=== PATIENT | female | born 1955 | race Caucasian/White ===

== ENCOUNTER 2016-08-04 14:57 | Emergency (ER) | payer MEDICARE, OTHER ==
[2016-08-04] MEDS ORDERED: diphenhydrAMINE INJ 50 MG/ML VIAL IVP STA (16:10)
[2016-08-04] MEDS ORDERED: PANTOPRAZOLE 40 MG VIAL IVP STA (16:10)
[2016-08-04] MEDS ORDERED: HALOPERIDOL 5 MG/ML VIAL IVP ONE (16:10)
[2016-08-04] MEDS ORDERED: SODIUM CHLORIDE 0.9% 1,000 ML IV ONE (16:10)
[2016-08-04] MEDS ORDERED: PANTOPRAZOLE 40 MG VIAL ONE (16:32)
[2016-08-04] MEDS ORDERED: diphenhydrAMINE INJ 50 MG/ML VIAL ONE (16:32)
[2016-08-04] MEDS ORDERED: HALOPERIDOL 5 MG/ML VIAL ONE (16:32)
== END 2016-08-04 17:20 | disposition home or self-care (01) ==
DX: R10.13 Epigastric pain (principal); D72.829 Elevated white blood cell count, unspecified; R11.0 Nausea; R07.9 Chest pain, unspecified; R51 Headache; K21.9 Gastro-esophageal reflux disease without esophagitis; E03.9 Hypothyroidism, unspecified; E78.00 Pure hypercholesterolemia, unspecified; G95.0 Syringomyelia and syringobulbia; M35.00 Sjogren syndrome, unspecified

== ENCOUNTER 2017-10-22 07:01 | Emergency (ER) | payer MEDICARE, OTHER ==
[2017-10-22 07:09] VITALS: BP 120/77
--- NOTE | 2017-10-22 07:36 | ED Physician Documentation ---
PD HPI LOWER EXT INJURY - Stated complaint Stated Complaint: R FOOT INJ - Chief complaint Chief Complaint: Ext Problem - History obtained from History obtained from: Patient - History of Present Illness PD HPI LOW EXT INJURY LOCATION: Right, Foot Type of injury: Twist Where injury occurred: Home Timing - onset: Last night Timing - duration: Hours Timing - details: Abrupt onset, Still present Improved by: Rest, Immobilization Worsened by: Moving Associated symptoms: Swelling. No: Weakness, Numbness Contributing factors: No: Anticoagulated Similar symptoms before: Diagnosis (foot fracture) Recently seen: Not recently seen - Additional information Additional information: 62-year-old female who has had a prior foot fracture was walking her heels yesterday when she took her heels off and walked on her bare feet she twisted her foot and has pain over the dorsum of the foot. She twisted the foot and an eversion injury and the pain she has is over the medial dorsal surface. She has had prior extensive surgery to the foot including removal of the prior hardware. Review of Systems Constitutional: denies: Fever Eyes: denies: Decreased vision Ears: denies: Ear pain Nose: denies: Congestion Respiratory: denies: Cough GI: denies: Vomiting PD PAST MEDICAL HISTORY - Past Medical History Cardiovascular: High cholesterol Respiratory: None Endocrine/Autoimmune: HyPOthyroidism GI: GERD - Past Surgical History General: Cholecystectomy, Appendectomy /[employer]: section - Present Medications Home Medications: Ambulatory Orders Medication Instructions Recorded Confirmed Hyoscyamine Sulfate [Levsin-Sl] 0.125 mg SL TID #14 tab.subl 08/04/16 06/21/17 raNITIdine [Zantac] 150 mg PO DAILY #30 tablet 08/04/16 06/21/17 Aripiprazole [Abilify] DAILY 06/21/17 Atorvastatin [Lipitor] DAILY 06/21/17 Benzonatate [Tessalon Perle] 100 mg PO BID PRN #14 capsule 06/21/17 Duloxetine HCl [Cymbalta] DAILY 06/21/17 Erythromycin [George-Tab] 500 mg DAILY 06/21/17 06/21/17 Hydrocodone/Acetaminophen QID PRN 06/21/17 [Hydrocodone-Acetamin 10-325 mg] Levothyroxine [Synthroid] DAILY 06/21/17 Oxycodone HCl [Oxycontin] 20 mg PO BID PRN 06/21/17 06/21/17 Topiramate [Topamax] 30 mg DAILY 06/21/17 06/21/17 - Allergies Allergies/Adverse Reactions: Allergies Allergy/AdvReac Type Severity Reaction Status Date / Time avocado Allergy Anaphylaxis Verified 10/22/17 07:07 mannitol [From Reclast] Allergy Emesis Verified 10/22/17 07:07 Penicillins Allergy Anaphylaxis Verified 10/22/17 07:07 phenytoin sodium * Allergy Anaphylaxis Verified 10/22/17 07:07 [From Dilantin] phenytoin sodium extended * Allergy Anaphylaxis Verified 10/22/17 07:07 [From Dilantin] Tetracyclines Allergy Unknown Verified 10/22/17 07:08 water for injection,sterile * Allergy Emesis Verified 10/22/17 07:07 [From Reclast] zoledronic acid Allergy Emesis Verified 10/22/17 07:07 [From Reclast] cephalexin monohydrate * AdvReac Rash Verified 10/22/17 07:07 [From Keflex] pentazocine lactate * AdvReac Edema Verified 10/22/17 07:07 [From Talwin] Sulfa (Sulfonamide AdvReac Rash Verified 10/22/17 07:07 Antibiotics) casting material Allergy Unknown Uncoded 10/22/17 07:07 - Social History Does the pt smoke?: No Smoking Status: Never smoker Does the pt drink ETOH?: No Does the pt have substance abuse?: No - Immunizations Immunizations are current?: Yes PD ED PE NORMAL - Vitals Vital signs reviewed: Yes (normal ) - General General: Alert and oriented X 3, No acute distress, Well developed/nourished - HEENT HEENT: Atraumatic, PERRL, EOMI - Neck Neck: Supple, no meningeal sign - Respiratory Respiratory: No respiratory distress - Derm Derm: Normal color, Warm and dry, No rash - Extremities Extremities: No deformity, No edema, Other (There is tenderness over the medial dorsal right foot at the junction to the ankle. The distal n/v is intact and the patient can bear weight on the outside of the foot. ) - Neuro Neuro: No motor deficit, No sensory deficit Eye Opening: Spontaneous Motor: Obeys Commands Verbal: Oriented GCS Score: 15 - Psych Psych: Normal mood, Normal affect Results - Vitals Vitals: Vital Signs - 24 hr 10/22/17 07:03 Temperature 36.4 C L Heart Rate 88 Respiratory 18 Rate Blood Pressure 120/77 O2 Saturation 97 Oxygen O2 Source Room air - Rads (name of study) right foot Radiology: Prelim report reviewed (Impression: 1. No fracture or acute osseous abnormality identified. 2. 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 3. Bones are diffusely demineralized.), EMP read indepedently, See rad report Departure - Departure Disposition: 01 Home, Self Care Clinical Impression: Right foot sprain Qualifiers: Encounter type: initial encounter Qualified Code(s): S93.601A - Unspecified sprain of right foot, initial encounter Condition: Stable Instructions: ED Sprain Foot Follow-Up: Ciaran Samaniego MD [Primary Care Provider] -
--- NOTE | 2017-10-22 08:13 | XRAY Report ---
EXAM: RIGHT FOOT RADIOGRAPHY EXAM DATE: 10/22/2017 08:00 AM. CLINICAL HISTORY: Twist of foot. Dorsomedial pain. COMPARISON: None. TECHNIQUE: 3 nonweightbearing views. FINDINGS: Bones: Diffusely demineralized. No fractures or bone lesions. A moderate calcaneal plantar spur is pr esent. Joints: No subluxation. There is mild degenerative osteoarthritis at the first metatarsophalangeal ilda int. Soft Tissues: No focal soft tissue swelling. IMPRESSION: 1. No fracture or acute osseous abnormality identified. 2. Mild degenerative osteoarthritis at the first metatarsophalangeal joint. 3. Bones are diffusely demineralized. [facility] Referring Provider Line: [phone] SITE ID: [id number]
--- NOTE | 2017-10-22 08:13 | XRAY Preliminary Report ---
Exam: XR FOOT 3 VIEW RT IMPRESSION: 1. No fracture or acute osseous abnormality identified. 2. Mild degenerative osteoarthritis at the first metatarsophalangeal joint. 3. Bones are diffusely demineralized. [facility] SITE ID: [id number]
[2017-10-22] MEDS ORDERED: oxyCOD/ACETAMIN 5 MG/325 MG TABLET PO STA (08:56)
== END 2017-10-22 09:13 | disposition home or self-care (01) ==
LOC: ED 07:01
DX: S93.601A Unspecified sprain of right foot, initial encounter (principal); X50.1XXA Overexertion from prolonged static or awkward postures, initial encounter; Y92.009 Unspecified place in unspecified non-institutional (private) residence as the place of occurrence of the external cause; E78.00 Pure hypercholesterolemia, unspecified; E03.9 Hypothyroidism, unspecified; K21.9 Gastro-esophageal reflux disease without esophagitis
CPT/HCPCS: 73630; 99283; A9270

== ENCOUNTER 2017-11-09 15:35 | Outpatient (CLI) | payer MEDICARE, OTHER ==
--- NOTE | 2017-11-10 14:35 | XRAY Report ---
EXAM: RIGHT FOOT RADIOGRAPHY EXAM DATE: 11/09/2017 04:01 PM. CLINICAL HISTORY: Severe pain post twisting injury of right foot. COMPARISON: None. TECHNIQUE: 3 views. FINDINGS: Bones: Calcaneal enthesopathy. No fractures or bone lesions. Joints: Normal. No subluxations. Soft Tissues: Normal. No soft tissue swelling. IMPRESSION: 1. No fracture. No dislocation. 2. Calcaneal enthesopathy. [facility] Referring Provider Line: [phone] SITE ID: [id number]
== END 2017-11-09 15:36 | disposition home or self-care (01) ==
LOC: DI 15:35
PROVIDERS: ATTEND Internal Medicine
DX: M79.671 Pain in right foot (principal); M77.31 Calcaneal spur, right foot; S99.921A Unspecified injury of right foot, initial encounter

== ENCOUNTER 2018-06-05 10:40 | Outpatient (CLI) | payer MEDICARE, OTHER ==
--- NOTE | 2018-06-05 11:52 | XRAY Report ---
Reason: PAIN AT BASE OF THUMBS Procedure Date: 06/05/2018 Accession Number: [id number] / [id number] Procedure: XR - Hand 3 View BILAT CPT Code: FULL RESULT: EXAMS: 1. Right Hand Radiography 2. Left Hand Radiography EXAM DATE: 06/05/2018 11:04 AM. CLINICAL HISTORY: Pain at base of thumbs. COMPARISON: None. TECHNIQUE: 3 views each hand. FINDINGS: Right: Bones: Normal. No fractures or bone lesions. Joints: Mild to moderate degenerative changes at the carpometacarpal base of the first ray. No subluxations. Soft Tissues: Normal. No soft tissue swelling. Left: Bones: Normal. No fractures or bone lesions. Joints: Degenerative changes at the first carpometacarpal joint, mild to moderate. No subluxations. Soft Tissues: Normal. No soft tissue swelling. IMPRESSION: Degenerative changes at the base of the thumb bilaterally. [facility]
== END 2018-06-05 10:41 | disposition home or self-care (01) ==
LOC: DI 10:40
PROVIDERS: ATTEND Internal Medicine
DX: M19.042 Primary osteoarthritis, left hand (principal); M19.041 Primary osteoarthritis, right hand

== ENCOUNTER 2018-12-05 06:59 | Outpatient (CLI) | payer MEDICARE, OTHER ==
[2018-12-05] MEDS ORDERED: GADOBUTROL 10 MMOL/10 ML VIAL ONE (09:00)
[2018-12-05] MEDS ORDERED: GADOBUTROL 10 MMOL/10 ML VIAL IV ONE ×2 (10:31)
--- NOTE | 2018-12-05 11:10 | MRI Report ---
Reason: SYRINGOMYELIA AND SYRINGOBULBIA Procedure Date: 12/05/2018 Accession Number: [id number] / [id number] Procedure: MRI - Cervical Spine W/WO CPT Code: FULL RESULT: EXAM: MRI CERVICAL SPINE WITHOUT AND WITH CONTRAST EXAM DATE: 12/05/2018 07:38 AM. CLINICAL HISTORY: The reason for the examination given on the requisition is "syringomyelia and syringobulbia." Symptoms also reported a worsening mid back pain and bilateral leg pain. COMPARISON: None. TECHNIQUE: Multiplanar, multisequence T1-weighted and fluid-sensitive sequences of the cervical spine before and after administration of intravenous contrast. Other: None. IV contrast: Without and with 9 mL Gadavist. FINDINGS: Neurologic Structures: The visualized posterior fossa structures are unremarkable. No signal abnormality in the visualized spinal cord. Alignment: No scoliosis or spondylolisthesis. Bone Marrow: No gross fractures or bone lesions. Vertebral body heights are maintained. No marrow edema. Interspace Levels/Facets: C1-C2: Unremarkable. C2-C3: Mild foraminal stenosis on the left from uncinate process spurring and mild facet hypertrophy. C3-C4: Minimal disk bulge. No significant stenosis. C4-C5: Mild disk degeneration. Mild to moderate central stenosis from a broad-based posterior disk protrusion with osteophyte that may be eccentric to the left of midline. Ventral thecal sac effacement. Minimal ventral cord contouring to the left of midline may be present. Patent right foramen. Mild to moderate left foraminal stenosis. Asymmetric left intraforaminal disk protrusion with osteophyte is present. C5-C6: Moderate disk degeneration. Mild to moderate central stenosis. Ventral thecal sac effacement from a broad-based posterior disk protrusion with osteophyte that is eccentric to the right of midline and also associated with mild to moderate right lateral recess stenosis. Bilateral foraminal stenosis from uncinate process spurring and mild facet arthropathy, stenosis of the foramina appears mild to moderate. C6-C7: Solid bony intervertebral disk space fusion. No stenosis. C7-T1: Minimal degenerative changes. No disk extrusion or stenosis. Spinal Canal: No enhancing lesions within the spinal canal. No epidural abscess. Musculature: Mild to moderate diffuse fatty atrophy. Other: No focal prevertebral edema. IMPRESSION: 1. Unremarkable appearance of the cervical spinal cord pre- and postcontrast. 2. Solidly fused intervertebral disk space at C6-C7. 3. Degenerative cervical spinal spondylosis with stenosis, as described above, most prominent at C4-C5 and C5-C6 levels. [facility]
--- NOTE | 2018-12-05 11:42 | MRI Report ---
Reason: SYRINGOMYELIA AND SYRINGOBULBIA Procedure Date: 12/05/2018 Accession Number: [id number] / [id number] Procedure: MRI - Thoracic Spine W/WO CPT Code: FULL RESULT: EXAM: MRI THORACIC SPINE WITHOUT AND WITH CONTRAST EXAM DATE: 12/05/2018 08:06 AM. CLINICAL HISTORY: Syringomyelia and syringobulbia. Worsening mid back pain and bilateral leg pain. COMPARISONS: None. TECHNIQUE: Multiplanar, multisequence T1-weighted and fluid-sensitive sequences of the thoracic spine from C7 to L1 before and after administration of intravenous contrast. Other: None. IV contrast: 9 mL Gadavist. FINDINGS: Spinal Cord: Abnormal central cord fluid signal is present consistent with syrinx in the mid to lower thoracic spine. This is seen to extend from the top of T6 to the bottom of T9 with largest diameter at the T7-T8 level of 2 mm. No accompanying abnormal mass or enhancement. No other focal signal or morphologic abnormality of the thoracic cord which terminates without conus impingement at L1. Alignment: No focal subluxation. Minimal S-shaped scoliosis that is levoconvex superiorly and dextroconvex inferiorly. Bone Marrow: Thoracic vertebral body heights are maintained. No acute marrow edema. Mild chronic type II degenerative endplate signal changes at multiple levels anteriorly, most evident at T6 through T10 along with minimal anterior multilevel marginal spurring. No bone marrow edema or abnormal enhancement. Disk Levels/Facets: No thoracic central canal stenosis, cord compression or focal disk herniation. Chronic multilevel hypertrophic degenerative facet arthropathy. This is notable on the right at T3-T4 and T4-T5 and bilaterally at T5-T6 through T10-T11. Posterior element hypertrophic degenerative changes are associated with mild to moderate chronic appearing degenerative foraminal stenosis. This is most notable at T5-T6 through T8-T9. Spinal Canal: No enhancing masses within the spinal canal. No epidural abscess. Musculature: Moderate diffuse fatty atrophy. Other: There is a broad region of dorsal subcutaneous enhancement and T2 hyperintensity/edema. This extends inferiorly from the T10 level into the upper lumbar region. No loculated fluid collection or abscess. IMPRESSION: 1. Small thoracic cord syrinx without evidence for cord abnormal enhancement, mass or edema. This extends from T6 through T9. 2. No central stenosis. 3. Multilevel chronic appearing degenerative foraminal stenosis from multilevel hypertrophic degenerative facet arthropathy. 4. Nonspecific superficial soft tissue edema posteriorly extending inferiorly from about the T10 level. Soft tissue infection cannot be ruled out, clinical correlation is suggested. There is no evidence for abscess. [facility]
--- NOTE | 2018-12-05 12:07 | MRI Report ---
Reason: SYRINGOMYELIA AND SYRINGOBULBIA Procedure Date: 12/05/2018 Accession Number: [id number] / [id number] Procedure: MRI - Lumbar Spine W/WO CPT Code: FULL RESULT: EXAM: MRI LUMBAR SPINE WITHOUT AND WITH CONTRAST EXAM DATE: 12/05/2018 08:40 AM. CLINICAL HISTORY: Syringomyelia and syringobulbia. Report also of worsening mid back pain and bilateral leg pain. COMPARISONS: None. TECHNIQUE: Multiplanar, multisequence T1-weighted and fluid-sensitive sequences of the lumbar spine from T12 to S1 before and after administration of intravenous contrast. Other: None. IV contrast: 9 mL Gadavist. FINDINGS: Neurologic Structures: The conus terminates at L1. The conus medullaris and cauda equina are unremarkable. Alignment: No scoliosis or spondylolisthesis. Bone Marrow: Five [id number] lumbar vertebral bodies are assumed. No gross fractures or bone lesions. No bone marrow replacement or abnormal enhancement. Disk Levels/Facets: T12-L1: Minimal posterior disk bulge. Slight anterior marginal spurring. Mild facet arthropathy. No stenosis. L1-L2: Intact disk space. No disk herniation or stenosis. Mild facet arthropathy. L2-L3: Slight anterior marginal spurring. Otherwise intact disk space. No disk herniation or stenosis. Mild facet arthropathy. L3-L4: Minimal to mild disk degeneration. Mild facet arthropathy. Shallow circumferential bulge. Minimal anterior marginal spurring. No focal disk extrusion or significant stenosis. L4-L5: Minimal disk degeneration. No focal extrusion. Minimal asymmetric left intraforaminal bulge. No significant stenosis. Negligible anterior marginal spurring. Mild to moderate facet arthropathy. L5-S1: Normal-appearing disk space. No disk herniation or stenosis. Mild facet arthropathy. Spinal Canal: No enhancing masses within the spinal canal. No epidural abscess. Musculature: Mild to moderate diffuse fatty atrophy. Other: Amorphous dorsal subcutaneous T2 hyperintensity with mild enhancement, especially superiorly. These are nonspecific changes. T2 hyperintensity near the midline in the dorsal subcutaneous fat is a common finding that is often incidental. Infection is less likely. No loculated fluid collection or abscess. IMPRESSION: 1. Mild multilevel lumbar degenerative changes are present, but there is no evidence for significant stenosis or nerve root impingement. 2. Nonspecific dorsal subcutaneous lumbar and lower thoracic region edema with mild enhancement. Comment: The following findings are so common in adults without low back pain that while we report their presence, they must be interpreted with caution and in the context of the clinical situation. (Reference Brynnk et al, Spine 2001) Prevalence of findings in patients without low back pain: Disk degeneration (any evidence): 92% Disk desiccation/T2 signal loss: 83% Disk height loss: 56% Disk bulge: 64% Disk protrusion: 32% Annular tear/high intensity zone: 38% [facility]
--- NOTE | 2018-12-05 14:00 | DEXA Report ---
Reason: AGE-RELATED OSTEOPOROSIS Procedure Date: 12/05/2018 Accession Number: [id number] / [id number] Procedure: DEX - Dexa Spine and/or Hip CPT Code: FULL RESULT: EXAM: Dexa Spine and/or Hip DATE: 12/05/2018 9:55 AM CLINICAL HISTORY: AGE-RELATED OSTEOPOROSIS TECHNIQUE: Dual energy x-ray absorptiometry (DXA) was performed on a [employer] System. Regions measured are the AP Spine, femoral neck, and if needed forearm. COMPARISON: None. In accordance with the International Society for Clinical Densitometry (ISCD) guidelines, data from previous exams may be reanalyzed using current recommendations and techniques. This is done to allow a more accurate basis for comparison with the current study. FINDINGS: The data for the lumbar spine is as follows: BMD (g/cm/cm) T-SCORE Z-SCORE REGION L1 1.006 -1.0 -0.9 L2 1.111 -0.7 -0.6 L3 1.068 -1.1 -0.9 L4 1.065 -1.1 -1.0 TOTAL 1.063 -1.0 -0.8 NOTE: All evaluable vertebrae are used for classification The data for the hip is as follows: BMD (g/cm/cm) T-SCORE Z-SCORE REGION Neck 0.730 -2.2 -1.7 TOTAL 0.824 -1.5 -1.3 NOTE: The femoral neck or total proximal femur, whichever is lowest, is used for classification. IMPRESSION: THE WHO CLASSIFICATION BASED ON THE INTERNATIONAL REFERENCE STANDARD IS OSTEOPENIA. THE FRACTURE RISK IS INCREASED. RECOMMENDATION: Patients with diagnosis of osteoporosis or osteopenia should have regular bone mineral density assessment. For those eligible for Medicare, routine testing is allowed once every 2 years. Testing frequency can be increased for patients who have rapidly progressing disease or for those who are receiving medical therapy to restore bone mass. COMMENT: World Health Organization (WHO) definitions for osteoporosis and osteopenia: NORMAL BMD: T-score at -1.0 or higher, fracture risk is low OSTEOPENIA BMD: T-score between -1.0 and -2.5, fracture risk is increased. OSTEOPOROSIS BMD: T-score at -2.5 or lower, fracture risk is high. National Osteoporosis Foundation recommends: 1. Obtain adequate dietary calcium (at least 1200 mg per day) and vitamin D (400-800 international units per day). 2. Participate, as appropriate, in regular weightbearing and muscle-strengthening exercise. 3. Avoid tobacco use and reduce alcohol and caffeine intake. 4. For more detailed information see the website at www.NOF.org.
== END 2018-12-05 07:00 | disposition home or self-care (01) ==
LOC: DI 06:59
PROVIDERS: ATTEND Internal Medicine
DX: M85.89 Other specified disorders of bone density and structure, multiple sites (principal); G95.0 Syringomyelia and syringobulbia; M47.812 Spondylosis without myelopathy or radiculopathy, cervical region; M48.02 Spinal stenosis, cervical region; M51.36 Other intervertebral disc degeneration, lumbar region
CPT/HCPCS: 72156; 72157; 72158; 77080; A9585

== ENCOUNTER 2019-11-16 22:13 | Emergency (ER) | payer MEDICARE, OTHER ==
--- NOTE | 2019-11-16 22:31 | ED Physician Documentation ---
History of Present Illness - Stated complaint Stated Complaint: L LEG PX - Chief complaint Chief Complaint: Ext Problem - History obtained from History obtained from: Patient (Patient is a 64-year-old female presents with a chief complaint of left knee pain. She denies any trauma or recent falls or any history of DVT or PE she reports she is able to ambulate she denies any lower extremity swelling denies any fevers. Denies any back pain.) Review of Systems Constitutional: reports: Reviewed and negative Eyes: reports: Reviewed and negative Ears: reports: Reviewed and negative Nose: reports: Reviewed and negative Throat: reports: Reviewed and negative Cardiac: reports: Reviewed and negative Respiratory: reports: Reviewed and negative GI: reports: Reviewed and negative : reports: Reviewed and negative Skin: reports: Reviewed and negative Musculoskeletal: reports: Joint pain Neurologic: reports: Reviewed and negative Psychiatric: reports: Reviewed and negative Endocrine: reports: Reviewed and negative Immunocompromised: reports: Reviewed and negative PD PAST MEDICAL HISTORY - Past Medical History Cardiovascular: High cholesterol Respiratory: None Endocrine/Autoimmune: HyPOthyroidism GI: GERD - Past Surgical History General: Cholecystectomy, Appendectomy /[employer]: section - Present Medications Home Medications: Ambulatory Orders Medication Instructions Recorded Confirmed Hyoscyamine Sulfate [Levsin-Sl] 0.125 mg SL TID #14 tab.subl 08/04/16 06/21/17 raNITIdine [Zantac] 150 mg PO DAILY #30 tablet 08/04/16 06/21/17 Aripiprazole [Abilify] DAILY 06/21/17 Atorvastatin [Lipitor] DAILY 06/21/17 Benzonatate [Tessalon Perle] 100 mg PO BID PRN #14 capsule 06/21/17 Duloxetine HCl [Cymbalta] DAILY 06/21/17 Erythromycin [George-Tab] 500 mg DAILY 06/21/17 06/21/17 Hydrocodone/Acetaminophen QID PRN 06/21/17 [Hydrocodone-Acetamin 10-325 mg] Levothyroxine [Synthroid] DAILY 06/21/17 Oxycodone HCl [Oxycontin] 20 mg PO BID PRN 06/21/17 06/21/17 Topiramate [Topamax] 30 mg DAILY 06/21/17 06/21/17 - Allergies Allergies/Adverse Reactions: Allergies Allergy/AdvReac Type Severity Reaction Status Date / Time avocado Allergy Anaphylaxis Verified 11/16/19 22:23 mannitol [From Reclast] Allergy Emesis Verified 11/16/19 22:23 Penicillins Allergy Anaphylaxis Verified 11/16/19 22:23 phenytoin sodium * Allergy Anaphylaxis Verified 11/16/19 22:23 [From Dilantin] phenytoin sodium extended * Allergy Anaphylaxis Verified 11/16/19 22:23 [From Dilantin] Tetracyclines Allergy Unknown Verified 11/16/19 22:23 water for injection,sterile * Allergy Emesis Verified 11/16/19 22:23 [From Reclast] zoledronic acid Allergy Emesis Verified 11/16/19 22:23 [From Reclast] cephalexin monohydrate * AdvReac Rash Verified 11/16/19 22:23 [From Keflex] pentazocine lactate * AdvReac Edema Verified 11/16/19 22:23 [From Talwin] Sulfa (Sulfonamide AdvReac Rash Verified 11/16/19 22:23 Antibiotics) casting material Allergy Unknown Uncoded 11/16/19 22:23 - Social History Does the pt smoke?: No Smoking Status: Never smoker Does the pt drink ETOH?: No Does the pt have substance abuse?: No - Immunizations Immunizations are current?: Yes - POLST Patient has POLST: No PD ED PE NORMAL - Vitals Vital signs reviewed: Yes - General General: Alert and oriented X 3, No acute distress - HEENT HEENT: PERRL - Neck Neck: Supple, no meningeal sign - Cardiac Cardiac: RRR, No murmur - Respiratory Respiratory: Clear bilaterally - Abdomen Abdomen: Normal bowel sounds, Soft, Non tender, Non distended - Derm Derm: Warm and dry - Extremities Extremities: No deformity, Normal ROM s pain, No edema, No calf tenderness / cord, Other (The left knee is without gross deformity there is no gross ins tability on anterior posterior draw there is no ballottement or obvious effusions there is no erythema or warmth no crepitus patient is able to bear weight on passive range of motion there is full range of motion on flexion extension of the left knee joint there is negative Cr's negative Olga's.Compartments are soft, neurovascular intact palpable DP and PT pulses.) - Neuro Neuro: Alert and oriented X 3 - Psych Psych: Normal mood, Normal affect Results - Vitals Vitals: Vital Signs - 24 hr 11/16/19 11/17/19 22:18 00:52 Temperature 36.0 C L Heart Rate 90 76 Respiratory 18 18 Rate Blood Pressure 122/81 H 120/65 O2 Saturation 97 98 Oxygen O2 Source Room air PD MEDICAL DECISION MAKING - ED course Complexity details: considered differential (Unsure of the etiology of her knee pain we did get plain radiographs as well as a Doppler extremity ultrasound which was negative for deep vein thrombosis and images are negative for fracture dislocation she is able to ambulate she has good follow-up with her primary care provider tomorrow and she has pain medication at home.) Departure - Departure Disposition: Home, Self Care Clinical Impression: Left knee pain Qualifiers: Chronicity: acute Qualified Code(s): M25.562 - Pain in left knee Condition: Stable Instructions: ED Muscle Pain Leg Cramps Follow-Up: Ciaran Samaniego MD [Primary Care Provider] - 11/17/19 Comments: Follow-up with your primary care provider today. Discharge Date/Time: 11/17/19 00:52
[2019-11-17 00:52] VITALS: BP 120/65
--- NOTE | 2019-11-17 08:08 | XRAY Report ---
Reason: left knee pain Procedure Date: 11/16/2019 Accession Number: [id number] / [id number] Procedure: XR - Knee 3 View LT CPT Code: Final Report FULL RESULT: PROCEDURE: Knee 3 View LT INDICATIONS: left knee pain TECHNIQUE: 3 views of the left knee(s) were acquired. COMPARISON: None. FINDINGS: Bones: No fractures or dislocations. Proximal fibular deformity suggestive of old fracture. No suspicious bony lesions. Mild medial compartment degenerative narrowing. Soft tissues: No joint effusion. No suspicious soft tissue calcifications. IMPRESSION: No visualized acute fracture or dislocation. However, occult injury cannot be excluded. Recommend short interval imaging follow-up in 7-10 days as clinically indicated for additional evaluation. The above findings are concordant with preliminary report. Reviewed by: Rosa Colorado MD on 11/17/2019 8:06 AM PDT Approved by: Rosa Colorado MD on 11/17/2019 8:06 AM PDT Station ID: [id number]
--- NOTE | 2019-11-17 08:09 | Ultrasound Report ---
Reason: left calf pain and swelling Procedure Date: 11/17/2019 Accession Number: [id number] / [id number] Procedure: US - Duplex Ext Veins Left CPT Code: Final Report FULL RESULT: PROCEDURE: Duplex Ext Veins Left INDICATIONS: left calf pain and swelling TECHNIQUE: Real-time imaging, as well as color and pulse Doppler interrogation, were performed of the lower extremity deep veins from the inguinal ligament to the popliteal fossa. COMPARISON: None. FINDINGS: The deep veins are normally compressible, and free of intraluminal thrombus. Color and pulse Doppler demonstrate normal phasic intraluminal flow. There is normal augmentation response to distal compression maneuver. IMPRESSION: No deep venous thrombosis. The above findings are concordant with preliminary report. Reviewed by: Rosa Colorado MD on 11/17/2019 8:07 AM PDT Approved by: Rosa Colorado MD on 11/17/2019 8:07 AM PDT Station ID: [id number]
== END 2019-11-17 00:52 | disposition home or self-care (01) ==
LOC: ED 22:13
DX: M25.562 Pain in left knee (principal)
CPT/HCPCS: 99282; 99284

== ENCOUNTER 2020-02-26 19:46 | Outpatient (CLI) | payer MEDICARE, OTHER | END 2020-02-26 19:47 | disposition home or self-care (01) | LOC: SC 19:46 | PROVIDERS: ATTEND Internal Medicine Pulmonary Disease | DX: G47.33 Obstructive sleep apnea (adult) (pediatric) (principal); E66.9 Obesity, unspecified; Z68.41 Body mass index [BMI] 40.0-44.9, adult | CPT/HCPCS: 95810 ==

== ENCOUNTER 2020-03-02 09:51 | Outpatient (CLI) | payer MEDICARE, OTHER ==
--- NOTE | 2020-03-02 10:52 | SLEEP CARE CONSULTATION ---
Information from patient questionnaire entered by Natalia Payan. I have reviewed and concur with the information entered by Natalia Payan. This document represents the service I personally performed and the decisions made by me, Sunshine Sam MD, [facility]. History of Present Illness Service Date and Time: 03/02/2020 0951 Initial [place] Sleepiness Scale score: 18 (in 2019) Current [place] Sleepiness Scale score: 19 Additional HPI information: HPI: Ms. Kessler was returns for follow up of the sleep study she had on 02/26/2020. The polysomnography showed that the patient had normal sleep efficiency. Despite moderate sleep fragmentation, the sleep architecture was normal as well. Respiratory monitoring showed moderate obstructive sleep apnea-hypopnea (AHI = 26.7) associated with frequent arousals, oxyhemoglobin desaturation and moderate hypoxia (cielo oxygen saturation of 72%). Baseline oxygen saturation was normal. The respiratory events occurred mainly during supine sleep (supine AHI = 35.3; non-supine = 14.09). Snore was light in intensity. There was no significant periodic leg movement of sleep. Cardiac rhythm was normal sinus rhythm without significant arrhythmia. No abnormal behavior (parasomnia) observed during the night. The patient was informed of these findings. I explained to her the pathophysiology behind obstructive sleep apnea. We then spent quite a bit of time discussing different treatment options. For mild obstructive sleep apnea, surgery and oral appliance are alternatives to nasal CPAP therapy but in moderate or severe cases, nasal CPAP is the most effective and reliable treatment. After some discussion, she opted to go with the nasal CPAP therapy. I explained to her how CPAP machine works and what to expect when using the machine. Sleep Study - Results Type of Sleep Study: Polysomnography Prior sleep studies: Yes Year and Where: 1998 - [facility] in [place], [place] Allergies and Home Medications Drug allergies reviewed: Yes Home medication list reviewed: Yes Review of Systems Review of systems same as previous: Yes Physical Exam Vital signs obtained and entered by: To minimize the risk of COVID-19 exposure, detailed exam was not performed. Height: 5 ft Weight: 220 lb Body Mass Index: 43.0 BMI Classification: Morbidly Obese Impression and Plan IMPRESSION: 1. Obstructive Sleep Apnea-Hypopnea Syndrome, moderate, associated with moderate hypoxemia and sleep fragmentation. Most likely, this is the cause of the patients symptoms of unrefreshed sleep, and excessive daytime sleepiness. As mentioned above, the patient will be return for a manual CPAP/BiPAP titration study. PLAN: 1. Schedule a manual CPAP/BiPAP titration study. 2. Attempt to lose weight. 3. Return for a follow up after the next sleep study. I will prescribe her a CPAP at that time. Visit Type: In Office Time Spent with Patient (minutes): 15 Provider Statement: I spent 100% of the Face to Face Visit with the patient with greater than 50% spent counseling the patient and coordination of care.
== END 2020-03-02 09:52 | disposition home or self-care (01) ==
LOC: SC 09:51
PROVIDERS: ATTEND Internal Medicine Pulmonary Disease
DX: G47.33 Obstructive sleep apnea (adult) (pediatric) (principal); E66.01 Morbid (severe) obesity due to excess calories; Z68.41 Body mass index [BMI] 40.0-44.9, adult
CPT/HCPCS: 99213; G0463; 99212

== ENCOUNTER 2020-04-02 21:26 | Outpatient (CLI) | payer MEDICARE, OTHER | END 2020-04-02 21:27 | disposition home or self-care (01) | LOC: SC 21:26 | PROVIDERS: ATTEND Internal Medicine Pulmonary Disease | DX: G47.33 Obstructive sleep apnea (adult) (pediatric) (principal); G47.61 Periodic limb movement disorder; Z68.41 Body mass index [BMI] 40.0-44.9, adult | CPT/HCPCS: 95811 ==

== ENCOUNTER 2020-04-08 17:17 | Outpatient (CLI) | payer MEDICARE, OTHER ==
--- NOTE | 2020-04-08 16:57 | SLEEP CARE CONSULTATION ---
Information from patient questionnaire entered by Marci Chapa. I have reviewed and concur with the information entered by Marci Chapa. This document represents the service I personally performed and the decisions made by , Maye Rey ARNP. History of Present Illness Service Date and Time: 04/08/2020 1640 Initial [place] Sleepiness Scale score: 18 (in 2020) Current [place] Sleepiness Scale score: 16 Additional HPI information: GURDEEP CAZARES returns for a Telehealth visit for follow up of the sleep study with a manual CPAP titration study performed on 04-02-20. The patient was informed of the following polysomnography findings: Moderate obstructive sleep apnea with an average AHI 26.7. During the study they found that the optimal CPAP pressure is 12 cm H2O. Sleep Study - Results Type of Sleep Study: Polysomnography Prior sleep studies: Yes Year and Where: 1998 - [facility] in [place], [place] Polysomnography/Home Sleep Study results: IMPRESSION: The quality of the study is good. CPAP was initiated at 4 cmH2O and titrated up to CPAP at 13 cmH2O. CPAP at 12 cmH2O appeared to be almost adequate (AHI of 5.4 per hour on the pressure). There was supine REM sleep on the pressure. Oxygen saturation was minimally low. Lower CPAP settings allowed frequent residual respiratory events. The patient appeared to have tolerated positive airway pressure therapy very well. The patients sleep efficiency was normal. The sleep architecture was abnormal for sleep fragmentation and reduced amount of time spent in slow wave sleep (N3). There was mild periodic leg movement of sleep contributing to the sleep fragmentation. Cardiac rhythm was normal sinus rhythm without significant arrhythmia. No abnormal behavior (parasomnia) observed during the night. Allergies and Home Medications Drug allergies reviewed: Yes (see list) Physical Exam Vital signs obtained and entered by: Telehealth visit, no vitals obtained Height: 5 ft Impression and Plan 1. Obstructive Sleep Apnea-Hypopnea Syndrome, moderate. Obviously this is the cause of the patients symptoms of unrefreshed sleep, and excessive daytime sleepiness. His titration study showed that 12 cm H2O or range of 10-15 cm H2O would be adequate for apnea control. Positive pressure therapy could benefit her asthma, anxiety and depression issues. The patient will be started on nasal autoCPAP therapy with pressure set at 10-15 cmH2O. Compliance guidelines also reviewed. A copy of compliance guidelines will be given for reference at check out. Because the apnea is more severe supine, I instructed to avoid sleeping supine using pillow positioning until able to start CPAP use. * Nasal auto CPAP therapy, pressure at 10-15 cm H2O. * Attempt to lose weight. * Avoid alcohol consumption near bedtime. * Avoid supine sleep until using CPAP. * The patient is again cautioned about driving until sleepiness completely resolves. * Return one month after CPAP obtained. I will assess response to therapy and compliance at that time. Counseling Topics: Weight loss health impact Visit Type: Telehealth Video Video Type: Harriet Patient Location: Home Location of Provider: Home Patient agrees and consents to this telehealth visit type: Yes Patient agrees to have their insurance billed: Yes Time Spent with Patient (minutes): 15 Provider Statement: I spent 100% of the Telehealth Video Call with the patient with greater than 50% spent counseling the patient and coordination of care.
== END 2020-04-08 17:18 | disposition home or self-care (01) ==
LOC: SC 17:17
PROVIDERS: ATTEND Nurse Practitioner Family
DX: G47.33 Obstructive sleep apnea (adult) (pediatric) (principal)

== ENCOUNTER 2020-07-12 07:00 | Outpatient (CLI) | payer MEDICARE, OTHER | END 2020-07-12 23:59 | disposition home or self-care (01) | LOC: COV 07:00 | PROVIDERS: ATTEND Family Medicine | DX: R50.9 Fever, unspecified (principal); R05 Cough; R06.02 Shortness of breath; M79.10 Myalgia, unspecified site; R53.83 Other fatigue; R07.0 Pain in throat; R43.9 Unspecified disturbances of smell and taste; R09.81 Nasal congestion; J34.89 Other specified disorders of nose and nasal sinuses; Z20.822 Contact with and (suspected) exposure to COVID-19 ==

== ENCOUNTER 2020-07-19 11:10 | Outpatient (CLI) | payer MEDICARE, OTHER ==
--- NOTE | 2020-07-19 12:09 | SLEEP CARE CONSULTATION ---
Information from patient questionnaire entered by Natalia Payan. I have reviewed and concur with the information entered by Natalia Payan. This document represents the service I personally performed and the decisions made by me, Sunshine Sam MD, [facility]. History of Present Illness Service Date and Time: 07/19/2020 1110 Previous diagnosis: Moderate, Obstructive Sleep Apnea-Hypopnea Syndrome AHI: 26.7 (in 2019) Reason for follow up: first compliance Equipment type: CPAP Equipment obtained from: Other ([facility]) Prior sleep studies: Yes Year and Where: 2019 - [facility]; 1998 - [facility] in [place], [place] Type of Sleep Study: Polysomnography HPI additional information: HPI: Ms. Kessler returned today for follow up of nasal CPAP therapy. She was diagnosed to have moderate obstructive sleep apnea-hypopnea syndrome. The patient went to [facility] for the equipment and was fitted with a Respironics DreamWear full face mask. She reports using the device almost nightly but all through the night. The compliance report shows usage in 40 nights out of the past 60 nights, averaging 3.4 hours a night. She complained of nose burning. She thinks that the pressure of 10 - 15 cmH2O is comfortable. On the CPAP therapy she has not noticed improvement. The [place] Sleepiness Scale score 10. The average residual AHI is 10.1 (mostly unspecified apnea type): and air leak, 56.9 L/min. The 90th percentile pressure is 10.8 cmH2O. CPAP Compliance Data - Data Reviewed with Patient Average duration of nightly device use: 3 hr 15 min Compliance rate %: 30 Current pressure setting (cmH2O): 10-15 Humidity settin Average residual AHI: 11.0 Subjective Missed days of use due to: reports: illness Patient concerns: reports: mask discomfort, nasal congestion, dry mouth, nose, throat Initial [place] Sleepiness Scale score: 18 (in 2019) Current [place] Sleepiness Scale score: 10 Allergies and Home Medications Drug allergies reviewed: Yes Home medication list reviewed: Yes Review of Systems Review of systems same as previous: Yes Physical Exam Vital signs obtained and entered by: To minimize the risk of COVID-19 exposure, detailed exam was not performed; Height: 5 ft Weight: 220 lb Body Mass Index: 43.0 BMI Classification: Morbidly Obese Impression and Plan IMPRESSION: 1. Obstructive Sleep Apnea-Hypopnea Syndrome, moderate, with the patient continuing to have [id number] compliance due to mask not fitting well and nose dryness. She does not know that she can adjust the heated humidifier setting. She said the [employer] supplier told her to not touch anything. The current pressure appears effective and comfortable. The patient will try to use her CPAP more often. We reviewed the Medicare compliance guidelines again. PLAN: 1. Continue with autoCPAP set at 10 - 15 cmH2O. 2. Try to lose weight 3. Try ResMed AirTouch F-20 full face mask. Prescription made. 4. Return in one month to recheck compliance (has until August 15 before having to return the CPAP). Visit Type: In Office Time Spent with Patient (minutes): 15 Provider Statement: I spent 100% of the Face to Face Visit with the patient with greater than 50% spent counseling the patient and coordination of care.
== END 2020-07-19 11:11 | disposition home or self-care (01) ==
LOC: SC 11:10
PROVIDERS: ATTEND Internal Medicine Pulmonary Disease
DX: G47.33 Obstructive sleep apnea (adult) (pediatric) (principal); E66.01 Morbid (severe) obesity due to excess calories; Z68.41 Body mass index [BMI] 40.0-44.9, adult
CPT/HCPCS: 99212; G0463

== ENCOUNTER 2020-08-09 10:29 | Outpatient (CLI) | payer MEDICARE, OTHER ==
--- NOTE | 2020-08-09 12:34 | SLEEP CARE CONSULTATION ---
Information from patient questionnaire entered by Loli Nichole. I have reviewed and concur with the information entered by Loli Nichole. This document represents the service I personally performed and the decisions made by me, Sunshine aSm MD, [facility]. History of Present Illness Service Date and Time: 08/09/2020 1029 Previous diagnosis: Moderate, Obstructive Sleep Apnea-Hypopnea Syndrome AHI: 26.7 Reason for follow up: one month (1-month followup - last chance at compliance) Equipment type: CPAP Equipment obtained from: Other ([facility]) Prior sleep studies: Yes Year and Where: 2019 - [facility]; 1998 - [facility] in [place], [place] Type of Sleep Study: Polysomnography HPI additional information: HPI: Ms. Kessler was diagnosed to have moderate obstructive sleep apnea-hypopnea syndrome and prescribed with a CPAP device. She returned today for follow up of CPAP therapy. The patient purchased the device from [employer] and was fitted with a Respironics DreamWear full face mask. She uses the device almost nightly but not all the night. The compliance data show usage in 28 out of the past 30 nights, averaging 4.3 hours a night. The residual The > 4 hour compliance rate for the past 30 days is 57%. She complains of no particular problem such as dry throat, facial soreness, aerophagia, sinus pain, or nasal congestion. She thinks that the current pressure of 10 - 15 cmH2O seems alright. The residual AHI is 10.2. Average air leak is 81.9. CPAP Compliance Data - Data Reviewed with Patient Average duration of nightly device use: 4 h 26 min Compliance rate %: 60 Current pressure setting (cmH2O): 10-15 Average residual AHI: 10.0 Subjective Missed days of use due to: reports: illness Initial [place] Sleepiness Scale score: 18 (in 2019) Current [place] Sleepiness Scale score: 18 Allergies and Home Medications Drug allergies reviewed: Yes Home medication list reviewed: Yes Review of Systems Review of systems same as previous: Yes Physical Exam Height: 5 ft Weight: 220 lb Body Mass Index: 43.0 BMI Classification: Morbidly Obese Impression and Plan IMPRESSION: 1. Obstructive Sleep Apnea-Hypopnea Syndrome, moderate (AHI was 26.7), with the patient did not make the compliance requirement. However, she still has 6 more days left and if she can use the device longer than 4 hours on those days, then she could become compliant. The large air leak is puzzling. She reports no leak around the mask. I asked her to bring in her equipment on her next visit to see if there is a leak somewhere in the system. PLAN: 1. Use CPAP at least 4 hours a night the next 6 days. 2. Return for a follow up next week with her machine, hose, and mask Visit Type: In Office Time Spent with Patient (minutes): 15 Provider Statement: I spent 100% of the Face to Face Visit with the patient with greater than 50% spent counseling the patient and coordination of care.
== END 2020-08-09 10:30 | disposition home or self-care (01) ==
LOC: SC 10:29
PROVIDERS: ATTEND Internal Medicine Pulmonary Disease
DX: G47.33 Obstructive sleep apnea (adult) (pediatric) (principal); E66.01 Morbid (severe) obesity due to excess calories; Z68.41 Body mass index [BMI] 40.0-44.9, adult
CPT/HCPCS: 99212; G0463

== ENCOUNTER 2020-08-10 10:29 | Outpatient (CLI) | payer MEDICARE, OTHER ==
--- NOTE | 2020-08-10 15:30 | XRAY Report ---
PROCEDURE: Shoulder 3 View RT INDICATIONS: foosh, pain in posterior shoulder TECHNIQUE: 3 views of the shoulder were acquired. COMPARISON: None. FINDINGS: Bones: No acute or subacute fractures or dislocations. Degenerative changes of the right acromioclav icular joint. No suspicious bony lesions. Visualized ribs appear intact. Soft tissues: No suspicious soft tissue calcifications. IMPRESSION: Degenerative changes of the right acromioclavicular joint. Otherwise, no acute/subacute fractures or dislocations visualized in the right shoulder. Reviewed by: Juno Rose MD on 08/10/2020 3:29 PM PST Approved by: Juno Rose MD on 08/10/2020 3:29 PM PST Station ID: [id number]
== END 2020-08-10 10:30 | disposition home or self-care (01) ==
LOC: DI 10:29
PROVIDERS: ATTEND Internal Medicine
DX: M19.011 Primary osteoarthritis, right shoulder (principal)

== ENCOUNTER 2020-08-16 08:53 | Outpatient (CLI) | payer MEDICARE, OTHER ==
--- NOTE | 2020-08-16 09:40 | SLEEP CARE CONSULTATION ---
Information from patient questionnaire entered by Natalia Payan. I have reviewed and concur with the information entered by Natalia Payan. This document represents the service I personally performed and the decisions made by me, Sunshine Sam MD, [facility]. History of Present Illness Service Date and Time: 08/16/2020 0853 Previous diagnosis: Moderate, Obstructive Sleep Apnea-Hypopnea Syndrome AHI: 26.7 Reason for follow up: other (3 week, last chance for compliance) Equipment type: CPAP Equipment obtained from: Other ([facility]) Mask style: Full face Mask brand: Respironics (Dreamwear) Prior sleep studies: Yes Year and Where: 2019 - [facility]; 1998 - [facility] in [place], [place] Type of Sleep Study: Polysomnography HPI additional information: HPI: Ms. Kessler was diagnosed to have moderate obstructive sleep apnea-hypopnea syndrome and prescribed with a CPAP device. She returned today for follow up of CPAP therapy for the final compliance check. The patient purchased the device from [employer] and was fitted with a Respironics DreamWear full face mask. She uses the device almost nightly but not all the night. The compliance data show usage in 30 out of the past 30 nights, averaging 4.6 hours a night. The residual The > 4 hour compliance rate for the past 30 days is 67%. She complains of no particular problem such as dry throat, facial soreness, aerophagia, sinus pain, or nasal congestion. She thinks that the current pressure of 10 - 15 cmH2 O seems alright. The residual AHI is 8.5. Average air leak is 86 L/minute. She would like to stay on the treatment because she feels better on it.. CPAP Compliance Data - Data Reviewed with Patient Average duration of nightly device use: 4 hr 33 min Compliance rate %: 67 Current pressure setting (cmH2O): 10-15 Humidity settin Average residual AHI: 8.5 Subjective Missed days of use due to: reports: family emergency, mask issues Patient concerns: reports: dry mouth, nose, throat, other (nose discomfort) Initial [place] Sleepiness Scale score: 18 (in 2019) Current [place] Sleepiness Scale score: 18 Allergies and Home Medications Drug allergies reviewed: Yes Home medication list reviewed: Yes Review of Systems Review of systems same as previous: Yes Physical Exam Height: 5 ft Weight: 220 lb Body Mass Index: 43.0 BMI Classification: Morbidly Obese Impression and Plan IMPRESSION: 1. Obstructive Sleep Apnea-Hypopnea Syndrome, moderate (AHI was 26.7), with the patient still could not make the compliance requirement. Apparently, the durable medical supplier made her confused by telling her that she had 8 hours left to use to meet compliance, and the patient thought the she can get that over the last 3 days. I explained to her again that it has to be at least 4 hours a day. PLAN: 1. Requalify the patient for the treatment with a home sleep apnea test (HSAT). 2. Return for a follow up after the test and I will reorder her a machine. Visit Type: In Office Time Spent with Patient (minutes): 15 Provider Statement: I spent 100% of the Face to Face Visit with the patient with greater than 50% spent counseling the patient and coordination of care.
== END 2020-08-16 08:54 | disposition home or self-care (01) ==
LOC: SC 08:53
PROVIDERS: ATTEND Internal Medicine Pulmonary Disease
DX: G47.33 Obstructive sleep apnea (adult) (pediatric) (principal); E66.01 Morbid (severe) obesity due to excess calories; Z68.41 Body mass index [BMI] 40.0-44.9, adult
CPT/HCPCS: 99212; G0463

== ENCOUNTER 2020-08-30 15:39 | Outpatient (CLI) | payer MEDICARE, OTHER ==
--- NOTE | 2020-08-30 15:57 | XRAY Report ---
PROCEDURE: Lumbar Spine 2 View INDICATIONS: SCIATICA TECHNIQUE: 3 views of the lumbar spine were acquired. COMPARISON: None. FINDINGS: Bones: 5 [id number]-[id number] vertebrae are present. There is mild diffuse leftward curvature of the mid /lower lumbar spine and otherwise normal alignment. Multilevel disc space narrowing and endplate oste ophyte formation. Facet hypertrophy throughout the mid and lower lumbar spine. No vertebral body comp ression fractures. No suspicious bony lesions. Soft tissues: Overlying bowel gas pattern is normal. No suspicious soft tissue calcifications. IMPRESSION: Multilevel degenerative disc and facet disease. No acute fracture. No osseous lesion. If symptoms and/or clinical suspicion for pathology continue, further assessment with repeat plain film s, or advanced imaging (e.g., CT, MRI, or bone scan) is recommended for further assessment. Reviewed by: Anya Little MD on 08/30/2020 3:56 PM PDT Approved by: Anya Little MD on 08/30/2020 3:56 PM PDT Station ID: [id number]
== END 2020-08-30 15:40 | disposition home or self-care (01) ==
LOC: DI 15:39
PROVIDERS: ATTEND Internal Medicine
DX: M51.16 Intervertebral disc disorders with radiculopathy, lumbar region (principal)

== ENCOUNTER 2020-09-06 08:33 | Outpatient (CLI) | payer MEDICARE, OTHER | END 2020-09-06 08:34 | disposition home or self-care (01) | LOC: SC 08:33 | PROVIDERS: ATTEND Internal Medicine Pulmonary Disease | DX: G47.33 Obstructive sleep apnea (adult) (pediatric) (principal); R09.02 Hypoxemia; E66.9 Obesity, unspecified; Z68.41 Body mass index [BMI] 40.0-44.9, adult | CPT/HCPCS: G0399 ×2; 95806 ==

== ENCOUNTER 2020-10-05 10:12 | Outpatient (CLI) | payer MEDICARE, OTHER ==
--- NOTE | 2020-10-05 10:58 | SLEEP CARE CONSULTATION ---
Information from patient questionnaire entered by Natalia Payan. I have reviewed and concur with the information entered by Natalia Payan. This document represents the service I personally performed and the decisions made by , Maye Rey ARNP. History of Present Illness Service Date and Time: 10/05/2020 1012 Initial [place] Sleepiness Scale score: 18 (in 2019) Current [place] Sleepiness Scale score: 17 Additional HPI information: BRISEIDA CAZARES returns for follow up and results of the recently performed home sleep study. Briseida showed to have mild obstructive sleep apnea with HST. She may continue with the CPAP therapy and just needs to get her compliance up. She has continued to use the CPAP machine and her compliance is at 53% with an average nightly use of 4 hours 33 minutes. Her machine pressure is set at 10-15 cmH2O and her average residual AHI is at 7.9. She has large leaks with average of 116.2 L/min. Patient states she is putting the mask on every night and will watch some television at the beginning of the night. She wakes up frequently due to some sciatic pain. She states she is trying to keep mask on for required 4 hours and is not sure why it is not reflecting her as compliant. She has had 16/30 days compliant with 11 days with less than 4 hours of sleep recorded. Sleep Study - Results Type of Sleep Study: Home sleep study Prior sleep studies: Yes Year and Where: 2019 - [facility]; 1998 - [facility] in [place], [place] Polysomnography/Home Sleep Study results: Physician Impression: The quality of the study is good. The length of the study is adequate (> 240 minutes). Please also see the tabulated and graphic data. 1. Obstructive Sleep Apnea-Hypopnea (ICD-10 G47.33), mild, with an AHI of 5.1/hr and cielo SaO2 of 87%. During the study, the patient had 3 apneas (3 obstructive, 0 central, 0 mixed) and 49 hypopneas. The longest episode lasted 33.0 seconds. The respiratory events occurred independently of body position sleep (supine AHI was 5.1 and non-supine, 7.89). 2. Hypoxemia (ICD-10 R09.02), mild, with the lowest oxygen saturation of 87 % an d 12.2 minutes with SaO2 under 90%. Baseline oxygen saturation was normal (Average oxygen saturation was 95%). Allergies and Home Medications Home medication list reviewed: Yes (Robaxin, Triazidene) Review of Systems Review of systems same as previous: Yes (sciatica pain) Physical Exam Heart Rate: 85 O2 Saturation: 96 Height: 5 ft Weight: 213 lb Body Mass Index: 41.5 BMI Classification: Morbidly Obese Impression and Plan 1. Obstructive Sleep Apnea-Hypopnea Syndrome, moderate AHI 26.7, 2019 and mild AHI 5.1 2020 HST, with lowest oxygen saturation of 87%. Patient was 53% compliant with last 30 days. Compliance guidelines also reviewed. I encouraged her to continue to use nightly and make sure to keep on at least 4 hours. Patient was counseled on the difference between meeting compliance and optimal use of CPAP. Optimal use of CPAP is use of CPAP with all sleep to obtain maximum benefit of treatment. Patient is encouraged to use CPAP with all sleep. We will continue pressure setting at 10-15 cmH2O and have her follow up for compliance recheck in 1 month. * Nasal auto CPAP therapy, pressure at 10-15 cm H2O. * Attempt to lose weight. * Avoid alcohol consumption near bedtime. * The patient is again cautioned about driving until sleepiness completely resolves. * Return in one month and I will assess response to therapy and compliance at that time. Counseling Topics: Weight loss health impact Visit Type: In Office Time Spent with Patient (minutes): 24 Provider Statement: I spent 100% of the Face to Face Visit with the patient with greater than 50% spent counseling the patient and coordination of care.
== END 2020-10-05 10:13 | disposition home or self-care (01) ==
LOC: SC 10:12
PROVIDERS: ATTEND Nurse Practitioner Family
DX: G47.33 Obstructive sleep apnea (adult) (pediatric) (principal); E66.01 Morbid (severe) obesity due to excess calories; Z68.41 Body mass index [BMI] 40.0-44.9, adult
CPT/HCPCS: 99213; G0463; 99212

== ENCOUNTER 2020-11-04 08:32 | Outpatient (CLI) | payer MEDICARE, OTHER ==
--- NOTE | 2020-11-04 09:05 | SLEEP CARE CONSULTATION ---
Information from patient questionnaire entered by Natalia Payan. I have reviewed and concur with the information entered by Natalia Payan. This document represents the service I personally performed and the decisions made by , Maye Rey ARNP. History of Present Illness Service Date and Time: 11/04/2020 0832 Previous diagnosis: Mild, Obstructive Sleep Apnea-Hypopnea Syndrome AHI: 5.1 (in 2020)(26.7 in 2019) Reason for follow up: one month (for compliance) Equipment type: CPAP Equipment obtained from: Other ([facility]) Mask style: Full face Backup mask available: Yes (old mask) Prior sleep studies: Yes Year and Where: 2020 and 2019 - [facility]; 1998 - [facility] in [place], [place] Type of Sleep Study: Home sleep study HPI additional information: GURDEEP CAZARES was diagnosed to have mild, AHI 5.1, obstructive sleep apnea- hypopnea syndrome and returned today with spouse for CPAP therapy one month follow-up. CPAP Compliance Data - Data Reviewed with Patient Average duration of nightly device use: 5 hr 23 min Compliance rate %: 73 Current pressure setting (cmH2O): 10-15 (median 10.3, avg 12.9) Humidity settin Average residual AHI: 10.2 Subjective Missed days of use due to: reports: travel Patient concerns: reports: air blowing in eyes, other (snore while using device). denies: aerophagia, mask discomfort, mask leak noise, condensation in mask/hose, nasal congestion, dry mouth, nose, throat, epistaxis Observed to snore while using device: Yes Current pressure setting perceived as: comfortable On therapy, patient: reports: sleeping better, awakening more refreshed, being more awake and alert during the day, more rested overall. denies: drowsiness while driving Initial Ten Sleep Sleepiness Scale score: 18 (in 2020) Current Ten Sleep Sleepiness Scale score: 18 Allergies and Home Medications Home medication list reviewed: Yes (no changes) Review of Systems Review of systems same as previous: Yes (sciatica) Physical Exam Heart Rate: 83 O2 Saturation: 96 Height: 5 ft Weight: 213 lb Body Mass Index: 41.5 BMI Classification: Morbidly Obese Impression and Plan 1. Obstructive Sleep Apnea-Hypopnea Syndrome, mild 2020 (moderate 2019), with good treatment compliance and fair apnea control with elevated residual AHI. On CPAP therapy, the patient has better sleep quality and is more rested overall. She has reached compliance. She is snoring some through the mask. I discussed with patient that an increase in pressure can reduce her residual AHI. The patient feels the pressure is high enough and asks not to have it increased despite elevated AHI. Patient advised to contact me if pressure change is uncomfortable so that it can be adjusted. Goals for apnea control discussed. She has air leaking in her eyes with current full face mask and would like to try a different mask that would fit better for her. I will order a mask refitting and update her supplies since she is not compliant. Patient's apnea severity and rationale for treatment to reduce apnea, improve sleep quality and reduce cardiovascular and cerebrovascular events was reviewed. I also reviewed the benefit of consistent device use of CPAP for depression/anxiety. * Continue auto CPAP pressure at 10-15 cmH2O * Mask refitting * Update supplies * Notify me if snoring with mask or feeling that the pressure is too much or too little * Attempt to lose weight * Call this office if any problems using CPAP * Return for follow up in 1 year, or sooner if concerns arise Counseling Topics: Spare mask, Weight loss health impact Visit Type: In Office Time Spent with Patient (minutes): 21 Provider Statement: I spent 100% of the Face to Face Visit with the patient with greater than 50% spent counseling the patient and coordination of care.
== END 2020-11-04 08:33 | disposition home or self-care (01) ==
LOC: SC 08:32
PROVIDERS: ATTEND Nurse Practitioner Family
DX: G47.33 Obstructive sleep apnea (adult) (pediatric) (principal); E66.01 Morbid (severe) obesity due to excess calories; Z68.41 Body mass index [BMI] 40.0-44.9, adult
CPT/HCPCS: 99213; G0463; 99212

== ENCOUNTER 2021-05-01 13:49 | Emergency (ER) | payer MEDICARE, OTHER ==
[2021-05-01 13:58] VITALS: BP 147/80
--- NOTE | 2021-05-01 14:43 | XRAY Report ---
PROCEDURE: Chest 2 View X-Ray INDICATIONS: cough TECHNIQUE: 2 view(s) of the chest. COMPARISON: None. FINDINGS: Surgical changes and devices: Cholecystectomy clips.. Lungs and pleura: No pleural effusions or pneumothorax. Mild diffuse interstitial prominence. No foc al consolidations. Mediastinum: Mediastinal contours are normal. Heart size is normal. Bones and chest wall: No suspicious bony abnormalities. Soft tissues appear unremarkable. IMPRESSION: 1. Mild diffuse interstitial prominence without focal consolidations. This may indicate viral or atyp ical pneumonia. Reviewed by: Katie Henson MD on 05/01/2021 2:42 PM PST Approved by: Katie Henson MD on 05/01/2021 2:42 PM PST Station ID: [id number]
--- NOTE | 2021-05-01 14:49 | ED Physician Documentation ---
PD SILVERIO HEENT - Stated complaint Stated Complaint: COUGH - Chief complaint Chief Complaint: Resp - History obtained from History obtained from: Patient - Additional information Additional information: 2 and half weeks of productive cough, initially green with shortness of breath. The sputum lightened up a bit after taking a Z-To she got from [place] but got darker again. No fevers. No sick contacts. She was immunized against Covid with Pfizer vaccine, second vaccination in the early summer. 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 - Present Medications Home Medications: Ambulatory Orders Medication Instructions Recorded Confirmed Hyoscyamine Sulfate [Levsin-Sl] 0.125 mg SL TID #14 tab.subl 08/04/16 06/21/17 raNITIdine [Zantac] 150 mg PO DAILY #30 tablet 08/04/16 06/21/17 Aripiprazole [Abilify] DAILY 06/21/17 Atorvastatin [Lipitor] DAILY 06/21/17 Benzonatate [Tessalon Perle] 100 mg PO BID PRN #14 capsule 06/21/17 Duloxetine HCl [Cymbalta] DAILY 06/21/17 Erythromycin [George-Tab] 500 mg DAILY 06/21/17 06/21/17 Hydrocodone/Acetaminophen QID PRN 06/21/17 [Hydrocodone-Acetamin 10-325 mg] Levothyroxine [Synthroid] DAILY 06/21/17 Oxycodone HCl [Oxycontin] 20 mg PO BID PRN 06/21/17 06/21/17 Topiramate [Topamax] 30 mg DAILY 06/21/17 06/21/17 Benzonatate [Tessalon] 200 mg PO QID PRN #20 cap 05/01/21 guaiFENesin/CODEINE [Robitussin AC] 5 - 10 ml PO Q6H PRN #120 ml 05/01/21 - Allergies Allergies/Adverse Reactions: Allergies Allergy/AdvReac Type Severity Reaction Status Date / Time avocado Allergy Anaphylaxis Verified 05/01/21 13:58 mannitol [From Reclast] Allergy Emesis Verified 05/01/21 13:58 Penicillins Allergy Anaphylaxis Verified 05/01/21 13:58 phenytoin sodium * Allergy Anaphylaxis Verified 05/01/21 13:58 [From Dilantin] phenytoin sodium extended * Allergy Anaphylaxis Verified 05/01/21 13:58 [From Dilantin] Tetracyclines Allergy Unknown Verified 05/01/21 13:58 water for injection,sterile * Allergy Emesis Verified 05/01/21 13:58 [From Reclast] zoledronic acid Allergy Emesis Verified 05/01/21 13:58 [From Reclast] cephalexin monohydrate * AdvReac Rash Verified 05/01/21 13:58 [From Keflex] pentazocine lactate * AdvReac Edema Verified 05/01/21 13:58 [From Talwin] Sulfa (Sulfonamide AdvReac Rash Verified 05/01/21 13:58 Antibiotics) casting material Allergy Unknown Uncoded 05/01/21 13:58 - Social History Does the pt smoke?: No Smoking Status: Never smoker Does the pt drink ETOH?: No Does the pt have substance abuse?: No - Immunizations Immunizations are current?: Yes - POLST Patient has POLST: No PD ED PE NORMAL - Vitals Vital signs reviewed: Yes - General General: Alert and oriented X 3, No acute distress - HEENT HEENT: PERRL, EOMI - Neck Neck: Supple, no meningeal sign, No bony TTP - Cardiac Cardiac: RRR, No murmur - Respiratory Respiratory: No respiratory distress, Clear bilaterally - Abdomen Abdomen: Non tender - Extremities Extremities: No edema, No calf tenderness / cord - Psych Psych: Normal mood, Normal affect Results - Vitals Vitals: Vital Signs - 24 hr 05/01/21 13:55 Temperature 36.4 C L Heart Rate 93 Respiratory 16 Rate Blood Pressure 147/80 H O2 Saturation 97 Oxygen O2 Source Room air - Rads (name of study) 2 view chest x-ray demonstrates no pneumonia. There is some interstitial prominence likely from viral syndrome. Radiology: EMP read contemporaneously Departure - Departure Disposition: 01 Home, Self Care Clinical Impression: Viral bronchitis Condition: Good Record reviewed to determine appropriate education?: Yes Instructions: ED Viral Syndrome Prescriptions: guaiFENesin/CODEINE [Robitussin AC] 5 - 10 ml PO Q6H PRN #120 ml PRN Reason: Cough Benzonatate [Tessalon] 200 mg PO QID PRN #20 cap PRN Reason: Cough Comments: Prescription sent electronically to [facility] in [place]. As discussed your chest x-ray does not show any sign of pneumonia, take the medications as needed for the cough. Return if worsening or if you develop fever. You have a Covid test pending. You need to self quarantine until the result is done and negative. Do not leave your house. Do not get near anybody. The results should be done in 48 to 72 hours. We will call with a positive result, the fastest way to get a negative result for confirmation though is to go to the hospital website at [email or web address], click on the my [employer] tab and sign up for the patient portal. If any friends or family get sick and would like to have a Covid test done, but do not have signs or symptoms that would necessitate being hospitalized, there are multiple local options for Covid testing. [facility] keeps an updated list of testing and vaccination options at: [email or web address].
== END 2021-05-01 15:23 | disposition home or self-care (01) ==
LOC: ED 13:49
DX: J20.8 Acute bronchitis due to other specified organisms (principal); Z20.822 Contact with and (suspected) exposure to COVID-19
CPT/HCPCS: 71046; 99284; U0004

== ENCOUNTER 2021-06-20 16:00 | Outpatient (CLI) | payer MEDICARE, OTHER ==
--- NOTE | 2021-06-20 16:51 | XRAY Report ---
PROCEDURE: Chest 2 View X-Ray INDICATIONS: COUGH TECHNIQUE: 2 view(s) of the chest. COMPARISON: None. FINDINGS: Surgical changes and devices: None. Lungs and pleura: No pleural effusions or pneumothorax. Lungs are clear. Mediastinum: Mediastinal contours are normal. Heart size is normal. Bones and chest wall: No suspicious bony abnormalities. Soft tissues appear unremarkable. IMPRESSION: No acute cardiopulmonary pathology. Reviewed by: Gage Shelley MD on 06/20/2021 4:50 PM PST Approved by: Gage Shelley MD on 06/20/2021 4:50 PM PST Station ID: [id number]
== END 2021-06-20 16:01 | disposition home or self-care (01) ==
LOC: DI.N 16:00
PROVIDERS: ATTEND Physician Assistant
DX: R05.9 Cough, unspecified (principal)

== ENCOUNTER 2021-08-10 08:34 | Outpatient (CLI) | payer MEDICARE, OTHER ==
[2021-08-10] MEDS ORDERED: REGADENOSON 0.4 MG/5 ML SYRINGE IVP ONE ×2 (11:11→14:42)
--- NOTE | 2021-08-10 12:09 | CARDIAC PROCEDURE NOTE ---
Stress Test Report Service Date: 08/10/21 Service Time: 10:30 Ordering Provider: Ciaran Samaniego Indication for Test: Assess chest discomfort. 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 She has a significant family history of coronary heart disease in her brother, sister and mother. She reports that over the past 6 to 8 weeks she has had intermittent elevations of blood pressure associated with chest discomfort, that appears to be primarily random and nonexertional. Sometimes it is asso ciated with radiation to the left arm and/or diaphoresis. Typically she waits 20-30 minutes and takes an OxyContin with gradual reduction in discomfort. She is limited in ambulation, using a combination of assistive devices including a walker at home, so her activity level has been chronically limited. She notes that with addition of losartan to her medication regimen her blood pressure has been better controlled in the very recent past. Cardiac Risk Factors: Positive for markedly positive family history of CAD, longstanding hyperlipidemia and more recent onset of diabetes and hypertension. She smoked cigarettes for a few years, but quit over 30 yrs ago. Type of Stress Test: Pharmacologic Stress Test with MPI Pharmacologic Agent: Lexiscan Procedure: -Pharmacologic Stress Test- After signing informed consent, the patient underwent rest SPECT imaging and then underwent a pharmacologic stress test using Lexiscan. The test was terminated due to completing the protocol. Resting heart rate: 86 Peak heart rate: 98 Normal HR response. Resting BP: 141/75 Peak BP: 132/69 Normal BP response. Rhythm during testing: Sinus rhythm throughout. Symptoms: She experienced moderately increased work of breathing and mild lightheadedness acutely, with dissipation over 4-6 minutes. She did not report any chest discomfort. EKG at rest showed normal sinus rhythm with nonspecific anterolateral T wave flattening. EKG at peak stress showed no ischemia by EKG criteria. In Recovery heart rate returned to near baseline level. Nuclear imaging was performed at rest and with stress. The image interpretation will be reported separately. John Merida MD, was present throughout this Lexiscan pharmacologic stress test and supervised it in its entirety. Summary: 1) Abnormal resting EKG. 2) Adequate stress was likely achieved. 3) Normal BP response to pharmacologic agent. 4) No ischemic changes by EKG criteria were seen at peak stress. 5) Analysis of gated nuclear images reveals normal left ventricular size and hyperdynamic LV systolic function; analysis of supine SPECT images reveals normal resting perfusion throughout the left ventricle, with concern for stress- associated anteroseptal defect. However prone stress-associated SPECT images show normal perfusion throughout the left ventricle, suggesting that apparent supine abnormality was due to soft-tissue artifact. See separate report for more detail. CONCLUSIONS: 1) Low risk Lexiscan stress myocardial perfusion imaging study.
--- NOTE | 2021-08-10 15:04 | Nuclear Medicine Report ---
PROCEDURE: Rest and exercise myocardial perfusion SPECT with gated imaging and ejection fraction INDICATIONS: CHEST PAIN/ LEXISCAN RADIOPHARMACEUTICAL: 13.6 mCi Tc-99m Myoview IV at rest and 46.0 mCi Tc-99m Myoview IV at peak exerc ise. Zoq-cec-yxhbojal was performed. TECHNIQUE: Radiopharmaceutical was injected at peak stress test, and also at rest. SPECT images wer e obtained. SPECT myocardial perfusion images were displayed in short axis, horizontal long axis, an d vertical long axis views. Gated images were reviewed using Auto[employer] software. COMPARISON: None available. FINDINGS: Raw data: There is good myocardial labeling by radiotracer. No significant motion artifacts. Lung- to-heart ratio is 0.33 (normal is less than 0.46 for tetrafosmin tracer). Left ventricle function: Gated images demonstrate normal left ventricle wall thickening. No segment al wall motion abnormality. No transient ischemic dilation; TID is 1.14 (normal less than 1.30). Th e left ventricle resting end-diastolic volume is 38 mL. Left ventricle stress ejection fraction is 9 2%; normal values are above 45%. Myocardial perfusion: There is an apparent stress phase perfusion defect in the anteroseptal wall wh ich demonstrates complete normalization in the prone position and likely represents soft tissue atten uation artifact. No fixed perfusion defects identified. IMPRESSION: 1. Normal myocardial perfusion study with no fixed or reversible perfusion defects. 2. Normal left ventricular function with no segmental wall motion abnormalities normal stress LVEF of 92%. PQRS ATTESTATIONS: Measure 322 - Is this imaging test primarily performed on a low-risk surgery patient for preoperative evaluation within 30 days preceding their low-risk non-cardiac surgery? Low-risk surgery is defined as cardiac or myocardial infarction less than 1%, including (but not limited to) endoscopic pr ocedures, superficial procedures, cataract surgery, and excisional breast surgery: Answer: No Measure 323 - Is this imaging test performed primarily for the monitoring of an asymptomatic patient who had percutaneous coronary intervention on the visit date or within 2 years of the visit date? An swer: No Measure 324 - Is this imaging test performed primarily for the initial detection and risk assessment on an asymptomatic, low coronary heart disease patient? Low CHD risk definition = clinicians should consider the maximum number of available patient factors used to estimate risk based on Willis (A TP III criteria), typically age, gender, diabetes, smoking status, and use of blood pressure medicati on, and integrate age appropriate estimates for missing elements, such as LDL or standard blood press ure. Answer: No Reviewed by: Gretel Venegas MD, PhD on 08/10/2021 3:02 PM PST Approved by: Gretel Venegas MD, PhD on 08/10/2021 3:02 PM PST Station ID: [id number]
--- NOTE | 2021-08-10 15:47 | XRAY Report ---
PROCEDURE: Chest 2 View X-Ray INDICATIONS: CHEST PAIN TECHNIQUE: 2 views of the chest. COMPARISON: 06/20/2021. FINDINGS: Surgical changes and devices: None. Lungs and pleura: No pleural effusions or pneumothorax. Lungs are clear. Mediastinum: Mediastinal contours are normal. Heart size is normal. Bones and chest wall: No suspicious bony abnormalities. Soft tissues appear unremarkable. IMPRESSION: 1. No acute cardiopulmonary disease. Reviewed by: Rod Mohr MD on 08/10/2021 3:46 PM [facility] Approved by: Rod Mohr MD on 08/10/2021 3:46 PM [facility] Station ID: [id number]
== END 2021-08-10 08:35 | disposition home or self-care (01) ==
LOC: DI 08:34
PROVIDERS: ATTEND Internal Medicine
DX: R07.9 Chest pain, unspecified (principal); R94.31 Abnormal electrocardiogram [ECG] [EKG]; G95.0 Syringomyelia and syringobulbia; E11.9 Type 2 diabetes mellitus without complications; Z82.49 Family history of ischemic heart disease and other diseases of the circulatory system; E78.5 Hyperlipidemia, unspecified; I10 Essential (primary) hypertension; Z87.891 Personal history of nicotine dependence
CPT/HCPCS: 71046; 78452; 93017; A9500; J2785; 93016; 93018

== ENCOUNTER 2021-10-18 08:11 | Outpatient (CLI) | payer MEDICARE, OTHER ==
--- NOTE | 2021-10-18 08:43 | CT Report ---
PROCEDURE: HEAD WO INDICATIONS: WORSENING HEADACHE, VISUAL DISTURBANCE TECHNIQUE: Noncontrast 4.5 mm thick angled axial sections acquired from the foramen magnum to the vertex. For r adiation dose reduction, the following was used: automated exposure control, adjustment of mA and/or kV according to patient size. COMPARISON: Reference is made to the MRI brain dated April 16, 2017. FINDINGS: BRAIN PARENCHYMA: No substantial evidence of microvascular ischemia. No acute cortical based (large t erritory) infarction, intracranial hemorrhage, mass or mass effect, or abnormal fluid collection. The density in the larger dural venous sinuses is grossly normal. VENTRICLES: Normal in size, shape, and position. BONES/SINUSES: The skull base and calvarium demonstrate no acute abnormality. Hyperostosis frontalis. The paranasal sinuses and mastoid air cells are well aerated. IMPRESSION: 1.No acute intracranial abnormality. If the patient's symptoms persist, consider repeat MR imaging with contrast. Reviewed by: Julio C Sharma MD on 10/18/2021 8:41 AM PDT Approved by: Julio C Sharma MD on 10/18/2021 8:41 AM PDT Station ID: [id number]
== END 2021-10-18 08:12 | disposition home or self-care (01) ==
LOC: DI 08:11
PROVIDERS: ATTEND Physician Assistant
DX: R51.9 Headache, unspecified (principal); H53.8 Other visual disturbances

== ENCOUNTER 2021-10-28 09:08 | Outpatient (CLI) | payer MEDICARE, OTHER ==
--- NOTE | 2021-10-28 13:41 | XRAY Report ---
PROCEDURE: Foot 3 View RT INDICATIONS: PAIN AT MT HEADS, 1-3RD DIGITS TECHNIQUE: 3 views of the foot were acquired. COMPARISON: Reviews of the right foot dated 11/09/2017 FINDINGS: Bones: No fractures or dislocations. No suspicious bony lesions. Soft tissues: No tibiotalar joint effusion. Achilles tendon appears normal. IMPRESSION: No acute radiographic findings. If pain persists, consider repeat imaging in 5-7 days to evaluate for occult fracture. Reviewed by: Caron Huizar MD on 10/28/2021 1:39 PM PDT Approved by: Caron Huizar MD on 10/28/2021 1:39 PM PDT Station ID: [id number]
== END 2021-10-28 09:09 | disposition home or self-care (01) ==
LOC: DI.N 09:08
PROVIDERS: ATTEND Physician Assistant
DX: M79.671 Pain in right foot (principal)

== ENCOUNTER 2021-12-29 11:51 | Outpatient (CLI) | payer MEDICARE, OTHER ==
--- NOTE | 2021-12-29 13:44 | XRAY Report ---
PROCEDURE: Foot 3 View RT INDICATIONS: RIGHT FOOT PAIN TECHNIQUE: 3 views of the foot were acquired. COMPARISON: 10/28/2021 FINDINGS: Bones: No acute fracture or dislocation. Mild to moderate scattered osteoarthritic changes. Tibiotalar osteophytes, and calcaneal enthesophyte s. Partially seen distal fibular deformity. Soft tissues: No tibiotalar joint effusion. Achilles tendon appears normal. IMPRESSION: No acute radiographic abnormality. Degenerative changes as above. Reviewed by: Davie Morgan MD on 12/29/2021 1:43 PM PDT Approved by: Davie Morgan MD on 12/29/2021 1:43 PM PDT Station ID: [id number]
== END 2021-12-29 11:52 | disposition home or self-care (01) ==
LOC: DI 11:51
PROVIDERS: ATTEND Student in an Organized Health Care Education/Training Program
DX: M19.071 Primary osteoarthritis, right ankle and foot (principal); M77.31 Calcaneal spur, right foot

== ENCOUNTER 2022-05-12 11:31 | Outpatient (CLI) | payer MEDICARE, OTHER ==
--- NOTE | 2022-05-12 13:34 | XRAY Report ---
PROCEDURE: Tib/Fib RT INDICATIONS: R MEDIAL PROX FIBULAR PAIN TECHNIQUE: 2 views of the tibia and fibula were acquired. COMPARISON: Right foot radiographs 12/29/2021 FINDINGS: Bones: No acute fractures or dislocations. No suspicious bony lesions. Mild chronic irregularity o f the medial malleolus is likely sequela of a remote prior injury. A small ununited ossification is s een anteromedial to the distal tibia. A plantar calcaneal enthesophyte is present. Soft tissues: No suspicious soft tissue calcifications or masses. Mild focal subcutaneous edema is seen at the proximal anterior aspect of the lower leg. IMPRESSION: No acute osseous abnormality. If there is clinical concern or persistent symptoms, additional imaging such as repeat radiographs or advanced imaging (e.g. CT, MRI) may be helpful for further evaluation. Reviewed by: Gordon Darnell MD on 05/12/2022 1:33 PM PST Approved by: Gordon Darnell MD on 05/12/2022 1:33 PM [facility] Station ID: [id number]
== END 2022-05-12 11:32 | disposition home or self-care (01) ==
LOC: DI 11:31
PROVIDERS: ATTEND Internal Medicine
DX: M79.604 Pain in right leg (principal)

== ENCOUNTER 2022-06-23 12:30 | Emergency (ER) | payer MEDICARE, OTHER ==
--- NOTE | 2022-06-23 12:55 | ED Physician Documentation ---
History of Present Illness - Stated complaint Stated Complaint: SWOLLEN GLANDS, HIGH BP, L ARM PX - Chief complaint Chief Complaint: Neuro - Additonal information Additional information: Patient 67-year-old female presenting to the emergency department with strokelike symptoms. She reports has been feeling unwell for generally 1 month however at approximately noon today began to develop tingling and weakness in her left upper extremity. Also reports that she was having garbled confused speech, making up words that were not real. Her who is present at bedside was not present at that time and cannot offer an independent history. She is uncertain whether or not she had any facial droop but denies any blurred or double vision or difficulties with ambulation. He denies similar episodes in the past. Reports a medical history significant for Syringomyelia as well as prediabetes. No independent historians, no limitations to history. PD PAST MEDICAL HISTORY - Past Medical History Cardiovascular: High cholesterol Respiratory: None Endocrine/Autoimmune: HyPOthyroidism GI: GERD - Past Surgical History General: Cholecystectomy, Appendectomy /[employer]: section - Present Medications Home Medications: Ambulatory Orders Medication Instructions Recorded Confirmed Hyoscyamine Sulfate [Levsin-Sl] 0.125 mg SL TID #14 tab.subl 08/04/16 06/21/17 raNITIdine [Zantac] 150 mg PO DAILY #30 tablet 08/04/16 06/21/17 Aripiprazole [Abilify] DAILY 06/21/17 Atorvastatin [Lipitor] DAILY 06/21/17 Benzonatate [Tessalon Perle] 100 mg PO BID PRN #14 capsule 06/21/17 Duloxetine HCl [Cymbalta] DAILY 06/21/17 Erythromycin [George-Tab] 500 mg DAILY 06/21/17 06/21/17 Hydrocodone/Acetaminophen QID PRN 06/21/17 [Hydrocodone-Acetamin 10-325 mg] Levothyroxine [Synthroid] DAILY 06/21/17 Oxycodone HCl [Oxycontin] 20 mg PO BID PRN 06/21/17 06/21/17 Topiramate [Topamax] 30 mg DAILY 06/21/17 06/21/17 Benzonatate [Tessalon] 200 mg PO QID PRN #20 cap 05/01/21 guaiFENesin/CODEINE [Robitussin AC] 5 - 10 ml PO Q6H PRN #120 ml 05/01/21 Aspirin EC [Ecotrin] 325 mg PO DAILY #30 tablet 06/23/22 Atorvastatin Calcium [Lipitor] 80 mg PO DAILY #30 tablet 06/23/22 oxyCODONE [Roxicodone] 5 mg PO ONCE #10 tablet 06/23/22 - Allergies Allergies/Adverse Reactions: Allergies Allergy/AdvReac Type Severity Reaction Status Date / Time avocado Allergy Anaphylaxis Verified 05/01/21 13:58 mannitol [From Reclast] Allergy Emesis Verified 06/23/22 12:44 Penicillins Allergy Anaphylaxis Verified 06/23/22 12:44 phenytoin sodium * Allergy Anaphylaxis Verified 06/23/22 12:44 [From Dilantin] phenytoin sodium extended * Allergy Anaphylaxis Verified 06/23/22 12:44 [From Dilantin] Tetracyclines Allergy Unknown Verified 05/01/21 13:58 water for injection,sterile * Allergy Emesis Verified 06/23/22 12:44 [From Reclast] zoledronic acid Allergy Emesis Verified 06/23/22 12:44 [From Reclast] cephalexin monohydrate * AdvReac Rash Verified 06/23/22 12:44 [From Keflex] pentazocine lactate * AdvReac Edema Verified 06/23/22 12:44 [From Talwin] Sulfa (Sulfonamide AdvReac Rash Verified 05/01/21 13:58 Antibiotics) casting material Allergy Unknown Uncoded 06/23/22 12:44 Cillins Allergy Unknown Uncoded 06/23/22 12:44 - Social History Does the pt smoke?: No Smoking Status: Never smoker Does the pt drink ETOH?: No Does the pt have substance abuse?: No - Immunizations Immunizations are current?: Yes - POLST Patient has POLST: No Results - Vitals Vitals: Oxygen O2 Source Room air - EKG (time done) 1323 Rate: Rate (enter#) (73) Rhythm: NSR Lawrence: Normal Intervals: Normal ND QRS: Normal Ischemia: Normal ST segments, Non specific changes Computer interpretation: Agree with computer - Labs Labs: Laboratory Tests 06/23/22 06/23/22 06/23/22 12:50 13:08 13:08 WBC 11.0 H RBC 4.63 Hgb 13.2 Hct 40.5 MCV 87.5 MCH 28.5 MCHC 32.6 RDW 13.2 Plt Count 316 MPV 9.0 Neut # (Auto) 7.5 H Lymph # (Auto) 2.5 [place] # (Auto) 0.5 Eos # (Auto) 0.4 Baso # (Auto) 0.1 Absolute Nucleated RBC 0.00 Nucleated RBC % 0.0 PT 10.0 INR 0.9 Sodium Potassium Chloride Carbon Dioxide Anion Gap BUN Creatinine Estimated GFR (MDRD) Glucose POC Whole Bld Glucose 184 H Calcium Total Bilirubin AST ALT Alkaline Phosphatase Total Protein Albumin Globulin Albumin/Globulin Ratio Lipase 06/23/22 13:08 WBC RBC Hgb Hct MCV MCH MCHC RDW Plt Count MPV Neut # (Auto) Lymph # (Auto) [place] # (Auto) Eos # (Auto) Baso # (Auto) Absolute Nucleated RBC Nucleated RBC % PT INR Sodium 136 Potassium 4.3 Chloride 99 L Carbon Dioxide 26 Anion Gap 11.0 BUN 21 H Creatinine 0.7 Estimated GFR (MDRD) 84 L Glucose 220 H POC Whole Bld Glucose Calcium 9.9 Total Bilirubin 0.5 AST 20 ALT 28 Alkaline Phosphatase 88 Total Protein 8.0 Albumin 4.2 Globulin 3.8 Albumin/Globulin Ratio 1.1 Lipase 25 PD Medical Decision Making - ED course Complexity details: reviewed old records, reviewed results, re-evaluated patient, d/w patient Reviewed Lab Results: Patient has mild leukocytosis with bandemia. Normal renal function. Social Determinants of Health: None Drug Therapy Requiring Monitoring for Toxicity: Given IV Dilaudid Procedural Risk Factors Specific to Patient: None ED course: Patient is a 67-year-old female presenting to the emergency department after an acute episode of left arm weakness/numbness and speech difficulties. Symptoms resolving at time of arrival. Initial neurologic exam demonstrated a very minimal left upper extremity pronator drift but no other focal or lateralizing neurologic deficits. Given her rapidly improving symptomsShe is not a tPA candidate. All of her symptoms did resolve while she was in the emergency department. I did obtain labs which demonstrated a minimal leukocytosis with bandemia. She was mildly hyperglycemic but had normal renal function without indications of hepatic dysfunction. INR was within a normal limit. CT of the head both independently interpreted and interpreted by radiology was negative for high-grade vessel stenosis, bleed or mass. Patient's presentation is consistent with transient ischemic attack and she does have an elevated ABCD 2 score. She was offered hospitalization however she declined this intervention stating that she felt better and wished to go home. We had a long and detailed discussion about the potential consequence of this decision including recurrent symptoms, loss of opportunity to intervene or treat in a timely fashion and the potential for resulting disability or . She verbalized understanding of this. I will initiate daily aspirin as well as a high-dose statin. She was encouraged to follow-up with her primary care doctor soon as possible concerning her ED visit. She was also given explicit instructions to return immediately for any recurrent symptoms. Final clinical impression: Transient ischemic attack. Departure - Departure Disposition: , Self Care Clinical Impression: TIA (transient ischemic attack) Instructions: ED Transient Ischemic Attack Prescriptions: Aspirin EC [Ecotrin] 325 mg PO DAILY #30 tablet Atorvastatin Calcium [Lipitor] 80 mg PO DAILY #30 tablet oxyCODONE [Roxicodone] 5 mg PO ONCE #10 tablet Comments: Thank you for allowing us to care for you today at [facility]. Today in the emergency department you are diagnosed with what is known is a transient ischemic attack, also known as a "mini stroke". It is very reassuring that your symptoms have improved while you have been here in the emergency department. The testing performed here in the emergency department including all of your blood work, your EKG and the CT scan of your head and the blood vessels of your neck and the base of your brain did not show any significant abnormality. I know we discussed hospitalization and at this time he would like to go home and follow-up with your primary care doctor. I do understand this decision however I would like you to know that if you have recurrent symptoms it is extremely important that you return to the emergency department As soon as possible. In the meantime I would like you to begin taking a high dose of Lipitor, 80 mg daily. I also like you to initiate a daily full-strength aspirin. Please do follow-up with your primary care doctor soon as possible to discuss your ED visit. Again if it anytime you develop any new or worsening symptoms please not hesitate to return. Discharge Date/Time: 06/23/22 19:39
--- OUTSIDE RECORDS SUMMARY | 2022-06-23 13:08 | EXTERNAL MEDICAL SUMMARY RPT | Continuity of Care Document ---
:1955 Author Organization [facility] Address [address] [place] [address] Phone Care Team Providers Name Role Phone Ciaran Samaniego Unavailable Unavailable Allergies and Intolerances date description facility type (no date) Penicillins [facility] (unknown) (no date) erythromycin base [facility] (unknown) (no date) salicylic acid [facility] (unknown) (no date) tetracycline [facility] (unknown) (no date) zoledronic acid [facility] (unknown) Encounters No information. Functional Status No information. Immunizations No information. Medications date description facility 2022-03-28 00:[address] [facility] 2022-03-28 00:[address] [facility] 2022-03-28 00:[address] [facility] 2022-03-28 00:[address] [facility] Problems date description facility 2022-03-[address] 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 2022-05-05 00:00 Sprain of right ankle [facility] 2022-05-05 00:00 Sprain of left ankle [facility] Procedures date description facility 2022-05-05 00:00 X-ray of left ankle, three or more view [facility] 2022-05-05 00:00 X-ray of right ankle, three or more vie [facility] Results/Labs test date author facility value unit interpret ation Result panel 1 (unknown) (no (unknown) (unknown) (no value) (units (unk nown) date) unknown) (unknown) (no (unknown) (unknown) 03/29/22 [History (units (unknown) date) Confirmed 03/29/22] unknown) (unknown) (no (unknown) (unknown) 03/29/22 (units (unkno wn) date) unknown) (unknown) (no (unknown) (unknown) 03/29/22] (units (unkn own) date) unknown) (unknown) (no (unknown) (unknown) [id number] (units (unkno wn) date) unknown) (unknown) (no (unknown) (unknown) Accompanied by: Self (uni ts (unknown) date) / Same As Patient unknown) (unknown) (no (unknown) (unknown) Age/Sex: 67 / F Date (uni ts (unknown) date) of Service: unknown) (unknown) (no (unknown) (unknown) Allergies (units (unkn own) date) unknown) (unknown) (no (unknown) (unknown) [place] [address] (unit s (unknown) date) unknown) (unknown) (no (unknown) (unknown) Anaphylaxis (units (un known) date) unknown) (unknown) (no (unknown) (unknown) Attending Dr: Timothy (uni ts (unknown) date) Antonia Burrows unknown) (unknown) (no (unknown) (unknown) Confirmed 03/29/22] (unit s (unknown) date) unknown) (unknown) (no (unknown) (unknown) : 1955 (units (unknown) date) Acct:[id number] unknown) (unknown) (no (unknown) (unknown) Depression (units (unk nown) date) unknown) (unknown) (no (unknown) (unknown) Dept at (units (unkno wn) date) . unknown) (unknown) (no (unknown) (unknown) Diabetes (units (unkno wn) date) unknown) (unknown) (no (unknown) (unknown) Documented By: (units (unknown) date) Timothy Knight D.O. unknown) 03/29/22 0955 (unknown) (no (unknown) (unknown) Draft (units (unkno wn) date) unknown) (unknown) (no (unknown) (unknown) Family History (units (unknown) date) (Reviewed 11/23/21 @ unknown) 08:56 by Timothy Knight DO) (unknown) (no (unknown) (unknown) Father Cancer (units ( unknown) date) unknown) (unknown) (no (unknown) (unknown) H/O neck surgery (units (unknown) date) unknown) (unknown) (no (unknown) (unknown) History of (units (unk nown) date) cholecystectomy unknown) (unknown) (no (unknown) (unknown) History of fusion of (uni ts (unknown) date) cervical spine unknown) (unknown) (no (unknown) (unknown) Hypothyroidism (units (unknown) date) unknown) (unknown) (no (unknown) (unknown) Intake Clinical (units (unknown) date) Staff unknown) (unknown) (no (unknown) (unknown) Intake performed by: (uni ts (unknown) date) Ailin Gutierrez unknown) (unknown) (no (unknown) (unknown) Intake (units (unkno wn) date) unknown) (unknown) (no (unknown) (unknown) Loc: PAIN (units (unkn own) date) unknown) (unknown) (no (unknown) (unknown) Lumbosacral (units (un known) date) radiculopathy at L4 unknown) (unknown) (no (unknown) (unknown) Medical History (units (unknown) date) (Updated 11/23/21 @ unknown) 08:58 by Timothy Knight DO) (unknown) (no (unknown) (unknown) Medications (units (un known) date) unknown) (unknown) (no (unknown) (unknown) Mother Heart disease (uni ts (unknown) date) unknown) (unknown) (no (unknown) (unknown) PFSH (units (unkno wn) date) unknown) (unknown) (no (unknown) (unknown) Pain Visit (units (unk nown) date) unknown) (unknown) (no (unknown) (unknown) Patient: (units (unkno wn) date) Yumiko Cazareskenzie Sage MR#: unknown) M000 (unknown) (no (unknown) (unknown) Penicillins Allergy (unit s (unknown) date) (Severe, Verified unknown) 03/29/22 09:56) (unknown) (no (unknown) (unknown) Post-traumatic (units (unknown) date) syrinx unknown) (unknown) (no (unknown) (unknown) Rash (units (unkno wn) date) unknown) (unknown) (no (unknown) (unknown) Reason For Visit (units (unknown) date) unknown) (unknown) (no (unknown) (unknown) Signed By: (units (unk nown) date) unknown) (unknown) (no (unknown) (unknown) Sister Heart disease (uni ts (unknown) date) unknown) (unknown) (no (unknown) (unknown) Smoking Status: (units (unknown) date) Former smoker unknown) (unknown) (no (unknown) (unknown) Surgical History (units (unknown) date) (Reviewed 11/23/21 @ unknown) 08:56 by Timotyh Knight DO) (unknown) (no (unknown) (unknown) Swelling of (units (un known) date) Lip/Tongue/Throat unknown) (unknown) (no (unknown) (unknown) [facility] (unit s (unknown) date) Management unknown) (unknown) (no (unknown) (unknown) This note may have (units (unknown) date) been all or partially unknown) generated using voice recognition (unknown) (no (unknown) (unknown) Tobacco + Substance (unit s (unknown) date) Use unknown) (unknown) (no (unknown) (unknown) Tobacco Status (units (unknown) date) unknown) (unknown) (no (unknown) (unknown) Visit Reasons: FU (units (unknown) date) SANDY, POST LUMBAR unknown) INJECTION (unknown) (no (unknown) (unknown) [History Confirmed (units (unknown) date) 03/29/22] unknown) (unknown) (no (unknown) (unknown) aripiprazole 10 mg (units (unknown) date) tablet 30 mg PO DAILY unknown) 11/23/21 [History Confirmed 03/29/22] (unknown) (no (unknown) (unknown) duloxetine 60 mg (units (unknown) date) capsule,delayed unknown) release (Cymbalta) 60 mg PO BID 09/05/21 (unknown) (no (unknown) (unknown) erythromycin base (units (unknown) date) Allergy (Severe, unknown) Verified 03/29/22 09:56) (unknown) (no (unknown) (unknown) gabapentin 300 mg (units (unknown) date) capsule 300 mg PO TID unknown) #90 caps 09/05/21 [Rx Confirmed (unknown) (no (unknown) (unknown) have occurred. If (units (unknown) date) there are any unknown) questions, please contact the Medical Records (unknown) (no (unknown) (unknown) hydrochlorothiazide (unit s (unknown) date) 25 mg tablet 25 mg PO unknown) DAILY 03/29/22 [History Confirmed (unknown) (no (unknown) (unknown) hydrocodone 10 (units (unknown) date) mg-acetaminophen 325 unknown) mg tablet 1 tab PO DAILY 11/23/21 [History (unknown) (no (unknown) (unknown) levothyroxine 125 (units (unknown) date) mcg tablet unknown) (Synthroid) 125 mcg PO DAILY 09/05/21 [History (unknown) (no (unknown) (unknown) levothyroxine 125 (units (unknown) date) mcg tablet unknown) (Synthroid) 125 mcg PO DAILY 11/23/21 [History (unknown) (no (unknown) (unknown) losartan 50 mg (units (unknown) date) tablet 50 mg PO DAILY unknown) 11/23/21 [History Confirmed 03/29/22] (unknown) (no (unknown) (unknown) may occur. (units (unk nown) date) Occasional wrong-word unknown) or 'sound-alike' substitutions may have (unknown) (no (unknown) (unknown) metformin 500 mg (units (unknown) date) tablet,extended unknown) release 24 hr 500 mg PO DAILY 03/29/22 [History (unknown) (no (unknown) (unknown) methocarbamol 750 mg (unit s (unknown) date) tablet 750 mg PO .PRN unknown) 11/23/21 [History Confirmed 03/29/22] (unknown) (no (unknown) (unknown) metoprolol succinate (uni ts (unknown) date) 50 mg tablet,extended unknown) release 24 hr tab PO 11/23/21 (unknown) (no (unknown) (unknown) multivitamin (Daily (unit s (unknown) date) Multi-Vitamin tablet) unknown) 1 tab PO DAILY 09/05/21 [History (unknown) (no (unknown) (unknown) occurred due to the (unit s (unknown) date) inherent limitations unknown) of voice recognition software. Please (unknown) (no (unknown) (unknown) oxycodone 10 mg (units (unknown) date) tablet,crush unknown) resistant,extended release 12 hr 10 mg PO Q12H (unknown) (no (unknown) (unknown) oxycodone 10 mg (units (unknown) date) tablet,extended unknown) release,12 hr mg PO 09/05/21 [History Confirmed (unknown) (no (unknown) (unknown) read the note (units ( unknown) date) carefully and unknown) recognize, using context, where these substitutions (unknown) (no (unknown) (unknown) salicylic acid (units (unknown) date) Allergy unknown) (Intermediate, Verified 03/29/22 09:56) (unknown) (no (unknown) (unknown) sitagliptin 50 mg (units (unknown) date) tablet (Januvia) 50 unknown) mg PO DAILY 03/29/22 [History Confirmed (unknown) (no (unknown) (unknown) software. Although (units (unknown) date) every effort is made unknown) to edit content, chief analytics officer errors (unknown) (no (unknown) (unknown) sumatriptan (units (un known) date) succinate 50 mg unknown) tablet ea PO 11/23/21 [History Confirmed 03/29/22] (unknown) (no (unknown) (unknown) tetracycline Allergy (uni ts (unknown) date) (Severe, Verified unknown) 03/29/22 09:56) (unknown) (no (unknown) (unknown) tizanidine 2 mg (units (unknown) date) tablet 2 mg PO BID unknown) PRN muscle spasticity 09/05/21 [History (unknown) (no (unknown) (unknown) zoledronic acid (units (unknown) date) Allergy (Severe, unknown) Verified 03/29/22 09:56) Result panel 2 (unknown) (no (unknown) (unknown) (no value) (units (unk nown) date) unknown) (unknown) (no (unknown) (unknown) 03/29/22 [History (units (unknown) date) Confirmed 03/29/22] unknown) (unknown) (no (unknown) (unknown) 03/29/22 (units (unkno wn) date) unknown) (unknown) (no (unknown) (unknown) 03/29/22] (units (unkn own) date) unknown) (unknown) (no (unknown) (unknown) 10:41 (units (unkno wn) date) unknown) (unknown) (no (unknown) (unknown) [id number] (units (unkno wn) date) unknown) (unknown) (no (unknown) (unknown) Accompanied by: Self (uni ts (unknown) date) / Same As Patient unknown) (unknown) (no (unknown) (unknown) Age/Sex: 67 / F Date (uni ts (unknown) date) of Service: unknown) (unknown) (no (unknown) (unknown) Allergies (units (unkn own) date) unknown) (unknown) (no (unknown) (unknown) [place] [address] (unit s (unknown) date) unknown) (unknown) (no (unknown) (unknown) Anaphylaxis (units (un known) date) unknown) (unknown) (no (unknown) (unknown) Attending Dr: Timothy (uni ts (unknown) date) Antonia Burrows unknown) (unknown) (no (unknown) (unknown) BMI 41.6 (units (unkno wn) date) unknown) (unknown) (no (unknown) (unknown) BP 132/78 (units (unkn own) date) unknown) (unknown) (no (unknown) (unknown) Blood Pressure (units (unknown) date) Location Lt brachial unknown) (unknown) (no (unknown) (unknown) Confirmed 03/29/22] (unit s (unknown) date) unknown) (unknown) (no (unknown) (unknown) : 1955 (units (unknown) date) Acct:[id number] unknown) (unknown) (no (unknown) (unknown) Depression (units (unk nown) date) unknown) (unknown) (no (unknown) (unknown) Dept at (units (unkno wn) date) . unknown) (unknown) (no (unknown) (unknown) Diabetes (units (unkno wn) date) unknown) (unknown) (no (unknown) (unknown) Documented By: (units (unknown) date) Timothy Knight D.O. unknown) 03/29/22 0955 (unknown) (no (unknown) (unknown) Draft (units (unkno wn) date) unknown) (unknown) (no (unknown) (unknown) Family History (units (unknown) date) (Reviewed 11/23/21 @ unknown) 08:56 by Timothy Knight DO) (unknown) (no (unknown) (unknown) Father Cancer (units ( unknown) date) unknown) (unknown) (no (unknown) (unknown) H/O neck surgery (units (unknown) date) unknown) (unknown) (no (unknown) (unknown) Height 5 ft (units (un known) date) unknown) (unknown) (no (unknown) (unknown) History of (units (unk nown) date) cholecystectomy unknown) (unknown) (no (unknown) (unknown) History of fusion of (uni ts (unknown) date) cervical spine unknown) (unknown) (no (unknown) (unknown) Hypothyroidism (units (unknown) date) unknown) (unknown) (no (unknown) (unknown) Intake Clinical (units (unknown) date) Staff unknown) (unknown) (no (unknown) (unknown) Intake Note: (units (u nknown) date) unknown) (unknown) (no (unknown) (unknown) Intake performed by: (uni ts (unknown) date) Ailin Gutierrez unknown) (unknown) (no (unknown) (unknown) Intake (units (unkno wn) date) unknown) (unknown) (no (unknown) (unknown) Is patient in pain?: (uni ts (unknown) date) Yes (here for lumbar unknown) spine) Pain scale (1-10): 7 (unknown) (no (unknown) (unknown) Loc: PAIN (units (unkn own) date) unknown) (unknown) (no (unknown) (unknown) Lumbosacral (units (un known) date) radiculopathy at L4 unknown) (unknown) (no (unknown) (unknown) Medical History (units (unknown) date) (Updated 11/23/21 @ unknown) 08:58 by Timothy Knight DO) (unknown) (no (unknown) (unknown) Medications (units (un known) date) unknown) (unknown) (no (unknown) (unknown) Mother Heart disease (uni ts (unknown) date) unknown) (unknown) (no (unknown) (unknown) Oxygen Delivery (units (unknown) date) Method room air unknown) (unknown) (no (unknown) (unknown) PFSH (units (unkno wn) date) unknown) (unknown) (no (unknown) (unknown) Pain Scale (units (unk nown) date) unknown) (unknown) (no (unknown) (unknown) Pain Visit (units (unk nown) date) unknown) (unknown) (no (unknown) (unknown) Patient: (units (unkno wn) date) Briseida Cazares MR#: unknown) M000 (unknown) (no (unknown) (unknown) Penicillins Allergy (unit s (unknown) date) (Severe, Verified unknown) 03/29/22 09:56) (unknown) (no (unknown) (unknown) Position Sitting (units (unknown) date) unknown) (unknown) (no (unknown) (unknown) Post-traumatic (units (unknown) date) syrinx unknown) (unknown) (no (unknown) (unknown) Pulse 74 (units (unkno wn) date) unknown) (unknown) (no (unknown) (unknown) Pulse Oximetry (%) (units (unknown) date) 99 unknown) (unknown) (no (unknown) (unknown) Pulse Source Monitor (uni ts (unknown) date) unknown) (unknown) (no (unknown) (unknown) Rash (units (unkno wn) date) unknown) (unknown) (no (unknown) (unknown) Reason For Visit (units (unknown) date) unknown) (unknown) (no (unknown) (unknown) Signed By: (units (unk nown) date) unknown) (unknown) (no (unknown) (unknown) Sister Heart disease (uni ts (unknown) date) unknown) (unknown) (no (unknown) (unknown) Smoking Status: (units (unknown) date) Former smoker unknown) (unknown) (no (unknown) (unknown) Surgical History (units (unknown) date) (Reviewed 11/23/21 @ unknown) 08:56 by Timothy Knight DO) (unknown) (no (unknown) (unknown) Swelling of (units (un known) date) Lip/Tongue/Throat unknown) (unknown) (no (unknown) (unknown) Temp 98.9 F (units (un known) date) unknown) (unknown) (no (unknown) (unknown) Temp Source Temporal (uni ts (unknown) date) Artery Scan unknown) (unknown) (no (unknown) (unknown) [facility] (unit s (unknown) date) Management unknown) (unknown) (no (unknown) (unknown) This note may have (units (unknown) date) been all or partially unknown) generated using voice recognition (unknown) (no (unknown) (unknown) Tobacco + Substance (unit s (unknown) date) Use unknown) (unknown) (no (unknown) (unknown) Tobacco Status (units (unknown) date) unknown) (unknown) (no (unknown) (unknown) Visit Reasons: FU (units (unknown) date) SANDY, POST LUMBAR unknown) INJECTION (unknown) (no (unknown) (unknown) Vitals (units (unkno wn) date) unknown) (unknown) (no (unknown) (unknown) Weight 213 lb 4 oz (units (unknown) date) unknown) (unknown) (no (unknown) (unknown) [History Confirmed (units (unknown) date) 03/29/22] unknown) (unknown) (no (unknown) (unknown) aripiprazole 10 mg (units (unknown) date) tablet 30 mg PO DAILY unknown) 11/23/21 [History Confirmed 03/29/22] (unknown) (no (unknown) (unknown) duloxetine 60 mg (units (unknown) date) capsule,delayed unknown) release (Cymbalta) 60 mg PO BID 09/05/21 (unknown) (no (unknown) (unknown) erythromycin base (units (unknown) date) Allergy (Severe, unknown) Verified 03/29/22 09:56) (unknown) (no (unknown) (unknown) gabapentin 300 mg (units (unknown) date) capsule 300 mg PO TID unknown) #90 caps 09/05/21 [Rx Confirmed (unknown) (no (unknown) (unknown) have occurred. If (units (unknown) date) there are any unknown) questions, please contact the Medical Records (unknown) (no (unknown) (unknown) here for lumbar (units (unknown) date) spine unknown) (unknown) (no (unknown) (unknown) hydrochlorothiazide (unit s (unknown) date) 25 mg tablet 25 mg PO unknown) DAILY 03/29/22 [History Confirmed (unknown) (no (unknown) (unknown) hydrocodone 10 (units (unknown) date) mg-acetaminophen 325 unknown) mg tablet 1 tab PO DAILY 11/23/21 [History (unknown) (no (unknown) (unknown) levothyroxine 125 (units (unknown) date) mcg tablet unknown) (Synthroid) 125 mcg PO DAILY 09/05/21 [History (unknown) (no (unknown) (unknown) levothyroxine 125 (units (unknown) date) mcg tablet unknown) (Synthroid) 125 mcg PO DAILY 11/23/21 [History (unknown) (no (unknown) (unknown) losartan 50 mg (units (unknown) date) tablet 50 mg PO DAILY unknown) 11/23/21 [History Confirmed 03/29/22] (unknown) (no (unknown) (unknown) may occur. (units (unk nown) date) Occasional wrong-word unknown) or 'sound-alike' substitutions may have (unknown) (no (unknown) (unknown) metformin 500 mg (units (unknown) date) tablet,extended unknown) release 24 hr 500 mg PO DAILY 03/29/22 [History (unknown) (no (unknown) (unknown) methocarbamol 750 mg (unit s (unknown) date) tablet 750 mg PO .PRN unknown) 11/23/21 [History Confirmed 03/29/22] (unknown) (no (unknown) (unknown) metoprolol succinate (uni ts (unknown) date) 50 mg tablet,extended unknown) release 24 hr tab PO 11/23/21 (unknown) (no (unknown) (unknown) multivitamin (Daily (unit s (unknown) date) Multi-Vitamin tablet) unknown) 1 tab PO DAILY 09/05/21 [History (unknown) (no (unknown) (unknown) occurred due to the (unit s (unknown) date) inherent limitations unknown) of voice recognition software. Please (unknown) (no (unknown) (unknown) oxycodone 10 mg (units (unknown) date) tablet,crush unknown) resistant,extended release 12 hr 10 mg PO Q12H (unknown) (no (unknown) (unknown) oxycodone 10 mg (units (unknown) date) tablet,extended unknown) release,12 hr mg PO 09/05/21 [History Confirmed (unknown) (no (unknown) (unknown) read the note (units ( unknown) date) carefully and unknown) recognize, using context, where these substitutions (unknown) (no (unknown) (unknown) salicylic acid (units (unknown) date) Allergy unknown) (Intermediate, Verified 03/29/22 09:56) (unknown) (no (unknown) (unknown) sitagliptin 50 mg (units (unknown) date) tablet (Januvia) 50 unknown) mg PO DAILY 03/29/22 [History Confirmed (unknown) (no (unknown) (unknown) software. Although (units (unknown) date) every effort is made unknown) to edit content, chief analytics officer errors (unknown) (no (unknown) (unknown) sumatriptan (units (un known) date) succinate 50 mg unknown) tablet ea PO 11/23/21 [History Confirmed 03/29/22] (unknown) (no (unknown) (unknown) tetracycline Allergy (uni ts (unknown) date) (Severe, Verified unknown) 03/29/22 09:56) (unknown) (no (unknown) (unknown) tizanidine 2 mg (units (unknown) date) tablet 2 mg PO BID unknown) PRN muscle spasticity 09/05/21 [History (unknown) (no (unknown) (unknown) zoledronic acid (units (unknown) date) Allergy (Severe, unknown) Verified 03/29/22 09:56) Result panel 3 (unknown) (no (unknown) (unknown) (no value) (units (unk nown) date) unknown) (unknown) (no (unknown) (unknown) (1) Scoliosis: (units (unknown) date) unknown) (unknown) (no (unknown) (unknown) (2) Facet (units (unkn own) date) arthropathy, lumbar: unknown) (unknown) (no (unknown) (unknown) (3) Diabetes: (units ( unknown) date) unknown) (unknown) (no (unknown) (unknown) (4) History of (units (unknown) date) fusion of cervical unknown) spine: (unknown) (no (unknown) (unknown) (5) Post-traumatic (units (unknown) date) syrinx: unknown) (unknown) (no (unknown) (unknown) (6) Lumbosacral (units (unknown) date) radiculopathy at L4: unknown) (unknown) (no (unknown) (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 Mild disc bulge (units (unknown) date) at T12-L1 with no unknown) significant foraminal or central canal (unknown) (no (unknown) (unknown) 03/29/22 [History (units (unknown) date) Confirmed 03/29/22] unknown) (unknown) (no (unknown) (unknown) 03/29/22 (units (unkno wn) date) unknown) (unknown) (no (unknown) (unknown) 03/29/22] (units (unkn own) date) unknown) (unknown) (no (unknown) (unknown) 10:41 (units (unkno wn) date) unknown) (unknown) (no (unknown) (unknown) 2. Facet arthrosis (units (unknown) date) and ligamentum flavum unknown) hypertrophy at L4-5 and L5-S1. (unknown) (no (unknown) (unknown) 3. 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 (unknown) (no (unknown) (unknown) [id number] (units (unkno wn) date) unknown) (unknown) (no (unknown) (unknown) ? (units (unkno wn) date) unknown) (unknown) (no (unknown) (unknown) Accompanied by: Self (uni ts (unknown) date) / Same As Patient unknown) (unknown) (no (unknown) (unknown) Age/Sex: 67 / F Date (uni ts (unknown) date) of Service: unknown) (unknown) (no (unknown) (unknown) All other systems (units (unknown) date) reviewed and are unknown) negative except as noted in HPI. (unknown) (no (unknown) (unknown) Allergies (units (unkn own) date) unknown) (unknown) (no (unknown) (unknown) [facility] [id number] (unit s (unknown) date) unknown) (unknown) (no (unknown) (unknown) Anaphylaxis (units (un known) date) unknown) (unknown) (no (unknown) (unknown) Approved by: Chriss Forteunit s (unknown) dateRonald Segovia M.D. on unknown) 10/11/2020 at 8:56 (unknown) (no (unknown) (unknown) Assessment + Plan (units (unknown) date) unknown) (unknown) (no (unknown) (unknown) Attending Dr: Timothy (uni ts (unknown) date) Antonia Burrows unknown) (unknown) (no (unknown) (unknown) BMI 41.6 (units (unkno wn) date) unknown) (unknown) (no (unknown) (unknown) BP 132/78 (units (unkn own) date) unknown) (unknown) (no (unknown) (unknown) Blood Pressure (units (unknown) date) Location Lt brachial unknown) (unknown) (no (unknown) (unknown) Chief Complaint (units (unknown) date) unknown) (unknown) (no (unknown) (unknown) Chief Complaint: (units (unknown) date) Follow-up bilateral unknown) L4-5 transforaminal SANDY 11/29/2021 (unknown) (no (unknown) (unknown) Confirmed 03/29/22] (unit s (unknown) date) unknown) (unknown) (no (unknown) (unknown) : 1955 (units (unknown) date) Acct:[id number] unknown) (unknown) (no (unknown) (unknown) DTR's symmetric. (units (unknown) date) unknown) (unknown) (no (unknown) (unknown) Maria G returns to (units (unknown) date) clinic today status unknown) post bilateral L4-5 transforaminal SANDY (unknown) (no (unknown) (unknown) Denies recent (units ( unknown) date) trauma, fever or unknown) weight loss of unknown origin, immunocompromise (unknown) (no (unknown) (unknown) Depression (units (unk nown) date) unknown) (unknown) (no (unknown) (unknown) Dept at (units (unkno wn) date) . 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 ? (unknown) (no (unknown) (unknown) Discontinued Reason: (uni ts (unknown) date) Dose Change 300 mg PO unknown) TID 90 caps 1RF (unknown) (no (unknown) (unknown) Discontinued (units (u nknown) date) unknown) (unknown) (no (unknown) (unknown) Documented By: (units (unknown) date) Timothy Knight D.O. unknown) 03/29/22 0955 (unknown) (no (unknown) (unknown) Draft (units (unkno wn) date) unknown) (unknown) (no (unknown) (unknown) Endorses cervical (units (unknown) date) ACDF, thoracic syrinx unknown) T6 through T9, diabetes, hypothyroidism (unknown) (no (unknown) (unknown) Exam Narrative (units (unknown) date) unknown) (unknown) (no (unknown) (unknown) Exam Narrative: (units (unknown) date) unknown) (unknown) (no (unknown) (unknown) Exam (units (unkno wn) date) unknown) (unknown) (no (unknown) (unknown) Facet arthropathy, (units (unknown) date) lumbar unknown) (unknown) (no (unknown) (unknown) Family History (units (unknown) date) (Reviewed 03/29/22 @ unknown) 10:57 by Timothy Knight DO) (unknown) (no (unknown) (unknown) Father Cancer (units ( unknown) date) unknown) (unknown) (no (unknown) (unknown) Gait: Full (units (unk nown) date) weightbearing. No unknown) assistive device. Stooped Gait Posture due to (unknown) (no (unknown) (unknown) General: The patient (uni ts (unknown) date) is in no obvious unknown) distress. Normal affect. Fully (unknown) (no (unknown) (unknown) H/O neck surgery (units (unknown) date) unknown) (unknown) (no (unknown) (unknown) HPI (units (unkno wn) date) unknown) (unknown) (no (unknown) (unknown) Height 5 ft (units (un known) date) unknown) (unknown) (no (unknown) (unknown) History of (units (unk nown) date) cholecystectomy unknown) (unknown) (no (unknown) (unknown) History of fusion of (uni ts (unknown) date) cervical spine unknown) (unknown) (no (unknown) (unknown) Hypothyroidism (units (unknown) date) unknown) (unknown) (no (unknown) (unknown) IMPRESSION:? (units (u nknown) date) unknown) (unknown) (no (unknown) (unknown) Intake Clinical (units (unknown) date) Staff unknown) (unknown) (no (unknown) (unknown) Intake Note: (units (u nknown) date) unknown) (unknown) (no (unknown) (unknown) Intake performed by: (uni ts (unknown) date) Ailin Gutierrez unknown) (unknown) (no (unknown) (unknown) Intake (units (unkno wn) date) unknown) (unknown) (no (unknown) (unknown) Is patient in pain?: (uni ts (unknown) date) Yes (here for lumbar unknown) spine) Pain scale (1-10): 7 (unknown) (no (unknown) (unknown) L1-L2:? No (units (unk nown) date) significant disc unknown) bulge. The foramina and central canal are patent. (unknown) (no (unknown) (unknown) L2-L3:? No (units (unk nown) date) significant disc unknown) bulge. The foramina and central canal are patent. (unknown) (no (unknown) (unknown) L3-L4:? No (units (unk nown) date) significant disc unknown) bulge. The foramina and central canal are patent. (unknown) (no (unknown) (unknown) L4-L5:? There is (units (unknown) date) facet arthrosis and unknown) ligamentum flavum hypertrophy.? No (unknown) (no (unknown) (unknown) L5-S1:? There is (units (unknown) date) facet arthrosis and unknown) ligamentum flavum hypertrophy.? No (unknown) (no (unknown) (unknown) Left Lower (units (unk nown) date) Extremity: No edema, unknown) joint effusion or atrophy. tenderness over the (unknown) (no (unknown) (unknown) Left Upper (units (unk nown) date) Extremity: Left upper unknown) extremity exam shows grossly normal alignment, (unknown) (no (unknown) (unknown) Loc: [facility] (units (unkn own) date) unknown) (unknown) (no (unknown) (unknown) Lumbosacral (units (un known) date) radiculopathy at L4 unknown) (unknown) (no (unknown) (unknown) MRI of 2019.? Her (units (unknown) date) lumbar features are unknown) the most predominant for her.? She has (unknown) (no (unknown) (unknown) MSK: System reviewed (uni ts (unknown) date) and no additional unknown) complaints, except as documented. (unknown) (no (unknown) (unknown) Medical History (units (unknown) date) (Reviewed 03/29/22 @ unknown) 10:57 by Timothy Knight DO) (unknown) (no (unknown) (unknown) Medications (units (un known) date) unknown) (unknown) (no (unknown) (unknown) Medications: (units (u nknown) date) unknown) (unknown) (no (unknown) (unknown) Mother Heart disease (uni ts (unknown) date) unknown) (unknown) (no (unknown) (unknown) Neuro: System (units ( unknown) date) reviewed and no unknown) additional complaints, except as documented. (unknown) (no (unknown) (unknown) Neurologic: (units (un known) date) Sensation is grossly unknown) intact to light touch throughout the upper and (unknown) (no (unknown) (unknown) New (units (unkno wn) date) unknown) (unknown) (no (unknown) (unknown) Objective Data (units (unknown) date) unknown) (unknown) (no (unknown) (unknown) Objective Data: (units (unknown) date) unknown) (unknown) (no (unknown) (unknown) Oxygen Delivery (units (unknown) date) Method room air unknown) (unknown) (no (unknown) (unknown) PFSH (units (unkno wn) date) unknown) (unknown) (no (unknown) (unknown) Pain Scale (units (unk nown) date) unknown) (unknown) (no (unknown) (unknown) Pain Visit (units (unk nown) date) unknown) (unknown) (no (unknown) (unknown) Patient: (units (unkno wn) date) Briseida Cazares MR#: unknown) M000 (unknown) (no (unknown) (unknown) Penicillins Allergy (unit s (unknown) date) (Severe, Verified unknown) 03/29/22 09:56) (unknown) (no (unknown) (unknown) Position Sitting (units (unknown) date) unknown) (unknown) (no (unknown) (unknown) Post-traumatic (units (unknown) date) syrinx unknown) (unknown) (no (unknown) (unknown) Pulse 74 (units (unkno wn) date) unknown) (unknown) (no (unknown) (unknown) Pulse Oximetry (%) (units (unknown) date) 99 unknown) (unknown) (no (unknown) (unknown) Pulse Source Monitor (uni ts (unknown) date) unknown) (unknown) (no (unknown) (unknown) Qualified Code(s): (units (unknown) date) E11.9 - 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 tenderness over the (unknown) (no (unknown) (unknown) Right Upper (units (un known) date) Extremity: Right unknown) upper extremity exam shows grossly normal (unknown) (no (unknown) (unknown) Scoliosis type: (units (unknown) date) idiopathic Idiopathic unknown) scoliosis type: other Spinal (unknown) (no (unknown) (unknown) Scoliosis (units (unkn own) date) unknown) (unknown) (no (unknown) (unknown) She also reports she (uni ts (unknown) date) takes extreme hot and unknown) cold showers attempting to find some (unknown) (no (unknown) (unknown) She reports (units (un known) date) otherwise feeling unknown) well maintain the Covid19 social restrictions (unknown) (no (unknown) (unknown) Signed By: (units (unk nown) date) unknown) (unknown) (no (unknown) (unknown) Sister Heart disease (uni ts (unknown) date) unknown) (unknown) (no (unknown) (unknown) Skin: No significant (uni ts (unknown) date) skin lesions are unknown) noted. (unknown) (no (unknown) (unknown) Smoking Status: (units (unknown) date) Former smoker unknown) (unknown) (no (unknown) (unknown) Spine: Cervical (units (unknown) date) spine ROM functional. unknown) Lumbar spine ROM was reduced in all (unknown) (no (unknown) (unknown) Status: Acute (units ( unknown) date) unknown) (unknown) (no (unknown) (unknown) Surgical History (units (unknown) date) (Reviewed 03/29/22 @ unknown) 10:57 by Timothy Knight DO) (unknown) (no (unknown) (unknown) Swelling of (units (un known) date) Lip/Tongue/Throat unknown) (unknown) (no (unknown) (unknown) T12-L1:? Diffuse (units (unknown) date) disc bulge with no unknown) significant foraminal or central canal (unknown) (no (unknown) (unknown) Temp 98.9 F (units (un known) date) unknown) (unknown) (no (unknown) (unknown) Temp Source Temporal (uni ts (unknown) date) Artery Scan unknown) (unknown) (no (unknown) (unknown) [facility] (unit s (unknown) date) Management unknown) (unknown) (no (unknown) (unknown) This note may have (units (unknown) date) been all or partially unknown) generated using voice recognition (unknown) (no (unknown) (unknown) Tobacco + Substance (unit s (unknown) date) Use unknown) (unknown) (no (unknown) (unknown) Tobacco Status (units (unknown) date) unknown) (unknown) (no (unknown) (unknown) Visit Reasons: FU (units (unknown) date) SANDY, POST LUMBAR unknown) INJECTION (unknown) (no (unknown) (unknown) Vitals (units (unkno wn) date) unknown) (unknown) (no (unknown) (unknown) Weight 213 lb 4 oz (units (unknown) date) unknown) (unknown) (no (unknown) (unknown) [History Confirmed (units (unknown) date) 03/29/22] unknown) (unknown) (no (unknown) (unknown) alignment, range of (unit s (unknown) date) motion, strength and unknown) stability with no swelling, atrophy or (unknown) (no (unknown) (unknown) approximately 2-3 (units (unknown) date) weeks with return of unknown) symptoms as of late. She reports (unknown) (no (unknown) (unknown) aripiprazole 10 mg (units (unknown) date) tablet 30 mg PO DAILY unknown) 11/23/21 [History Confirmed 03/29/22] (unknown) (no (unknown) (unknown) axial LBP (units (unkn own) date) unknown) (unknown) (no (unknown) (unknown) bulge. The foramina (unit s (unknown) date) and central canal are unknown) patent. (unknown) (no (unknown) (unknown) does report (units (un known) date) prominent relief from unknown) her bilateral low back pain as well as lower (unknown) (no (unknown) (unknown) duloxetine 60 mg (units (unknown) date) capsule,delayed unknown) release (Cymbalta) 60 mg PO BID 09/05/21 (unknown) (no (unknown) (unknown) effusion. (units (unkn own) date) unknown) (unknown) (no (unknown) (unknown) erythromycin base (units (unknown) date) Allergy (Severe, unknown) Verified 03/29/22 09:56) (unknown) (no (unknown) (unknown) extremities. She (units (unknown) date) does report she is unknown) using her tizanidine 2 mg at night as (unknown) (no (unknown) (unknown) extremity symptoms. (unit s (unknown) date) She does report the unknown) symptoms were ameliorated for (unknown) (no (unknown) (unknown) further treatment (units (unknown) date) and nonsurgical unknown) fashion if at all possible.? (unknown) (no (unknown) (unknown) gabapentin 600 mg PO (uni ts (unknown) date) 1-2 PO Tid to begin unknown) at HS and titrate to nerve pain (unknown) (no (unknown) (unknown) gabapentin 600 mg (units (unknown) date) tablet 600 mg PO unknown) .COMPLEX #90 tabs 03/29/22 [Rx Confirmed (unknown) (no (unknown) (unknown) gabapentin (units (unk nown) date) unknown) (unknown) (no (unknown) (unknown) greater trochanteric (uni ts (unknown) date) region unknown) (unknown) (no (unknown) (unknown) greater trochanteric (uni ts (unknown) date) region. unknown) (unknown) (no (unknown) (unknown) have occurred. If (units (unknown) date) there are any unknown) questions, please contact the Medical Records (unknown) (no (unknown) (unknown) here for lumbar (units (unknown) date) spine unknown) (unknown) (no (unknown) (unknown) hydrochlorothiazide (unit s (unknown) date) 25 mg tablet 25 mg PO unknown) DAILY 03/29/22 [History Confirmed (unknown) (no (unknown) (unknown) hydrocodone 10 (units (unknown) date) mg-acetaminophen 325 unknown) mg tablet 1 tab PO DAILY 11/23/21 [History (unknown) (no (unknown) (unknown) increased tenderness (unit s (unknown) date) with axial loading unknown) and extension based maneuvers tenderness (unknown) (no (unknown) (unknown) intravenous drug (units (unknown) date) use, sustained unknown) glucocorticoid use, osteoporosis, or a focal (unknown) (no (unknown) (unknown) levothyroxine 125 (units (unknown) date) mcg tablet unknown) (Synthroid) 125 mcg PO DAILY 09/05/21 [History (unknown) (no (unknown) (unknown) levothyroxine 125 (units (unknown) date) mcg tablet unknown) (Synthroid) 125 mcg PO DAILY 11/23/21 [History (unknown) (no (unknown) (unknown) losartan 50 mg (units (unknown) date) tablet 50 mg PO DAILY unknown) 11/23/21 [History Confirmed 03/29/22] (unknown) (no (unknown) (unknown) lower extremities. (units (unknown) date) motor 5/5 all LE unknown) muscle groups. Coordination appears normal. (unknown) (no (unknown) (unknown) may occur. (units (unk nown) date) Occasional wrong-word unknown) or 'sound-alike' substitutions may have (unknown) (no (unknown) (unknown) metformin 500 mg (units (unknown) date) tablet,extended unknown) release 24 hr 500 mg PO DAILY 03/29/22 [History (unknown) (no (unknown) (unknown) methocarbamol 750 mg (unit s (unknown) date) tablet 750 mg PO .PRN unknown) 11/23/21 [History Confirmed 03/29/22] (unknown) (no (unknown) (unknown) metoprolol succinate (uni ts (unknown) date) 50 mg tablet,extended unknown) release 24 hr tab PO 11/23/21 (unknown) (no (unknown) (unknown) multivitamin (Daily (unit s (unknown) date) Multi-Vitamin tablet) unknown) 1 tab PO DAILY 09/05/21 [History (unknown) (no (unknown) (unknown) needed as well as (units (unknown) date) gabapentin currently unknown) With ongoing symptoms of both low back (unknown) (no (unknown) (unknown) neurological deficit (uni ts (unknown) date) with progressive or unknown) disabling symptoms. (unknown) (no (unknown) (unknown) occurred due to the (unit s (unknown) date) inherent limitations unknown) of voice recognition software. Please (unknown) (no (unknown) (unknown) or immunosuppressive (uni ts (unknown) date) therapy, previous or unknown) current cancer diagnosis, history of (unknown) (no (unknown) (unknown) oriented. (units (unkn own) date) unknown) (unknown) (no (unknown) (unknown) oxycodone 10 mg (units (unknown) date) tablet,crush unknown) resistant,extended release 12 hr 10 mg PO Q12H (unknown) (no (unknown) (unknown) oxycodone 10 mg (units (unknown) date) tablet,extended unknown) release,12 hr mg PO 09/05/21 [History Confirmed (unknown) (no (unknown) (unknown) pain as well as (units (unknown) date) bilateral lower unknown) extremity symptoms.? As outlined prior she had a (unknown) (no (unknown) (unknown) pain.? She does (units (unknown) date) report she uses the unknown) tizanidine and gabapentin at night from time (unknown) (no (unknown) (unknown) performed on (units (u nknown) date) 11/29/2021. Dad unknown) reports no difficulty with the procedure itself (unknown) (no (unknown) (unknown) planes. On (units (unk nown) date) palpation, there is unknown) tenderness over the spinous processes. With (unknown) (no (unknown) (unknown) predominantly axial (unit s (unknown) date) low back pain with an unknown) radiation to the bilateral lower (unknown) (no (unknown) (unknown) previous cervical (units (unknown) date) ACDF and has a known unknown) thoracic syrinx of T6 through T9 on her (unknown) (no (unknown) (unknown) provocative maneuvers (uni ts (unknown) date) including sacra shear unknown) test as well as pelvic obliquity are (unknown) (no (unknown) (unknown) radicular features (units (unknown) date) involving the unknown) bilateral lower extremities 60% on left 40% on (unknown) (no (unknown) (unknown) range of motion, (units (unknown) date) strength and unknown) stability with no swelling, atrophy or effusion. (unknown) (no (unknown) (unknown) read the note (units ( unknown) date) carefully and unknown) recognize, using context, where these substitutions (unknown) (no (unknown) (unknown) region (units (unkno wn) date) unknown) (unknown) (no (unknown) (unknown) region: lumbar (units (unknown) date) Qualified Code(s): unknown) M41.26 - Other idiopathic scoliosis, lumbar (unknown) (no (unknown) (unknown) relief.? She reports (unit s (unknown) date) having difficulty unknown) sleeping secondary to the severity of the (unknown) (no (unknown) (unknown) relief; 90 tabs 2RF (unit s (unknown) date) unknown) (unknown) (no (unknown) (unknown) salicylic acid (units (unknown) date) Allergy unknown) (Intermediate, Verified 03/29/22 09:56) (unknown) (no (unknown) (unknown) significant disc (units (unknown) date) unknown) (unknown) (no (unknown) (unknown) sitagliptin 50 mg (units (unknown) date) tablet (Januvia) 50 unknown) mg PO DAILY 03/29/22 [History Confirmed (unknown) (no (unknown) (unknown) software. Although (units (unknown) date) every effort is made unknown) to edit content, chief analytics officer errors (unknown) (no (unknown) (unknown) stenosis. (units (unkn own) date) unknown) (unknown) (no (unknown) (unknown) sumatriptan (units (un known) date) succinate 50 mg unknown) tablet ea PO 11/23/21 [History Confirmed 03/29/22] (unknown) (no (unknown) (unknown) tetracycline Allergy (uni ts (unknown) date) (Severe, Verified unknown) 03/29/22 09:56) (unknown) (no (unknown) (unknown) the morning.? She (units (unknown) date) reports no new unknown) traumas or illnesses and would like to pursue (unknown) (no (unknown) (unknown) the right and L4-5 (units (unknown) date) distribution.? She unknown) reports that these continue to be worse (unknown) (no (unknown) (unknown) tizanidine 2 mg (units (unknown) date) tablet 2 mg PO BID unknown) PRN muscle spasticity 09/05/21 [History (unknown) (no (unknown) (unknown) to palpation on (units (unknown) date) paraspinals.straight unknown) leg raising negative bilaterally. Sacral (unknown) (no (unknown) (unknown) to time but not on a (uni ts (unknown) date) regular basis as she unknown) finds cognitive blunting with that in (unknown) (no (unknown) (unknown) with detention use (units (unknown) date) Diabetes mellitus unknown) complication status: without complication (unknown) (no (unknown) (unknown) with sitting than (units (unknown) date) standing.? She unknown) reports she tries to find relief with walking.? (unknown) (no (unknown) (unknown) within normal (units ( unknown) date) limits. unknown) (unknown) (no (unknown) (unknown) without cough fever (unit s (unknown) date) fatigue at this unknown) time.? She has been fully vaccinated. (unknown) (no (unknown) (unknown) zoledronic acid (units (unknown) date) Allergy (Severe, unknown) Verified 03/29/22 09:56) Result panel 4 (unknown) (no (unknown) (unknown) (no value) (units (unk nown) date) unknown) (unknown) (no (unknown) (unknown) (1) Scoliosis: (units (unknown) date) unknown) (unknown) (no (unknown) (unknown) (2) Facet (units (unkn own) date) arthropathy, lumbar: unknown) (unknown) (no (unknown) (unknown) (3) Diabetes: (units ( unknown) date) unknown) (unknown) (no (unknown) (unknown) (4) History of (units (unknown) date) fusion of cervical unknown) spine: (unknown) (no (unknown) (unknown) (5) Post-traumatic (units (unknown) date) syrinx: unknown) (unknown) (no (unknown) (unknown) (6) Lumbosacral (units (unknown) date) radiculopathy at L4: unknown) (unknown) (no (unknown) (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 Mild disc bulge (units (unknown) date) at T12-L1 with no unknown) significant foraminal or central canal (unknown) (no (unknown) (unknown) 03/29/22 1102 (units ( unknown) date) unknown) (unknown) (no (unknown) (unknown) 03/29/22 [History (units (unknown) date) Confirmed 03/29/22] unknown) (unknown) (no (unknown) (unknown) 03/29/22 (units (unkno wn) date) unknown) (unknown) (no (unknown) (unknown) 03/29/22] (units (unkn own) date) unknown) (unknown) (no (unknown) (unknown) 10:41 (units (unkno wn) date) unknown) (unknown) (no (unknown) (unknown) 2. Facet arthrosis (units (unknown) date) and ligamentum flavum unknown) hypertrophy at L4-5 and L5-S1. (unknown) (no (unknown) (unknown) 3. 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 (unknown) (no (unknown) (unknown) [id number] (units (unkno wn) date) unknown) (unknown) (no (unknown) (unknown) ? (units (unkno wn) date) unknown) (unknown) (no (unknown) (unknown) Accompanied by: Self (uni ts (unknown) date) / Same As Patient unknown) (unknown) (no (unknown) (unknown) Age/Sex: 67 / F Date (uni ts (unknown) date) of Service: unknown) (unknown) (no (unknown) (unknown) All other systems (units (unknown) date) reviewed and are unknown) negative except as noted in HPI. (unknown) (no (unknown) (unknown) All the questions (units (unknown) date) were answered to the unknown) best my ability they are in agreement (unknown) (no (unknown) (unknown) Allergies (units (unkn own) date) unknown) (unknown) (no (unknown) (unknown) [place] [address] (unit s (unknown) date) unknown) (unknown) (no (unknown) (unknown) Anaphylaxis (units (un known) date) unknown) (unknown) (no (unknown) (unknown) Approved by: Chriss (unit s (unknown) date) Bony Segovia on unknown) 10/11/2020 at 8:56 (unknown) (no (unknown) (unknown) Assessment + Plan (units (unknown) date) unknown) (unknown) (no (unknown) (unknown) Attending Dr: Timothy (uni ts (unknown) date) Antonia Burrows unknown) (unknown) (no (unknown) (unknown) BMI 41.6 (units (unkno wn) date) unknown) (unknown) (no (unknown) (unknown) BP 132/78 (units (unkn own) date) unknown) (unknown) (no (unknown) (unknown) Blood Pressure (units (unknown) date) Location Lt brachial unknown) (unknown) (no (unknown) (unknown) Chief Complaint (units (unknown) date) unknown) (unknown) (no (unknown) (unknown) Chief Complaint: (units (unknown) date) Follow-up bilateral unknown) L4-5 transforaminal SANDY 11/29/2021 (unknown) (no (unknown) (unknown) Confirmed 03/29/22] (unit s (unknown) date) unknown) (unknown) (no (unknown) (unknown) : 1955 (units (unknown) date) Acct:[id number] unknown) (unknown) (no (unknown) (unknown) DTR's symmetric. (units (unknown) date) unknown) (unknown) (no (unknown) (unknown) Maria G and I (units (un known) date) discussed at length unknown) her underlying pathology.? She does have a (unknown) (no (unknown) (unknown) Maria G returns to (units (unknown) date) clinic today status unknown) post bilateral L4-5 transforaminal SANDY (unknown) (no (unknown) (unknown) Denies recent (units ( unknown) date) trauma, fever or unknown) weight loss of unknown origin, immunocompromise (unknown) (no (unknown) (unknown) Depression (units (unk nown) date) unknown) (unknown) (no (unknown) (unknown) Dept at (units (unkno wn) date) . unknown) (unknown) (no (unknown) (unknown) Details: (units (unkno wn) date) unknown) (unknown) (no (unknown) (unknown) Diabetes mellitus (units (unknown) date) type: type 2 Diabetes unknown) mellitus detention insulin use: (unknown) (no (unknown) (unknown) Diabetes (units (unkno wn) date) unknown) (unknown) (no (unknown) (unknown) Dictated by: Chriss (unit s (unknown) date) Bony Segovia on unknown) 10/11/2020 at 8:36 ? ? (unknown) (no (unknown) (unknown) Discontinued Reason: (uni ts (unknown) date) Dose Change 300 mg PO unknown) TID 90 caps 1RF (unknown) (no (unknown) (unknown) Discontinued (units (u nknown) date) unknown) (unknown) (no (unknown) (unknown) Documented By: (units (unknown) date) Timothy Knight D.O. unknown) 03/29/22 0955 (unknown) (no (unknown) (unknown) Endorses cervical (units (unknown) date) ACDF, thoracic syrinx unknown) T6 through T9, diabetes, hypothyroidism (unknown) (no (unknown) (unknown) Exam Narrative (units (unknown) date) unknown) (unknown) (no (unknown) (unknown) Exam Narrative: (units (unknown) date) unknown) (unknown) (no (unknown) (unknown) Exam (units (unkno wn) date) unknown) (unknown) (no (unknown) (unknown) Facet arthropathy, (units (unknown) date) lumbar unknown) (unknown) (no (unknown) (unknown) Family History (units (unknown) date) (Reviewed 03/29/22 @ unknown) 10:57 by Timothy Knight DO) (unknown) (no (unknown) (unknown) Father Cancer (units ( unknown) date) unknown) (unknown) (no (unknown) (unknown) Following insurance (unit s (unknown) date) approval. I will unknown) perform diagnostic medial branch blocks of (unknown) (no (unknown) (unknown) Gait: Full (units (unk nown) date) weightbearing. No unknown) assistive device. Stooped Gait Posture due to (unknown) (no (unknown) (unknown) General: The patient (uni ts (unknown) date) is in no obvious unknown) distress. Normal affect. Fully (unknown) (no (unknown) (unknown) H/O neck surgery (units (unknown) date) unknown) (unknown) (no (unknown) (unknown) HPI (units (unkno wn) date) unknown) (unknown) (no (unknown) (unknown) Height 5 ft (units (un known) date) unknown) (unknown) (no (unknown) (unknown) Her recent lumbar (units (unknown) date) spine MRI does show unknown) mild changes at the L4-5 level with (unknown) (no (unknown) (unknown) History of (units (unk nown) date) cholecystectomy unknown) (unknown) (no (unknown) (unknown) History of fusion of (uni ts (unknown) date) cervical spine unknown) (unknown) (no (unknown) (unknown) Hypothyroidism (units (unknown) date) unknown) (unknown) (no (unknown) (unknown) IMPRESSION:? (units (u nknown) date) unknown) (unknown) (no (unknown) (unknown) Informed consent was (unit s (unknown) date) obtained today unknown) without guarantees or assurances of complete (unknown) (no (unknown) (unknown) Intake Clinical (units (unknown) date) Staff unknown) (unknown) (no (unknown) (unknown) Intake Note: (units (u nknown) date) unknown) (unknown) (no (unknown) (unknown) Intake performed by: (uni ts (unknown) date) Ailin Gutierrez unknown) (unknown) (no (unknown) (unknown) Intake (units (unkno wn) date) unknown) (unknown) (no (unknown) (unknown) Is patient in pain?: (uni ts (unknown) date) Yes (here for lumbar unknown) spine) Pain scale (1-10): 7 (unknown) (no (unknown) (unknown) L1-L2:? No (units (unk nown) date) significant disc unknown) bulge. The foramina and central canal are patent. (unknown) (no (unknown) (unknown) L2-L3:? No (units (unk nown) date) significant disc unknown) bulge. The foramina and central canal are patent. (unknown) (no (unknown) (unknown) L3-L4:? No (units (unk nown) date) significant disc unknown) bulge. The foramina and central canal are patent. (unknown) (no (unknown) (unknown) L4-L5:? There is (units (unknown) date) facet arthrosis and unknown) ligamentum flavum hypertrophy.? No (unknown) (no (unknown) (unknown) L5-S1:? There is (units (unknown) date) facet arthrosis and unknown) ligamentum flavum hypertrophy.? No (unknown) (no (unknown) (unknown) Left Lower (units (unk nown) date) Extremity: No edema, unknown) joint effusion or atrophy. tenderness over the (unknown) (no (unknown) (unknown) Left Upper (units (unk nown) date) Extremity: Left upper unknown) extremity exam shows grossly normal alignment, (unknown) (no (unknown) (unknown) Loc: PAIN (units (unkn own) date) unknown) (unknown) (no (unknown) (unknown) Lumbosacral (units (un known) date) radiculopathy at L4 unknown) (unknown) (no (unknown) (unknown) MRI of 2019.? Her (units (unknown) date) lumbar features are unknown) the most predominant for her.? She has (unknown) (no (unknown) (unknown) MSK: System reviewed (uni ts (unknown) date) and no additional unknown) complaints, except as documented. (unknown) (no (unknown) (unknown) Medical History (units (unknown) date) (Reviewed 03/29/22 @ unknown) 10:57 by Timothy Knight DO) (unknown) (no (unknown) (unknown) Medications (units (un known) date) unknown) (unknown) (no (unknown) (unknown) Medications: (units (u nknown) date) unknown) (unknown) (no (unknown) (unknown) Mother Heart disease (uni ts (unknown) date) unknown) (unknown) (no (unknown) (unknown) Neuro: System (units ( unknown) date) reviewed and no unknown) additional complaints, except as documented. (unknown) (no (unknown) (unknown) Neurologic: (units (un known) date) Sensation is grossly unknown) intact to light touch throughout the upper and (unknown) (no (unknown) (unknown) New (units (unkno wn) date) unknown) (unknown) (no (unknown) (unknown) Objective Data (units (unknown) date) unknown) (unknown) (no (unknown) (unknown) Objective Data: (units (unknown) date) unknown) (unknown) (no (unknown) (unknown) Oxygen Delivery (units (unknown) date) Method room air unknown) (unknown) (no (unknown) (unknown) PFSH (units (unkno wn) date) unknown) (unknown) (no (unknown) (unknown) Pain Scale (units (unk nown) date) unknown) (unknown) (no (unknown) (unknown) Pain Visit (units (unk nown) date) unknown) (unknown) (no (unknown) (unknown) Patient: (units (unkno wn) date) Briseida Cazares MR#: unknown) M000 (unknown) (no (unknown) (unknown) Penicillins Allergy (unit s (unknown) date) (Severe, Verified unknown) 03/29/22 09:56) (unknown) (no (unknown) (unknown) Plan (units (unkno wn) date) unknown) (unknown) (no (unknown) (unknown) Position Sitting (units (unknown) date) unknown) (unknown) (no (unknown) (unknown) Post-traumatic (units (unknown) date) syrinx unknown) (unknown) (no (unknown) (unknown) Pulse 74 (units (unkno wn) date) unknown) (unknown) (no (unknown) (unknown) Pulse Oximetry (%) (units (unknown) date) 99 unknown) (unknown) (no (unknown) (unknown) Pulse Source Monitor (uni ts (unknown) date) unknown) (unknown) (no (unknown) (unknown) Qualified Code(s): (units (unknown) date) E11.9 - 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 tenderness over the (unknown) (no (unknown) (unknown) Right Upper (units (un known) date) Extremity: Right unknown) upper extremity exam shows grossly normal (unknown) (no (unknown) (unknown) Scoliosis type: (units (unknown) date) idiopathic Idiopathic unknown) scoliosis type: other Spinal (unknown) (no (unknown) (unknown) Scoliosis (units (unkn own) date) unknown) (unknown) (no (unknown) (unknown) She also reports she (uni ts (unknown) date) takes extreme hot and unknown) cold showers attempting to find some (unknown) (no (unknown) (unknown) She reports (units (un known) date) otherwise feeling unknown) well maintain the Covid19 social restrictions (unknown) (no (unknown) (unknown) Signed By: (units (unk nown) date) <Electronically unknown) signed by Timothy Knight D.O.> (unknown) (no (unknown) (unknown) Signed (units (unkno wn) date) unknown) (unknown) (no (unknown) (unknown) Sister Heart disease (uni ts (unknown) date) unknown) (unknown) (no (unknown) (unknown) Skin: No significant (uni ts (unknown) date) skin lesions are unknown) noted. (unknown) (no (unknown) (unknown) Smoking Status: (units (unknown) date) Former smoker unknown) (unknown) (no (unknown) (unknown) Spine: Cervical (units (unknown) date) spine ROM functional. unknown) Lumbar spine ROM was reduced in all (unknown) (no (unknown) (unknown) Status: Acute (units ( unknown) date) unknown) (unknown) (no (unknown) (unknown) Surgical History (units (unknown) date) (Reviewed 03/29/22 @ unknown) 10:57 by Timothy Knight DO) (unknown) (no (unknown) (unknown) Swelling of (units (un known) date) Lip/Tongue/Throat unknown) (unknown) (no (unknown) (unknown) T12-L1:? Diffuse (units (unknown) date) disc bulge with no unknown) significant foraminal or central canal (unknown) (no (unknown) (unknown) Temp 98.9 F (units (un known) date) unknown) (unknown) (no (unknown) (unknown) Temp Source Temporal (uni ts (unknown) date) Artery Scan unknown) (unknown) (no (unknown) (unknown) [facility] (unit s (unknown) date) Management unknown) (unknown) (no (unknown) (unknown) This note may have (units (unknown) date) been all or partially unknown) generated using voice recognition (unknown) (no (unknown) (unknown) Tobacco + Substance (unit s (unknown) date) Use unknown) (unknown) (no (unknown) (unknown) Tobacco Status (units (unknown) date) unknown) (unknown) (no (unknown) (unknown) Visit Reasons: FU (units (unknown) date) SANDY, POST LUMBAR unknown) INJECTION (unknown) (no (unknown) (unknown) Vitals (units (unkno wn) date) unknown) (unknown) (no (unknown) (unknown) We did review the (units (unknown) date) above-stated unknown) procedure at length and verbal consent was (unknown) (no (unknown) (unknown) Weight 213 lb 4 oz (units (unknown) date) unknown) (unknown) (no (unknown) (unknown) [History Confirmed (units (unknown) date) 03/29/22] unknown) (unknown) (no (unknown) (unknown) ablation may be (units (unknown) date) indicated. If two unknown) diagnostic medial branch blocks on two (unknown) (no (unknown) (unknown) above-stated plan. (units (unknown) date) unknown) (unknown) (no (unknown) (unknown) alignment, range of (unit s (unknown) date) motion, strength and unknown) stability with no swelling, atrophy or (unknown) (no (unknown) (unknown) approximately 2-3 (units (unknown) date) weeks with return of unknown) symptoms as of late. She reports (unknown) (no (unknown) (unknown) are consistent with (unit s (unknown) date) a left L4 unknown) radiculopathy.? We did discuss she treatment (unknown) (no (unknown) (unknown) aripiprazole 10 mg (units (unknown) date) tablet 30 mg PO DAILY unknown) 11/23/21 [History Confirmed 03/29/22] (unknown) (no (unknown) (unknown) associated facet (units (unknown) date) arthropathy and unknown) associated mild stenosis.? Her current features (unknown) (no (unknown) (unknown) axial LBP (units (unkn own) date) unknown) (unknown) (no (unknown) (unknown) ay occur. Occasional (uni ts (unknown) date) wrong-word or unknown) 'sound-alike' substitutions may have (unknown) (no (unknown) (unknown) blocks is justified (unit s (unknown) date) by the following unknown) considerations. 1) the patient has had a (unknown) (no (unknown) (unknown) bulge. The foramina (unit s (unknown) date) and central canal are unknown) patent. (unknown) (no (unknown) (unknown) by improvement in ROM (uni ts (unknown) date) and function, we unknown) would conclude that the tested joints are (unknown) (no (unknown) (unknown) diagnostic medial (units (unknown) date) branch block provided unknown) substantial pain relief, radiofrequency (unknown) (no (unknown) (unknown) different occasions (units (unknown) date) lead to substantial unknown) pain relief, particularly if accompanied (unknown) (no (unknown) (unknown) does report (units (un known) date) prominent relief from unknown) her bilateral low back pain as well as lower (unknown) (no (unknown) (unknown) duloxetine 60 mg (units (unknown) date) capsule,delayed unknown) release (Cymbalta) 60 mg PO BID 09/05/21 (unknown) (no (unknown) (unknown) effusion. (units (unkn own) date) unknown) (unknown) (no (unknown) (unknown) encroachment.? Her (units (unknown) date) syrinx as well unknown) appeared to be stable.? (unknown) (no (unknown) (unknown) erythromycin base (units (unknown) date) Allergy (Severe, unknown) Verified 03/29/22 09:56) (unknown) (no (unknown) (unknown) extremities. She (units (unknown) date) does report she is unknown) using her tizanidine 2 mg at night as (unknown) (no (unknown) (unknown) extremities. (units (u nknown) date) unknown) (unknown) (no (unknown) (unknown) extremity symptoms. (unit s (unknown) date) She does report the unknown) symptoms were ameliorated for (unknown) (no (unknown) (unknown) further offset her (units (unknown) date) axial low back pain unknown) with radiation to the bilateral lower (unknown) (no (unknown) (unknown) further treatment (units (unknown) date) and nonsurgical unknown) fashion if at all possible.? (unknown) (no (unknown) (unknown) gabapentin 600 mg PO (uni ts (unknown) date) 1-2 PO Tid to begin unknown) at HS and titrate to nerve pain (unknown) (no (unknown) (unknown) gabapentin 600 mg (units (unknown) date) tablet 600 mg PO unknown) .COMPLEX #90 tabs 03/29/22 [Rx Confirmed (unknown) (no (unknown) (unknown) gabapentin (units (unk nown) date) unknown) (unknown) (no (unknown) (unknown) greater trochanteric (uni ts (unknown) date) region unknown) (unknown) (no (unknown) (unknown) greater trochanteric (uni ts (unknown) date) region. unknown) (unknown) (no (unknown) (unknown) have occurred. If (units (unknown) date) there are any unknown) questions, please contact the Medical Records (unknown) (no (unknown) (unknown) have some changes (units (unknown) date) above her previous unknown) C6-7 ACDF but no clear neural (unknown) (no (unknown) (unknown) here for lumbar (units (unknown) date) spine unknown) (unknown) (no (unknown) (unknown) history of a (units (u nknown) date) significant trauma unknown) involving her cervical spine and thoracic spine (unknown) (no (unknown) (unknown) history of at least (unit s (unknown) date) 3 months of moderate unknown) to sever pain with functional (unknown) (no (unknown) (unknown) hydrochlorothiazide (unit s (unknown) date) 25 mg tablet 25 mg PO unknown) DAILY 03/29/22 [History Confirmed (unknown) (no (unknown) (unknown) hydrocodone 10 (units (unknown) date) mg-acetaminophen 325 unknown) mg tablet 1 tab PO DAILY 11/23/21 [History (unknown) (no (unknown) (unknown) impairment; 2) they (units (unknown) date) did not respond to unknown) conservative treatment efforts for longer (unknown) (no (unknown) (unknown) increased tenderness (unit s (unknown) date) with axial loading unknown) and extension based maneuvers tenderness (unknown) (no (unknown) (unknown) injury, stroke, (units (unknown) date) paralysis and unknown) and the patient elected to proceed. (unknown) (no (unknown) (unknown) intravenous drug (units (unknown) date) use, sustained unknown) glucocorticoid use, osteoporosis, or a focal (unknown) (no (unknown) (unknown) leading to her (units (unknown) date) thoracic syrinx.? It unknown) has been since 1998 that she has been (unknown) (no (unknown) (unknown) levothyroxine 125 (units (unknown) date) mcg tablet unknown) (Synthroid) 125 mcg PO DAILY 09/05/21 [History (unknown) (no (unknown) (unknown) levothyroxine 125 (units (unknown) date) mcg tablet unknown) (Synthroid) 125 mcg PO DAILY 11/23/21 [History (unknown) (no (unknown) (unknown) likely the relevant (unit s (unknown) date) source of pain. Thus unknown) meeting the above criteria, (unknown) (no (unknown) (unknown) losartan 50 mg (units (unknown) date) tablet 50 mg PO DAILY unknown) 11/23/21 [History Confirmed 03/29/22] (unknown) (no (unknown) (unknown) lower extremities. (units (unknown) date) motor 5/5 all LE unknown) muscle groups. Coordination appears normal. (unknown) (no (unknown) (unknown) metformin 500 mg (units (unknown) date) tablet,extended unknown) release 24 hr 500 mg PO DAILY 03/29/22 [History (unknown) (no (unknown) (unknown) methocarbamol 750 mg (unit s (unknown) date) tablet 750 mg PO .PRN unknown) 11/23/21 [History Confirmed 03/29/22] (unknown) (no (unknown) (unknown) metoprolol succinate (uni ts (unknown) date) 50 mg tablet,extended unknown) release 24 hr tab PO 11/23/21 (unknown) (no (unknown) (unknown) multivitamin (Daily (unit s (unknown) date) Multi-Vitamin tablet) unknown) 1 tab PO DAILY 09/05/21 [History (unknown) (no (unknown) (unknown) needed as well as (units (unknown) date) gabapentin currently unknown) With ongoing symptoms of both low back (unknown) (no (unknown) (unknown) neurological deficit (uni ts (unknown) date) with progressive or unknown) disabling symptoms. (unknown) (no (unknown) (unknown) obtained today, As (units (unknown) date) oral consent, we did unknown) review the risks of the above stated (unknown) (no (unknown) (unknown) occurred due to the (unit s (unknown) date) inherent limitations unknown) of voice recognition software. Please (unknown) (no (unknown) (unknown) ongoing with (units (u nknown) date) associated neck pain unknown) and thoracic pain.? Her last scan of her (unknown) (no (unknown) (unknown) options available to (uni ts (unknown) date) her and elected to unknown) proceed with a course of physical (unknown) (no (unknown) (unknown) or immunosuppressive (uni ts (unknown) date) therapy, previous or unknown) current cancer diagnosis, history of (unknown) (no (unknown) (unknown) oriented. (units (unkn own) date) unknown) (unknown) (no (unknown) (unknown) oxycodone 10 mg (units (unknown) date) tablet,crush unknown) resistant,extended release 12 hr 10 mg PO Q12H (unknown) (no (unknown) (unknown) oxycodone 10 mg (units (unknown) date) tablet,extended unknown) release,12 hr mg PO 09/05/21 [History Confirmed (unknown) (no (unknown) (unknown) pain as well as (units (unknown) date) bilateral lower unknown) extremity symptoms.? As outlined prior she had a (unknown) (no (unknown) (unknown) pain.? She does (units (unknown) date) report she uses the unknown) tizanidine and gabapentin at night from time (unknown) (no (unknown) (unknown) performed on (units (u nknown) date) 11/29/2021. Dad unknown) reports no difficulty with the procedure itself (unknown) (no (unknown) (unknown) planes. On (units (unk nown) date) palpation, there is unknown) tenderness over the spinous processes. With (unknown) (no (unknown) (unknown) predominantly axial (unit s (unknown) date) low back pain with an unknown) radiation to the bilateral lower (unknown) (no (unknown) (unknown) previous cervical (units (unknown) date) ACDF and has a known unknown) thoracic syrinx of T6 through T9 on her (unknown) (no (unknown) (unknown) procedure including (units (unknown) date) not limited to unknown) bleeding, infection, allergic reaction, nerve (unknown) (no (unknown) (unknown) provocative maneuvers (uni ts (unknown) date) including sacra shear unknown) test as well as pelvic obliquity are (unknown) (no (unknown) (unknown) radicular features (units (unknown) date) involving the unknown) bilateral lower extremities 60% on left 40% on (unknown) (no (unknown) (unknown) radiofrequency (units (unknown) date) ablation may be unknown) indicated. (unknown) (no (unknown) (unknown) range of motion, (units (unknown) date) strength and unknown) stability with no swelling, atrophy or effusion. (unknown) (no (unknown) (unknown) read the note (units ( unknown) date) carefully and unknown) recognize, using context, where these substitutions (unknown) (no (unknown) (unknown) region (units (unkno wn) date) unknown) (unknown) (no (unknown) (unknown) region: lumbar (units (unknown) date) Qualified Code(s): unknown) M41.26 - Other idiopathic scoliosis, lumbar (unknown) (no (unknown) (unknown) regular basis.? (units (unknown) date) Based upon her unknown) response we will proceed with a diagnostic and (unknown) (no (unknown) (unknown) relief applied. Will (uni ts (unknown) date) complete written unknown) consent on the day of the procedure. (unknown) (no (unknown) (unknown) relief.? She reports (unit s (unknown) date) having difficulty unknown) sleeping secondary to the severity of the (unknown) (no (unknown) (unknown) relief; 90 tabs 2RF (unit s (unknown) date) unknown) (unknown) (no (unknown) (unknown) salicylic acid (units (unknown) date) Allergy unknown) (Intermediate, Verified 03/29/22 09:56) (unknown) (no (unknown) (unknown) significant disc (units (unknown) date) unknown) (unknown) (no (unknown) (unknown) sitagliptin 50 mg (units (unknown) date) tablet (Januvia) 50 unknown) mg PO DAILY 03/29/22 [History Confirmed (unknown) (no (unknown) (unknown) software. Although (units (unknown) date) every effort is made unknown) to edit content, chief analytics officer errors m (unknown) (no (unknown) (unknown) stenosis. (units (unkn own) date) unknown) (unknown) (no (unknown) (unknown) sumatriptan (units (un known) date) succinate 50 mg unknown) tablet ea PO 11/23/21 [History Confirmed 03/29/22] (unknown) (no (unknown) (unknown) tetracycline Allergy (uni ts (unknown) date) (Severe, Verified unknown) 03/29/22 09:56) (unknown) (no (unknown) (unknown) than 3 months; 3) (units (unknown) date) the clinical unknown) characteristics involves primarily axial pain in (unknown) (no (unknown) (unknown) the absence of clear (uni ts (unknown) date) radicular symptoms or unknown) other neurologic components; and 4) (unknown) (no (unknown) (unknown) the facet joints (units (unknown) date) bilateral L4-5 L5-S1. unknown) For Maria G, performing the medial branch (unknown) (no (unknown) (unknown) the imaging does not (uni ts (unknown) date) suggest another unknown) predominant source of pain. If the second (unknown) (no (unknown) (unknown) the morning.? She (units (unknown) date) reports no new unknown) traumas or illnesses and would like to pursue (unknown) (no (unknown) (unknown) the right and L4-5 (units (unknown) date) distribution.? She unknown) reports that these continue to be worse (unknown) (no (unknown) (unknown) therapeutic (units (un known) date) bilateral L4-5 and unknown) L5-S1 facet joint injections to significant (unknown) (no (unknown) (unknown) therapy as well as (units (unknown) date) increasing her unknown) gabapentin dose to 300 mg p.o. t.i.d. on a (unknown) (no (unknown) (unknown) thoracic and (units (u nknown) date) cervical spine was in unknown) 2018 without significant change.? She did (unknown) (no (unknown) (unknown) tizanidine 2 mg (units (unknown) date) tablet 2 mg PO BID unknown) PRN muscle spasticity 09/05/21 [History (unknown) (no (unknown) (unknown) to palpation on (units (unknown) date) paraspinals.straight unknown) leg raising negative bilaterally. 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 She unknown) reports she tries to find relief with walking.? (unknown) (no (unknown) (unknown) within normal (units ( unknown) date) limits. unknown) (unknown) (no (unknown) (unknown) without cough fever (unit s (unknown) date) fatigue at this unknown) time.? She has been fully vaccinated. (unknown) (no (unknown) (unknown) zoledronic acid (units (unknown) date) Allergy (Severe, unknown) Verified 03/29/22 09:56) Result panel 5 (unknown) (no (unknown) (unknown) (no value) (units (unk nown) date) unknown) (unknown) (no (unknown) (unknown) [id number] (units (unkno wn) date) unknown) (unknown) (no (unknown) (unknown) 04/11/22 (units (unkno wn) date) unknown) (unknown) (no (unknown) (unknown) 11:48. (units (unkno wn) date) unknown) (unknown) (no (unknown) (unknown) [address] [place] [address] (units (unknown) date) unknown) (unknown) (no (unknown) (unknown) Accession Number: (units (unknown) date) [id number] unknown) (unknown) (no (unknown) (unknown) Age/Sex: 67 / F (units (unknown) date) Date of Service: unknown) (unknown) (no (unknown) (unknown) [facility] (units ( unknown) date) [id number] unknown) (unknown) (no (unknown) (unknown) Appropriate (units (un known) date) unknown) (unknown) (no (unknown) (unknown) Approved by: (units (u nknown) date) Alex Argueta, unknown) Bony on 04/11/2022 at 11:12 (unknown) (no (unknown) (unknown) COMPARISON: (units (un known) date) [facility], unknown) XA, PAIN L/S TRANSFORAM INJECT JULIEN, 11/29/2021, (unknown) (no (unknown) (unknown) : 1955 (units (unknown) date) Acct:[id number] unknown) (unknown) (no (unknown) (unknown) Dictated by: (units (u nknown) date) Alex Argueta, unknown) Bony on 04/11/2022 at 11:12 (unknown) (no (unknown) (unknown) FINDINGS: (units (unkn own) date) Fluoroscopic spot unknown) filming was performed to verify placement of (unknown) (no (unknown) (unknown) IMPRESSION: (units (un known) date) Intraprocedural unknown) examination demonstrating appropriate positions of (unknown) (no (unknown) (unknown) INDICATIONS: (units (u nknown) date) SPONDYLOSIS unknown) (unknown) (no (unknown) (unknown) [facility] (units (unknown) date) unknown) (unknown) (no (unknown) (unknown) Loc: RAD (units (unkno wn) date) unknown) (unknown) (no (unknown) (unknown) Ordering (units (unkno wn) date) Provider: unknown) Timothy Knight D.O. (unknown) (no (unknown) (unknown) PROCEDURE: PAIN (units (unknown) date) L/S FACET INJ/BLK unknown) 1ST JULIEN (unknown) (no (unknown) (unknown) Patient: (units (unkno wn) date) Briseida Cazares unknown) MR#: [id number] (unknown) (no (unknown) (unknown) Procedure: PAIN (units (unknown) date) l/s facet inj/blk unknown) 1st julien (unknown) (no (unknown) (unknown) Signed (units (unkno wn) date) unknown) (unknown) (no (unknown) (unknown) XRay Report (units (un known) date) unknown) (unknown) (no (unknown) (unknown) location of the (units (unknown) date) needle tips was unknown) confirmed by injection of iodinated contrast. (unknown) (no (unknown) (unknown) needles. (units (unkno wn) date) unknown) (unknown) (no (unknown) (unknown) on both sides at (units (unknown) date) the L4-L5 and unknown) L5-S1 levels, as labeled on the films. (unknown) (no (unknown) (unknown) spinal needles (units (unknown) date) unknown) (unknown) (no (unknown) (unknown) the (units (unkno wn) date) unknown) Result panel 6 (unknown) (no (unknown) (unknown) (no value) (units (unk nown) date) unknown) (unknown) (no (unknown) (unknown) 0.25cc (units (unkno wn) date) betamethasone was unknown) injected without complication into each of the (unknown) (no (unknown) (unknown) 1% lidocaine (units (u nknown) ) solution into the unknown) corresponding facet joints. At this point, a 22 (unknown) (no (unknown) (unknown) 1. (units (unkno wn) date) FLUOROSCOPICALLY unknown) GUIDED CONTRAST CONTROLLED FACET JOINT INJECTIONS BILATERAL (unknown) (no (unknown) (unknown) 04/11/22 1122 (units ( unknown) date) unknown) (unknown) (no (unknown) (unknown) 2. AXIAL LBP (units (u nknown) date) unknown) (unknown) (no (unknown) (unknown) 3. MULTILEVEL DDD (units (unknown) date) unknown) (unknown) (no (unknown) (unknown) [id number] (units (unkno wn) date) unknown) (unknown) (no (unknown) (unknown) After review of (units (unknown) date) previous unknown) anaesthesic history and IV conscious sedation the (unknown) (no (unknown) (unknown) Age/Sex: 67 / F (units (unknown) date) unknown) (unknown) (no (unknown) (unknown) At this point, a (units (unknown) date) total of 0.5cc unknown) including a mixture of 0.25cc Marcaine and (unknown) (no (unknown) (unknown) Complications: (units (unknown) date) none unknown) (unknown) (no (unknown) (unknown) DESCRIPTION OF (units (unknown) date) PROCEDURE unknown) (unknown) (no (unknown) (unknown) : 1955 (units (unknown) date) Acct:[id number] unknown) (unknown) (no (unknown) (unknown) Date of Service: (units (unknown) date) 04/11/22 unknown) (unknown) (no (unknown) (unknown) Date of procedure: (units (unknown) date) 04/11/22 unknown) (unknown) (no (unknown) (unknown) Date/Time/Diagnose (units (unknown) date) s unknown) (unknown) (no (unknown) (unknown) Briseida is (units (unk nown) date) referred by unknown) Aden for treatment of Axial LBP (unknown) (no (unknown) (unknown) FINDINGS (units (unkno wn) date) unknown) (unknown) (no (unknown) (unknown) Fluoroscopically (units (unknown) date) guided, unknown) contrast-controlled bilateral L4/5, L5/S1 facet joint (unknown) (no (unknown) (unknown) Following review (units (unknown) date) of allergy and unknown) review of potential side effects and (unknown) (no (unknown) (unknown) In the prone (units (u nknown) date) position, following unknown) sterile prep and drape of the lumbar region, (unknown) (no (unknown) (unknown) Indications: (units (u nknown) date) unknown) (unknown) (no (unknown) (unknown) [facility] (units (unknown) date) [address] unknown) [place] [address] (unknown) (no (unknown) (unknown) L4/5, L5/S1 (units (un known) date) unknown) (unknown) (no (unknown) (unknown) Multilevel Facet (units (unknown) date) Arthropathy with unknown) Clinically significant axial LBP (unknown) (no (unknown) (unknown) POST OP (units (unkno wn) date) INSTRUCTIONS unknown) (unknown) (no (unknown) (unknown) Patient: (units (unkno wn) date) Briseida Cazares MR#: unknown) [id number] (unknown) (no (unknown) (unknown) Physician: Timothy (units (unknown) date) Antonia unknown) (unknown) (no (unknown) (unknown) Post-procedure (units (unknown) date) diagnosis: same unknown) (unknown) (no (unknown) (unknown) Pre-procedure (units ( unknown) date) diagnosis: 1. FACET unknown) ARTHROPATHY (unknown) (no (unknown) (unknown) Procedure Note (units (unknown) date) unknown) (unknown) (no (unknown) (unknown) Procedure Notes (units (unknown) date) unknown) (unknown) (no (unknown) (unknown) Procedure in (units (u nknown) date) detail + unknown) Post-procedure care: (unknown) (no (unknown) (unknown) Procedure: (units (unk nown) date) unknown) (unknown) (no (unknown) (unknown) Provider: (units (unkn own) date) Timothy Knight D.O. unknown) (unknown) (no (unknown) (unknown) Radiological data, (units (unknown) date) including multiple unknown) fluoroscopic views of the lumbosacral (unknown) (no (unknown) (unknown) Signed (units (unkno wn) date) By:<Electronically unknown) signed by Timothy Knight D.O.> (unknown) (no (unknown) (unknown) Subsequent views (units (unknown) date) show flow of unknown) contrast material both superiorly and inferiorly (unknown) (no (unknown) (unknown) The patient (units (un known) date) reported a VAS unknown) score of 7 prior to the procedure and a post (unknown) (no (unknown) (unknown) The patient (units (un known) date) tolerated the unknown) procedure well without signs or symptoms of (unknown) (no (unknown) (unknown) The patient was (units (unknown) date) provided a Pain Log unknown) to continue to record their response to the (unknown) (no (unknown) (unknown) Time of procedure: (units (unknown) date) 11:18 unknown) (unknown) (no (unknown) (unknown) Total Fluoroscopy (units (unknown) date) time (seconds): 7 unknown) (unknown) (no (unknown) (unknown) Total sedation (units (unknown) date) minutes: 9 unknown) (unknown) (no (unknown) (unknown) accomplished with (units (unknown) date) a combination of unknown) 2mg of Versed was administered by the RN (unknown) (no (unknown) (unknown) after DO order, (units (unknown) date) titrated to patient unknown) comfort during the course of the procedure (unknown) (no (unknown) (unknown) and agreed to (units ( unknown) date) proceed. An unknown) informed consent document was signed by the patient, (unknown) (no (unknown) (unknown) aspiration, (units (un known) date) injections of unknown) approximately 0.2cc of Isovue 200 confirmed (unknown) (no (unknown) (unknown) complications (units ( unknown) date) associated with the unknown) procedure are suspected. (unknown) (no (unknown) (unknown) complications (units ( unknown) date) prior to transfer unknown) to the recovery area continued monitoring (unknown) (no (unknown) (unknown) complications, (units (unknown) date) including, but not unknown) necessarily limited to, infection, allergic (unknown) (no (unknown) (unknown) corresponding (units ( unknown) date) facet joints. unknown) (unknown) (no (unknown) (unknown) fluoroscopic (units (u nknown) date) guidance into the unknown) corresponding facet joints. Following negative (unknown) (no (unknown) (unknown) fluoroscopically. (units (unknown) date) The skin was unknown) anesthetized via a 25-gauge 1.5inch needle with (unknown) (no (unknown) (unknown) gauge 5-inch (units (u nknown) date) spinal needle was unknown) atraumatically introduced and advanced under (unknown) (no (unknown) (unknown) injections. (units (un known) date) unknown) (unknown) (no (unknown) (unknown) interarticular (units (unknown) date) placement without unknown) vascular uptake. The identical procedure was (unknown) (no (unknown) (unknown) number to our (units ( unknown) date) office were unknown) provided if concerns arise regarding possible (unknown) (no (unknown) (unknown) paralysis, and (units ( unknown) date) possible , the unknown) patient indicated that the patient understood (unknown) (no (unknown) (unknown) patient ID, (units (un known) date) procedure to be unknown) performed and site of procedure. IV sedation was (unknown) (no (unknown) (unknown) patient was deemed (units (unknown) date) safe to proceed unknown) with today?s procedure with IV conscious (unknown) (no (unknown) (unknown) physician. (units (unkn own) date) Additionally, unknown) specific post-injection care instructions and a contact (unknown) (no (unknown) (unknown) procedure VAS of (units (unknown) date) 0. unknown) (unknown) (no (unknown) (unknown) reaction, local (units (unknown) date) tissue breakdown, unknown) stroke, temporary or permanent nerve injury, (unknown) (no (unknown) (unknown) reviewed with the (units (unknown) date) patient. unknown) (unknown) (no (unknown) (unknown) sedation as ASA (units (unknown) date) class II unknown) designation. Safety time-out was performed to confirm (unknown) (no (unknown) (unknown) spine, reveal a (units (unknown) date) spinal needle at unknown) the L4/5, L5/S1 facet joints bilaterally. (unknown) (no (unknown) (unknown) target-specific (units (unknown) date) procedure prior to unknown) follow-up visit with their referring (unknown) (no (unknown) (unknown) the posterior (units ( unknown) date) aspect of the L4/5, unknown) L5/S1 facet joints were identified (unknown) (no (unknown) (unknown) then performed at (units (unknown) date) the L4/5, L5/S1 unknown) facet joints on the left. (unknown) (no (unknown) (unknown) they were observed (units (unknown) date) for an appropriate unknown) period of time after the injection. (unknown) (no (unknown) (unknown) treatment options (units (unknown) date) including unknown) medications, modalities, and physical therapy were (unknown) (no (unknown) (unknown) while the patient (units (unknown) date) remained responsive unknown) to all verbal commands (unknown) (no (unknown) (unknown) within the joint (units (unknown) date) space without unknown) vascular or intrathecal uptake. (unknown) (no (unknown) (unknown) without incident. (units (unknown) date) The patient was unknown) then transferred to the recovery area where (unknown) (no (unknown) (unknown) witnessed by a (units (unknown) date) nurse, and placed unknown) in the patient's chart. Additionally, other Result panel 7 (unknown) (no (unknown) (unknown) (no value) (units (unk nown) date) unknown) (unknown) (no (unknown) (unknown) [id number] (units (unkno wn) date) unknown) (unknown) (no (unknown) (unknown) 1 OR 2 (units (unkno wn) date) unknown) (unknown) (no (unknown) (unknown) 1. Moderate (units (un known) date) medial soft unknown) tissue swelling with questionable nondisplaced avulsion (unknown) (no (unknown) (unknown) 05/05/22 (units (unkno wn) date) unknown) (unknown) (no (unknown) (unknown) [address] [place] [address] (units (unknown) date) unknown) (unknown) (no (unknown) (unknown) 2. Probable (units (un known) date) remote injury and unknown) healing deformities of the distal fibula and (unknown) (no (unknown) (unknown) Accession (units (unkn own) date) Number: unknown) [id number] (unknown) (no (unknown) (unknown) Accession (units (unkn own) date) Number: unknown) [id number] (unknown) (no (unknown) (unknown) Age/Sex: 67 / F (units (unknown) date) Date of Service: unknown) (unknown) (no (unknown) (unknown) [place], [place] (units ( unknown) date) [id number] unknown) (unknown) (no (unknown) (unknown) Approved by: (units (u nknown) date) Katie Henson unknown) Bony on 05/05/2022 at 16:02 (unknown) (no (unknown) (unknown) Approved by: (units (u nknown) date) fili Menendez) Bony on 05/05/2022 at 16:09 (unknown) (no (unknown) (unknown) Bones: Chronic (units (unknown) date) cortical unknown) irregularity of the distal tibia and fibula. Mild (unknown) (no (unknown) (unknown) Bones: No (units (unkn own) date) fractures or unknown) dislocations. Ankle mortise is normally aligned. No (unknown) (no (unknown) (unknown) COMPARISON: (units (un known) date) None. unknown) (unknown) (no (unknown) (unknown) COMPARISON: (units (un known) date) [facility] unknown) [facility], CR, XR ANKLE (unknown) (no (unknown) (unknown) : 1955 (units (unknown) date) Acct:[id number] unknown) (unknown) (no (unknown) (unknown) Dictated by: (units (u nknown) date) Katie Henson, unknown) Bony on 05/05/2022 at 16:02 (unknown) (no (unknown) (unknown) Dictated by: (units (u nknown) date) fili Menendez) Bony on 05/05/2022 at 16:03 (unknown) (no (unknown) (unknown) FINDINGS: (units (unkn own) date) unknown) (unknown) (no (unknown) (unknown) IMPRESSION: (units (un known) date) Intact left unknown) ankle. (unknown) (no (unknown) (unknown) IMPRESSION: (units (un known) date) unknown) (unknown) (no (unknown) (unknown) INDICATIONS: (units (u nknown) date) medial pain s/p unknown) fall, sprain? (unknown) (no (unknown) (unknown) [facility] (units (unknown) date) unknown) (unknown) (no (unknown) (unknown) Loc: ED (units (unkno wn) date) unknown) (unknown) (no (unknown) (unknown) Moderate (units (unkno wn) date) unknown) (unknown) (no (unknown) (unknown) Ordering (units (unkno wn) date) Provider: unknown) Jessica Camejo (unknown) (no (unknown) (unknown) PROCEDURE: XR (units ( unknown) date) ANKLE LT MIN 3V unknown) (unknown) (no (unknown) (unknown) PROCEDURE: XR (units ( unknown) date) ANKLE RT MIN 3V unknown) (unknown) (no (unknown) (unknown) Patient: (units (unkno wn) date) Briseida Cazares unknown) MR#: [id number] (unknown) (no (unknown) (unknown) Procedure: XR (units ( unknown) date) ankle LT min 3V unknown) (unknown) (no (unknown) (unknown) Procedure: XR (units ( unknown) date) ankle RT min 3V unknown) (unknown) (no (unknown) (unknown) Signed (units (unkno wn) date) unknown) (unknown) (no (unknown) (unknown) Soft tissues: No (units (unknown) date) tibiotalar joint unknown) effusion. Achilles tendon appears normal. (unknown) (no (unknown) (unknown) TECHNIQUE: Three (units (unknown) date) views of the unknown) ankle were acquired. (unknown) (no (unknown) (unknown) VIEWS WEIGHT (units (u nknown) date) BEARING RIGHT, unknown) 02/19/2018, 8:37. (unknown) (no (unknown) (unknown) XRay Report (units (un known) date) unknown) (unknown) (no (unknown) (unknown) along the medial (units (unknown) date) malleolus. The unknown) mortise with is not well assessed given (unknown) (no (unknown) (unknown) anterior (units (unkno wn) date) unknown) (unknown) (no (unknown) (unknown) at the (units (unkno wn) date) unknown) (unknown) (no (unknown) (unknown) avulsion (units (unkno wn) date) fracture unknown) (unknown) (no (unknown) (unknown) bony lesions. (units ( unknown) date) Prominent plantar unknown) calcaneal spur. (unknown) (no (unknown) (unknown) contralateral (units ( unknown) date) unknown) (unknown) (no (unknown) (unknown) current (units (unkno wn) date) unknown) (unknown) (no (unknown) (unknown) medial soft (units (un known) date) tissue swelling. unknown) (unknown) (no (unknown) (unknown) positioning. A (units (unknown) date) prominent unknown) calcaneal spur is present, symmetric with the (unknown) (no (unknown) (unknown) side. (units (unkno wn) date) unknown) (unknown) (no (unknown) (unknown) suspicious (units (unk nown) date) unknown) (unknown) (no (unknown) (unknown) tibia. (units (unkno wn) date) unknown) (unknown) (no (unknown) (unknown) tibiotalar (units (unk nown) date) spurring and unknown) spurring at both malleoli. There may be a tiny (unknown) (no (unknown) (unknown) tip of the (units (unk nown) date) medial malleolus. unknown) Result panel 8 (unknown) (no (unknown) (unknown) (no value) (units (unk nown) date) unknown) (unknown) (no (unknown) (unknown) (Synthroid) (units (un known) date) unknown) (unknown) (no (unknown) (unknown) 1 tab PO DAILY (units (unknown) date) unknown) (unknown) (no (unknown) (unknown) 10 mg PO Q12H (units ( unknown) date) unknown) (unknown) (no (unknown) (unknown) 05/05/22 14:57 (units (unknown) date) unknown) (unknown) (no (unknown) (unknown) 05/05/22 (units (unkno wn) date) unknown) (unknown) (no (unknown) (unknown) 11:45 (units (unkno wn) date) unknown) (unknown) (no (unknown) (unknown) 125 mcg PO DAILY (units (unknown) date) unknown) (unknown) (no (unknown) (unknown) 2 mg PO BID PRN (units (unknown) date) (Reason: muscle unknown) spasticity) (unknown) (no (unknown) (unknown) 25 mg PO DAILY (units (unknown) date) unknown) (unknown) (no (unknown) (unknown) 30 mg PO DAILY (units (unknown) date) unknown) (unknown) (no (unknown) (unknown) 325 mg tablet (units ( unknown) date) unknown) (unknown) (no (unknown) (unknown) [id number] (units (unkno wn) date) unknown) (unknown) (no (unknown) (unknown) 50 mg PO DAILY (units (unknown) date) unknown) (unknown) (no (unknown) (unknown) 500 mg PO DAILY (units (unknown) date) unknown) (unknown) (no (unknown) (unknown) 60 mg PO BID (units (u nknown) date) unknown) (unknown) (no (unknown) (unknown) 600 mg PO .COMPLEX (units (unknown) date) Qty: 90 2RF unknown) (unknown) (no (unknown) (unknown) 600 mg PO 1-2 PO Tid (uni ts (unknown) date) to begin at HS and unknown) titrate to nerve pain relief; (unknown) (no (unknown) (unknown) 750 mg PO .PRN (units (unknown) date) unknown) (unknown) (no (unknown) (unknown) Age/Sex: 67 / F (units (unknown) date) unknown) (unknown) (no (unknown) (unknown) Allergies (units (unkn own) date) unknown) (unknown) (no (unknown) (unknown) Allergy/AdvReac Type (uni ts (unknown) date) Severity Reaction unknown) Status Date / Time (unknown) (no (unknown) (unknown) Blood Pressure (units (unknown) date) 140/62 05/05/22 11:45 unknown) (unknown) (no (unknown) (unknown) Blood Pressure (units (unknown) date) 140/62 unknown) (unknown) (no (unknown) (unknown) Chief Complaint: (units (unknown) date) Fall unknown) (unknown) (no (unknown) (unknown) Course (units (unkno wn) date) unknown) (unknown) (no (unknown) (unknown) : 1955 (units (unknown) date) Acct:[id number] unknown) (unknown) (no (unknown) (unknown) Date of Service: (units (unknown) date) 05/05/22 unknown) (unknown) (no (unknown) (unknown) Departure (units (unkn own) date) unknown) (unknown) (no (unknown) (unknown) Depression (units (unk nown) date) unknown) (unknown) (no (unknown) (unknown) Diabetes (units (unkno wn) date) unknown) (unknown) (no (unknown) (unknown) Discharge Plan (units (unknown) date) unknown) (unknown) (no (unknown) (unknown) ED Orders (units (unkn own) date) unknown) (unknown) (no (unknown) (unknown) ER Physician: (units ( unknown) date) Jessica Camejo unknown) (unknown) (no (unknown) (unknown) Emergency Report (units (unknown) date) unknown) (unknown) (no (unknown) (unknown) Exam (units (unkno wn) date) unknown) (unknown) (no (unknown) (unknown) Facet arthropathy, (units (unknown) date) lumbar unknown) (unknown) (no (unknown) (unknown) Family History (units (unknown) date) (Reviewed 03/29/22 @ unknown) 10:57 by Timothy Knight DO) (unknown) (no (unknown) (unknown) Father Cancer (units ( unknown) date) unknown) (unknown) (no (unknown) (unknown) Ciaran Samaniego, (units (unknown) date) MD [Primary Care unknown) Provider] (unknown) (no (unknown) (unknown) General (units (unkno wn) date) unknown) (unknown) (no (unknown) (unknown) H/O neck surgery (units (unknown) date) unknown) (unknown) (no (unknown) (unknown) HPI - Fall (units (unk nown) date) unknown) (unknown) (no (unknown) (unknown) HPI Narrative: (units (unknown) date) unknown) (unknown) (no (unknown) (unknown) History of Present (units (unknown) date) Illness unknown) (unknown) (no (unknown) (unknown) History of (units (unk nown) date) cholecystectomy unknown) (unknown) (no (unknown) (unknown) 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 [address] (uni ts (unknown) date) [address] unknown) [place] [address] (unknown) (no (unknown) (unknown) Januvia 50 mg tablet (uni ts (unknown) date) unknown) (unknown) (no (unknown) (unknown) Label Comments: (units (unknown) date) unknown) (unknown) (no (unknown) (unknown) Lip/Tongue/Throat (units (unknown) date) unknown) (unknown) (no (unknown) (unknown) Lumbosacral (units (un known) date) radiculopathy at L4 unknown) (unknown) (no (unknown) (unknown) Medical History (units (unknown) date) (Reviewed 03/29/22 @ unknown) 10:57 by Timothy Knight DO) (unknown) (no (unknown) (unknown) Medication (units (unk nown) date) Instructions Recorded unknown) Confirmed (unknown) (no (unknown) (unknown) Medication (units (unk nown) date) Instructions Recorded unknown) (unknown) (no (unknown) (unknown) Mode of arrival: (units (unknown) date) Ambulatory unknown) (unknown) (no (unknown) (unknown) Mother Heart disease (uni ts (unknown) date) unknown) (unknown) (no (unknown) (unknown) No Action (units (unkn own) date) unknown) (unknown) (no (unknown) (unknown) Ordered: (units (unkno wn) date) unknown) (unknown) (no (unknown) (unknown) Orders (units (unkno wn) date) unknown) (unknown) (no (unknown) (unknown) Oxygen Delivery (units (unknown) date) Method 05/05/22 11:45 unknown) (unknown) (no (unknown) (unknown) Oxygen Delivery (units (unknown) date) Method Room Air unknown) (unknown) (no (unknown) (unknown) PO (units (unkno wn) date) unknown) (unknown) (no (unknown) (unknown) Patient History (units (unknown) date) unknown) (unknown) (no (unknown) (unknown) Patient: (units (unkno wn) date) [place] J MR#: unknown) [id number] (unknown) (no (unknown) (unknown) [place] Allergy (unit s (unknown) date) Severe Anaphylaxis unknown) Verified 03/29/22 09:56 (unknown) (no (unknown) (unknown) Post-traumatic (units (unknown) date) syrinx unknown) (unknown) (no (unknown) (unknown) Prescriptions: (units (unknown) date) unknown) (unknown) (no (unknown) (unknown) Previous Rx's (units ( unknown) date) unknown) (unknown) (no (unknown) (unknown) Pulse Oximetry 98 (units (unknown) date) 05/05/22 11:45 unknown) (unknown) (no (unknown) (unknown) Pulse Oximetry 98 (units (unknown) date) unknown) (unknown) (no (unknown) (unknown) Pulse Rate 88 (units ( unknown) date) 05/05/22 11:45 unknown) (unknown) (no (unknown) (unknown) Pulse Rate 88 (units ( unknown) date) unknown) (unknown) (no (unknown) (unknown) Referrals: (units (unk nown) date) unknown) (unknown) (no (unknown) (unknown) Related Data (units (u nknown) date) unknown) (unknown) (no (unknown) (unknown) Respiratory Rate 20 (unit s (unknown) date) 05/05/22 11:45 unknown) (unknown) (no (unknown) (unknown) Respiratory Rate 20 (unit s (unknown) date) unknown) (unknown) (no (unknown) (unknown) Rx Instructions: (units (unknown) date) unknown) (unknown) (no (unknown) (unknown) Scoliosis (units (unkn own) date) unknown) (unknown) (no (unknown) (unknown) Signed By: (units (unk nown) date) unknown) (unknown) (no (unknown) (unknown) Sister Heart disease (uni ts (unknown) date) unknown) (unknown) (no (unknown) (unknown) Smoking Status: (units (unknown) date) Former smoker unknown) (unknown) (no (unknown) (unknown) Social History (units (unknown) date) (Reviewed 09/06/21 @ unknown) 19:05 by Sagar Ravi PA-C) (unknown) (no (unknown) (unknown) Source: patient (units (unknown) date) unknown) (unknown) (no (unknown) (unknown) Stated Complaint: (units (unknown) date) fell sunday both legs unknown) + ankles are swollen (unknown) (no (unknown) (unknown) Substance Use Type: (unit s (unknown) date) does not use unknown) (unknown) (no (unknown) (unknown) Surgical History (units (unknown) date) (Reviewed 03/29/22 @ unknown) 10:57 by Timothy Knight DO) (unknown) (no (unknown) (unknown) Temperature 97.6 F (units (unknown) date) 05/05/22 11:45 unknown) (unknown) (no (unknown) (unknown) Temperature 97.6 F (units (unknown) date) unknown) (unknown) (no (unknown) (unknown) This is a (units (unkn own) date) 67-year-old female unknown) presents to the emergency department after she had (unknown) (no (unknown) (unknown) Time Seen by (units (u nknown) date) Provider: 05/05/22 unknown) 14:35 (unknown) (no (unknown) (unknown) Vital Signs - 8 hr (units (unknown) date) unknown) (unknown) (no (unknown) (unknown) Vital Signs (units (un known) date) unknown) (unknown) (no (unknown) (unknown) Vital signs: (units (u nknown) date) unknown) (unknown) (no (unknown) (unknown) XR ankle LT min 3V (units (unknown) date) Stat unknown) (unknown) (no (unknown) (unknown) XR ankle RT min 3V (units (unknown) date) Stat unknown) (unknown) (no (unknown) (unknown) a mechanical fall 5 (unit s (unknown) date) days ago when her unknown) legs when out. Patient states that she (unknown) (no (unknown) (unknown) aripiprazole 10 mg (units (unknown) date) tablet 30 mg PO DAILY unknown) 11/23/21 03/29/22 (unknown) (no (unknown) (unknown) aripiprazole 10 mg (units (unknown) date) tablet unknown) (unknown) (no (unknown) (unknown) duloxetine 60 mg (units (unknown) date) capsule,delayed 60 mg unknown) PO BID 09/05/21 03/29/22 (unknown) (no (unknown) (unknown) duloxetine (units (unk nown) date) [Cymbalta] 60 mg unknown) capsule,delayed release(DR/EC) (unknown) (no (unknown) (unknown) erythromycin base (units (unknown) date) Allergy Severe unknown) Swelling Verified 03/29/22 09:56 (unknown) (no (unknown) (unknown) gabapentin 600 mg (units (unknown) date) tablet 600 mg PO unknown) .COMPLEX #90 tabs 03/29/22 (unknown) (no (unknown) (unknown) gabapentin 600 mg (units (unknown) date) tablet unknown) (unknown) (no (unknown) (unknown) has a history of (units (unknown) date) steroid angio myelo unknown) (unknown) (no (unknown) (unknown) hydrochlorothiazide (unit s (unknown) date) 25 mg tablet 25 mg PO unknown) DAILY 03/29/22 03/29/22 (unknown) (no (unknown) (unknown) hydrochlorothiazide (unit s (unknown) date) 25 mg tablet unknown) (unknown) (no (unknown) (unknown) hydrocodone 10 (units (unknown) date) mg-acetaminophen 1 unknown) tab PO DAILY 11/23/21 03/29/22 (unknown) (no (unknown) (unknown) hydrocodone-acetamin (uni ts (unknown) date) ophen 10-325 mg unknown) tablet (unknown) (no (unknown) (unknown) levothyroxine 125 (units (unknown) date) mcg tablet 125 mcg PO unknown) DAILY 09/05/21 03/29/22 (unknown) (no (unknown) (unknown) levothyroxine 125 (units (unknown) date) mcg tablet 125 mcg PO unknown) DAILY 11/23/21 03/29/22 (unknown) (no (unknown) (unknown) levothyroxine (units ( unknown) date) [Synthroid] 125 mcg unknown) tablet (unknown) (no (unknown) (unknown) losartan 50 mg (units (unknown) date) tablet 50 mg PO DAILY unknown) 11/23/21 03/29/22 (unknown) (no (unknown) (unknown) losartan 50 mg (units (unknown) date) tablet unknown) (unknown) (no (unknown) (unknown) metformin 500 mg (units (unknown) date) tablet extended unknown) release 24 hr (unknown) (no (unknown) (unknown) metformin 500 mg (units (unknown) date) tablet,extended 500 unknown) mg PO DAILY 03/29/22 03/29/22 (unknown) (no (unknown) (unknown) methocarbamol 750 mg (uni ts (unknown) date) tablet 750 mg PO .PRN unknown) 11/23/21 03/29/22 (unknown) (no (unknown) (unknown) methocarbamol 750 mg (uni ts (unknown) date) tablet unknown) (unknown) (no (unknown) (unknown) metoprolol succinate (uni ts (unknown) date) 50 mg tab PO 11/23/21 unknown) 03/29/22 (unknown) (no (unknown) (unknown) metoprolol succinate (uni ts (unknown) date) 50 mg tablet extended unknown) release 24 hr (unknown) (no (unknown) (unknown) multivitamin (Daily (unit s (unknown) date) Multi-Vitamin 1 tab unknown) PO DAILY 09/05/21 03/29/22 (unknown) (no (unknown) (unknown) multivitamin [Daily (unit s (unknown) date) Multi-Vitamin] Tablet unknown) (unknown) (no (unknown) (unknown) of (units (unkno wn) date) unknown) (unknown) (no (unknown) (unknown) oxycodone 10 mg (units (unknown) date) tablet extended unknown) release 12 hr (unknown) (no (unknown) (unknown) oxycodone 10 mg (units (unknown) date) tablet,crush 10 mg PO unknown) Q12H 03/29/22 03/29/22 (unknown) (no (unknown) (unknown) oxycodone 10 mg (units (unknown) date) tablet,extended mg PO unknown) 09/05/21 03/29/22 (unknown) (no (unknown) (unknown) oxycodone 10 mg (units (unknown) date) tablet,oral unknown) only,ext.rel.12 hr (unknown) (no (unknown) (unknown) release (Cymbalta) (units (unknown) date) unknown) (unknown) (no (unknown) (unknown) release 24 hr (units ( unknown) date) unknown) (unknown) (no (unknown) (unknown) release,12 hr (units ( unknown) date) unknown) (unknown) (no (unknown) (unknown) resistant,extended (units (unknown) date) release 12 hr unknown) (unknown) (no (unknown) (unknown) salicylic acid (units (unknown) date) Allergy Intermediate unknown) Rash Verified 03/29/22 09:56 (unknown) (no (unknown) (unknown) sitagliptin 50 mg (units (unknown) date) tablet (Januvia) 50 unknown) mg PO DAILY 03/29/22 03/29/22 (unknown) (no (unknown) (unknown) sumatriptan (units (un known) date) succinate 50 mg unknown) tablet ea PO 11/23/21 03/29/22 (unknown) (no (unknown) (unknown) sumatriptan (units (un known) date) succinate 50 mg unknown) tablet (unknown) (no (unknown) (unknown) tablet) (units (unkno wn) date) unknown) (unknown) (no (unknown) (unknown) tablet,extended (units (unknown) date) release 24 hr unknown) (unknown) (no (unknown) (unknown) take 1 tablet by (units (unknown) date) mouth if needed AT unknown) ONSET OF HEADACHE may repeat in 2 hours (unknown) (no (unknown) (unknown) tetracycline Allergy (uni ts (unknown) date) Severe Anaphylaxis unknown) Verified 03/29/22 09:56 (unknown) (no (unknown) (unknown) tizanidine 2 mg (units (unknown) date) tablet 2 mg PO BID unknown) PRN muscle spasticity 09/05/21 03/29/22 (unknown) (no (unknown) (unknown) tizanidine 2 mg (units (unknown) date) tablet unknown) (unknown) (no (unknown) (unknown) zoledronic acid (units (unknown) date) Allergy Severe unknown) Anaphylaxis Verified 03/29/22 09:56 Result panel 9 (unknown) (no (unknown) (unknown) (no value) (units (unk nown) date) unknown) (unknown) (no (unknown) (unknown) (Synthroid) (units (un known) date) unknown) (unknown) (no (unknown) (unknown) *If you do not have (unit s (unknown) date) a primary care unknown) provider please contact [phone] to (unknown) (no (unknown) (unknown) *Please continue to (unit s (unknown) date) take your regular unknown) medications as directed. (unknown) (no (unknown) (unknown) *Please follow up (units (unknown) date) with your primary unknown) care provider in 2-3 days, call for an (unknown) (no (unknown) (unknown) *Return to Emergency (uni ts (unknown) date) Department if you unknown) should have any new, worsening, or (unknown) (no (unknown) (unknown) *What to do: (units (u nknown) date) unknown) (unknown) (no (unknown) (unknown) *You have been (units (unknown) date) diagnosed with [ ] unknown) (unknown) (no (unknown) (unknown) 1 tab PO DAILY (units (unknown) date) unknown) (unknown) (no (unknown) (unknown) 10 mg PO Q12H (units ( unknown) date) unknown) (unknown) (no (unknown) (unknown) 05/05/22 14:57 (units (unknown) date) unknown) (unknown) (no (unknown) (unknown) 05/05/22 (units (unkno wn) date) unknown) (unknown) (no (unknown) (unknown) 11:45 (units (unkno wn) date) unknown) (unknown) (no (unknown) (unknown) 125 mcg PO DAILY (units (unknown) date) unknown) (unknown) (no (unknown) (unknown) 2 mg PO BID PRN (units (unknown) date) (Reason: muscle unknown) spasticity) (unknown) (no (unknown) (unknown) 25 mg PO DAILY (units (unknown) date) unknown) (unknown) (no (unknown) (unknown) 30 mg PO DAILY (units (unknown) date) unknown) (unknown) (no (unknown) (unknown) 325 mg tablet (units ( unknown) date) unknown) (unknown) (no (unknown) (unknown) [id number] (units (unkno wn) date) unknown) (unknown) (no (unknown) (unknown) 50 mg PO DAILY (units (unknown) date) unknown) (unknown) (no (unknown) (unknown) 500 mg PO DAILY (units (unknown) date) unknown) (unknown) (no (unknown) (unknown) 60 mg PO BID (units (u nknown) date) unknown) (unknown) (no (unknown) (unknown) 600 mg PO .COMPLEX (units (unknown) date) Qty: 90 2RF unknown) (unknown) (no (unknown) (unknown) 600 mg PO 1-2 PO Tid (uni ts (unknown) date) to begin at HS and unknown) titrate to nerve pain relief; (unknown) (no (unknown) (unknown) 750 mg PO .PRN (units (unknown) date) unknown) (unknown) (no (unknown) (unknown) Activity (units (unkno wn) date) Restrictions/Addition unknown) al Instructions: (unknown) (no (unknown) (unknown) Age/Sex: 67 / F (units (unknown) date) unknown) (unknown) (no (unknown) (unknown) Allergies (units (unkn own) date) unknown) (unknown) (no (unknown) (unknown) Allergy/AdvReac Type (uni ts (unknown) date) Severity Reaction unknown) Status Date / Time (unknown) (no (unknown) (unknown) Blood Pressure (units (unknown) date) 140/62 05/05/22 11:45 unknown) (unknown) (no (unknown) (unknown) Blood Pressure (units (unknown) date) 140/62 unknown) (unknown) (no (unknown) (unknown) Chief Complaint: (units (unknown) date) Fall unknown) (unknown) (no (unknown) (unknown) Clinical Impression: (uni ts (unknown) date) unknown) (unknown) (no (unknown) (unknown) Complains of pain to (uni ts (unknown) date) the medial aspect of unknown) her bilateral ankles, some mild (unknown) (no (unknown) (unknown) Course (units (unkno wn) date) unknown) (unknown) (no (unknown) (unknown) : 1955 (units (unknown) date) Acct:[id number] unknown) (unknown) (no (unknown) (unknown) Date of Service: (units (unknown) date) 05/05/22 unknown) (unknown) (no (unknown) (unknown) Departure (units (unkn own) date) unknown) (unknown) (no (unknown) (unknown) Depression (units (unk nown) date) unknown) (unknown) (no (unknown) (unknown) Diabetes (units (unkno wn) date) unknown) (unknown) (no (unknown) (unknown) Discharge Plan (units (unknown) date) unknown) (unknown) (no (unknown) (unknown) Dorsiflexion and or (unit s (unknown) date) plantar extension unknown) intact bilaterally, PT pulses are 2+, (unknown) (no (unknown) (unknown) ED Orders (units (unkn own) date) unknown) (unknown) (no (unknown) (unknown) ER Physician: (units ( unknown) date) Jessica Camejo unknown) (unknown) (no (unknown) (unknown) Emergency Report (units (unknown) date) unknown) (unknown) (no (unknown) (unknown) Exam Narrative: (units (unknown) date) unknown) (unknown) (no (unknown) (unknown) Exam (units (unkno wn) date) unknown) (unknown) (no (unknown) (unknown) Facet arthropathy, (units (unknown) date) lumbar unknown) (unknown) (no (unknown) (unknown) Family History (units (unknown) date) (Reviewed 05/05/22 @ unknown) 15:03 by ALEN Antoine) (unknown) (no (unknown) (unknown) Father Cancer (units ( unknown) date) unknown) (unknown) (no (unknown) (unknown) Ciaran Samaniego, (units (unknown) date) MD [Primary Care unknown) Provider] (unknown) (no (unknown) (unknown) General (units (unkno wn) date) unknown) (unknown) (no (unknown) (unknown) General: (units (unkno wn) date) cooperative, unknown) comfortable, in no acute distress, well groomed (unknown) (no (unknown) (unknown) H/O neck surgery (units (unknown) date) unknown) (unknown) (no (unknown) (unknown) HEENT: symmetrical (units (unknown) date) facial expressions, unknown) moist mucous membranes, atraumatic= (unknown) (no (unknown) (unknown) HPI - Fall (units (unk nown) date) unknown) (unknown) (no (unknown) (unknown) HPI Narrative: (units (unknown) date) unknown) (unknown) (no (unknown) (unknown) HPI (units (unkno wn) date) unknown) (unknown) (no (unknown) (unknown) History of Present (units (unknown) date) Illness unknown) (unknown) (no (unknown) (unknown) History of (units (unk nown) date) cholecystectomy unknown) (unknown) (no (unknown) (unknown) 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 [address] (uni ts (unknown) date) [address] [place] [address] (unknown) (no (unknown) (unknown) Januvia 50 mg tablet (uni ts (unknown) date) unknown) (unknown) (no (unknown) (unknown) Label Comments: (units (unknown) date) unknown) (unknown) (no (unknown) (unknown) Left ankle sprain, (units (unknown) date) Right ankle sprain unknown) (unknown) (no (unknown) (unknown) Lip/Tongue/Throat (units (unknown) date) unknown) (unknown) (no (unknown) (unknown) Lumbosacral (units (un known) date) radiculopathy at L4 unknown) (unknown) (no (unknown) (unknown) MSK: moves all (units (unknown) date) extremities, unknown) neurovascularly intact, no weakness, normal tone, (unknown) (no (unknown) (unknown) Medical History (units (unknown) date) (Reviewed 05/05/22 @ unknown) 15:[address] [facility]) (unknown) (no (unknown) (unknown) Medication (units (unk nown) date) Instructions Recorded unknown) Confirmed (unknown) (no (unknown) (unknown) Medication (units (unk nown) date) Instructions Recorded unknown) (unknown) (no (unknown) (unknown) Mode of arrival: (units (unknown) date) Ambulatory unknown) (unknown) (no (unknown) (unknown) Mother Heart disease (uni ts (unknown) date) unknown) (unknown) (no (unknown) (unknown) Narrative (units (unkn own) date) unknown) (unknown) (no (unknown) (unknown) Narrative: (units (unk nown) date) unknown) (unknown) (no (unknown) (unknown) Neuro: normal speech (uni ts (unknown) date) and cognition, A+O unknown) x3, ambulatory, clear speech (unknown) (no (unknown) (unknown) No Action (units (unkn own) date) unknown) (unknown) (no (unknown) (unknown) Ordered: (units (unkno wn) date) unknown) (unknown) (no (unknown) (unknown) Orders (units (unkno wn) date) unknown) (unknown) (no (unknown) (unknown) Oxygen Delivery (units (unknown) date) Method 05/05/22 11:45 unknown) (unknown) (no (unknown) (unknown) Oxygen Delivery (units (unknown) date) Method Room Air unknown) (unknown) (no (unknown) (unknown) PO (units (unkno wn) date) unknown) (unknown) (no (unknown) (unknown) Patient Disposition: (uni ts (unknown) date) Home unknown) (unknown) (no (unknown) (unknown) Patient History (units (unknown) date) unknown) (unknown) (no (unknown) (unknown) Patient: (units (unkno wn) date) Briseida Cazares MR#: unknown) [id number] (unknown) (no (unknown) (unknown) Penicillins Allergy (unit s (unknown) date) Severe Anaphylaxis unknown) Verified 03/29/22 09:56 (unknown) (no (unknown) (unknown) Post-traumatic (units (unknown) date) syrinx unknown) (unknown) (no (unknown) (unknown) Prescriptions: (units (unknown) date) unknown) (unknown) (no (unknown) (unknown) Previous Rx's (units ( unknown) date) unknown) (unknown) (no (unknown) (unknown) Psych: mental status (uni ts (unknown) date) is grossly normal, unknown) congruent mood, normal affect, pleasant (unknown) (no (unknown) (unknown) Pulse Oximetry 98 (units (unknown) date) 05/05/22 11:45 unknown) (unknown) (no (unknown) (unknown) Pulse Oximetry 98 (units (unknown) date) unknown) (unknown) (no (unknown) (unknown) Pulse Rate 88 (units ( unknown) date) 05/05/22 11:45 unknown) (unknown) (no (unknown) (unknown) Pulse Rate 88 (units ( unknown) date) unknown) (unknown) (no (unknown) (unknown) Referrals: (units (unk nown) date) unknown) (unknown) (no (unknown) (unknown) Related Data (units (u nknown) date) unknown) (unknown) (no (unknown) (unknown) Respiratory Rate 20 (unit s (unknown) date) 05/05/22 11:45 unknown) (unknown) (no (unknown) (unknown) Respiratory Rate 20 (unit s (unknown) date) unknown) (unknown) (no (unknown) (unknown) Review of Systems (units (unknown) date) unknown) (unknown) (no (unknown) (unknown) Review of systems is (uni ts (unknown) date) negative for acute unknown) abnormalities unless otherwise noted in (unknown) (no (unknown) (unknown) Reviewed vitals (units (unknown) date) signs and nursing unknown) notes. (unknown) (no (unknown) (unknown) Rx Instructions: (units (unknown) date) unknown) (unknown) (no (unknown) (unknown) Scoliosis (units (unkn own) date) unknown) (unknown) (no (unknown) (unknown) Signed By: (units (unk nown) date) unknown) (unknown) (no (unknown) (unknown) Sister Heart disease (uni ts (unknown) date) unknown) (unknown) (no (unknown) (unknown) Skin: brisk (units (un known) date) capillary refill, unknown) without pallor or erythema (unknown) (no (unknown) (unknown) Smoking Status: (units (unknown) date) Former smoker unknown) (unknown) (no (unknown) (unknown) Social History (units (unknown) date) (Reviewed 05/05/22 @ unknown) 15:03 by ALEN Antoine) (unknown) (no (unknown) (unknown) Source: patient (units (unknown) date) unknown) (unknown) (no (unknown) (unknown) Stated Complaint: (units (unknown) date) fell sunday both legs unknown) + ankles are swollen (unknown) (no (unknown) (unknown) Substance Use Type: (unit s (unknown) date) does not use unknown) (unknown) (no (unknown) (unknown) Surgical History (units (unknown) date) (Reviewed 05/05/22 @ unknown) 15:03 by ALEN Antoine) (unknown) (no (unknown) (unknown) Temperature 97.6 F (units (unknown) date) 05/05/22 11:45 unknown) (unknown) (no (unknown) (unknown) Temperature 97.6 F (units (unknown) date) unknown) (unknown) (no (unknown) (unknown) This is a (units (unkn own) date) 67-year-old female unknown) presents to the emergency department after she had (unknown) (no (unknown) (unknown) Time Seen by (units (u nknown) date) Provider: 05/05/22 unknown) 14:35 (unknown) (no (unknown) (unknown) Vital Signs - 8 hr (units (unknown) date) unknown) (unknown) (no (unknown) (unknown) Vital Signs (units (un known) date) unknown) (unknown) (no (unknown) (unknown) Vital signs: (units (u nknown) date) unknown) (unknown) (no (unknown) (unknown) XR ankle LT min 3V (units (unknown) date) Stat unknown) (unknown) (no (unknown) (unknown) XR ankle RT min 3V (units (unknown) date) Stat unknown) (unknown) (no (unknown) (unknown) [ ] New medication (units (unknown) date) prescriptions sent to unknown) your pharmacy: [ ] (unknown) (no (unknown) (unknown) [ ] New medication (units (unknown) date) written as a paper unknown) prescription (unknown) (no (unknown) (unknown) [ ] No new (units (unk nown) date) medications given unknown) (unknown) (no (unknown) (unknown) a mechanical fall 5 (unit s (unknown) date) days ago when her unknown) legs when out. Patient states that she (unknown) (no (unknown) (unknown) and cooperative (units (unknown) date) unknown) (unknown) (no (unknown) (unknown) appointment. Let them (uni ts (unknown) date) know you were seen in unknown) the Emergency Department and that we (unknown) (no (unknown) (unknown) aripiprazole 10 mg (units (unknown) date) tablet 30 mg PO DAILY unknown) 11/23/21 03/29/22 (unknown) (no (unknown) (unknown) aripiprazole 10 mg (units (unknown) date) tablet unknown) (unknown) (no (unknown) (unknown) asked that you be (units (unknown) date) seen for follow-up. unknown) We will electronically transmit a record (unknown) (no (unknown) (unknown) bilateral CFL (units ( unknown) date) ligaments on the unknown) medial aspect, ATFL ligaments on medial aspect. (unknown) (no (unknown) (unknown) concerning symptoms, (uni ts (unknown) date) such as [fever unknown) greater than 101F, chills, worsening pain, (unknown) (no (unknown) (unknown) duloxetine 60 mg (units (unknown) date) capsule,delayed 60 mg unknown) PO BID 09/05/21 03/29/22 (unknown) (no (unknown) (unknown) duloxetine (units (unk nown) date) [Cymbalta] 60 mg unknown) capsule,delayed release(DR/EC) (unknown) (no (unknown) (unknown) erythromycin base (units (unknown) date) Allergy Severe unknown) Swelling Verified 03/29/22 09:56 (unknown) (no (unknown) (unknown) establish care with [facility]unit [facility] ([facility]) [facility]. (unknown) (no (unknown) (unknown) falls occasionally (units (unknown) date) and this is not new. unknown) She denies any recent illness. 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 and states that she has balance and (unknown) (no (unknown) (unknown) hydrochlorothiazide (unit s (unknown) date) 25 mg tablet 25 mg PO unknown) DAILY 03/29/22 03/29/22 (unknown) (no (unknown) (unknown) hydrochlorothiazide (unit s (unknown) date) 25 mg tablet unknown) (unknown) (no (unknown) (unknown) hydrocodone 10 (units (unknown) date) mg-acetaminophen 1 unknown) tab PO DAILY 11/23/21 03/29/22 (unknown) (no (unknown) (unknown) hydrocodone-acetamin (uni ts (unknown) date) ophen 10-325 mg unknown) tablet (unknown) (no (unknown) (unknown) levothyroxine 125 (units (unknown) date) mcg tablet 125 mcg PO unknown) DAILY 09/05/21 03/29/22 (unknown) (no (unknown) (unknown) levothyroxine 125 (units (unknown) date) mcg tablet 125 mcg PO unknown) DAILY 11/23/21 03/29/22 (unknown) (no (unknown) (unknown) levothyroxine (units ( unknown) date) [Synthroid] 125 mcg unknown) tablet (unknown) (no (unknown) (unknown) losartan 50 mg (units (unknown) date) tablet 50 mg PO DAILY unknown) 11/23/21 03/29/22 (unknown) (no (unknown) (unknown) losartan 50 mg (units (unknown) date) tablet unknown) (unknown) (no (unknown) (unknown) metformin 500 mg (units (unknown) date) tablet extended unknown) release 24 hr (unknown) (no (unknown) (unknown) metformin 500 mg (units (unknown) date) tablet,extended 500 unknown) mg PO DAILY 03/29/22 03/29/22 (unknown) (no (unknown) (unknown) methocarbamol 750 mg (uni ts (unknown) date) tablet 750 mg PO .PRN unknown) 11/23/21 03/29/22 (unknown) (no (unknown) (unknown) methocarbamol 750 mg (uni ts (unknown) date) tablet unknown) (unknown) (no (unknown) (unknown) metoprolol succinate (uni ts (unknown) date) 50 mg tab PO 11/23/21 unknown) 03/29/22 (unknown) (no (unknown) (unknown) metoprolol succinate (uni ts (unknown) date) 50 mg tablet extended unknown) release 24 hr (unknown) (no (unknown) (unknown) multivitamin (Daily (unit s (unknown) date) Multi-Vitamin 1 tab unknown) PO DAILY 09/05/21 03/29/22 (unknown) (no (unknown) (unknown) multivitamin [Daily (unit s (unknown) date) Multi-Vitamin] Tablet unknown) (unknown) (no (unknown) (unknown) of today's note if (units (unknown) date) your PCP is in our unknown) system (unknown) (no (unknown) (unknown) of (units (unkno wn) date) unknown) (unknown) (no (unknown) (unknown) open wound. Denies (units (unknown) date) any knee pain, denies unknown) any hip pain, states that she has some (unknown) (no (unknown) (unknown) oxycodone 10 mg (units (unknown) date) tablet extended unknown) release 12 hr (unknown) (no (unknown) (unknown) oxycodone 10 mg (units (unknown) date) tablet,crush 10 mg PO unknown) Q12H 03/29/22 03/29/22 (unknown) (no (unknown) (unknown) oxycodone 10 mg (units (unknown) date) tablet,extended mg PO unknown) 09/05/21 03/29/22 (unknown) (no (unknown) (unknown) oxycodone 10 mg (units (unknown) date) tablet,oral unknown) only,ext.rel.12 hr (unknown) (no (unknown) (unknown) palpation, right (units (unknown) date) thigh with mild unknown) tenderness over the distal quadriceps with full (unknown) (no (unknown) (unknown) patient is (units (unk nown) date) ambulatory, mild unknown) edema over bilateral medial malleoli, tenderness to (unknown) (no (unknown) (unknown) persistent vomiting (unit s (unknown) date) or other bothersome unknown) symptoms]. (unknown) (no (unknown) (unknown) release (Cymbalta) (units (unknown) date) unknown) (unknown) (no (unknown) (unknown) release 24 hr (units ( unknown) date) unknown) (unknown) (no (unknown) (unknown) release,12 hr (units ( unknown) date) unknown) (unknown) (no (unknown) (unknown) resistant,extended (units (unknown) date) release 12 hr unknown) (unknown) (no (unknown) (unknown) right knee mobility (unit s (unknown) date) including extension unknown) and flexion, no suprapatellar effusion, (unknown) (no (unknown) (unknown) salicylic acid (units (unknown) date) Allergy Intermediate unknown) Rash Verified 03/29/22 09:56 (unknown) (no (unknown) (unknown) sitagliptin 50 mg (units (unknown) date) tablet (Januvia) 50 unknown) mg PO DAILY 03/29/22 03/29/22 (unknown) (no (unknown) (unknown) soft tissue bruising (uni ts (unknown) date) to the right lateral unknown) distal thigh, denies any open wound (unknown) (no (unknown) (unknown) sumatriptan (units (un known) date) succinate 50 mg unknown) tablet ea PO 11/23/21 03/29/22 (unknown) (no (unknown) (unknown) sumatriptan (units (un known) date) succinate 50 mg unknown) tablet (unknown) (no (unknown) (unknown) swelling, states that (uni ts (unknown) date) she is able to bear unknown) weight on them bilaterally, denies any (unknown) (no (unknown) (unknown) tablet) (units (unkno wn) date) unknown) (unknown) (no (unknown) (unknown) tablet,extended (units (unknown) date) release 24 hr unknown) (unknown) (no (unknown) (unknown) take 1 tablet by (units (unknown) date) mouth if needed AT unknown) ONSET OF HEADACHE may repeat in 2 hours (unknown) (no (unknown) (unknown) tenderness to the (units (unknown) date) knee ligaments. unknown) (unknown) (no (unknown) (unknown) tetracycline Allergy (uni ts (unknown) date) Severe Anaphylaxis unknown) Verified 03/29/22 09:56 (unknown) (no (unknown) (unknown) there and has full (units (unknown) date) range of motion of unknown) her right hip. (unknown) (no (unknown) (unknown) tizanidine 2 mg (units (unknown) date) tablet 2 mg PO BID unknown) PRN muscle spasticity 09/05/21 03/29/22 (unknown) (no (unknown) (unknown) tizanidine 2 mg (units (unknown) date) tablet unknown) (unknown) (no (unknown) (unknown) without erythema, (units (unknown) date) ecchymosis, or open unknown) wound, bilateral feet are warm to (unknown) (no (unknown) (unknown) zoledronic acid (units (unknown) date) Allergy Severe unknown) Anaphylaxis Verified 03/29/22 09:56 Result panel 10 (unknown) (no (unknown) (unknown) (no value) (units (unk nown) date) unknown) (unknown) (no (unknown) (unknown) (Synthroid) (units (un known) date) unknown) (unknown) (no (unknown) (unknown) *If you do not have (unit s (unknown) date) a primary care unknown) provider please contact [phone] to (unknown) (no (unknown) (unknown) *Please continue to (unit s (unknown) date) take your regular unknown) medications as directed. (unknown) (no (unknown) (unknown) *Please follow up (units (unknown) date) with your primary unknown) care provider in 2-3 days, call for an (unknown) (no (unknown) (unknown) *Return to Emergency (uni ts (unknown) date) Department if you unknown) should have any new, worsening, or (unknown) (no (unknown) (unknown) *What to do: (units (u nknown) date) unknown) (unknown) (no (unknown) (unknown) *You have been (units (unknown) date) diagnosed with [ ] unknown) (unknown) (no (unknown) (unknown) 1 tab PO DAILY (units (unknown) date) unknown) (unknown) (no (unknown) (unknown) 10 mg PO Q12H (units ( unknown) date) unknown) (unknown) (no (unknown) (unknown) 05/05/22 14:57 (units (unknown) date) unknown) (unknown) (no (unknown) (unknown) 05/05/22 (units (unkno wn) date) unknown) (unknown) (no (unknown) (unknown) 11:45 (units (unkno wn) date) unknown) (unknown) (no (unknown) (unknown) 125 mcg PO DAILY (units (unknown) date) unknown) (unknown) (no (unknown) (unknown) 2 mg PO BID PRN (units (unknown) date) (Reason: muscle unknown) spasticity) (unknown) (no (unknown) (unknown) 25 mg PO DAILY (units (unknown) date) unknown) (unknown) (no (unknown) (unknown) 30 mg PO DAILY (units (unknown) date) unknown) (unknown) (no (unknown) (unknown) 325 mg tablet (units ( unknown) date) unknown) (unknown) (no (unknown) (unknown) [id number] (units (unkno wn) date) unknown) (unknown) (no (unknown) (unknown) 50 mg PO DAILY (units (unknown) date) unknown) (unknown) (no (unknown) (unknown) 500 mg PO DAILY (units (unknown) date) unknown) (unknown) (no (unknown) (unknown) 60 mg PO BID (units (u nknown) date) unknown) (unknown) (no (unknown) (unknown) 600 mg PO .COMPLEX (units (unknown) date) Qty: 90 2RF unknown) (unknown) (no (unknown) (unknown) 600 mg PO 1-2 PO Tid (uni ts (unknown) date) to begin at HS and unknown) titrate to nerve pain relief; (unknown) (no (unknown) (unknown) 750 mg PO .PRN (units (unknown) date) unknown) (unknown) (no (unknown) (unknown) Activity (units (unkno wn) date) Restrictions/Addition unknown) al Instructions: (unknown) (no (unknown) (unknown) Age/Sex: 67 / F (units (unknown) date) unknown) (unknown) (no (unknown) (unknown) Allergies (units (unkn own) date) unknown) (unknown) (no (unknown) (unknown) Allergy/AdvReac Type (uni ts (unknown) date) Severity Reaction unknown) Status Date / Time (unknown) (no (unknown) (unknown) Blood Pressure (units (unknown) date) 140/62 05/05/22 11:45 unknown) (unknown) (no (unknown) (unknown) Blood Pressure (units (unknown) date) 140/62 unknown) (unknown) (no (unknown) (unknown) Chief Complaint: (units (unknown) date) Fall unknown) (unknown) (no (unknown) (unknown) Clinical Impression: (uni ts (unknown) date) unknown) (unknown) (no (unknown) (unknown) Complains of pain to (uni ts (unknown) date) the medial aspect of unknown) her bilateral ankles, some mild (unknown) (no (unknown) (unknown) Course (units (unkno wn) date) unknown) (unknown) (no (unknown) (unknown) : 1955 (units (unknown) date) Acct:[id number] unknown) (unknown) (no (unknown) (unknown) Date of Service: (units (unknown) date) 05/05/22 unknown) (unknown) (no (unknown) (unknown) Departure (units (unkn own) date) unknown) (unknown) (no (unknown) (unknown) Depression (units (unk nown) date) unknown) (unknown) (no (unknown) (unknown) Diabetes (units (unkno wn) date) unknown) (unknown) (no (unknown) (unknown) Discharge Plan (units (unknown) date) unknown) (unknown) (no (unknown) (unknown) Dorsiflexion and or (unit s (unknown) date) plantar extension unknown) intact bilaterally, PT pulses are 2+, (unknown) (no (unknown) (unknown) ED Orders (units (unkn own) date) unknown) (unknown) (no (unknown) (unknown) ER Physician: (units ( unknown) date) Jessica Camejo unknown) (unknown) (no (unknown) (unknown) Emergency Report (units (unknown) date) unknown) (unknown) (no (unknown) (unknown) Encounter type: (units (unknown) date) initial encounter unknown) Involved ligament of ankle: anterior (unknown) (no (unknown) (unknown) Encounter type: (units (unknown) date) initial encounter unknown) Involved ligament of ankle: calcaneofibular (unknown) (no (unknown) (unknown) Exam Narrative: (units (unknown) date) unknown) (unknown) (no (unknown) (unknown) Exam (units (unkno wn) date) unknown) (unknown) (no (unknown) (unknown) Facet arthropathy, (units (unknown) date) lumbar unknown) (unknown) (no (unknown) (unknown) Family History (units (unknown) date) (Reviewed 05/05/22 @ unknown) 15:03 by ALEN Antoine) (unknown) (no (unknown) (unknown) Father Cancer (units ( unknown) date) unknown) (unknown) (no (unknown) (unknown) Ciaran Samaniego, (units (unknown) date) MD [Primary Care unknown) Provider] (unknown) (no (unknown) (unknown) General (units (unkno wn) date) unknown) (unknown) (no (unknown) (unknown) General: (units (unkno wn) date) cooperative, unknown) comfortable, in no acute distress, well groomed (unknown) (no (unknown) (unknown) H/O neck surgery (units (unknown) date) unknown) (unknown) (no (unknown) (unknown) HEENT: symmetrical (units (unknown) date) facial expressions, unknown) moist mucous membranes, atraumatic= (unknown) (no (unknown) (unknown) HPI - Fall (units (unk nown) date) unknown) (unknown) (no (unknown) (unknown) HPI Narrative: (units (unknown) date) unknown) (unknown) (no (unknown) (unknown) HPI (units (unkno wn) date) unknown) (unknown) (no (unknown) (unknown) History of Present (units (unknown) date) Illness unknown) (unknown) (no (unknown) (unknown) History of (units (unk nown) date) cholecystectomy unknown) (unknown) (no (unknown) (unknown) 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 [address] (uni ts (unknown) date) [address] unknown) [place] [address] (unknown) (no (unknown) (unknown) Januvia 50 mg tablet (uni ts (unknown) date) unknown) (unknown) (no (unknown) (unknown) Label Comments: (units (unknown) date) unknown) (unknown) (no (unknown) (unknown) Left ankle sprain (units (unknown) date) unknown) (unknown) (no (unknown) (unknown) Lip/Tongue/Throat (units (unknown) date) unknown) (unknown) (no (unknown) (unknown) Lumbosacral (units (un known) date) radiculopathy at L4 unknown) (unknown) (no (unknown) (unknown) MSK: moves all (units (unknown) date) extremities, unknown) neurovascularly intact, no weakness, normal tone, (unknown) (no (unknown) (unknown) Medical History (units (unknown) date) (Reviewed 05/05/22 @ unknown) 15:[address] [facility]) (unknown) (no (unknown) (unknown) Medication (units (unk nown) date) Instructions Recorded unknown) Confirmed (unknown) (no (unknown) (unknown) Medication (units (unk nown) date) Instructions Recorded unknown) (unknown) (no (unknown) (unknown) Mode of arrival: (units (unknown) date) Ambulatory unknown) (unknown) (no (unknown) (unknown) Mother Heart disease (uni ts (unknown) date) unknown) (unknown) (no (unknown) (unknown) Narrative (units (unkn own) date) unknown) (unknown) (no (unknown) (unknown) Narrative: (units (unk nown) date) unknown) (unknown) (no (unknown) (unknown) Neuro: normal speech (uni ts (unknown) date) and cognition, A+O unknown) x3, ambulatory, clear speech (unknown) (no (unknown) (unknown) No Action (units (unkn own) date) unknown) (unknown) (no (unknown) (unknown) Ordered: (units (unkno wn) date) unknown) (unknown) (no (unknown) (unknown) Orders (units (unkno wn) date) unknown) (unknown) (no (unknown) (unknown) Oxygen Delivery (units (unknown) date) Method 05/05/22 11:45 unknown) (unknown) (no (unknown) (unknown) Oxygen Delivery (units (unknown) date) Method Room Air unknown) (unknown) (no (unknown) (unknown) PO (units (unkno wn) date) unknown) (unknown) (no (unknown) (unknown) Patient Disposition: (uni ts (unknown) date) Home unknown) (unknown) (no (unknown) (unknown) Patient History (units (unknown) date) unknown) (unknown) (no (unknown) (unknown) Patient: (units (unkno wn) date) Briseida Cazares MR#: unknown) M000 (unknown) (no (unknown) (unknown) Penicillins Allergy (unit s (unknown) date) Severe Anaphylaxis unknown) Verified 03/29/22 09:56 (unknown) (no (unknown) (unknown) Post-traumatic (units (unknown) date) syrinx unknown) (unknown) (no (unknown) (unknown) Prescriptions: (units (unknown) date) unknown) (unknown) (no (unknown) (unknown) Previous Rx's (units ( unknown) date) unknown) (unknown) (no (unknown) (unknown) Psych: mental status (uni ts (unknown) date) is grossly normal, unknown) congruent mood, normal affect, pleasant (unknown) (no (unknown) (unknown) Pulse Oximetry 98 (units (unknown) date) 05/05/22 11:45 unknown) (unknown) (no (unknown) (unknown) Pulse Oximetry 98 (units (unknown) date) unknown) (unknown) (no (unknown) (unknown) Pulse Rate 88 (units ( unknown) date) 05/05/22 11:45 unknown) (unknown) (no (unknown) (unknown) Pulse Rate 88 (units ( unknown) date) unknown) (unknown) (no (unknown) (unknown) Qualifiers: (units (un known) date) unknown) (unknown) (no (unknown) (unknown) Referrals: (units (unk nown) date) unknown) (unknown) (no (unknown) (unknown) Related Data (units (u nknown) date) unknown) (unknown) (no (unknown) (unknown) Respiratory Rate 20 (unit s (unknown) date) 05/05/22 11:45 unknown) (unknown) (no (unknown) (unknown) Respiratory Rate 20 (unit s (unknown) date) unknown) (unknown) (no (unknown) (unknown) Review of Systems (units (unknown) date) unknown) (unknown) (no (unknown) (unknown) Review of systems is (uni ts (unknown) date) negative for acute unknown) abnormalities unless otherwise noted in (unknown) (no (unknown) (unknown) Reviewed vitals (units (unknown) date) signs and nursing unknown) notes. (unknown) (no (unknown) (unknown) Right ankle sprain (units (unknown) date) unknown) (unknown) (no (unknown) (unknown) Rx Instructions: (units (unknown) date) unknown) (unknown) (no (unknown) (unknown) Scoliosis (units (unkn own) date) unknown) (unknown) (no (unknown) (unknown) Signed By: (units (unk nown) date) unknown) (unknown) (no (unknown) (unknown) Sister Heart disease (uni ts (unknown) date) unknown) (unknown) (no (unknown) (unknown) Skin: brisk (units (un known) date) capillary refill, unknown) without pallor or erythema (unknown) (no (unknown) (unknown) Smoking Status: (units (unknown) date) Former smoker unknown) (unknown) (no (unknown) (unknown) Social History (units (unknown) date) (Reviewed 05/05/22 @ unknown) 15:[address] [facility]) (unknown) (no (unknown) (unknown) Source: patient (units (unknown) date) unknown) (unknown) (no (unknown) (unknown) Stated Complaint: (units (unknown) date) fell sunday both legs unknown) + ankles are swollen (unknown) (no (unknown) (unknown) Substance Use Type: (unit s (unknown) date) does not use unknown) (unknown) (no (unknown) (unknown) Surgical History (units (unknown) date) (Reviewed 05/05/22 @ unknown) 15:[address] [facility]) (unknown) (no (unknown) (unknown) Temperature 97.6 F (units (unknown) date) 05/05/22 11:45 unknown) (unknown) (no (unknown) (unknown) Temperature 97.6 F (units (unknown) date) unknown) (unknown) (no (unknown) (unknown) This is a (units (unkn own) date) 67-year-old female unknown) presents to the emergency department after she had (unknown) (no (unknown) (unknown) Time Seen by (units (u nknown) date) Provider: 05/05/22 unknown) 14:35 (unknown) (no (unknown) (unknown) Vital Signs - 8 hr (units (unknown) date) unknown) (unknown) (no (unknown) (unknown) Vital Signs (units (un known) date) unknown) (unknown) (no (unknown) (unknown) Vital signs: (units (u nknown) date) unknown) (unknown) (no (unknown) (unknown) XR ankle LT min 3V (units (unknown) date) Stat unknown) (unknown) (no (unknown) (unknown) XR ankle RT min 3V (units (unknown) date) Stat unknown) (unknown) (no (unknown) (unknown) [ ] New medication (units (unknown) date) prescriptions sent to unknown) your pharmacy: [ ] (unknown) (no (unknown) (unknown) [ ] New medication (units (unknown) date) written as a paper unknown) prescription (unknown) (no (unknown) (unknown) [ ] No new (units (unk nown) date) medications given unknown) (unknown) (no (unknown) (unknown) a mechanical fall 5 (unit s (unknown) date) days ago when her unknown) legs when out. Patient states that she (unknown) (no (unknown) (unknown) ambulate without (units (unknown) date) weakness. unknown) (unknown) (no (unknown) (unknown) and cooperative (units (unknown) date) unknown) (unknown) (no (unknown) (unknown) appointment. Let them (uni ts (unknown) date) know you were seen in unknown) the Emergency Department and that we (unknown) (no (unknown) (unknown) aripiprazole 10 mg (units (unknown) date) tablet 30 mg PO DAILY unknown) 11/23/21 03/29/22 (unknown) (no (unknown) (unknown) aripiprazole 10 mg (units (unknown) date) tablet unknown) (unknown) (no (unknown) (unknown) asked that you be (units (unknown) date) seen for follow-up. unknown) We will electronically transmit a record (unknown) (no (unknown) (unknown) bilateral CFL (units ( unknown) date) ligaments on the unknown) medial aspect, ATFL ligaments on medial aspect. (unknown) (no (unknown) (unknown) concerning symptoms, (uni ts (unknown) date) such as [fever unknown) greater than 101F, chills, worsening pain, (unknown) (no (unknown) (unknown) duloxetine 60 mg (units (unknown) date) capsule,delayed 60 mg unknown) PO BID 09/05/21 03/29/22 (unknown) (no (unknown) (unknown) duloxetine (units (unk nown) date) [Cymbalta] 60 mg unknown) capsule,delayed release(DR/EC) (unknown) (no (unknown) (unknown) erythromycin base (units (unknown) date) Allergy Severe unknown) Swelling Verified 03/29/22 09:56 (unknown) (no (unknown) (unknown) establish care with [place] ([place]) [place] [facility] primary care providers. (unknown) (no (unknown) (unknown) falls occasionally (units (unknown) date) and this is not new. unknown) She denies any recent illness. 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 and states that she has balance and (unknown) (no (unknown) (unknown) hydrochlorothiazide (unit s (unknown) date) 25 mg tablet 25 mg PO unknown) DAILY 03/29/22 03/29/22 (unknown) (no (unknown) (unknown) hydrochlorothiazide (unit s (unknown) date) 25 mg tablet unknown) (unknown) (no (unknown) (unknown) hydrocodone 10 (units (unknown) date) mg-acetaminophen 1 unknown) tab PO DAILY 11/23/21 03/29/22 (unknown) (no (unknown) (unknown) hydrocodone-acetamin (uni ts (unknown) date) ophen 10-325 mg unknown) tablet (unknown) (no (unknown) (unknown) left ankle, initial (unit s (unknown) date) encounter unknown) (unknown) (no (unknown) (unknown) levothyroxine 125 (units (unknown) date) mcg tablet 125 mcg PO unknown) DAILY 09/05/21 03/29/22 (unknown) (no (unknown) (unknown) levothyroxine 125 (units (unknown) date) mcg tablet 125 mcg PO unknown) DAILY 11/23/21 03/29/22 (unknown) (no (unknown) (unknown) levothyroxine (units ( unknown) date) [Synthroid] 125 mcg unknown) tablet (unknown) (no (unknown) (unknown) ligament Qualified (units (unknown) date) Code(s): S93.411A - unknown) Sprain of calcaneofibular ligament of (unknown) (no (unknown) (unknown) losartan 50 mg (units (unknown) date) tablet 50 mg PO DAILY unknown) 11/23/21 03/29/22 (unknown) (no (unknown) (unknown) losartan 50 mg (units (unknown) date) tablet unknown) (unknown) (no (unknown) (unknown) metformin 500 mg (units (unknown) date) tablet extended unknown) release 24 hr (unknown) (no (unknown) (unknown) metformin 500 mg (units (unknown) date) tablet,extended 500 unknown) mg PO DAILY 03/29/22 03/29/22 (unknown) (no (unknown) (unknown) methocarbamol 750 mg (uni ts (unknown) date) tablet 750 mg PO .PRN unknown) 11/23/21 03/29/22 (unknown) (no (unknown) (unknown) methocarbamol 750 mg (uni ts (unknown) date) tablet unknown) (unknown) (no (unknown) (unknown) metoprolol succinate (uni ts (unknown) date) 50 mg tab PO 11/23/21 unknown) 03/29/22 (unknown) (no (unknown) (unknown) metoprolol succinate (uni ts (unknown) date) 50 mg tablet extended unknown) release 24 hr (unknown) (no (unknown) (unknown) multivitamin (Daily (unit s (unknown) date) Multi-Vitamin 1 tab unknown) PO DAILY 09/05/21 03/29/22 (unknown) (no (unknown) (unknown) multivitamin [Daily (unit s (unknown) date) Multi-Vitamin] Tablet unknown) (unknown) (no (unknown) (unknown) of today's note if (units (unknown) date) your PCP is in our unknown) system (unknown) (no (unknown) (unknown) of (units (unkno wn) date) unknown) (unknown) (no (unknown) (unknown) open wound. Denies (units (unknown) date) any knee pain, denies unknown) any hip pain, states that she has some (unknown) (no (unknown) (unknown) oxycodone 10 mg (units (unknown) date) tablet extended unknown) release 12 hr (unknown) (no (unknown) (unknown) oxycodone 10 mg (units (unknown) date) tablet,crush 10 mg PO unknown) Q12H 03/29/22 03/29/22 (unknown) (no (unknown) (unknown) oxycodone 10 mg (units (unknown) date) tablet,extended mg PO unknown) 09/05/21 03/29/22 (unknown) (no (unknown) (unknown) oxycodone 10 mg (units (unknown) date) tablet,oral unknown) only,ext.rel.12 hr (unknown) (no (unknown) (unknown) palpation, right (units (unknown) date) thigh with mild unknown) tenderness over the distal quadriceps with full (unknown) (no (unknown) (unknown) patient is (units (unk nown) date) ambulatory, mild unknown) edema over bilateral medial malleoli, tenderness to (unknown) (no (unknown) (unknown) persistent vomiting (unit s (unknown) date) or other bothersome unknown) symptoms]. (unknown) (no (unknown) (unknown) release (Cymbalta) (units (unknown) date) unknown) (unknown) (no (unknown) (unknown) release 24 hr (units ( unknown) date) unknown) (unknown) (no (unknown) (unknown) release,12 hr (units ( unknown) date) unknown) (unknown) (no (unknown) (unknown) resistant,extended (units (unknown) date) release 12 hr unknown) (unknown) (no (unknown) (unknown) right ankle, initial (uni ts (unknown) date) encounter unknown) (unknown) (no (unknown) (unknown) right knee mobility (unit s (unknown) date) including extension unknown) and flexion, no suprapatellar effusion, (unknown) (no (unknown) (unknown) salicylic acid (units (unknown) date) Allergy Intermediate unknown) Rash Verified 03/29/22 09:56 (unknown) (no (unknown) (unknown) sitagliptin 50 mg (units (unknown) date) tablet (Januvia) 50 unknown) mg PO DAILY 03/29/22 03/29/22 (unknown) (no (unknown) (unknown) soft tissue bruising (uni ts (unknown) date) to the right lateral unknown) distal thigh, denies any open wound (unknown) (no (unknown) (unknown) sumatriptan (units (un known) date) succinate 50 mg unknown) tablet ea PO 11/23/21 03/29/22 (unknown) (no (unknown) (unknown) sumatriptan (units (un known) date) succinate 50 mg unknown) tablet (unknown) (no (unknown) (unknown) swelling, states that (uni ts (unknown) date) she is able to bear unknown) weight on them bilaterally, denies any (unknown) (no (unknown) (unknown) tablet) (units (unkno wn) date) unknown) (unknown) (no (unknown) (unknown) tablet,extended (units (unknown) date) release 24 hr unknown) (unknown) (no (unknown) (unknown) take 1 tablet by (units (unknown) date) mouth if needed AT unknown) ONSET OF HEADACHE may repeat in 2 hours (unknown) (no (unknown) (unknown) talofibular ligament (uni ts (unknown) date) Qualified Code(s): unknown) S93.492A - Sprain of other ligament of (unknown) (no (unknown) (unknown) tenderness to the (units (unknown) date) knee ligaments. unknown) (unknown) (no (unknown) (unknown) tetracycline Allergy (uni ts (unknown) date) Severe Anaphylaxis unknown) Verified 03/29/22 09:56 (unknown) (no (unknown) (unknown) there and has full (units (unknown) date) range of motion of unknown) her right hip. Patient states that she (unknown) (no (unknown) (unknown) tizanidine 2 mg (units (unknown) date) tablet 2 mg PO BID unknown) PRN muscle spasticity 09/05/21 03/29/22 (unknown) (no (unknown) (unknown) tizanidine 2 mg (units (unknown) date) tablet unknown) (unknown) (no (unknown) (unknown) took pain medication (uni ts (unknown) date) and her pain is under unknown) control right now and she is able to (unknown) (no (unknown) (unknown) without erythema, (units (unknown) date) ecchymosis, or open unknown) wound, bilateral feet are warm to (unknown) (no (unknown) (unknown) zoledronic acid (units (unknown) date) Allergy Severe unknown) Anaphylaxis Verified 03/29/22 09:56 Result panel 11 (unknown) (no (unknown) (unknown) (no value) (units (unk nown) date) unknown) (unknown) (no (unknown) (unknown) (Synthroid) (units (un known) date) unknown) (unknown) (no (unknown) (unknown) *If you do not have (unit s (unknown) date) a primary care unknown) provider please contact [phone] to (unknown) (no (unknown) (unknown) *Please continue to (unit s (unknown) date) take your regular unknown) medications as directed. (unknown) (no (unknown) (unknown) *Please follow up (units (unknown) date) with your primary unknown) care provider in 2-3 days, call for an (unknown) (no (unknown) (unknown) *Return to Emergency (uni ts (unknown) date) Department if you unknown) should have any new, worsening, or (unknown) (no (unknown) (unknown) *What to do: (units (u nknown) date) unknown) (unknown) (no (unknown) (unknown) *You have been (units (unknown) date) diagnosed with [ ] unknown) (unknown) (no (unknown) (unknown) 1 tab PO DAILY (units (unknown) date) unknown) (unknown) (no (unknown) (unknown) 10 mg PO Q12H (units ( unknown) date) unknown) (unknown) (no (unknown) (unknown) 05/05/22 14:57 (units (unknown) date) unknown) (unknown) (no (unknown) (unknown) 05/05/22 (units (unkno wn) date) unknown) (unknown) (no (unknown) (unknown) 11:45 (units (unkno wn) date) unknown) (unknown) (no (unknown) (unknown) 125 mcg PO DAILY (units (unknown) date) unknown) (unknown) (no (unknown) (unknown) 2 mg PO BID PRN (units (unknown) date) (Reason: muscle unknown) spasticity) (unknown) (no (unknown) (unknown) 25 mg PO DAILY (units (unknown) date) unknown) (unknown) (no (unknown) (unknown) 30 mg PO DAILY (units (unknown) date) unknown) (unknown) (no (unknown) (unknown) 325 mg tablet (units ( unknown) date) unknown) (unknown) (no (unknown) (unknown) [id number] (units (unkno wn) date) unknown) (unknown) (no (unknown) (unknown) 50 mg PO DAILY (units (unknown) date) unknown) (unknown) (no (unknown) (unknown) 500 mg PO DAILY (units (unknown) date) unknown) (unknown) (no (unknown) (unknown) 60 mg PO BID (units (u nknown) date) unknown) (unknown) (no (unknown) (unknown) 600 mg PO .COMPLEX (units (unknown) date) Qty: 90 2RF unknown) (unknown) (no (unknown) (unknown) 600 mg PO 1-2 PO Tid (uni ts (unknown) date) to begin at HS and unknown) titrate to nerve pain relief; (unknown) (no (unknown) (unknown) 750 mg PO .PRN (units (unknown) date) unknown) (unknown) (no (unknown) (unknown) Activity (units (unkno wn) date) Restrictions/Addition unknown) al Instructions: (unknown) (no (unknown) (unknown) Age/Sex: 67 / F (units (unknown) date) unknown) (unknown) (no (unknown) (unknown) Allergies (units (unkn own) date) unknown) (unknown) (no (unknown) (unknown) Allergy/AdvReac Type (uni ts (unknown) date) Severity Reaction unknown) Status Date / Time (unknown) (no (unknown) (unknown) Blood Pressure (units (unknown) date) 140/62 05/05/22 11:45 unknown) (unknown) (no (unknown) (unknown) Blood Pressure (units (unknown) date) 140/62 unknown) (unknown) (no (unknown) (unknown) Chief Complaint: (units (unknown) date) Fall unknown) (unknown) (no (unknown) (unknown) Clinical Impression: (uni ts (unknown) date) unknown) (unknown) (no (unknown) (unknown) Complains of pain to (uni ts (unknown) date) the medial aspect of unknown) her bilateral ankles, some mild (unknown) (no (unknown) (unknown) Course (units (unkno wn) date) unknown) (unknown) (no (unknown) (unknown) : 1955 (units (unknown) date) Acct:[id number] unknown) (unknown) (no (unknown) (unknown) Date of Service: (units (unknown) date) 05/05/22 unknown) (unknown) (no (unknown) (unknown) Departure (units (unkn own) date) unknown) (unknown) (no (unknown) (unknown) Depression (units (unk nown) date) unknown) (unknown) (no (unknown) (unknown) Diabetes (units (unkno wn) date) unknown) (unknown) (no (unknown) (unknown) Discharge Plan (units (unknown) date) unknown) (unknown) (no (unknown) (unknown) Dorsiflexion and or (unit s (unknown) date) plantar extension unknown) intact bilaterally, PT pulses are 2+, (unknown) (no (unknown) (unknown) ED Orders (units (unkn own) date) unknown) (unknown) (no (unknown) (unknown) ER Physician: (units ( unknown) date) Jessica Camejo unknown) (unknown) (no (unknown) (unknown) Emergency Report (units (unknown) date) unknown) (unknown) (no (unknown) (unknown) Encounter type: (units (unknown) date) initial encounter unknown) Involved ligament of ankle: anterior (unknown) (no (unknown) (unknown) Encounter type: (units (unknown) date) initial encounter unknown) Involved ligament of ankle: calcaneofibular (unknown) (no (unknown) (unknown) Exam Narrative: (units (unknown) date) unknown) (unknown) (no (unknown) (unknown) Exam (units (unkno wn) date) unknown) (unknown) (no (unknown) (unknown) Facet arthropathy, (units (unknown) date) lumbar unknown) (unknown) (no (unknown) (unknown) Family History (units (unknown) date) (Reviewed 05/05/22 @ unknown) 15:03 by ALEN Antoine) (unknown) (no (unknown) (unknown) Father Cancer (units ( unknown) date) unknown) (unknown) (no (unknown) (unknown) Ciaran Samaniego, (units (unknown) date) MD [Primary Care unknown) Provider] (unknown) (no (unknown) (unknown) General (units (unkno wn) date) unknown) (unknown) (no (unknown) (unknown) General: (units (unkno wn) date) cooperative, unknown) comfortable, in no acute distress, well groomed (unknown) (no (unknown) (unknown) H/O neck surgery (units (unknown) date) unknown) (unknown) (no (unknown) (unknown) HEENT: symmetrical (units (unknown) date) facial expressions, unknown) moist mucous membranes, atraumatic= (unknown) (no (unknown) (unknown) HPI - Fall (units (unk nown) date) unknown) (unknown) (no (unknown) (unknown) HPI Narrative: (units (unknown) date) unknown) (unknown) (no (unknown) (unknown) HPI (units (unkno wn) date) unknown) (unknown) (no (unknown) (unknown) History of Present (units (unknown) date) Illness unknown) (unknown) (no (unknown) (unknown) History of (units (unk nown) date) cholecystectomy unknown) (unknown) (no (unknown) (unknown) 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 [address] (uni ts (unknown) date) [facility] [address] unknown) [place] [address] (unknown) (no (unknown) (unknown) Januvia 50 mg tablet (uni ts (unknown) date) unknown) (unknown) (no (unknown) (unknown) Label Comments: (units (unknown) date) unknown) (unknown) (no (unknown) (unknown) Left ankle sprain (units (unknown) date) unknown) (unknown) (no (unknown) (unknown) Lip/Tongue/Throat (units (unknown) date) unknown) (unknown) (no (unknown) (unknown) Lumbosacral (units (un known) date) radiculopathy at L4 unknown) (unknown) (no (unknown) (unknown) MSK: moves all (units (unknown) date) extremities, unknown) neurovascularly intact, no weakness, normal tone, (unknown) (no (unknown) (unknown) Medical History (units (unknown) date) (Reviewed 05/05/22 @ unknown) 15:03 by Jessica Camejo [employer]) (unknown) (no (unknown) (unknown) Medication (units (unk nown) date) Instructions Recorded unknown) Confirmed (unknown) (no (unknown) (unknown) Medication (units (unk nown) date) Instructions Recorded unknown) (unknown) (no (unknown) (unknown) Mode of arrival: (units (unknown) date) Ambulatory unknown) (unknown) (no (unknown) (unknown) Mother Heart disease (uni ts (unknown) date) unknown) (unknown) (no (unknown) (unknown) Narrative (units (unkn own) date) unknown) (unknown) (no (unknown) (unknown) Narrative: (units (unk nown) date) unknown) (unknown) (no (unknown) (unknown) Neuro: normal speech (uni ts (unknown) date) and cognition, A+O unknown) x3, ambulatory, clear speech (unknown) (no (unknown) (unknown) No Action (units (unkn own) date) unknown) (unknown) (no (unknown) (unknown) Ordered: (units (unkno wn) date) unknown) (unknown) (no (unknown) (unknown) Orders (units (unkno wn) date) unknown) (unknown) (no (unknown) (unknown) Oxygen Delivery (units (unknown) date) Method 05/05/22 11:45 unknown) (unknown) (no (unknown) (unknown) Oxygen Delivery (units (unknown) date) Method Room Air unknown) (unknown) (no (unknown) (unknown) PO (units (unkno wn) date) unknown) (unknown) (no (unknown) (unknown) Patient Disposition: (uni ts (unknown) date) Home unknown) (unknown) (no (unknown) (unknown) Patient History (units (unknown) date) unknown) (unknown) (no (unknown) (unknown) Patient: (units (unkno wn) date) Briseida Cazares MR#: unknown) M000 (unknown) (no (unknown) (unknown) Penicillins Allergy (unit s (unknown) date) Severe Anaphylaxis unknown) Verified 03/29/22 09:56 (unknown) (no (unknown) (unknown) Post-traumatic (units (unknown) date) syrinx unknown) (unknown) (no (unknown) (unknown) Prescriptions: (units (unknown) date) unknown) (unknown) (no (unknown) (unknown) Previous Rx's (units ( unknown) date) unknown) (unknown) (no (unknown) (unknown) Psych: mental status (uni ts (unknown) date) is grossly normal, unknown) congruent mood, normal affect, pleasant (unknown) (no (unknown) (unknown) Pulse Oximetry 98 (units (unknown) date) 05/05/22 11:45 unknown) (unknown) (no (unknown) (unknown) Pulse Oximetry 98 (units (unknown) date) unknown) (unknown) (no (unknown) (unknown) Pulse Rate 88 (units ( unknown) date) 05/05/22 11:45 unknown) (unknown) (no (unknown) (unknown) Pulse Rate 88 (units ( unknown) date) unknown) (unknown) (no (unknown) (unknown) Qualifiers: (units (un known) date) unknown) (unknown) (no (unknown) (unknown) Referrals: (units (unk nown) date) unknown) (unknown) (no (unknown) (unknown) Related Data (units (u nknown) date) unknown) (unknown) (no (unknown) (unknown) Respiratory Rate 20 (unit s (unknown) date) 05/05/22 11:45 unknown) (unknown) (no (unknown) (unknown) Respiratory Rate 20 (unit s (unknown) date) unknown) (unknown) (no (unknown) (unknown) Review of Systems (units (unknown) date) unknown) (unknown) (no (unknown) (unknown) Review of systems is (uni ts (unknown) date) negative for acute unknown) abnormalities unless otherwise noted in (unknown) (no (unknown) (unknown) Reviewed vitals (units (unknown) date) signs and nursing unknown) notes. (unknown) (no (unknown) (unknown) Right ankle sprain (units (unknown) date) unknown) (unknown) (no (unknown) (unknown) Rx Instructions: (units (unknown) date) unknown) (unknown) (no (unknown) (unknown) Scoliosis (units (unkn own) date) unknown) (unknown) (no (unknown) (unknown) Signed By: (units (unk nown) date) unknown) (unknown) (no (unknown) (unknown) Sister Heart disease (uni ts (unknown) date) unknown) (unknown) (no (unknown) (unknown) Skin: brisk (units (un known) date) capillary refill, unknown) without pallor or erythema (unknown) (no (unknown) (unknown) Smoking Status: (units (unknown) date) Former smoker unknown) (unknown) (no (unknown) (unknown) Social History (units (unknown) date) (Reviewed 05/05/22 @ unknown) 15:03 by ALEN Antoine) (unknown) (no (unknown) (unknown) Source: patient (units (unknown) date) unknown) (unknown) (no (unknown) (unknown) Stated Complaint: (units (unknown) date) fell sunday both legs unknown) + ankles are swollen (unknown) (no (unknown) (unknown) Substance Use Type: (unit s (unknown) date) does not use unknown) (unknown) (no (unknown) (unknown) Surgical History (units (unknown) date) (Reviewed 05/05/22 @ unknown) 15:03 by ALEN Antoine) (unknown) (no (unknown) (unknown) Temperature 97.6 F (units (unknown) date) 05/05/22 11:45 unknown) (unknown) (no (unknown) (unknown) Temperature 97.6 F (units (unknown) date) unknown) (unknown) (no (unknown) (unknown) This is a (units (unkn own) date) 67-year-old female unknown) presents to the emergency department after she had (unknown) (no (unknown) (unknown) Time Seen by (units (u nknown) date) Provider: 05/05/22 unknown) 14:35 (unknown) (no (unknown) (unknown) Vital Signs - 8 hr (units (unknown) date) unknown) (unknown) (no (unknown) (unknown) Vital Signs (units (un known) date) unknown) (unknown) (no (unknown) (unknown) Vital signs: (units (u nknown) date) unknown) (unknown) (no (unknown) (unknown) XR ankle LT min 3V (units (unknown) date) Stat unknown) (unknown) (no (unknown) (unknown) XR ankle RT min 3V (units (unknown) date) Stat unknown) (unknown) (no (unknown) (unknown) [ ] New medication (units (unknown) date) prescriptions sent to unknown) your pharmacy: [ ] (unknown) (no (unknown) (unknown) [ ] New medication (units (unknown) date) written as a paper unknown) prescription (unknown) (no (unknown) (unknown) [ ] No new (units (unk nown) date) medications given unknown) (unknown) (no (unknown) (unknown) a mechanical fall 5 (unit s (unknown) date) days ago when her unknown) legs when out. Patient states that she (unknown) (no (unknown) (unknown) ambulate without (units (unknown) date) weakness. unknown) (unknown) (no (unknown) (unknown) and cooperative (units (unknown) date) unknown) (unknown) (no (unknown) (unknown) appointment. Let them (uni ts (unknown) date) know you were seen in unknown) the Emergency Department and that we (unknown) (no (unknown) (unknown) aripiprazole 10 mg (units (unknown) date) tablet 30 mg PO DAILY unknown) 11/23/21 03/29/22 (unknown) (no (unknown) (unknown) aripiprazole 10 mg (units (unknown) date) tablet unknown) (unknown) (no (unknown) (unknown) asked that you be (units (unknown) date) seen for follow-up. unknown) We will electronically transmit a record (unknown) (no (unknown) (unknown) bilateral CFL (units ( unknown) date) ligaments on the unknown) medial aspect, ATFL ligaments on medial aspect. (unknown) (no (unknown) (unknown) concerning symptoms, (uni ts (unknown) date) such as [fever unknown) greater than 101F, chills, worsening pain, (unknown) (no (unknown) (unknown) duloxetine 60 mg (units (unknown) date) capsule,delayed 60 mg unknown) PO BID 09/05/21 03/29/22 (unknown) (no (unknown) (unknown) duloxetine (units (unk nown) date) [Cymbalta] 60 mg unknown) capsule,delayed release(DR/EC) (unknown) (no (unknown) (unknown) erythromycin base (units (unknown) date) Allergy Severe unknown) Swelling Verified 03/29/22 09:56 (unknown) (no (unknown) (unknown) [facility] care [facility] ([facility]. (unknown) (no (unknown) (unknown) falls occasionally (units (unknown) date) and this is not new. unknown) She denies any recent illness. 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 and states that she has balance and (unknown) (no (unknown) (unknown) hydrochlorothiazide (unit s (unknown) date) 25 mg tablet 25 mg PO unknown) DAILY 03/29/22 03/29/22 (unknown) (no (unknown) (unknown) hydrochlorothiazide (unit s (unknown) date) 25 mg tablet unknown) (unknown) (no (unknown) (unknown) hydrocodone 10 (units (unknown) date) mg-acetaminophen 1 unknown) tab PO DAILY 11/23/21 03/29/22 (unknown) (no (unknown) (unknown) hydrocodone-acetamin (uni ts (unknown) date) ophen 10-325 mg unknown) tablet (unknown) (no (unknown) (unknown) left ankle, initial (unit s (unknown) date) encounter unknown) (unknown) (no (unknown) (unknown) levothyroxine 125 (units (unknown) date) mcg tablet 125 mcg PO unknown) DAILY 09/05/21 03/29/22 (unknown) (no (unknown) (unknown) levothyroxine 125 (units (unknown) date) mcg tablet 125 mcg PO unknown) DAILY 11/23/21 03/29/22 (unknown) (no (unknown) (unknown) levothyroxine (units ( unknown) date) [Synthroid] 125 mcg unknown) tablet (unknown) (no (unknown) (unknown) ligament Qualified (units (unknown) date) Code(s): S93.411A - unknown) Sprain of calcaneofibular ligament of (unknown) (no (unknown) (unknown) losartan 50 mg (units (unknown) date) tablet 50 mg PO DAILY unknown) 11/23/21 03/29/22 (unknown) (no (unknown) (unknown) losartan 50 mg (units (unknown) date) tablet unknown) (unknown) (no (unknown) (unknown) metformin 500 mg (units (unknown) date) tablet extended unknown) release 24 hr (unknown) (no (unknown) (unknown) metformin 500 mg (units (unknown) date) tablet,extended 500 unknown) mg PO DAILY 03/29/22 03/29/22 (unknown) (no (unknown) (unknown) methocarbamol 750 mg (uni ts (unknown) date) tablet 750 mg PO .PRN unknown) 11/23/21 03/29/22 (unknown) (no (unknown) (unknown) methocarbamol 750 mg (uni ts (unknown) date) tablet unknown) (unknown) (no (unknown) (unknown) metoprolol succinate (uni ts (unknown) date) 50 mg tab PO 11/23/21 unknown) 03/29/22 (unknown) (no (unknown) (unknown) metoprolol succinate (uni ts (unknown) date) 50 mg tablet extended unknown) release 24 hr (unknown) (no (unknown) (unknown) multivitamin (Daily (unit s (unknown) date) Multi-Vitamin 1 tab unknown) PO DAILY 09/05/21 03/29/22 (unknown) (no (unknown) (unknown) multivitamin [Daily (unit s (unknown) date) Multi-Vitamin] Tablet unknown) (unknown) (no (unknown) (unknown) of today's note if (units (unknown) date) your PCP is in our unknown) system (unknown) (no (unknown) (unknown) of (units (unkno wn) date) unknown) (unknown) (no (unknown) (unknown) open wound. Denies (units (unknown) date) any knee pain, denies unknown) any hip pain, states that she has some (unknown) (no (unknown) (unknown) oxycodone 10 mg (units (unknown) date) tablet extended unknown) release 12 hr (unknown) (no (unknown) (unknown) oxycodone 10 mg (units (unknown) date) tablet,crush 10 mg PO unknown) Q12H 03/29/22 03/29/22 (unknown) (no (unknown) (unknown) oxycodone 10 mg (units (unknown) date) tablet,extended mg PO unknown) 09/05/21 03/29/22 (unknown) (no (unknown) (unknown) oxycodone 10 mg (units (unknown) date) tablet,oral unknown) only,ext.rel.12 hr (unknown) (no (unknown) (unknown) palpation, right (units (unknown) date) thigh with mild unknown) tenderness over the distal quadriceps with full (unknown) (no (unknown) (unknown) patient is (units (unk nown) date) ambulatory, mild unknown) edema over bilateral medial malleoli, tenderness to (unknown) (no (unknown) (unknown) persistent vomiting (unit s (unknown) date) or other bothersome unknown) symptoms]. (unknown) (no (unknown) (unknown) release (Cymbalta) (units (unknown) date) unknown) (unknown) (no (unknown) (unknown) release 24 hr (units ( unknown) date) unknown) (unknown) (no (unknown) (unknown) release,12 hr (units ( unknown) date) unknown) (unknown) (no (unknown) (unknown) resistant,extended (units (unknown) date) release 12 hr unknown) (unknown) (no (unknown) (unknown) right ankle, initial (uni ts (unknown) date) encounter unknown) (unknown) (no (unknown) (unknown) right knee mobility (unit s (unknown) date) including extension unknown) and flexion, no suprapatellar effusion, (unknown) (no (unknown) (unknown) salicylic acid (units (unknown) date) Allergy Intermediate unknown) Rash Verified 03/29/22 09:56 (unknown) (no (unknown) (unknown) sitagliptin 50 mg (units (unknown) date) tablet (Januvia) 50 unknown) mg PO DAILY 03/29/22 03/29/22 (unknown) (no (unknown) (unknown) soft tissue bruising (uni ts (unknown) date) to the right lateral unknown) distal thigh, denies any open wound (unknown) (no (unknown) (unknown) sumatriptan (units (un known) date) succinate 50 mg unknown) tablet ea PO 11/23/21 03/29/22 (unknown) (no (unknown) (unknown) sumatriptan (units (un known) date) succinate 50 mg unknown) tablet (unknown) (no (unknown) (unknown) swelling, states that (uni ts (unknown) date) she is able to bear unknown) weight on them bilaterally, denies any (unknown) (no (unknown) (unknown) tablet) (units (unkno wn) date) unknown) (unknown) (no (unknown) (unknown) tablet,extended (units (unknown) date) release 24 hr unknown) (unknown) (no (unknown) (unknown) take 1 tablet by (units (unknown) date) mouth if needed AT unknown) ONSET OF HEADACHE may repeat in 2 hours (unknown) (no (unknown) (unknown) talofibular ligament (uni ts (unknown) date) Qualified Code(s): unknown) S93.492A - Sprain of other ligament of (unknown) (no (unknown) (unknown) tenderness to the (units (unknown) date) knee ligaments. unknown) (unknown) (no (unknown) (unknown) tetracycline Allergy (uni ts (unknown) date) Severe Anaphylaxis unknown) Verified 03/29/22 09:56 (unknown) (no (unknown) (unknown) there and has full (units (unknown) date) range of motion of unknown) her right hip. Patient states that she (unknown) (no (unknown) (unknown) tizanidine 2 mg (units (unknown) date) tablet 2 mg PO BID unknown) PRN muscle spasticity 09/05/21 03/29/22 (unknown) (no (unknown) (unknown) tizanidine 2 mg (units (unknown) date) tablet unknown) (unknown) (no (unknown) (unknown) took pain medication (uni ts (unknown) date) and her pain is under unknown) control right now and she is able to (unknown) (no (unknown) (unknown) without erythema, (units (unknown) date) ecchymosis, or open unknown) wound, bilateral feet are warm to (unknown) (no (unknown) (unknown) zoledronic acid (units (unknown) date) Allergy Severe unknown) Anaphylaxis Verified 03/29/22 09:56 Result panel 12 (unknown) (no (unknown) (unknown) (no value) (units (unk nown) date) unknown) (unknown) (no (unknown) (unknown) (Synthroid) (units (un known) date) unknown) (unknown) (no (unknown) (unknown) *If you do not have (unit s (unknown) date) a primary care unknown) provider please contact [phone] to (unknown) (no (unknown) (unknown) *Please continue to (unit s (unknown) date) take your regular unknown) medications as directed. (unknown) (no (unknown) (unknown) *Please follow up (units (unknown) date) with your primary unknown) care provider in 2-3 days, call for an (unknown) (no (unknown) (unknown) *Return to Emergency (uni ts (unknown) date) Department if you unknown) should have any new, worsening, or (unknown) (no (unknown) (unknown) *What to do: (units (u nknown) date) unknown) (unknown) (no (unknown) (unknown) *You have been (units (unknown) date) diagnosed with [ ] unknown) (unknown) (no (unknown) (unknown) 1 tab PO DAILY (units (unknown) date) unknown) (unknown) (no (unknown) (unknown) 10 mg PO Q12H (units ( unknown) date) unknown) (unknown) (no (unknown) (unknown) 05/05/22 14:57 (units (unknown) date) unknown) (unknown) (no (unknown) (unknown) 05/05/22 (units (unkno wn) date) unknown) (unknown) (no (unknown) (unknown) 11:45 (units (unkno wn) date) unknown) (unknown) (no (unknown) (unknown) 125 mcg PO DAILY (units (unknown) date) unknown) (unknown) (no (unknown) (unknown) 2 mg PO BID PRN (units (unknown) date) (Reason: muscle unknown) spasticity) (unknown) (no (unknown) (unknown) 25 mg PO DAILY (units (unknown) date) unknown) (unknown) (no (unknown) (unknown) 30 mg PO DAILY (units (unknown) date) unknown) (unknown) (no (unknown) (unknown) 325 mg tablet (units ( unknown) date) unknown) (unknown) (no (unknown) (unknown) [id number] (units (unkno wn) date) unknown) (unknown) (no (unknown) (unknown) 50 mg PO DAILY (units (unknown) date) unknown) (unknown) (no (unknown) (unknown) 500 mg PO DAILY (units (unknown) date) unknown) (unknown) (no (unknown) (unknown) 60 mg PO BID (units (u nknown) date) unknown) (unknown) (no (unknown) (unknown) 600 mg PO .COMPLEX (units (unknown) date) Qty: 90 2RF unknown) (unknown) (no (unknown) (unknown) 600 mg PO 1-2 PO Tid (uni ts (unknown) date) to begin at HS and unknown) titrate to nerve pain relief; (unknown) (no (unknown) (unknown) 750 mg PO .PRN (units (unknown) date) unknown) (unknown) (no (unknown) (unknown) ? (units (unkno wn) date) unknown) (unknown) (no (unknown) (unknown) Activity (units (unkno wn) date) Restrictions/Addition unknown) al Instructions: (unknown) (no (unknown) (unknown) Age/Sex: 67 / F (units (unknown) date) unknown) (unknown) (no (unknown) (unknown) Allergies (units (unkn own) date) unknown) (unknown) (no (unknown) (unknown) Allergy/AdvReac Type (uni ts (unknown) date) Severity Reaction unknown) Status Date / Time (unknown) (no (unknown) (unknown) Approved by: Katie Forteuni ts (unknown) dateRonald Henson M.D. on unknown) 05/05/2022 at 16:02 ? (unknown) (no (unknown) (unknown) Blood Pressure (units (unknown) date) 140/62 05/05/22 11:45 unknown) (unknown) (no (unknown) (unknown) Blood Pressure (units (unknown) date) 140/62 unknown) (unknown) (no (unknown) (unknown) Bones:? No fractures (uni ts (unknown) date) or dislocations.? unknown) Ankle mortise is normally aligned.? No (unknown) (no (unknown) (unknown) COMPARISON:? None. (units (unknown) date) unknown) (unknown) (no (unknown) (unknown) Chief Complaint: (units (unknown) date) Fall unknown) (unknown) (no (unknown) (unknown) Clinical Impression: (uni ts (unknown) date) unknown) (unknown) (no (unknown) (unknown) Complains of pain to (uni ts (unknown) date) the medial aspect of unknown) her bilateral ankles, some mild (unknown) (no (unknown) (unknown) Course (units (unkno wn) date) unknown) (unknown) (no (unknown) (unknown) : 1955 (units (unknown) date) Acct:[id number] unknown) (unknown) (no (unknown) (unknown) Date of Service: (units (unknown) date) 05/05/22 unknown) (unknown) (no (unknown) (unknown) Departure (units (unkn own) date) unknown) (unknown) (no (unknown) (unknown) Depression (units (unk nown) date) unknown) (unknown) (no (unknown) (unknown) Diabetes (units (unkno wn) date) unknown) (unknown) (no (unknown) (unknown) Dictated by: Katie (uni ts (unknown) date) Bony Henson on unknown) 05/05/2022 at 16:02 ? ? (unknown) (no (unknown) (unknown) Discharge Plan (units (unknown) date) unknown) (unknown) (no (unknown) (unknown) Dorsiflexion and or (unit s (unknown) date) plantar extension unknown) intact bilaterally, PT pulses are 2+, (unknown) (no (unknown) (unknown) ED Orders (units (unkn own) date) unknown) (unknown) (no (unknown) (unknown) ER Physician: (units ( unknown) date) Jessica Camejo unknown) (unknown) (no (unknown) (unknown) Emergency Report (units (unknown) date) unknown) (unknown) (no (unknown) (unknown) Encounter type: (units (unknown) date) initial encounter unknown) Involved ligament of ankle: anterior (unknown) (no (unknown) (unknown) Encounter type: (units (unknown) date) initial encounter unknown) Involved ligament of ankle: calcaneofibular (unknown) (no (unknown) (unknown) Exam Narrative: (units (unknown) date) unknown) (unknown) (no (unknown) (unknown) Exam (units (unkno wn) date) unknown) (unknown) (no (unknown) (unknown) Extremity x-ray #1: (unit s (unknown) date) unknown) (unknown) (no (unknown) (unknown) FINDINGS:? (units (unk nown) date) unknown) (unknown) (no (unknown) (unknown) Facet arthropathy, (units (unknown) date) lumbar unknown) (unknown) (no (unknown) (unknown) Family History (units (unknown) date) (Reviewed 05/05/22 @ unknown) 15:03 by ALEN Antoine) (unknown) (no (unknown) (unknown) Father Cancer (units ( unknown) date) unknown) (unknown) (no (unknown) (unknown) Ciaran Samaniego, (units (unknown) date) [Primary Care unknown) Provider] (unknown) (no (unknown) (unknown) General (units (unkno wn) date) unknown) (unknown) (no (unknown) (unknown) General: (units (unkno wn) date) cooperative, unknown) comfortable, in no acute distress, well groomed (unknown) (no (unknown) (unknown) H/O neck surgery (units (unknown) date) unknown) (unknown) (no (unknown) (unknown) HEENT: symmetrical (units (unknown) date) facial expressions, unknown) moist mucous membranes, atraumatic= (unknown) (no (unknown) (unknown) HPI - Fall (units (unk nown) date) unknown) (unknown) (no (unknown) (unknown) HPI Narrative: (units (unknown) date) unknown) (unknown) (no (unknown) (unknown) HPI (units (unkno wn) date) unknown) (unknown) (no (unknown) (unknown) History of Present (units (unknown) date) Illness unknown) (unknown) (no (unknown) (unknown) History of (units (unk nown) date) cholecystectomy unknown) (unknown) (no (unknown) (unknown) 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 Intact (unit s (unknown) date) left ankle. unknown) (unknown) (no (unknown) (unknown) INDICATIONS:? medial (uni ts (unknown) date) pain s/p fall, unknown) sprain? (unknown) (no (unknown) (unknown) Imaging Data (units (u nknown) date) unknown) (unknown) (no (unknown) (unknown) Initial Vital Signs (unit s (unknown) date) unknown) (unknown) (no (unknown) (unknown) Initial Vital Signs: (uni ts (unknown) date) unknown) (unknown) (no (unknown) (unknown) [facility] [address] (uni ts (unknown) date) [address] unknown) [place] [address] (unknown) (no (unknown) (unknown) Januvia 50 mg tablet (uni ts (unknown) date) unknown) (unknown) (no (unknown) (unknown) Label Comments: (units (unknown) date) unknown) (unknown) (no (unknown) (unknown) Left ankle sprain (units (unknown) date) unknown) (unknown) (no (unknown) (unknown) Lip/Tongue/Throat (units (unknown) date) unknown) (unknown) (no (unknown) (unknown) Lumbosacral (units (un known) date) radiculopathy at L4 unknown) (unknown) (no (unknown) (unknown) MDM - Fall (units (unk nown) date) unknown) (unknown) (no (unknown) (unknown) MDM Narrative (units ( unknown) date) unknown) (unknown) (no (unknown) (unknown) MSK: moves all (units (unknown) date) extremities, unknown) neurovascularly intact, no weakness, normal tone, (unknown) (no (unknown) (unknown) Medical History (units (unknown) date) (Reviewed 05/05/22 @ unknown) 15:03 by ALEN Atnoine) (unknown) (no (unknown) (unknown) Medical decision (units (unknown) date) making narrative: unknown) (unknown) (no (unknown) (unknown) Medication (units (unk nown) date) Instructions Recorded unknown) Confirmed (unknown) (no (unknown) (unknown) Medication (units (unk nown) date) Instructions Recorded unknown) (unknown) (no (unknown) (unknown) Mode of arrival: (units (unknown) date) Ambulatory unknown) (unknown) (no (unknown) (unknown) Mother Heart disease (uni ts (unknown) date) unknown) (unknown) (no (unknown) (unknown) Narrative (units (unkn own) date) unknown) (unknown) (no (unknown) (unknown) Narrative: (units (unk nown) date) unknown) (unknown) (no (unknown) (unknown) Neuro: normal speech (uni ts (unknown) date) and cognition, A+O unknown) x3, ambulatory, clear speech (unknown) (no (unknown) (unknown) No Action (units (unkn own) date) unknown) (unknown) (no (unknown) (unknown) Ordered: (units (unkno wn) date) unknown) (unknown) (no (unknown) (unknown) Orders (units (unkno wn) date) unknown) (unknown) (no (unknown) (unknown) Oxygen Delivery (units (unknown) date) Method 05/05/22 11:45 unknown) (unknown) (no (unknown) (unknown) Oxygen Delivery (units (unknown) date) Method Room Air unknown) (unknown) (no (unknown) (unknown) PO (units (unkno wn) date) unknown) (unknown) (no (unknown) (unknown) PROCEDURE:? XR ANKLE (uni ts (unknown) date) LT MIN 3V unknown) (unknown) (no (unknown) (unknown) Patient Disposition: (uni ts (unknown) date) Home unknown) (unknown) (no (unknown) (unknown) Patient History (units (unknown) date) unknown) (unknown) (no (unknown) (unknown) Patient: (units (unkno wn) date) Briseida Cazares MR#: unknown) M000 (unknown) (no (unknown) (unknown) Penicillins Allergy (unit s (unknown) date) Severe Anaphylaxis unknown) Verified 03/29/22 09:56 (unknown) (no (unknown) (unknown) Post-traumatic (units (unknown) date) syrinx unknown) (unknown) (no (unknown) (unknown) Prescriptions: (units (unknown) date) unknown) (unknown) (no (unknown) (unknown) Previous Rx's (units ( unknown) date) unknown) (unknown) (no (unknown) (unknown) Psych: mental status (uni ts (unknown) date) is grossly normal, unknown) congruent mood, normal affect, pleasant (unknown) (no (unknown) (unknown) Pulse Oximetry 98 (units (unknown) date) 05/05/22 11:45 unknown) (unknown) (no (unknown) (unknown) Pulse Oximetry 98 (units (unknown) date) unknown) (unknown) (no (unknown) (unknown) Pulse Rate 88 (units ( unknown) date) 05/05/22 11:45 unknown) (unknown) (no (unknown) (unknown) Pulse Rate 88 (units ( unknown) date) unknown) (unknown) (no (unknown) (unknown) Qualifiers: (units (un known) date) unknown) (unknown) (no (unknown) (unknown) Radiologist's (units ( unknown) date) Impression: unknown) (unknown) (no (unknown) (unknown) Referrals: (units (unk nown) date) unknown) (unknown) (no (unknown) (unknown) Related Data (units (u nknown) date) unknown) (unknown) (no (unknown) (unknown) Respiratory Rate 20 (unit s (unknown) date) 05/05/22 11:45 unknown) (unknown) (no (unknown) (unknown) Respiratory Rate 20 (unit s (unknown) date) unknown) (unknown) (no (unknown) (unknown) Review of Systems (units (unknown) date) unknown) (unknown) (no (unknown) (unknown) Review of systems is (uni ts (unknown) date) negative for acute unknown) abnormalities unless otherwise noted in (unknown) (no (unknown) (unknown) Reviewed vitals (units (unknown) date) signs and nursing unknown) notes. (unknown) (no (unknown) (unknown) Right ankle sprain (units (unknown) date) unknown) (unknown) (no (unknown) (unknown) Rx Instructions: (units (unknown) date) unknown) (unknown) (no (unknown) (unknown) Scoliosis (units (unkn own) date) unknown) (unknown) (no (unknown) (unknown) Signed By: (units (unk nown) date) unknown) (unknown) (no (unknown) (unknown) Sister Heart disease (uni ts (unknown) date) unknown) (unknown) (no (unknown) (unknown) Skin: brisk (units (un known) date) capillary refill, unknown) without pallor or erythema (unknown) (no (unknown) (unknown) Smoking Status: (units (unknown) date) Former smoker unknown) (unknown) (no (unknown) (unknown) Social History (units (unknown) date) (Reviewed 05/05/22 @ unknown) 15:03 by ALEN Antoine) (unknown) (no (unknown) (unknown) Soft tissues:? No (units (unknown) date) tibiotalar joint unknown) effusion.? Achilles tendon appears normal.? (unknown) (no (unknown) (unknown) Source: patient (units (unknown) date) unknown) (unknown) (no (unknown) (unknown) Stated Complaint: (units (unknown) date) fell sunday both legs unknown) + ankles are swollen (unknown) (no (unknown) (unknown) Substance Use Type: (unit s (unknown) date) does not use unknown) (unknown) (no (unknown) (unknown) Surgical History (units (unknown) date) (Reviewed 05/05/22 @ unknown) 15:03 by ALEN Antoine) (unknown) (no (unknown) (unknown) TECHNIQUE:? Three (units (unknown) date) views of the ankle unknown) were acquired.? (unknown) (no (unknown) (unknown) Temperature 97.6 F (units (unknown) date) 05/05/22 11:45 unknown) (unknown) (no (unknown) (unknown) Temperature 97.6 F (units (unknown) date) unknown) (unknown) (no (unknown) (unknown) This is a (units (unkn own) date) 67-year-old female unknown) presents to the emergency department after she had (unknown) (no (unknown) (unknown) This is a (units (unkn own) date) 67-year-old female unknown) who presents to the emergency department after she (unknown) (no (unknown) (unknown) Time Seen by (units (u nknown) date) Provider: 05/05/22 unknown) 14:35 (unknown) (no (unknown) (unknown) Vital Signs - 8 hr (units (unknown) date) unknown) (unknown) (no (unknown) (unknown) Vital Signs (units (un known) date) unknown) (unknown) (no (unknown) (unknown) Vital signs: (units (u nknown) date) unknown) (unknown) (no (unknown) (unknown) XR ankle LT min 3V (units (unknown) date) Stat unknown) (unknown) (no (unknown) (unknown) XR ankle RT min 3V (units (unknown) date) Stat unknown) (unknown) (no (unknown) (unknown) [ ] New medication (units (unknown) date) prescriptions sent to unknown) your pharmacy: [ ] (unknown) (no (unknown) (unknown) [ ] New medication (units (unknown) date) written as a paper unknown) prescription (unknown) (no (unknown) (unknown) [ ] No new (units (unk nown) date) medications given unknown) (unknown) (no (unknown) (unknown) a mechanical fall 5 (unit s (unknown) date) days ago when her unknown) legs when out. Patient states that she (unknown) (no (unknown) (unknown) ambulate without (units (unknown) date) weakness. unknown) (unknown) (no (unknown) (unknown) and cooperative (units (unknown) date) unknown) (unknown) (no (unknown) (unknown) ankles, no (units (unk nown) date) tenderness over unknown) bilateral malleoli on bilateral sides. Dorsiflexion (unknown) (no (unknown) (unknown) appointment. Let them (uni ts (unknown) date) know you were seen in unknown) the Emergency Department and that we (unknown) (no (unknown) (unknown) aripiprazole 10 mg (units (unknown) date) tablet 30 mg PO DAILY unknown) 11/23/21 03/29/22 (unknown) (no (unknown) (unknown) aripiprazole 10 mg (units (unknown) date) tablet unknown) (unknown) (no (unknown) (unknown) asked that you be (units (unknown) date) seen for follow-up. unknown) We will electronically transmit a record (unknown) (no (unknown) (unknown) bilateral CFL (units ( unknown) date) ligaments on the unknown) medial aspect, ATFL ligaments on medial aspect. (unknown) (no (unknown) (unknown) bony lesions.? (units (unknown) date) Prominent plantar unknown) calcaneal spur. (unknown) (no (unknown) (unknown) concerning symptoms, (uni ts (unknown) date) such as [fever unknown) greater than 101F, chills, worsening pain, (unknown) (no (unknown) (unknown) duloxetine 60 mg (units (unknown) date) capsule,delayed 60 mg unknown) PO BID 09/05/21 03/29/22 (unknown) (no (unknown) (unknown) duloxetine (units (unk nown) date) [Cymbalta] 60 mg unknown) capsule,delayed release(DR/EC) (unknown) (no (unknown) (unknown) erythromycin base (units (unknown) date) Allergy Severe unknown) Swelling Verified 03/29/22 09:56 (unknown) (no (unknown) (unknown) establish care with [place]unit [place] ([place]) [place] [facility] primary care providers. (unknown) (no (unknown) (unknown) falls occasionally (units (unknown) date) and this is not new. unknown) She denies any recent illness. (unknown) (no (unknown) (unknown) for swelling around (unit s (unknown) date) her ankles and unknown) tenderness to palpation. 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 and states that she has balance and (unknown) (no (unknown) (unknown) hydrochlorothiazide (unit s (unknown) date) 25 mg tablet 25 mg PO unknown) DAILY 03/29/22 03/29/22 (unknown) (no (unknown) (unknown) hydrochlorothiazide (unit s (unknown) date) 25 mg tablet unknown) (unknown) (no (unknown) (unknown) hydrocodone 10 (units (unknown) date) mg-acetaminophen 1 unknown) tab PO DAILY 11/23/21 03/29/22 (unknown) (no (unknown) (unknown) hydrocodone-acetamin (uni ts (unknown) date) ophen 10-325 mg unknown) tablet (unknown) (no (unknown) (unknown) left ankle, initial (unit s (unknown) date) encounter unknown) (unknown) (no (unknown) (unknown) levothyroxine 125 (units (unknown) date) mcg tablet 125 mcg PO unknown) DAILY 09/05/21 03/29/22 (unknown) (no (unknown) (unknown) levothyroxine 125 (units (unknown) date) mcg tablet 125 mcg PO unknown) DAILY 11/23/21 03/29/22 (unknown) (no (unknown) (unknown) levothyroxine (units ( unknown) date) [Synthroid] 125 mcg unknown) tablet (unknown) (no (unknown) (unknown) ligament Qualified (units (unknown) date) Code(s): S93.411A - unknown) Sprain of calcaneofibular ligament of (unknown) (no (unknown) (unknown) losartan 50 mg (units (unknown) date) tablet 50 mg PO DAILY unknown) 11/23/21 03/29/22 (unknown) (no (unknown) (unknown) losartan 50 mg (units (unknown) date) tablet unknown) (unknown) (no (unknown) (unknown) metformin 500 mg (units (unknown) date) tablet extended unknown) release 24 hr (unknown) (no (unknown) (unknown) metformin 500 mg (units (unknown) date) tablet,extended 500 unknown) mg PO DAILY 03/29/22 03/29/22 (unknown) (no (unknown) (unknown) methocarbamol 750 mg (uni ts (unknown) date) tablet 750 mg PO .PRN unknown) 11/23/21 03/29/22 (unknown) (no (unknown) (unknown) methocarbamol 750 mg (uni ts (unknown) date) tablet unknown) (unknown) (no (unknown) (unknown) metoprolol succinate (uni ts (unknown) date) 50 mg tab PO 11/23/21 unknown) 03/29/22 (unknown) (no (unknown) (unknown) metoprolol succinate (uni ts (unknown) date) 50 mg tablet extended unknown) release 24 hr (unknown) (no (unknown) (unknown) multivitamin (Daily (unit s (unknown) date) Multi-Vitamin 1 tab unknown) PO DAILY 09/05/21 03/29/22 (unknown) (no (unknown) (unknown) multivitamin [Daily (unit s (unknown) date) Multi-Vitamin] Tablet unknown) (unknown) (no (unknown) (unknown) of today's note if (units (unknown) date) your PCP is in our unknown) system (unknown) (no (unknown) (unknown) of (units (unkno wn) date) unknown) (unknown) (no (unknown) (unknown) open wound. Denies (units (unknown) date) any knee pain, denies unknown) any hip pain, states that she has some (unknown) (no (unknown) (unknown) oxycodone 10 mg (units (unknown) date) tablet extended unknown) release 12 hr (unknown) (no (unknown) (unknown) oxycodone 10 mg (units (unknown) date) tablet,crush 10 mg PO unknown) Q12H 03/29/22 03/29/22 (unknown) (no (unknown) (unknown) oxycodone 10 mg (units (unknown) date) tablet,extended mg PO unknown) 09/05/21 03/29/22 (unknown) (no (unknown) (unknown) oxycodone 10 mg (units (unknown) date) tablet,oral unknown) only,ext.rel.12 hr (unknown) (no (unknown) (unknown) palpation, right (units (unknown) date) thigh with mild unknown) tenderness over the distal quadriceps with full (unknown) (no (unknown) (unknown) patient is (units (unk nown) date) ambulatory, mild unknown) edema over bilateral medial malleoli, tenderness to (unknown) (no (unknown) (unknown) persistent vomiting (unit s (unknown) date) or other bothersome unknown) symptoms]. (unknown) (no (unknown) (unknown) plantar extension (units (unknown) date) intact bilaterally, unknown) patient is ambulatory without deficit. X (unknown) (no (unknown) (unknown) range of motion of (units (unknown) date) her above and below unknown) joints. (unknown) (no (unknown) (unknown) rays of bilateral (units (unknown) date) ankles do not show unknown) acute fracture, she has some mild soft (unknown) (no (unknown) (unknown) release (Cymbalta) (units (unknown) date) unknown) (unknown) (no (unknown) (unknown) release 24 hr (units ( unknown) date) unknown) (unknown) (no (unknown) (unknown) release,12 hr (units ( unknown) date) unknown) (unknown) (no (unknown) (unknown) resistant,extended (units (unknown) date) release 12 hr unknown) (unknown) (no (unknown) (unknown) right ankle, initial (uni ts (unknown) date) encounter unknown) (unknown) (no (unknown) (unknown) right knee mobility (unit s (unknown) date) including extension unknown) and flexion, no suprapatellar effusion, (unknown) (no (unknown) (unknown) salicylic acid (units (unknown) date) Allergy Intermediate unknown) Rash Verified 03/29/22 09:56 (unknown) (no (unknown) (unknown) sitagliptin 50 mg (units (unknown) date) tablet (Januvia) 50 unknown) mg PO DAILY 03/29/22 03/29/22 (unknown) (no (unknown) (unknown) soft tissue bruising (uni ts (unknown) date) to the right lateral unknown) distal thigh, denies any open wound (unknown) (no (unknown) (unknown) sumatriptan (units (un known) date) succinate 50 mg unknown) tablet ea PO 11/23/21 03/29/22 (unknown) (no (unknown) (unknown) sumatriptan (units (un known) date) succinate 50 mg unknown) tablet (unknown) (no (unknown) (unknown) suspicious (units (unk nown) date) unknown) (unknown) (no (unknown) (unknown) swelling, states that (uni ts (unknown) date) she is able to bear unknown) weight on them bilaterally, denies any (unknown) (no (unknown) (unknown) tablet) (units (unkno wn) date) unknown) (unknown) (no (unknown) (unknown) tablet,extended (units (unknown) date) release 24 hr unknown) (unknown) (no (unknown) (unknown) take 1 tablet by (units (unknown) date) mouth if needed AT unknown) ONSET OF HEADACHE may repeat in 2 hours (unknown) (no (unknown) (unknown) talofibular ligament (uni ts (unknown) date) Qualified Code(s): unknown) S93.492A - Sprain of other ligament of (unknown) (no (unknown) (unknown) tenderness over the (unit s (unknown) date) ATFL and CFL unknown) ligaments on the medial aspect of bilateral (unknown) (no (unknown) (unknown) tenderness to the (units (unknown) date) knee ligaments. unknown) (unknown) (no (unknown) (unknown) tetracycline Allergy (uni ts (unknown) date) Severe Anaphylaxis unknown) Verified 03/29/22 09:56 (unknown) (no (unknown) (unknown) there and has full (units (unknown) date) range of motion of unknown) her right hip. Patient states that she (unknown) (no (unknown) (unknown) tissue edema without (unit s (unknown) date) ecchymosis, wound, or unknown) erythema over these areas with normal (unknown) (no (unknown) (unknown) tizanidine 2 mg (units (unknown) date) tablet 2 mg PO BID unknown) PRN muscle spasticity 09/05/21 03/29/22 (unknown) (no (unknown) (unknown) tizanidine 2 mg (units (unknown) date) tablet unknown) (unknown) (no (unknown) (unknown) took pain medication (uni ts (unknown) date) and her pain is under unknown) control right now and she is able to (unknown) (no (unknown) (unknown) without erythema, (units (unknown) date) ecchymosis, or open unknown) wound, bilateral feet are warm to (unknown) (no (unknown) (unknown) zoledronic acid (units (unknown) date) Allergy Severe unknown) Anaphylaxis Verified 03/29/22 09:56 Result panel 13 (unknown) (no (unknown) (unknown) (no value) (units (unk nown) date) unknown) (unknown) (no (unknown) (unknown) <Electronically (units (unknown) date) signed by Jessica Sage unknown) [employer]> (unknown) (no (unknown) (unknown) (More??) (units (unkno wn) date) unknown) (unknown) (no (unknown) (unknown) (Synthroid) (units (un known) date) unknown) (unknown) (no (unknown) (unknown) *If you do not have (unit s (unknown) date) a primary care unknown) provider please contact [phone] to (unknown) (no (unknown) (unknown) *Please continue to (unit s (unknown) date) take your regular unknown) medications as directed. (unknown) (no (unknown) (unknown) *Please follow up (units (unknown) date) with your primary unknown) care provider in 2-3 days, call for an (unknown) (no (unknown) (unknown) *Return to Emergency (uni ts (unknown) date) Department if you unknown) should have any new, worsening, or (unknown) (no (unknown) (unknown) *What to do: (units (u nknown) date) unknown) (unknown) (no (unknown) (unknown) *You have been (units (unknown) date) diagnosed with likely unknown) an avulsion fracture of the tip of the (unknown) (no (unknown) (unknown) 09/05/21 (units (unkno wn) date) unknown) (unknown) (no (unknown) (unknown) 09/06/21 (units (unkno wn) date) unknown) (unknown) (no (unknown) (unknown) 10/09/20 (units (unkno wn) date) unknown) (unknown) (no (unknown) (unknown) 11/21/17 (units (unkno wn) date) unknown) (unknown) (no (unknown) (unknown) 11/23/21 (units (unkno wn) date) unknown) (unknown) (no (unknown) (unknown) 11/29/21 (units (unkno wn) date) unknown) (unknown) (no (unknown) (unknown) 12/05/18 (units (unkno wn) date) unknown) (unknown) (no (unknown) (unknown) 03/06/18 (units (unkno wn) date) unknown) (unknown) (no (unknown) (unknown) 1 OR 2 (units (unkno wn) date) unknown) (unknown) (no (unknown) (unknown) 1 tab PO DAILY (units (unknown) date) unknown) (unknown) (no (unknown) (unknown) 1. Moderate medial (units (unknown) date) soft tissue swelling unknown) with questionable nondisplaced avulsion (unknown) (no (unknown) (unknown) 10 mg PO Q12H (units ( unknown) date) unknown) (unknown) (no (unknown) (unknown) 04/11/22 (units (unkno wn) date) unknown) (unknown) (no (unknown) (unknown) 05/05/22 14:57 (units (unknown) date) unknown) (unknown) (no (unknown) (unknown) 05/05/22 1643 (units ( unknown) date) unknown) (unknown) (no (unknown) (unknown) 05/05/22 (units (unkno wn) date) unknown) (unknown) (no (unknown) (unknown) 11:45 (units (unkno wn) date) unknown) (unknown) (no (unknown) (unknown) [address] [place] [address] (units (unknown) date) unknown) (unknown) (no (unknown) (unknown) 125 mcg PO DAILY (units (unknown) date) unknown) (unknown) (no (unknown) (unknown) 2 mg PO BID PRN (units (unknown) date) (Reason: muscle unknown) spasticity) (unknown) (no (unknown) (unknown) 2. Probable remote (units (unknown) date) injury and healing unknown) deformities of the distal fibula and (unknown) (no (unknown) (unknown) 25 mg PO DAILY (units (unknown) date) unknown) (unknown) (no (unknown) (unknown) 30 mg PO DAILY (units (unknown) date) unknown) (unknown) (no (unknown) (unknown) 325 mg tablet (units ( unknown) date) unknown) (unknown) (no (unknown) (unknown) [id number] (units (unkno wn) date) unknown) (unknown) (no (unknown) (unknown) 50 mg PO DAILY (units (unknown) date) unknown) (unknown) (no (unknown) (unknown) 500 mg PO DAILY (units (unknown) date) unknown) (unknown) (no (unknown) (unknown) 60 mg PO BID (units (u nknown) date) unknown) (unknown) (no (unknown) (unknown) 600 mg PO .COMPLEX (units (unknown) date) Qty: 90 2RF unknown) (unknown) (no (unknown) (unknown) 600 mg PO 1-2 PO Tid (uni ts (unknown) date) to begin at HS and unknown) titrate to nerve pain relief; (unknown) (no (unknown) (unknown) 750 mg PO .PRN (units (unknown) date) unknown) (unknown) (no (unknown) (unknown) ? (units (unkno wn) date) unknown) (unknown) (no (unknown) (unknown) ? (units (unkno wn) date) unknown) (unknown) (no (unknown) (unknown) Accession Number: (units (unknown) date) [id number] ?? unknown) (unknown) (no (unknown) (unknown) Acct:[id number] (units (unknown) date) unknown) (unknown) (no (unknown) (unknown) Activity (units (unkno wn) date) Restrictions/Addition unknown) al Instructions: (unknown) (no (unknown) (unknown) Age/Sex: 67 / F (units (unknown) date) unknown) (unknown) (no (unknown) (unknown) All questions and (units (unknown) date) concerns answered at unknown) this time. (unknown) (no (unknown) (unknown) Allergies (units (unkn own) date) unknown) (unknown) (no (unknown) (unknown) Allergy/Adv: (units (u nknown) date) erythromycin base, unknown) Penicillins, tetracycline, zoledronic acid, (unknown) (no (unknown) (unknown) Allergy/AdvReac Type (uni ts (unknown) date) Severity Reaction unknown) Status Date / Time (unknown) (no (unknown) (unknown) [facility] [place] [id number] (unit s (unknown) date) unknown) (unknown) (no (unknown) (unknown) Ankle MRI (Signed) (units (unknown) date) unknown) (unknown) (no (unknown) (unknown) Ankle X-Ray (Signed) (uni ts (unknown) date) unknown) (unknown) (no (unknown) (unknown) Approved by: Katie (uni ts (unknown) date) Bony Henson on unknown) 05/05/2022 at 16:02 ? (unknown) (no (unknown) (unknown) Approved by: Katie (uni ts (unknown) date) Bony Henson on unknown) 05/05/2022 at 16:09 ? (unknown) (no (unknown) (unknown) Avulsion fracture of (uni ts (unknown) date) medial malleolus unknown) (unknown) (no (unknown) (unknown) Timothy Knight DO (units (unknown) date) [Physician] unknown) (unknown) (no (unknown) (unknown) Blood Pressure (units (unknown) date) 140/62 05/05/22 11:45 unknown) (unknown) (no (unknown) (unknown) Blood Pressure (units (unknown) date) 140/62 unknown) (unknown) (no (unknown) (unknown) Bones:? Chronic (units (unknown) date) cortical irregularity unknown) of the distal tibia and fibula.? Mild (unknown) (no (unknown) (unknown) Bones:? No fractures (uni ts (unknown) date) or dislocations.? unknown) Ankle mortise is normally aligned.? No (unknown) (no (unknown) (unknown) COMPARISON:? None. (units (unknown) date) unknown) (unknown) (no (unknown) (unknown) COMPARISON:? [facility] (unit s (unknown) date) [facility] unknown) [facility], CR, XR ANKLE (unknown) (no (unknown) (unknown) Gretel Venegas (units (unknown) date) unknown) (unknown) (no (unknown) (unknown) Chest X-Ray (Signed) (uni ts (unknown) date) unknown) (unknown) (no (unknown) (unknown) Chief Complaint: (units (unknown) date) Fall unknown) (unknown) (no (unknown) (unknown) Clinical Impression: (uni ts (unknown) date) unknown) (unknown) (no (unknown) (unknown) Close (units (unkno wn) date) unknown) (unknown) (no (unknown) (unknown) Complains of pain to (uni ts (unknown) date) the medial aspect of unknown) her bilateral ankles, some mild (unknown) (no (unknown) (unknown) Course (units (unkno wn) date) unknown) (unknown) (no (unknown) (unknown) : 1955 (units (unknown) date) Acct:[id number] unknown) (unknown) (no (unknown) (unknown) : 1955 (units (unknown) date) unknown) (unknown) (no (unknown) (unknown) Date of Service: (units (unknown) date) 05/05/22 unknown) (unknown) (no (unknown) (unknown) Departure (units (unkn own) date) unknown) (unknown) (no (unknown) (unknown) Depression (units (unk nown) date) unknown) (unknown) (no (unknown) (unknown) Diabetes (units (unkno wn) date) unknown) (unknown) (no (unknown) (unknown) Diagnostics Reports (unit s (unknown) date) unknown) (unknown) (no (unknown) (unknown) Dictated by: Katie (uni ts (unknown) date) Bony Henson on unknown) 05/05/2022 at 16:02 ? ? (unknown) (no (unknown) (unknown) Dictated by: Katie (uni ts (unknown) date) Bony Henson on unknown) 05/05/2022 at 16:03 ? ? (unknown) (no (unknown) (unknown) Discharge Plan (units (unknown) date) unknown) (unknown) (no (unknown) (unknown) Dorsiflexion and or (unit s (unknown) date) plantar extension unknown) intact bilaterally, PT pulses are 2+, (unknown) (no (unknown) (unknown) ED Orders (units (unkn own) date) unknown) (unknown) (no (unknown) (unknown) ER Physician: (units ( unknown) date) Jessica Camejo unknown) (unknown) (no (unknown) (unknown) Emergency Report (units (unknown) date) unknown) (unknown) (no (unknown) (unknown) Encounter type: (units (unknown) date) initial encounter unknown) Fracture type: closed Laterality: right (unknown) (no (unknown) (unknown) Encounter type: (units (unknown) date) initial encounter unknown) Involved ligament of ankle: anterior (unknown) (no (unknown) (unknown) Encounter type: (units (unknown) date) initial encounter unknown) Involved ligament of ankle: calcaneofibular (unknown) (no (unknown) (unknown) Exam Narrative: (units (unknown) date) unknown) (unknown) (no (unknown) (unknown) Exam (units (unkno wn) date) unknown) (unknown) (no (unknown) (unknown) Extremity x-ray #1: (unit s (unknown) date) unknown) (unknown) (no (unknown) (unknown) Extremity x-ray #2: (unit s (unknown) date) unknown) (unknown) (no (unknown) (unknown) FINDINGS:? (units (unk nown) date) unknown) (unknown) (no (unknown) (unknown) Facet Joint (units (un known) date) Injection X-Ray unknown) (Signed) (unknown) (no (unknown) (unknown) Facet arthropathy, (units (unknown) date) lumbar unknown) (unknown) (no (unknown) (unknown) Family History (units (unknown) date) (Reviewed 05/05/22 @ unknown) 15:03 by ALEN Antoine) (unknown) (no (unknown) (unknown) Father Cancer (units ( unknown) date) unknown) (unknown) (no (unknown) (unknown) Ciaran Samaniego, (units (unknown) date) [Primary Care unknown) Provider] (unknown) (no (unknown) (unknown) Foot X-Ray (Signed) (unit s (unknown) date) unknown) (unknown) (no (unknown) (unknown) Briseida Cazares (units (u nknown) date) [id number] unknown) (unknown) (no (unknown) (unknown) General (units (unkno wn) date) unknown) (unknown) (no (unknown) (unknown) General: (units (unkno wn) date) cooperative, unknown) comfortable, in no acute distress, well groomed (unknown) (no (unknown) (unknown) Katie Henson (units ( unknown) date) unknown) (unknown) (no (unknown) (unknown) H/O neck surgery (units (unknown) date) unknown) (unknown) (no (unknown) (unknown) HEENT: symmetrical (units (unknown) date) facial expressions, unknown) moist mucous membranes, atraumatic= (unknown) (no (unknown) (unknown) HPI - Fall (units (unk nown) date) unknown) (unknown) (no (unknown) (unknown) HPI Narrative: (units (unknown) date) unknown) (unknown) (no (unknown) (unknown) HPI (units (unkno wn) date) unknown) (unknown) (no (unknown) (unknown) Head CT (Signed) (units (unknown) date) unknown) (unknown) (no (unknown) (unknown) History of Present (units (unknown) date) Illness unknown) (unknown) (no (unknown) (unknown) History of (units (unk nown) date) cholecystectomy unknown) (unknown) (no (unknown) (unknown) 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 Intact (unit s (unknown) date) left ankle. unknown) (unknown) (no (unknown) (unknown) IMPRESSION:? (units (u nknown) date) unknown) (unknown) (no (unknown) (unknown) INDICATIONS:? medial (uni ts (unknown) date) pain s/p fall, unknown) sprain? (unknown) (no (unknown) (unknown) Imaging Data (units (u nknown) date) unknown) (unknown) (no (unknown) (unknown) Initial Vital Signs (unit s (unknown) date) unknown) (unknown) (no (unknown) (unknown) Initial Vital Signs: (uni ts (unknown) date) unknown) (unknown) (no (unknown) (unknown) Instructions: Ankle (unit s (unknown) date) Fracture, DI for unknown) Avulsion Fracture, How to Apply an Elastic (unknown) (no (unknown) (unknown) [facility] [address] (uni ts (unknown) date) [address] unknown) [place] [address] (unknown) (no (unknown) (unknown) [facility] (units (unknown) date) unknown) (unknown) (no (unknown) (unknown) Januvia 50 mg tablet (uni ts (unknown) date) unknown) (unknown) (no (unknown) (unknown) Magnet,Alex (units ( unknown) date) unknown) (unknown) (no (unknown) (unknown) LS Transforaminal (units (unknown) date) Injection (Signed) unknown) (unknown) (no (unknown) (unknown) Label Comments: (units (unknown) date) unknown) (unknown) (no (unknown) (unknown) Launch?Image (units (u nknown) date) unknown) (unknown) (no (unknown) (unknown) Left ankle sprain (units (unknown) date) unknown) (unknown) (no (unknown) (unknown) Lip/Tongue/Throat (units (unknown) date) unknown) (unknown) (no (unknown) (unknown) Loc: ED (units (unkno wn) date) unknown) (unknown) (no (unknown) (unknown) Lumbar Spine MRI (units (unknown) date) (Signed) unknown) (unknown) (no (unknown) (unknown) Lumbar Spine X-Ray (units (unknown) date) (Signed) unknown) (unknown) (no (unknown) (unknown) Lumbosacral (units (un known) date) radiculopathy at L4 unknown) (unknown) (no (unknown) (unknown) MDM - Fall (units (unk nown) date) unknown) (unknown) (no (unknown) (unknown) MDM Narrative (units ( unknown) date) unknown) (unknown) (no (unknown) (unknown) MR#: [id number] (units (unknown) date) unknown) (unknown) (no (unknown) (unknown) MSK: moves all (units (unknown) date) extremities, unknown) neurovascularly intact, no weakness, normal tone, (unknown) (no (unknown) (unknown) Medical History (units (unknown) date) (Reviewed 05/05/22 @ unknown) 15:03 by ALEN Antoine) (unknown) (no (unknown) (unknown) Medical decision (units (unknown) date) making narrative: unknown) (unknown) (no (unknown) (unknown) Medication (units (unk nown) date) Instructions Recorded unknown) Confirmed (unknown) (no (unknown) (unknown) Medication (units (unk nown) date) Instructions Recorded unknown) (unknown) (no (unknown) (unknown) Mode of arrival: (units (unknown) date) Ambulatory unknown) (unknown) (no (unknown) (unknown) Moderate medial soft (uni ts (unknown) date) tissue swelling with unknown) a probable remote injury and healing (unknown) (no (unknown) (unknown) Moderate (units (unkno wn) date) unknown) (unknown) (no (unknown) (unknown) Mother Heart disease (uni ts (unknown) date) unknown) (unknown) (no (unknown) (unknown) Narrative (units (unkn own) date) unknown) (unknown) (no (unknown) (unknown) Narrative: (units (unk nown) date) unknown) (unknown) (no (unknown) (unknown) Neuro: normal speech (uni ts (unknown) date) and cognition, A+O unknown) x3, ambulatory, clear speech (unknown) (no (unknown) (unknown) No Action (units (unkn own) date) unknown) (unknown) (no (unknown) (unknown) Ordered: (units (unkno wn) date) unknown) (unknown) (no (unknown) (unknown) Ordering Provider: (units (unknown) date) Jessica Camejo unknown) (unknown) (no (unknown) (unknown) Orders (units (unkno wn) date) unknown) (unknown) (no (unknown) (unknown) Outside DI (units (unk nown) date) unknown) (unknown) (no (unknown) (unknown) Oxygen Delivery (units (unknown) date) Method 05/05/22 11:45 unknown) (unknown) (no (unknown) (unknown) Oxygen Delivery (units (unknown) date) Method Room Air unknown) (unknown) (no (unknown) (unknown) PO (units (unkno wn) date) unknown) (unknown) (no (unknown) (unknown) PROCEDURE:? XR ANKLE (uni ts (unknown) date) LT MIN 3V unknown) (unknown) (no (unknown) (unknown) PROCEDURE:? XR ANKLE (uni ts (unknown) date) RT MIN 3V unknown) (unknown) (no (unknown) (unknown) Patient Disposition: (uni ts (unknown) date) Home unknown) (unknown) (no (unknown) (unknown) Patient History (units (unknown) date) unknown) (unknown) (no (unknown) (unknown) Patient: (units (unkno wn) date) Briseida Cazares MR#: unknown) [id number] (unknown) (no (unknown) (unknown) Patient: (units (unkno wn) date) Briseida Cazares unknown) (unknown) (no (unknown) (unknown) Penicillins Allergy (unit s (unknown) date) Severe Anaphylaxis unknown) Verified 03/29/22 09:56 (unknown) (no (unknown) (unknown) Post-traumatic (units (unknown) date) syrinx unknown) (unknown) (no (unknown) (unknown) Prescriptions: (units (unknown) date) unknown) (unknown) (no (unknown) (unknown) Previous Rx's (units ( unknown) date) unknown) (unknown) (no (unknown) (unknown) Procedure: XR ankle (unit s (unknown) date) RT min 3V unknown) (unknown) (no (unknown) (unknown) Psych: mental status (uni ts (unknown) date) is grossly normal, unknown) congruent mood, normal affect, pleasant (unknown) (no (unknown) (unknown) Pulse Oximetry 98 (units (unknown) date) 05/05/22 11:45 unknown) (unknown) (no (unknown) (unknown) Pulse Oximetry 98 (units (unknown) date) unknown) (unknown) (no (unknown) (unknown) Pulse Rate 88 (units ( unknown) date) 05/05/22 11:45 unknown) (unknown) (no (unknown) (unknown) Pulse Rate 88 (units ( unknown) date) unknown) (unknown) (no (unknown) (unknown) Qualified Code(s): (units (unknown) date) S82.51XA - Displaced unknown) fracture of medial malleolus of right (unknown) (no (unknown) (unknown) Qualifiers: (units (un known) date) unknown) (unknown) (no (unknown) (unknown) Radiologist's (units ( unknown) date) Impression: unknown) (unknown) (no (unknown) (unknown) Referrals: (units (unk nown) date) unknown) (unknown) (no (unknown) (unknown) Related Data (units (u nknown) date) unknown) (unknown) (no (unknown) (unknown) Respiratory Rate 20 (unit s (unknown) date) 05/05/22 11:45 unknown) (unknown) (no (unknown) (unknown) Respiratory Rate 20 (unit s (unknown) date) unknown) (unknown) (no (unknown) (unknown) Review of Systems (units (unknown) date) unknown) (unknown) (no (unknown) (unknown) Review of systems is (uni ts (unknown) date) negative for acute unknown) abnormalities unless otherwise noted in (unknown) (no (unknown) (unknown) Reviewed vitals (units (unknown) date) signs and nursing unknown) notes. (unknown) (no (unknown) (unknown) Right ankle sprain (units (unknown) date) unknown) (unknown) (no (unknown) (unknown) Chriss Segovia (units (unknown) date) unknown) (unknown) (no (unknown) (unknown) Rx Instructions: (units (unknown) date) unknown) (unknown) (no (unknown) (unknown) Scoliosis (units (unkn own) date) unknown) (unknown) (no (unknown) (unknown) Signed By: (units (unk nown) date) unknown) (unknown) (no (unknown) (unknown) Signed (units (unkno wn) date) unknown) (unknown) (no (unknown) (unknown) Sister Heart disease (uni ts (unknown) date) unknown) (unknown) (no (unknown) (unknown) [facility] (units (unkn own) date) Orthopedics [Provider unknown) Group] - 5-7 days (unknown) (no (unknown) (unknown) [facility] (units (unknown) date) in 1 week or less. unknown) Patient has a walker which she will use (unknown) (no (unknown) (unknown) Skin: brisk (units (un known) date) capillary refill, unknown) without pallor or erythema (unknown) (no (unknown) (unknown) Smoking Status: (units (unknown) date) Former smoker unknown) (unknown) (no (unknown) (unknown) Social History (units (unknown) date) (Reviewed 05/05/22 @ unknown) 15:03 by ALEN Antoine) (unknown) (no (unknown) (unknown) Soft tissues:? No (units (unknown) date) tibiotalar joint unknown) effusion.? Achilles tendon appears normal.? (unknown) (no (unknown) (unknown) Source: patient (units (unknown) date) unknown) (unknown) (no (unknown) (unknown) Stated Complaint: (units (unknown) date) fell sunday both legs unknown) + ankles are swollen (unknown) (no (unknown) (unknown) Substance Use Type: (unit s (unknown) date) does not use unknown) (unknown) (no (unknown) (unknown) Surgical History (units (unknown) date) (Reviewed 05/05/22 @ unknown) 15:03 by ALEN Antoine) (unknown) (no (unknown) (unknown) TECHNIQUE:? Three (units (unknown) date) views of the ankle unknown) were acquired.? (unknown) (no (unknown) (unknown) Temperature 97.6 F (units (unknown) date) 05/05/22 11:45 unknown) (unknown) (no (unknown) (unknown) Temperature 97.6 F (units (unknown) date) unknown) (unknown) (no (unknown) (unknown) This is a (units (unkn own) date) 67-year-old female unknown) presents to the emergency department after she had (unknown) (no (unknown) (unknown) This is a (units (unkn own) date) 67-year-old female unknown) who presents to the emergency department after she (unknown) (no (unknown) (unknown) Thoracic Spine X-Ray (uni ts (unknown) date) (Signed) unknown) (unknown) (no (unknown) (unknown) Time Seen by (units (u nknown) date) Provider: 05/05/22 unknown) 14:35 (unknown) (no (unknown) (unknown) VIEWS WEIGHT BEARING (uni ts (unknown) date) RIGHT, 02/19/2018, unknown) 8:37. (unknown) (no (unknown) (unknown) Vital Signs - 8 hr (units (unknown) date) unknown) (unknown) (no (unknown) (unknown) Vital Signs (units (un known) date) unknown) (unknown) (no (unknown) (unknown) Vital signs: (units (u nknown) date) unknown) (unknown) (no (unknown) (unknown) LewRl martínez (units (u nknown) date) unknown) (unknown) (no (unknown) (unknown) Kike Muñoz (units (unk nown) date) unknown) (unknown) (no (unknown) (unknown) Wrap on Ankle (units ( unknown) date) unknown) (unknown) (no (unknown) (unknown) [employer] (units (unkn own) date) unknown) (unknown) (no (unknown) (unknown) XR ankle LT min 3V (units (unknown) date) Stat unknown) (unknown) (no (unknown) (unknown) XR ankle RT min 3V (units (unknown) date) Stat unknown) (unknown) (no (unknown) (unknown) XRay Report (units (un known) date) unknown) (unknown) (no (unknown) (unknown) [ ] New medication (units (unknown) date) prescriptions sent to unknown) your pharmacy: [ ] (unknown) (no (unknown) (unknown) [ ] New medication (units (unknown) date) written as a paper unknown) prescription (unknown) (no (unknown) (unknown) [x ] No new (units (un known) date) medications given unknown) (unknown) (no (unknown) (unknown) a mechanical fall 5 (unit s (unknown) date) days ago when her unknown) legs when out. Patient states that she (unknown) (no (unknown) (unknown) along the medial (units (unknown) date) malleolus.? The unknown) mortise with is not well assessed given current (unknown) (no (unknown) (unknown) ambulate without (units (unknown) date) weakness. unknown) (unknown) (no (unknown) (unknown) and cooperative (units (unknown) date) unknown) (unknown) (no (unknown) (unknown) ankles, no (units (unk nown) date) tenderness over unknown) bilateral malleoli on bilateral sides. Dorsiflexion (unknown) (no (unknown) (unknown) anterior (units (unkno wn) date) unknown) (unknown) (no (unknown) (unknown) appointment. Let them (uni ts (unknown) date) know you were seen in unknown) the Emergency Department and that we (unknown) (no (unknown) (unknown) are stable on repeat (uni ts (unknown) date) examination is unknown) unremarkable. Patient has been informed of (unknown) (no (unknown) (unknown) aripiprazole 10 mg (units (unknown) date) tablet 30 mg PO DAILY unknown) 11/23/21 03/29/22 (unknown) (no (unknown) (unknown) aripiprazole 10 mg (units (unknown) date) tablet unknown) (unknown) (no (unknown) (unknown) asked that you be (units (unknown) date) seen for follow-up. unknown) We will electronically transmit a record (unknown) (no (unknown) (unknown) at the (units (unkno wn) date) unknown) (unknown) (no (unknown) (unknown) avulsion fracture (units (unknown) date) off the tip of the unknown) medial malleolus without displacement. (unknown) (no (unknown) (unknown) bilateral CFL (units ( unknown) date) ligaments on the unknown) medial aspect, ATFL ligaments on medial aspect. (unknown) (no (unknown) (unknown) bony lesions.? (units (unknown) date) Prominent plantar unknown) calcaneal spur. (unknown) (no (unknown) (unknown) concerning symptoms, (uni ts (unknown) date) such as [fever unknown) greater than 101F, chills, worsening pain, (unknown) (no (unknown) (unknown) contralateral (units ( unknown) date) unknown) (unknown) (no (unknown) (unknown) currently. She has (units (unknown) date) more pain on the unknown) right ankle especially when bearing weight, (unknown) (no (unknown) (unknown) deformities of the (units (unknown) date) distal fibula and unknown) tibia. Patient does have history of ankle (unknown) (no (unknown) (unknown) duloxetine 60 mg (units (unknown) date) capsule,delayed 60 mg unknown) PO BID 09/05/21 03/29/22 (unknown) (no (unknown) (unknown) duloxetine (units (unk nown) date) [Cymbalta] 60 mg unknown) capsule,delayed release(DR/EC) (unknown) (no (unknown) (unknown) edema without (units ( unknown) date) ecchymosis, wound, or unknown) erythema over these areas with normal range (unknown) (no (unknown) (unknown) erythromycin base (units (unknown) date) Allergy Severe unknown) Swelling Verified 03/29/22 09:56 (unknown) (no (unknown) (unknown) establish care with [place] ([place] [facility] primary care providers. (unknown) (no (unknown) (unknown) falls occasionally (units (unknown) date) and this is not new. unknown) She denies any recent illness. (unknown) (no (unknown) (unknown) for swelling around (unit s (unknown) date) her ankles and unknown) tenderness to palpation. Patient had mild (unknown) (no (unknown) (unknown) fracture on the (units (unknown) date) lateral aspect and unknown) does not have any pain over on the side (unknown) (no (unknown) (unknown) fracture (units (unkno wn) date) unknown) (unknown) (no (unknown) (unknown) gabapentin 600 mg (units (unknown) date) tablet 600 mg PO unknown) .COMPLEX #90 tabs 03/29/22 (unknown) (no (unknown) (unknown) gabapentin 600 mg (units (unknown) date) tablet unknown) (unknown) (no (unknown) (unknown) had a fall 5 days (units (unknown) date) ago and complains of unknown) bilateral medial ankle pain with concern (unknown) (no (unknown) (unknown) 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 and states that she has balance and (unknown) (no (unknown) (unknown) hydrochlorothiazide (unit s (unknown) date) 25 mg tablet 25 mg PO unknown) DAILY 03/29/22 03/29/22 (unknown) (no (unknown) (unknown) hydrochlorothiazide (unit s (unknown) date) 25 mg tablet unknown) (unknown) (no (unknown) (unknown) hydrocodone 10 (units (unknown) date) mg-acetaminophen 1 unknown) tab PO DAILY 11/23/21 03/29/22 (unknown) (no (unknown) (unknown) hydrocodone-acetamin (uni ts (unknown) date) ophen 10-325 mg unknown) tablet (unknown) (no (unknown) (unknown) intact, and her pain (uni ts (unknown) date) was well controlled. unknown) I encouraged her to follow-up at (unknown) (no (unknown) (unknown) left ankle, initial (unit s (unknown) date) encounter unknown) (unknown) (no (unknown) (unknown) levothyroxine 125 (units (unknown) date) mcg tablet 125 mcg PO unknown) DAILY 09/05/21 03/29/22 (unknown) (no (unknown) (unknown) levothyroxine 125 (units (unknown) date) mcg tablet 125 mcg PO unknown) DAILY 11/23/21 03/29/22 (unknown) (no (unknown) (unknown) levothyroxine (units ( unknown) date) [Synthroid] 125 mcg unknown) tablet (unknown) (no (unknown) (unknown) ligament Qualified (units (unknown) date) Code(s): S93.411A - unknown) Sprain of calcaneofibular ligament of (unknown) (no (unknown) (unknown) losartan 50 mg (units (unknown) date) tablet 50 mg PO DAILY unknown) 11/23/21 03/29/22 (unknown) (no (unknown) (unknown) losartan 50 mg (units (unknown) date) tablet unknown) (unknown) (no (unknown) (unknown) medial (units (unkno wn) date) malleolus/ankle bone. unknown) There is a very small fracture going through the (unknown) (no (unknown) (unknown) medial soft tissue (units (unknown) date) swelling. unknown) (unknown) (no (unknown) (unknown) medications as (units (unknown) date) needed and ice may be unknown) helpful as well. It was a pleasure to meet (unknown) (no (unknown) (unknown) metformin 500 mg (units (unknown) date) tablet extended unknown) release 24 hr (unknown) (no (unknown) (unknown) metformin 500 mg (units (unknown) date) tablet,extended 500 unknown) mg PO DAILY 03/29/22 03/29/22 (unknown) (no (unknown) (unknown) methocarbamol 750 mg (uni ts (unknown) date) tablet 750 mg PO .PRN unknown) 11/23/21 03/29/22 (unknown) (no (unknown) (unknown) methocarbamol 750 mg (uni ts (unknown) date) tablet unknown) (unknown) (no (unknown) (unknown) metoprolol succinate (uni ts (unknown) date) 50 mg tab PO 11/23/21 unknown) 03/29/22 (unknown) (no (unknown) (unknown) metoprolol succinate (uni ts (unknown) date) 50 mg tablet extended unknown) release 24 hr (unknown) (no (unknown) (unknown) multivitamin (Daily (unit s (unknown) date) Multi-Vitamin 1 tab unknown) PO DAILY 09/05/21 03/29/22 (unknown) (no (unknown) (unknown) multivitamin [Daily (unit s (unknown) date) Multi-Vitamin] Tablet unknown) (unknown) (no (unknown) (unknown) of motion of her (units (unknown) date) above and below unknown) joints. Right ankle x-ray shows likely an (unknown) (no (unknown) (unknown) of today's note if (units (unknown) date) your PCP is in our unknown) system (unknown) (no (unknown) (unknown) of (units (unkno wn) date) unknown) (unknown) (no (unknown) (unknown) open wound. Denies (units (unknown) date) any knee pain, denies unknown) any hip pain, states that she has some (unknown) (no (unknown) (unknown) or so. Please (units ( unknown) date) follow-up with Dr. esequiel Knight as needed, please return for worsening (unknown) (no (unknown) (unknown) oxycodone 10 mg (units (unknown) date) tablet extended unknown) release 12 hr (unknown) (no (unknown) (unknown) oxycodone 10 mg (units (unknown) date) tablet,crush 10 mg PO unknown) Q12H 03/29/22 03/29/22 (unknown) (no (unknown) (unknown) oxycodone 10 mg (units (unknown) date) tablet,extended mg PO unknown) 09/05/21 03/29/22 (unknown) (no (unknown) (unknown) oxycodone 10 mg (units (unknown) date) tablet,oral unknown) only,ext.rel.12 hr (unknown) (no (unknown) (unknown) pain, try to elevate (uni ts (unknown) date) this frequently, take unknown) ibuprofen and your other pain (unknown) (no (unknown) (unknown) palpation, right (units (unknown) date) thigh with mild unknown) tenderness over the distal quadriceps with full (unknown) (no (unknown) (unknown) patient is (units (unk nown) date) ambulatory, mild unknown) edema over bilateral medial malleoli, tenderness to (unknown) (no (unknown) (unknown) persistent vomiting (unit s (unknown) date) or other bothersome unknown) symptoms]. (unknown) (no (unknown) (unknown) plantar extension (units (unknown) date) intact bilaterally, unknown) patient is ambulatory without deficit. X (unknown) (no (unknown) (unknown) positioning.? A (units (unknown) date) prominent calcaneal unknown) spur is present, symmetric with the (unknown) (no (unknown) (unknown) providers as (units (u nknown) date) instructed. Patient unknown) understands plan and agrees to discharge home. (unknown) (no (unknown) (unknown) ray her left ankle (units (unknown) date) do not show acute unknown) fracture, she has some mild soft tissue (unknown) (no (unknown) (unknown) release (Cymbalta) (units (unknown) date) unknown) (unknown) (no (unknown) (unknown) release 24 hr (units ( unknown) date) unknown) (unknown) (no (unknown) (unknown) release,12 hr (units ( unknown) date) unknown) (unknown) (no (unknown) (unknown) resistant,extended (units (unknown) date) release 12 hr unknown) (unknown) (no (unknown) (unknown) results. Patient has (uni ts (unknown) date) been given strict unknown) return to ER precautions for any new or (unknown) (no (unknown) (unknown) right ankle, initial (uni ts (unknown) date) encounter unknown) (unknown) (no (unknown) (unknown) right knee mobility (unit s (unknown) date) including extension unknown) and flexion, no suprapatellar effusion, (unknown) (no (unknown) (unknown) salicylic acid (units (unknown) date) Allergy Intermediate unknown) Rash Verified 03/29/22 09:56 (unknown) (no (unknown) (unknown) salicylic acid (units (unknown) date) unknown) (unknown) (no (unknown) (unknown) side. (units (unkno wn) date) unknown) (unknown) (no (unknown) (unknown) sitagliptin 50 mg (units (unknown) date) tablet (Januvia) 50 unknown) mg PO DAILY 03/29/22 03/29/22 (unknown) (no (unknown) (unknown) soft tissue bruising (uni ts (unknown) date) to the right lateral unknown) distal thigh, denies any open wound (unknown) (no (unknown) (unknown) stay balanced. (units (unknown) date) Please follow-up at unknown) [facility] for follow-up in 1 week (unknown) (no (unknown) (unknown) sumatriptan (units (un known) date) succinate 50 mg unknown) tablet ea PO 11/23/21 03/29/22 (unknown) (no (unknown) (unknown) sumatriptan (units (un known) date) succinate 50 mg unknown) tablet (unknown) (no (unknown) (unknown) suspicious (units (unk nown) date) unknown) (unknown) (no (unknown) (unknown) swelling, states that (uni ts (unknown) date) she is able to bear unknown) weight on them bilaterally, denies any (unknown) (no (unknown) (unknown) tablet) (units (unkno wn) date) unknown) (unknown) (no (unknown) (unknown) tablet,extended (units (unknown) date) release 24 hr unknown) (unknown) (no (unknown) (unknown) take 1 tablet by (units (unknown) date) mouth if needed AT unknown) ONSET OF HEADACHE may repeat in 2 hours (unknown) (no (unknown) (unknown) talofibular ligament (uni ts (unknown) date) Qualified Code(s): unknown) S93.492A - Sprain of other ligament of (unknown) (no (unknown) (unknown) tenderness over the (unit s (unknown) date) ATFL and CFL unknown) ligaments on the medial aspect of bilateral (unknown) (no (unknown) (unknown) tenderness to the (units (unknown) date) knee ligaments. unknown) (unknown) (no (unknown) (unknown) tetracycline Allergy (uni ts (unknown) date) Severe Anaphylaxis unknown) Verified 03/29/22 09:56 (unknown) (no (unknown) (unknown) there and has full (units (unknown) date) range of motion of unknown) her right hip. Patient states that she (unknown) (no (unknown) (unknown) this is most likely (unit s (unknown) date) fractured as she has unknown) tenderness right at this point. She (unknown) (no (unknown) (unknown) tibia, initial (units (unknown) date) encounter for closed unknown) fracture (unknown) (no (unknown) (unknown) tibia.? (units (unkno wn) date) unknown) (unknown) (no (unknown) (unknown) tibiotalar spurring (units (unknown) date) and spurring at both unknown) malleoli.? There may be a tiny avulsion (unknown) (no (unknown) (unknown) tip of that bone (units (unknown) date) right below the ankle unknown) prominence. Please wear the boot while (unknown) (no (unknown) (unknown) tip of the medial (units (unknown) date) malleolus. unknown) (unknown) (no (unknown) (unknown) tizanidine 2 mg (units (unknown) date) tablet 2 mg PO BID unknown) PRN muscle spasticity 09/05/21 03/29/22 (unknown) (no (unknown) (unknown) tizanidine 2 mg (units (unknown) date) tablet unknown) (unknown) (no (unknown) (unknown) to ambulate Patient (unit s (unknown) date) is appropriate and unknown) amenable to discharge home. Vital signs (unknown) (no (unknown) (unknown) took pain medication (uni ts (unknown) date) and her pain is under unknown) control right now and she is able to (unknown) (no (unknown) (unknown) was fitted in a (units (unknown) date) walking boot, unknown) tolerated well, she remains neurovascularly (unknown) (no (unknown) (unknown) without erythema, (units (unknown) date) ecchymosis, or open unknown) wound, bilateral feet are warm to (unknown) (no (unknown) (unknown) worsening symptoms. (unit s (unknown) date) Patient understands unknown) to follow up closely with outpatient (unknown) (no (unknown) (unknown) you, I hope this (units (unknown) date) heals quickly and unknown) without intervention. (unknown) (no (unknown) (unknown) your upright and (units (unknown) date) ambulating to protect unknown) the joint, please use your walker to help (unknown) (no (unknown) (unknown) zoledronic acid (units (unknown) date) Allergy Severe unknown) Anaphylaxis Verified 03/29/22 09:56 Result panel 14 (unknown) (no (unknown) (unknown) (no value) (units (unk nown) date) unknown) (unknown) (no (unknown) (unknown) <Electronically (units (unknown) date) signed by Jessica Sage unknown) ALEN Creyulia> (unknown) (no (unknown) (unknown) <Electronically (units (unknown) date) signed by Kamaljit unknown) Stormy Adam> (unknown) (no (unknown) (unknown) <Jessica Camejo, (units (unknown) date) [facility] - Last Filed: unknown) 05/05/22 16:43> (unknown) (no (unknown) (unknown) <Kamaljit Adam DO (unit s (unknown) date) - Last Filed: unknown) 05/05/22 17:23> (unknown) (no (unknown) (unknown) (More??) (units (unkno wn) date) unknown) (unknown) (no (unknown) (unknown) (Synthroid) (units (un known) date) unknown) (unknown) (no (unknown) (unknown) *If you do not have (unit s (unknown) date) a primary care unknown) provider please contact [phone] to (unknown) (no (unknown) (unknown) *Please continue to (unit s (unknown) date) take your regular unknown) medications as directed. (unknown) (no (unknown) (unknown) *Please follow up (units (unknown) date) with your primary unknown) care provider in 2-3 days, call for an (unknown) (no (unknown) (unknown) *Return to Emergency (uni ts (unknown) date) Department if you unknown) should have any new, worsening, or (unknown) (no (unknown) (unknown) *What to do: (units (u nknown) date) unknown) (unknown) (no (unknown) (unknown) *You have been (units (unknown) date) diagnosed with likely unknown) an avulsion fracture of the tip of the (unknown) (no (unknown) (unknown) 09/05/21 (units (unkno wn) date) unknown) (unknown) (no (unknown) (unknown) 09/06/21 (units (unkno wn) date) unknown) (unknown) (no (unknown) (unknown) 10/09/20 (units (unkno wn) date) unknown) (unknown) (no (unknown) (unknown) 11/21/17 (units (unkno wn) date) unknown) (unknown) (no (unknown) (unknown) 11/23/21 (units (unkno wn) date) unknown) (unknown) (no (unknown) (unknown) 11/29/21 (units (unkno wn) date) unknown) (unknown) (no (unknown) (unknown) 12/05/18 (units (unkno wn) date) unknown) (unknown) (no (unknown) (unknown) 03/06/18 (units (unkno wn) date) unknown) (unknown) (no (unknown) (unknown) 1 OR 2 (units (unkno wn) date) unknown) (unknown) (no (unknown) (unknown) 1 tab PO DAILY (units (unknown) date) unknown) (unknown) (no (unknown) (unknown) 1. Moderate medial (units (unknown) date) soft tissue swelling unknown) with questionable nondisplaced avulsion (unknown) (no (unknown) (unknown) 10 mg PO Q12H (units ( unknown) date) unknown) (unknown) (no (unknown) (unknown) 04/11/22 (units (unkno wn) date) unknown) (unknown) (no (unknown) (unknown) 05/05/22 14:57 (units (unknown) date) unknown) (unknown) (no (unknown) (unknown) 05/05/22 1643 (units ( unknown) date) unknown) (unknown) (no (unknown) (unknown) 05/05/22 1723 (units ( unknown) date) unknown) (unknown) (no (unknown) (unknown) 05/05/22 (units (unkno wn) date) unknown) (unknown) (no (unknown) (unknown) 11:45 (units (unkno wn) date) unknown) (unknown) (no (unknown) (unknown) [address] [place] [address] (units (unknown) date) unknown) (unknown) (no (unknown) (unknown) 125 mcg PO DAILY (units (unknown) date) unknown) (unknown) (no (unknown) (unknown) 2 mg PO BID PRN (units (unknown) date) (Reason: muscle unknown) spasticity) (unknown) (no (unknown) (unknown) 2. Probable remote (units (unknown) date) injury and healing unknown) deformities of the distal fibula and (unknown) (no (unknown) (unknown) 25 mg PO DAILY (units (unknown) date) unknown) (unknown) (no (unknown) (unknown) 30 mg PO DAILY (units (unknown) date) unknown) (unknown) (no (unknown) (unknown) 325 mg tablet (units ( unknown) date) unknown) (unknown) (no (unknown) (unknown) [id number] (units (unkno wn) date) unknown) (unknown) (no (unknown) (unknown) 50 mg PO DAILY (units (unknown) date) unknown) (unknown) (no (unknown) (unknown) 500 mg PO DAILY (units (unknown) date) unknown) (unknown) (no (unknown) (unknown) 60 mg PO BID (units (u nknown) date) unknown) (unknown) (no (unknown) (unknown) 600 mg PO .COMPLEX (units (unknown) date) Qty: 90 2RF unknown) (unknown) (no (unknown) (unknown) 600 mg PO 1-2 PO Tid (uni ts (unknown) date) to begin at HS and unknown) titrate to nerve pain relief; (unknown) (no (unknown) (unknown) 750 mg PO .PRN (units (unknown) date) unknown) (unknown) (no (unknown) (unknown) ? (units (unkno wn) date) unknown) (unknown) (no (unknown) (unknown) ? (units (unkno wn) date) unknown) (unknown) (no (unknown) (unknown) Accession Number: (units (unknown) date) [id number] ?? unknown) (unknown) (no (unknown) (unknown) Acct:[id number] (units (unknown) date) unknown) (unknown) (no (unknown) (unknown) Activity (units (unkno wn) date) Restrictions/Addition unknown) al Instructions: (unknown) (no (unknown) (unknown) Age/Sex: 67 / F (units (unknown) date) unknown) (unknown) (no (unknown) (unknown) All questions and (units (unknown) date) concerns answered at unknown) this time. (unknown) (no (unknown) (unknown) Allergies (units (unkn own) date) unknown) (unknown) (no (unknown) (unknown) Allergy/Adv: (units (u nknown) date) erythromycin base, unknown) Penicillins, tetracycline, zoledronic acid, (unknown) (no (unknown) (unknown) Allergy/AdvReac Type (uni ts (unknown) date) Severity Reaction unknown) Status Date / Time (unknown) (no (unknown) (unknown) [place] [address] (unit s (unknown) date) unknown) (unknown) (no (unknown) (unknown) Ankle MRI (Signed) (units (unknown) date) unknown) (unknown) (no (unknown) (unknown) Ankle X-Ray (Signed) (uni ts (unknown) date) unknown) (unknown) (no (unknown) (unknown) Approved by: Katie (uni ts (unknown) date) Bony Henson on unknown) 05/05/2022 at 16:02 ? (unknown) (no (unknown) (unknown) Approved by: Katie (uni ts (unknown) date) Bony Henson on unknown) 05/05/2022 at 16:09 ? (unknown) (no (unknown) (unknown) Avulsion fracture of (uni ts (unknown) date) medial malleolus unknown) (unknown) (no (unknown) (unknown) Timothy Knight DO (units (unknown) date) [Physician] unknown) (unknown) (no (unknown) (unknown) Blood Pressure (units (unknown) date) 140/62 05/05/22 11:45 unknown) (unknown) (no (unknown) (unknown) Blood Pressure (units (unknown) date) 140/62 unknown) (unknown) (no (unknown) (unknown) Bones:? Chronic (units (unknown) date) cortical irregularity unknown) of the distal tibia and fibula.? Mild (unknown) (no (unknown) (unknown) Bones:? No fractures (uni ts (unknown) date) or dislocations.? unknown) Ankle mortise is normally aligned.? No (unknown) (no (unknown) (unknown) COMPARISON:? None. (units (unknown) date) unknown) (unknown) (no (unknown) (unknown) COMPARISON:? [facility] (unit s (unknown) date) [facility] unknown) Dundee Ross, CR, XR ANKLE (unknown) (no (unknown) (unknown) Gretel Venegas (units (unknown) date) unknown) (unknown) (no (unknown) (unknown) Chest X-Ray (Signed) (uni ts (unknown) date) unknown) (unknown) (no (unknown) (unknown) Chief Complaint: (units (unknown) date) Fall unknown) (unknown) (no (unknown) (unknown) Clinical Impression: (uni ts (unknown) date) unknown) (unknown) (no (unknown) (unknown) Close (units (unkno wn) date) unknown) (unknown) (no (unknown) (unknown) Complains of pain to (uni ts (unknown) date) the medial aspect of unknown) her bilateral ankles, some mild (unknown) (no (unknown) (unknown) Cosign (units (unkno wn) date) unknown) (unknown) (no (unknown) (unknown) Course (units (unkno wn) date) unknown) (unknown) (no (unknown) (unknown) : 1955 (units (unknown) date) Acct:[id number] unknown) (unknown) (no (unknown) (unknown) : 1955 (units (unknown) date) unknown) (unknown) (no (unknown) (unknown) Date of Service: (units (unknown) date) 05/05/22 unknown) (unknown) (no (unknown) (unknown) Departure (units (unkn own) date) unknown) (unknown) (no (unknown) (unknown) Depression (units (unk nown) date) unknown) (unknown) (no (unknown) (unknown) Diabetes (units (unkno wn) date) unknown) (unknown) (no (unknown) (unknown) Diagnostics Reports (unit s (unknown) date) unknown) (unknown) (no (unknown) (unknown) Dictated by: Katie (uni ts (unknown) date) Bony Henson on unknown) 05/05/2022 at 16:02 ? ? (unknown) (no (unknown) (unknown) Dictated by: Katie (uni ts (unknown) date) Bony Henson on unknown) 05/05/2022 at 16:03 ? ? (unknown) (no (unknown) (unknown) Discharge Plan (units (unknown) date) unknown) (unknown) (no (unknown) (unknown) Dorsiflexion and or (unit s (unknown) date) plantar extension unknown) intact bilaterally, PT pulses are 2+, (unknown) (no (unknown) (unknown) Dr Adam Co-Sign (units (unknown) date) Statement: I was unknown) available for consultation during this (unknown) (no (unknown) (unknown) ED Attending (units (u nknown) date) Cosignature unknown) Attestation: (unknown) (no (unknown) (unknown) ED Orders (units (unkn own) date) unknown) (unknown) (no (unknown) (unknown) ER Physician: (units ( unknown) date) Jessica Camejo unknown) (unknown) (no (unknown) (unknown) Emergency Report (units (unknown) date) unknown) (unknown) (no (unknown) (unknown) Encounter type: (units (unknown) date) initial encounter unknown) Fracture type: closed Laterality: right (unknown) (no (unknown) (unknown) Encounter type: (units (unknown) date) initial encounter unknown) Involved ligament of ankle: anterior (unknown) (no (unknown) (unknown) Encounter type: (units (unknown) date) initial encounter unknown) Involved ligament of ankle: calcaneofibular (unknown) (no (unknown) (unknown) Exam Narrative: (units (unknown) date) unknown) (unknown) (no (unknown) (unknown) Exam (units (unkno wn) date) unknown) (unknown) (no (unknown) (unknown) Extremity x-ray #1: (unit s (unknown) date) unknown) (unknown) (no (unknown) (unknown) Extremity x-ray #2: (unit s (unknown) date) unknown) (unknown) (no (unknown) (unknown) FINDINGS:? (units (unk nown) date) unknown) (unknown) (no (unknown) (unknown) Facet Joint (units (un known) date) Injection X-Ray unknown) (Signed) (unknown) (no (unknown) (unknown) Facet arthropathy, (units (unknown) date) lumbar unknown) (unknown) (no (unknown) (unknown) Family History (units (unknown) date) (Reviewed 05/05/22 @ unknown) 15:03 by ALEN Antoine) (unknown) (no (unknown) (unknown) Father Cancer (units ( unknown) date) unknown) (unknown) (no (unknown) (unknown) Ciaran Samaniego, (units (unknown) date) [Primary Care unknown) Provider] (unknown) (no (unknown) (unknown) Foot X-Ray (Signed) (unit s (unknown) date) unknown) (unknown) (no (unknown) (unknown) Briseida Cazares (units (u nknown) date) [id number] unknown) (unknown) (no (unknown) (unknown) General (units (unkno wn) date) unknown) (unknown) (no (unknown) (unknown) General: (units (unkno wn) date) cooperative, unknown) comfortable, in no acute distress, well groomed (unknown) (no (unknown) (unknown) Katie Henson (units ( unknown) date) unknown) (unknown) (no (unknown) (unknown) H/O neck surgery (units (unknown) date) unknown) (unknown) (no (unknown) (unknown) HEENT: symmetrical (units (unknown) date) facial expressions, unknown) moist mucous membranes, atraumatic= (unknown) (no (unknown) (unknown) HPI - Fall (units (unk nown) date) unknown) (unknown) (no (unknown) (unknown) HPI Narrative: (units (unknown) date) unknown) (unknown) (no (unknown) (unknown) HPI (units (unkno wn) date) unknown) (unknown) (no (unknown) (unknown) Head CT (Signed) (units (unknown) date) unknown) (unknown) (no (unknown) (unknown) History of Present (units (unknown) date) Illness unknown) (unknown) (no (unknown) (unknown) History of (units (unk nown) date) cholecystectomy unknown) (unknown) (no (unknown) (unknown) 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 Intact (unit s (unknown) date) left ankle. unknown) (unknown) (no (unknown) (unknown) IMPRESSION:? (units (u nknown) date) unknown) (unknown) (no (unknown) (unknown) INDICATIONS:? medial (uni ts (unknown) date) pain s/p fall, unknown) sprain? (unknown) (no (unknown) (unknown) Imaging Data (units (u nknown) date) unknown) (unknown) (no (unknown) (unknown) Initial Vital Signs (unit s (unknown) date) unknown) (unknown) (no (unknown) (unknown) Initial Vital Signs: (uni ts (unknown) date) unknown) (unknown) (no (unknown) (unknown) Instructions: Ankle (unit s (unknown) date) Fracture, DI for unknown) Avulsion Fracture, How to Apply an Elastic (unknown) (no (unknown) (unknown) [facility] [address] (uni ts (unknown) date) [address] unknown) [place] [address] (unknown) (no (unknown) (unknown) [facility] (units (unknown) date) unknown) (unknown) (no (unknown) (unknown) Januvia 50 mg tablet (uni ts (unknown) date) unknown) (unknown) (no (unknown) (unknown) Magnet,Alex (units ( unknown) date) unknown) (unknown) (no (unknown) (unknown) LS Transforaminal (units (unknown) date) Injection (Signed) unknown) (unknown) (no (unknown) (unknown) Label Comments: (units (unknown) date) unknown) (unknown) (no (unknown) (unknown) Launch?Image (units (u nknown) date) unknown) (unknown) (no (unknown) (unknown) Left ankle sprain (units (unknown) date) unknown) (unknown) (no (unknown) (unknown) Lip/Tongue/Throat (units (unknown) date) unknown) (unknown) (no (unknown) (unknown) Loc: ED (units (unkno wn) date) unknown) (unknown) (no (unknown) (unknown) Lumbar Spine MRI (units (unknown) date) (Signed) unknown) (unknown) (no (unknown) (unknown) Lumbar Spine X-Ray (units (unknown) date) (Signed) unknown) (unknown) (no (unknown) (unknown) Lumbosacral (units (un known) date) radiculopathy at L4 unknown) (unknown) (no (unknown) (unknown) MDM - Fall (units (unk nown) date) unknown) (unknown) (no (unknown) (unknown) MDM Narrative (units ( unknown) date) unknown) (unknown) (no (unknown) (unknown) MR#: [id number] (units (unknown) date) unknown) (unknown) (no (unknown) (unknown) MSK: moves all (units (unknown) date) extremities, unknown) neurovascularly intact, no weakness, normal tone, (unknown) (no (unknown) (unknown) Medical History (units (unknown) date) (Reviewed 05/05/22 @ unknown) 15:03 by Jessica Camejo [employer]ACHINE [employer]) (unknown) (no (unknown) (unknown) Medical decision (units (unknown) date) making narrative: unknown) (unknown) (no (unknown) (unknown) Medication (units (unk nown) date) Instructions Recorded unknown) Confirmed (unknown) (no (unknown) (unknown) Medication (units (unk nown) date) Instructions Recorded unknown) (unknown) (no (unknown) (unknown) Mode of arrival: (units (unknown) date) Ambulatory unknown) (unknown) (no (unknown) (unknown) Moderate medial soft (uni ts (unknown) date) tissue swelling with unknown) a probable remote injury and healing (unknown) (no (unknown) (unknown) Moderate (units (unkno wn) date) unknown) (unknown) (no (unknown) (unknown) Mother Heart disease (uni ts (unknown) date) unknown) (unknown) (no (unknown) (unknown) Narrative (units (unkn own) date) unknown) (unknown) (no (unknown) (unknown) Narrative: (units (unk nown) date) unknown) (unknown) (no (unknown) (unknown) Neuro: normal speech (uni ts (unknown) date) and cognition, A+O unknown) x3, ambulatory, clear speech (unknown) (no (unknown) (unknown) No Action (units (unkn own) date) unknown) (unknown) (no (unknown) (unknown) Ordered: (units (unkno wn) date) unknown) (unknown) (no (unknown) (unknown) Ordering Provider: (units (unknown) date) LuciuswJessica unknown) (unknown) (no (unknown) (unknown) Orders (units (unkno wn) date) unknown) (unknown) (no (unknown) (unknown) Outside DI (units (unk nown) date) unknown) (unknown) (no (unknown) (unknown) Oxygen Delivery (units (unknown) date) Method 05/05/22 11:45 unknown) (unknown) (no (unknown) (unknown) Oxygen Delivery (units (unknown) date) Method Room Air unknown) (unknown) (no (unknown) (unknown) PO (units (unkno wn) date) unknown) (unknown) (no (unknown) (unknown) PROCEDURE:? XR ANKLE (uni ts (unknown) date) LT MIN 3V unknown) (unknown) (no (unknown) (unknown) PROCEDURE:? XR ANKLE (uni ts (unknown) date) RT MIN 3V unknown) (unknown) (no (unknown) (unknown) Patient Disposition: (uni ts (unknown) date) Home unknown) (unknown) (no (unknown) (unknown) Patient History (units (unknown) date) unknown) (unknown) (no (unknown) (unknown) Patient: (units (unkno wn) date) Briseida Cazares MR#: unknown) [id number] (unknown) (no (unknown) (unknown) Patient: (units (unkno wn) date) Briseida Cazares unknown) (unknown) (no (unknown) (unknown) Penicillins Allergy (unit s (unknown) date) Severe Anaphylaxis unknown) Verified 03/29/22 09:56 (unknown) (no (unknown) (unknown) Post-traumatic (units (unknown) date) syrinx unknown) (unknown) (no (unknown) (unknown) Prescriptions: (units (unknown) date) unknown) (unknown) (no (unknown) (unknown) Previous Rx's (units ( unknown) date) unknown) (unknown) (no (unknown) (unknown) Procedure: XR ankle (unit s (unknown) date) RT min 3V unknown) (unknown) (no (unknown) (unknown) Psych: mental status (uni ts (unknown) date) is grossly normal, unknown) congruent mood, normal affect, pleasant (unknown) (no (unknown) (unknown) Pulse Oximetry 98 (units (unknown) date) 05/05/22 11:45 unknown) (unknown) (no (unknown) (unknown) Pulse Oximetry 98 (units (unknown) date) unknown) (unknown) (no (unknown) (unknown) Pulse Rate 88 (units ( unknown) date) 05/05/22 11:45 unknown) (unknown) (no (unknown) (unknown) Pulse Rate 88 (units ( unknown) date) unknown) (unknown) (no (unknown) (unknown) Qualified Code(s): (units (unknown) date) S82.51XA - Displaced unknown) fracture of medial malleolus of right (unknown) (no (unknown) (unknown) Qualifiers: (units (un known) date) unknown) (unknown) (no (unknown) (unknown) Radiologist's (units ( unknown) date) Impression: unknown) (unknown) (no (unknown) (unknown) Referrals: (units (unk nown) date) unknown) (unknown) (no (unknown) (unknown) Related Data (units (u nknown) date) unknown) (unknown) (no (unknown) (unknown) Respiratory Rate 20 (unit s (unknown) date) 05/05/22 11:45 unknown) (unknown) (no (unknown) (unknown) Respiratory Rate 20 (unit s (unknown) date) unknown) (unknown) (no (unknown) (unknown) Review of Systems (units (unknown) date) unknown) (unknown) (no (unknown) (unknown) Review of systems is (uni ts (unknown) date) negative for acute unknown) abnormalities unless otherwise noted in (unknown) (no (unknown) (unknown) Reviewed vitals (units (unknown) date) signs and nursing unknown) notes. (unknown) (no (unknown) (unknown) Right ankle sprain (units (unknown) date) unknown) (unknown) (no (unknown) (unknown) Chriss Segovia (units (unknown) date) unknown) (unknown) (no (unknown) (unknown) Rx Instructions: (units (unknown) date) unknown) (unknown) (no (unknown) (unknown) Scoliosis (units (unkn own) date) unknown) (unknown) (no (unknown) (unknown) Signed By: (units (unk nown) date) unknown) (unknown) (no (unknown) (unknown) Signed (units (unkno wn) date) unknown) (unknown) (no (unknown) (unknown) Sister Heart disease (uni ts (unknown) date) unknown) (unknown) (no (unknown) (unknown) [facility] (units (unkn own) date) Orthopedics [Provider unknown) Group] - 5-7 days (unknown) (no (unknown) (unknown) [facility] (units (unknown) date) in 1 week or less. unknown) Patient has a walker which she will use (unknown) (no (unknown) (unknown) Skin: brisk (units (un known) date) capillary refill, unknown) without pallor or erythema (unknown) (no (unknown) (unknown) Smoking Status: (units (unknown) date) Former smoker unknown) (unknown) (no (unknown) (unknown) Social History (units (unknown) date) (Reviewed 05/05/22 @ unknown) 15:[address] [facility]) (unknown) (no (unknown) (unknown) Soft tissues:? No (units (unknown) date) tibiotalar joint unknown) effusion.? Achilles tendon appears normal.? (unknown) (no (unknown) (unknown) Source: patient (units (unknown) date) unknown) (unknown) (no (unknown) (unknown) Stated Complaint: (units (unknown) date) fell sunday both legs unknown) + ankles are swollen (unknown) (no (unknown) (unknown) Substance Use Type: (unit s (unknown) date) does not use unknown) (unknown) (no (unknown) (unknown) Surgical History (units (unknown) date) (Reviewed 05/05/22 @ unknown) 15:[address] [facility]) (unknown) (no (unknown) (unknown) TECHNIQUE:? Three (units (unknown) date) views of the ankle unknown) were acquired.? (unknown) (no (unknown) (unknown) Temperature 97.6 F (units (unknown) date) 05/05/22 11:45 unknown) (unknown) (no (unknown) (unknown) Temperature 97.6 F (units (unknown) date) unknown) (unknown) (no (unknown) (unknown) This is a (units (unkn own) date) 67-year-old female unknown) presents to the emergency department after she had (unknown) (no (unknown) (unknown) This is a (units (unkn own) date) 67-year-old female unknown) who presents to the emergency department after she (unknown) (no (unknown) (unknown) Thoracic Spine X-Ray (uni ts (unknown) date) (Signed) unknown) (unknown) (no (unknown) (unknown) Time Seen by (units (u nknown) date) Provider: 05/05/22 unknown) 14:35 (unknown) (no (unknown) (unknown) VIEWS WEIGHT BEARING (uni ts (unknown) date) RIGHT, 02/19/2018, unknown) 8:37. (unknown) (no (unknown) (unknown) Visit Report Forms: (unit s (unknown) date) Patient Portal/API unknown) (unknown) (no (unknown) (unknown) Vital Signs - 8 hr (units (unknown) date) unknown) (unknown) (no (unknown) (unknown) Vital Signs (units (un known) date) unknown) (unknown) (no (unknown) (unknown) Vital signs: (units (u nknown) date) unknown) (unknown) (no (unknown) (unknown) Rl Lew (units (u nknown) date) unknown) (unknown) (no (unknown) (unknown) Kike Muñoz (units (unk nown) date) unknown) (unknown) (no (unknown) (unknown) Wrap on Ankle (units ( unknown) date) unknown) (unknown) (no (unknown) (unknown) KevinSemaj (units (unkn own) date) unknown) (unknown) (no (unknown) (unknown) XR ankle LT min 3V (units (unknown) date) Stat unknown) (unknown) (no (unknown) (unknown) XR ankle RT min 3V (units (unknown) date) Stat unknown) (unknown) (no (unknown) (unknown) XRay Report (units (un known) date) unknown) (unknown) (no (unknown) (unknown) [ ] New medication (units (unknown) date) prescriptions sent to unknown) your pharmacy: [ ] (unknown) (no (unknown) (unknown) [ ] New medication (units (unknown) date) written as a paper unknown) prescription (unknown) (no (unknown) (unknown) [x ] No new (units (un known) date) medications given unknown) (unknown) (no (unknown) (unknown) a mechanical fall 5 (unit s (unknown) date) days ago when her unknown) legs when out. Patient states that she (unknown) (no (unknown) (unknown) administrative (units (unknown) date) purposes only. I did unknown) not have direct contact with this patient (unknown) (no (unknown) (unknown) along the medial (units (unknown) date) malleolus.? The unknown) mortise with is not well assessed given current (unknown) (no (unknown) (unknown) ambulate without (units (unknown) date) weakness. unknown) (unknown) (no (unknown) (unknown) and cooperative (units (unknown) date) unknown) (unknown) (no (unknown) (unknown) ankles, no (units (unk nown) date) tenderness over unknown) bilateral malleoli on bilateral sides. Dorsiflexion (unknown) (no (unknown) (unknown) anterior (units (unkno wn) date) unknown) (unknown) (no (unknown) (unknown) appointment. Let them (uni ts (unknown) date) know you were seen in unknown) the Emergency Department and that we (unknown) (no (unknown) (unknown) are stable on repeat (uni ts (unknown) date) examination is unknown) unremarkable. Patient has been informed of (unknown) (no (unknown) (unknown) aripiprazole 10 mg (units (unknown) date) tablet 30 mg PO DAILY unknown) 11/23/21 03/29/22 (unknown) (no (unknown) (unknown) aripiprazole 10 mg (units (unknown) date) tablet unknown) (unknown) (no (unknown) (unknown) asked that you be (units (unknown) date) seen for follow-up. unknown) We will electronically transmit a record (unknown) (no (unknown) (unknown) at the (units (unkno wn) date) unknown) (unknown) (no (unknown) (unknown) avulsion fracture (units (unknown) date) off the tip of the unknown) medial malleolus without displacement. (unknown) (no (unknown) (unknown) bilateral CFL (units ( unknown) date) ligaments on the unknown) medial aspect, ATFL ligaments on medial aspect. (unknown) (no (unknown) (unknown) bony lesions.? (units (unknown) date) Prominent plantar unknown) calcaneal spur. (unknown) (no (unknown) (unknown) concerning symptoms, (uni ts (unknown) date) such as [fever unknown) greater than 101F, chills, worsening pain, (unknown) (no (unknown) (unknown) contralateral (units ( unknown) date) unknown) (unknown) (no (unknown) (unknown) currently. She has (units (unknown) date) more pain on the unknown) right ankle especially when bearing weight, (unknown) (no (unknown) (unknown) deformities of the (units (unknown) date) distal fibula and unknown) tibia. Patient does have history of ankle (unknown) (no (unknown) (unknown) duloxetine 60 mg (units (unknown) date) capsule,delayed 60 mg unknown) PO BID 09/05/21 03/29/22 (unknown) (no (unknown) (unknown) duloxetine (units (unk nown) date) [Cymbalta] 60 mg unknown) capsule,delayed release(DR/EC) (unknown) (no (unknown) (unknown) during this visit. (units (unknown) date) They were seen unknown) independently by the [facility]. (unknown) (no (unknown) (unknown) edema without (units ( unknown) date) ecchymosis, wound, or unknown) erythema over these areas with normal range (unknown) (no (unknown) (unknown) erythromycin base (units (unknown) date) Allergy Severe unknown) Swelling Verified 03/29/22 09:56 (unknown) (no (unknown) (unknown) establish care with [place]unit [place] (unknown) [place] of [place] [facility] primary care providers. (unknown) (no (unknown) (unknown) falls occasionally (units (unknown) date) and this is not new. unknown) She denies any recent illness. (unknown) (no (unknown) (unknown) for swelling around (unit s (unknown) date) her ankles and unknown) tenderness to palpation. Patient had mild (unknown) (no (unknown) (unknown) fracture on the (units (unknown) date) lateral aspect and unknown) does not have any pain over on the side (unknown) (no (unknown) (unknown) fracture (units (unkno wn) date) unknown) (unknown) (no (unknown) (unknown) gabapentin 600 mg (units (unknown) date) tablet 600 mg PO unknown) .COMPLEX #90 tabs 03/29/22 (unknown) (no (unknown) (unknown) gabapentin 600 mg (units (unknown) date) tablet unknown) (unknown) (no (unknown) (unknown) had a fall 5 days (units (unknown) date) ago and complains of unknown) bilateral medial ankle pain with concern (unknown) (no (unknown) (unknown) 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 and states that she has balance and (unknown) (no (unknown) (unknown) hydrochlorothiazide (unit s (unknown) date) 25 mg tablet 25 mg PO unknown) DAILY 03/29/22 03/29/22 (unknown) (no (unknown) (unknown) hydrochlorothiazide (unit s (unknown) date) 25 mg tablet unknown) (unknown) (no (unknown) (unknown) hydrocodone 10 (units (unknown) date) mg-acetaminophen 1 unknown) tab PO DAILY 11/23/21 03/29/22 (unknown) (no (unknown) (unknown) hydrocodone-acetamin (uni ts (unknown) date) ophen 10-325 mg unknown) tablet (unknown) (no (unknown) (unknown) intact, and her pain (uni ts (unknown) date) was well controlled. unknown) I encouraged her to follow-up at (unknown) (no (unknown) (unknown) left ankle, initial (unit s (unknown) date) encounter unknown) (unknown) (no (unknown) (unknown) levothyroxine 125 (units (unknown) date) mcg tablet 125 mcg PO unknown) DAILY 09/05/21 03/29/22 (unknown) (no (unknown) (unknown) levothyroxine 125 (units (unknown) date) mcg tablet 125 mcg PO unknown) DAILY 11/23/21 03/29/22 (unknown) (no (unknown) (unknown) levothyroxine (units ( unknown) date) [Synthroid] 125 mcg unknown) tablet (unknown) (no (unknown) (unknown) ligament Qualified (units (unknown) date) Code(s): S93.411A - unknown) Sprain of calcaneofibular ligament of (unknown) (no (unknown) (unknown) losartan 50 mg (units (unknown) date) tablet 50 mg PO DAILY unknown) 11/23/21 03/29/22 (unknown) (no (unknown) (unknown) losartan 50 mg (units (unknown) date) tablet unknown) (unknown) (no (unknown) (unknown) medial (units (unkno wn) date) malleolus/ankle bone. unknown) There is a very small fracture going through the (unknown) (no (unknown) (unknown) medial soft tissue (units (unknown) date) swelling. unknown) (unknown) (no (unknown) (unknown) medications as (units (unknown) date) needed and ice may be unknown) helpful as well. It was a pleasure to meet (unknown) (no (unknown) (unknown) metformin 500 mg (units (unknown) date) tablet extended unknown) release 24 hr (unknown) (no (unknown) (unknown) metformin 500 mg (units (unknown) date) tablet,extended 500 unknown) mg PO DAILY 03/29/22 03/29/22 (unknown) (no (unknown) (unknown) methocarbamol 750 mg (uni ts (unknown) date) tablet 750 mg PO .PRN unknown) 11/23/21 03/29/22 (unknown) (no (unknown) (unknown) methocarbamol 750 mg (uni ts (unknown) date) tablet unknown) (unknown) (no (unknown) (unknown) metoprolol succinate (uni ts (unknown) date) 50 mg tab PO 11/23/21 unknown) 03/29/22 (unknown) (no (unknown) (unknown) metoprolol succinate (uni ts (unknown) date) 50 mg tablet extended unknown) release 24 hr (unknown) (no (unknown) (unknown) multivitamin (Daily (unit s (unknown) date) Multi-Vitamin 1 tab unknown) PO DAILY 09/05/21 03/29/22 (unknown) (no (unknown) (unknown) multivitamin [Daily (unit s (unknown) date) Multi-Vitamin] Tablet unknown) (unknown) (no (unknown) (unknown) of motion of her (units (unknown) date) above and below unknown) joints. Right ankle x-ray shows likely an (unknown) (no (unknown) (unknown) of today's note if (units (unknown) date) your PCP is in our unknown) system (unknown) (no (unknown) (unknown) of (units (unkno wn) date) unknown) (unknown) (no (unknown) (unknown) open wound. Denies (units (unknown) date) any knee pain, denies unknown) any hip pain, states that she has some (unknown) (no (unknown) (unknown) or so. Please (units ( unknown) date) follow-up with Dr. esequiel Knight as needed, please return for worsening (unknown) (no (unknown) (unknown) oxycodone 10 mg (units (unknown) date) tablet extended unknown) release 12 hr (unknown) (no (unknown) (unknown) oxycodone 10 mg (units (unknown) date) tablet,crush 10 mg PO unknown) Q12H 03/29/22 03/29/22 (unknown) (no (unknown) (unknown) oxycodone 10 mg (units (unknown) date) tablet,extended mg PO unknown) 09/05/21 03/29/22 (unknown) (no (unknown) (unknown) oxycodone 10 mg (units (unknown) date) tablet,oral unknown) only,ext.rel.12 hr (unknown) (no (unknown) (unknown) pain, try to elevate (uni ts (unknown) date) this frequently, take unknown) ibuprofen and your other pain (unknown) (no (unknown) (unknown) palpation, right (units (unknown) date) thigh with mild unknown) tenderness over the distal quadriceps with full (unknown) (no (unknown) (unknown) patient is (units (unk nown) date) ambulatory, mild unknown) edema over bilateral medial malleoli, tenderness to (unknown) (no (unknown) (unknown) patient's emergency (unit s (unknown) date) department visit. unknown) This chart is signed by myself for (unknown) (no (unknown) (unknown) persistent vomiting (unit s (unknown) date) or other bothersome unknown) symptoms]. (unknown) (no (unknown) (unknown) plantar extension (units (unknown) date) intact bilaterally, unknown) patient is ambulatory without deficit. X (unknown) (no (unknown) (unknown) positioning.? A (units (unknown) date) prominent calcaneal unknown) spur is present, symmetric with the (unknown) (no (unknown) (unknown) providers as (units (u nknown) date) instructed. Patient unknown) understands plan and agrees to discharge home. (unknown) (no (unknown) (unknown) ray her left ankle (units (unknown) date) do not show acute unknown) fracture, she has some mild soft tissue (unknown) (no (unknown) (unknown) release (Cymbalta) (units (unknown) date) unknown) (unknown) (no (unknown) (unknown) release 24 hr (units ( unknown) date) unknown) (unknown) (no (unknown) (unknown) release,12 hr (units ( unknown) date) unknown) (unknown) (no (unknown) (unknown) resistant,extended (units (unknown) date) release 12 hr unknown) (unknown) (no (unknown) (unknown) results. Patient has (uni ts (unknown) date) been given strict unknown) return to ER precautions for any new or (unknown) (no (unknown) (unknown) right ankle, initial (uni ts (unknown) date) encounter unknown) (unknown) (no (unknown) (unknown) right knee mobility (unit s (unknown) date) including extension unknown) and flexion, no suprapatellar effusion, (unknown) (no (unknown) (unknown) salicylic acid (units (unknown) date) Allergy Intermediate unknown) Rash Verified 03/29/22 09:56 (unknown) (no (unknown) (unknown) salicylic acid (units (unknown) date) unknown) (unknown) (no (unknown) (unknown) side. (units (unkno wn) date) unknown) (unknown) (no (unknown) (unknown) sitagliptin 50 mg (units (unknown) date) tablet (Januvia) 50 unknown) mg PO DAILY 03/29/22 03/29/22 (unknown) (no (unknown) (unknown) soft tissue bruising (uni ts (unknown) date) to the right lateral unknown) distal thigh, denies any open wound (unknown) (no (unknown) (unknown) stay balanced. (units (unknown) date) Please follow-up at unknown) [facility] for follow-up in 1 week (unknown) (no (unknown) (unknown) sumatriptan (units (un known) date) succinate 50 mg unknown) tablet ea PO 11/23/21 03/29/22 (unknown) (no (unknown) (unknown) sumatriptan (units (un known) date) succinate 50 mg unknown) tablet (unknown) (no (unknown) (unknown) suspicious (units (unk nown) date) unknown) (unknown) (no (unknown) (unknown) swelling, states that (uni ts (unknown) date) she is able to bear unknown) weight on them bilaterally, denies any (unknown) (no (unknown) (unknown) tablet) (units (unkno wn) date) unknown) (unknown) (no (unknown) (unknown) tablet,extended (units (unknown) date) release 24 hr unknown) (unknown) (no (unknown) (unknown) take 1 tablet by (units (unknown) date) mouth if needed AT unknown) ONSET OF HEADACHE may repeat in 2 hours (unknown) (no (unknown) (unknown) talofibular ligament (uni ts (unknown) date) Qualified Code(s): unknown) S93.492A - Sprain of other ligament of (unknown) (no (unknown) (unknown) tenderness over the (unit s (unknown) date) ATFL and CFL unknown) ligaments on the medial aspect of bilateral (unknown) (no (unknown) (unknown) tenderness to the (units (unknown) date) knee ligaments. unknown) (unknown) (no (unknown) (unknown) tetracycline Allergy (uni ts (unknown) date) Severe Anaphylaxis unknown) Verified 03/29/22 09:56 (unknown) (no (unknown) (unknown) there and has full (units (unknown) date) range of motion of unknown) her right hip. Patient states that she (unknown) (no (unknown) (unknown) this is most likely (unit s (unknown) date) fractured as she has unknown) tenderness right at this point. She (unknown) (no (unknown) (unknown) tibia, initial (units (unknown) date) encounter for closed unknown) fracture (unknown) (no (unknown) (unknown) tibia.? (units (unkno wn) date) unknown) (unknown) (no (unknown) (unknown) tibiotalar spurring (units (unknown) date) and spurring at both unknown) malleoli.? There may be a tiny avulsion (unknown) (no (unknown) (unknown) tip of that bone (units (unknown) date) right below the ankle unknown) prominence. Please wear the boot while (unknown) (no (unknown) (unknown) tip of the medial (units (unknown) date) malleolus. unknown) (unknown) (no (unknown) (unknown) tizanidine 2 mg (units (unknown) date) tablet 2 mg PO BID unknown) PRN muscle spasticity 09/05/21 03/29/22 (unknown) (no (unknown) (unknown) tizanidine 2 mg (units (unknown) date) tablet unknown) (unknown) (no (unknown) (unknown) to ambulate Patient (unit s (unknown) date) is appropriate and unknown) amenable to discharge home. Vital signs (unknown) (no (unknown) (unknown) took pain medication (uni ts (unknown) date) and her pain is under unknown) control right now and she is able to (unknown) (no (unknown) (unknown) was fitted in a (units (unknown) date) walking boot, unknown) tolerated well, she remains neurovascularly (unknown) (no (unknown) (unknown) without erythema, (units (unknown) date) ecchymosis, or open unknown) wound, bilateral feet are warm to (unknown) (no (unknown) (unknown) worsening symptoms. (unit s (unknown) date) Patient understands unknown) to follow up closely with outpatient (unknown) (no (unknown) (unknown) you, I hope this (units (unknown) date) heals quickly and unknown) without intervention. (unknown) (no (unknown) (unknown) your upright and (units (unknown) date) ambulating to protect unknown) the joint, please use your walker to help (unknown) (no (unknown) (unknown) zoledronic acid (units (unknown) date) Allergy Severe unknown) Anaphylaxis Verified 03/29/22 09:56 Social History date description facility 2022-05-05 00:00 Ex-smoker (finding) [facility] Vital Signs date measurement value units 2022-03-29 00:00 BMI 41.6 kg/m2 2022-03-29 00:00 BP_diastolic 78 mmHg 2022-03-29 00:00 BP_systolic 132 mmHg 2022-03-29 00:00 heart_rate 74 /min 2022-03-29 00:00 height_metric 152.4 cm 2022-03-29 00:00 height_standard 60 in 2022-03-29 00:00 o2_saturation 99 % 2022-03-29 00:00 temperature_metric 37.17 C 2022-03-29 00:00 temperature_standard 98.9 F 2022-03-29 00:00 weight_metric 96.72 kg 2022-03-29 00:00 weight_standard 213.23 lb 2022-04-11 00:00 BP_diastolic 64 mmHg 2022-04-11 00:00 BP_systolic 141 mmHg 2022-04-11 00:00 heart_rate 67 /min 2022-04-11 00:00 o2_saturation 98 % 2022-04-11 00:00 respiration_rate 20 /min 2022-05-05 00:00 BP_diastolic 62 mmHg 2022-05-05 00:00 BP_systolic 140 mmHg 2022-05-05 00:00 heart_rate 88 /min 2022-05-05 00:00 o2_saturation 98 % 2022-05-05 00:00 respiration_rate 20 /min 2022-05-05 00:00 temperature_metric 36.44 C 2022-05-05 00:00 temperature_standard 97.6 F
[2022-06-23 13:11] LABS: BASOPHILS # (AUTO) 0.1 10^3/uL (0.0-0.1); BASOPHILS % (AUTO) 0.5 %; EOSINOPHILS # (AUTO) 0.4 10^3/uL (0.0-0.7); HCT - HEMATOCRIT 40.5 % (37.0-47.0); HGB - HEMOGLOBIN 13.2 g/dL (12.0-16.0); LYMPHOCYTES # (AUTO) 2.5 10^3/uL (1.5-3.5); LYMPHOCYTES % (AUTO) 22.6 %; MEAN CORPUSCULAR HEMOGLOBIN 28.5 pg (27.0-31.0); MEAN CORPUSCULAR HGB CONC 32.6 g/dL (32.0-36.0); MEAN CORPUSCULAR VOLUME 87.5 fL (81.0-99.0); MONOCYTES # (AUTO) 0.5 10^3/uL (0.0-1.0); MONOCYTES % (AUTO) 4.7 %; NEUTROPHILS # (AUTO) 7.5 10^3/uL (1.5-6.6); NEUTROPHILS % (AUTO) 67.7 %; PLT - PLATELET COUNT 316 10^3/uL (130-450); RED BLOOD COUNT 4.63 10^6/uL (4.20-5.40); RED CELL DISTRIBUTION WIDTH 13.2 % (12.0-15.0)
[2022-06-23 13:29] LABS: INR 0.9 (0.8-1.2)
[2022-06-23 13:40] LABS: ALBUMIN 4.2 g/dL (3.2-5.5); ALBUMIN/GLOBULIN RATIO 1.1 (1.0-2.2); BILIRUBIN,TOTAL 0.5 mg/dL (0.2-1.0); CREATININE 0.7 mg/dL (0.4-1.0)
[2022-06-23 13:41] LABS: CALCIUM 9.9 mg/dL (8.5-10.3); POTASSIUM 4.3 mmol/L (3.5-5.0)
[2022-06-23] MEDS ORDERED: iohexoL-300 100 ML VIAL ONE ×2 (13:58→18:27)
[2022-06-23] MEDS ORDERED: ONDANSETRON 4 MG/2 ML VIAL IVP STA (17:34)
[2022-06-23] MEDS ORDERED: HYDROmorphone 1 MG/ML CARPUJECT IVP STA (17:34)
[2022-06-23] MEDS ORDERED: ASPIRIN 325 MG TABLET PO STA (18:04)
[2022-06-23] MEDS ORDERED: ATORVASTATIN 40 MG TABLET PO STA (18:04)
--- NOTE | 2022-06-23 18:16 | CT Report ---
PROCEDURE: ANGIO HEAD W/WO INDICATIONS: Stroke like symptoms CONTRAST: 80mlomni 300 TECHNIQUE: Precontrast 4.5 mm thick angled axial sections acquired from the foramen magnum to the vertex. Afte r the administration of intravenous contrast, 1 mm thick sections acquired through the [place] of Will is. Postcontrast 4.5 mm thick sections then re-acquired from the foramen magnum to the vertex. 3-di mensional yvkbtmj-ecpospjnh-bgfanjfvyo (MIP) and/or volume rendering reformats were acquired of the c entral intracranial vasculature. For radiation dose reduction, the following was used: automated ex posure control, adjustment of mA and/or kV according to patient size. COMPARISON: CT head 10/18/2021 FINDINGS: Image quality: Excellent. Anterior circulation: Intracranial internal carotid arteries are normal in size and flow. The flow within the paired anterior cerebral arteries is normal and symmetric. Fenestrated appearance of the A2 segment of the right anterior cerebral artery, a normal anatomic variant. The flow within the midd le cerebral arteries is normal and symmetric. The anterior communicating artery is seen. No aneurys ms are seen. Posterior circulation: Visualized portions of the vertebral arteries demonstrate normal caliber, and join to form a normal appearing basilar artery. Flow within the posterior cerebral arteries is norm al and symmetric. No aneurysms are seen. CSF spaces: Ventricles are normal in size and shape. Basal cisterns are patent. No extra-axial flu id collections. Brain: No midline shift. Negative intracranial hemorrhage or mass effect. Cee-white matter interfa ce appears intact. Skull and face: Calvarium and facial bones appear intact, without suspicious lesions. Sinuses: Visualized sinuses and mastoids are clear. IMPRESSION: 1.No acute intracranial abnormality. 2.No large vessel occlusion or high-grade arterial stenosis identified. Reviewed by: Gordon Darnell MD on 06/23/2022 6:15 PM PST Approved by: Gordon Darnell MD on 06/23/2022 6:15 PM PST Station ID: [id number]
--- NOTE | 2022-06-23 18:20 | CT Report ---
PROCEDURE: ANGIO NECK W INDICATIONS: Stroke like symptoms CONTRAST: 80mlomni 300 TECHNIQUE: After the administration of intravenous contrast, 1.5 mm axial sections acquired from the aortic arch to the [place] of Reed. Coronal 3-D maximum intensity projection (MIP) and/or volume rendering ref ormats were then performed. For radiation dose reduction, the following was used: automated exposur e control, adjustment of mA and/or kV according to patient size. COMPARISON: None. FINDINGS: Image quality: Excellent. Carotid system: The great vessels demonstrate a conventional anatomy as they arise from the aortic a rch. The origins of the common carotid arteries appear patent. The common carotid arteries demonstr ate normal calibers and courses. The bifurcation regions appear normal bilaterally. The internal ca rotid arteries demonstrate normal caliber and course. Posterior circulation: The origins of the vertebral arteries appear patent. The more superior porti ons of the vertebral arteries demonstrate normal course and caliber. They join to form a normal appe aring basilar artery. Soft tissues: Visualized neck soft tissues demonstrate no suspicious abnormalities. The thyroid is normal in size. Bones: No suspicious bony lesions. Degenerative changes are seen in the spine. IMPRESSION: No hemodynamically significant arterial stenosis or occlusion within the head or neck. The estimate of stenosis included in the report of the imaging study was calculated using the NASCET method Reviewed by: Gordon Darnell MD on 06/23/2022 6:18 PM PST Approved by: Gordon Darnell MD on 06/23/2022 6:18 PM PST Station ID: [id number]
[2022-06-23] MEDS ORDERED: iohexoL-300 100 ML VIAL IVP ONE (18:27)
[2022-06-23 18:51] VITALS: BP 147/70
== END 2022-06-23 19:39 | disposition home or self-care (01) ==
LOC: ED 12:30
DX: G45.9 Transient cerebral ischemic attack, unspecified (principal); D72.825 Bandemia; R73.9 Hyperglycemia, unspecified
CPT/HCPCS: 36415; 70496; 70498; 80053; 83690; 85025; 85610; 93005; 96374; 99284; A9270; J1170; Q9967

== ENCOUNTER 2022-06-28 11:05 | Emergency (ER) | payer MEDICARE, OTHER ==
--- OUTSIDE RECORDS SUMMARY | 2022-06-28 11:27 | EXTERNAL MEDICAL SUMMARY RPT | Continuity of Care Document ---
:1955 Author Organization [facility] Address [address] [place] [address] Phone Care Team Providers Name Role Phone Ciaran Samaniego Unavailable Unavailable Allergies and Intolerances date description facility type (no date) Penicillins [facility] (unknown) (no date) erythromycin base [facility] (unknown) (no date) salicylic acid [facility] (unknown) (no date) tetracycline [facility] (unknown) (no date) zoledronic acid [facility] (unknown) Encounters No information. Functional Status No information. Immunizations No information. Medications No information. 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, lumbar nick 2022-05-05 00:00 Avulsion fracture of medial malleolus [facility] 2022-05-05 00:00 Sprain of right ankle [facility] 2022-05-05 00:00 Sprain of left ankle [facility] Procedures date description facility 2022-05-05 00:00 X-ray of left ankle, three or more view [facility] 2022-05-05 00:00 X-ray of right ankle, three or more vie ws [facility] Results/Labs test date author facility value unit interpret ation Result panel 1 (unknown) (no (unknown) (unknown) (no value) (units (unk nown) date) unknown) (unknown) (no (unknown) (unknown) [id number] (units (unkno wn) date) unknown) (unknown) (no (unknown) (unknown) 04/11/22 (units (unkno wn) date) unknown) (unknown) (no (unknown) (unknown) 11:48. (units (unkno wn) date) unknown) (unknown) (no (unknown) (unknown) [address] [place] [address] (units (unknown) date) unknown) (unknown) (no (unknown) (unknown) Accession Number: (units (unknown) date) [id number] unknown) (unknown) (no (unknown) (unknown) Age/Sex: 67 / F (units (unknown) date) Date of Service: unknown) (unknown) (no (unknown) (unknown) [place] (units ( unknown) date) [id number] unknown) (unknown) (no (unknown) (unknown) Appropriate (units (un known) date) unknown) (unknown) (no (unknown) (unknown) Approved by: (units (u nknown) date) Alex Argueta, unknown) Bony on 04/11/2022 at 11:12 (unknown) (no (unknown) (unknown) COMPARISON: (units (un known) date) [facility], unknown) XA, PAIN L/S TRANSFORAM INJECT JULIEN, 11/29/2021, (unknown) (no (unknown) (unknown) : 1955 (units (unknown) date) Acct:[id number] unknown) (unknown) (no (unknown) (unknown) Dictated by: [...] date) SPONDYLOSIS unknown) (unknown) (no (unknown) (unknown) [facility] (units (unknown) date) unknown) (unknown) (no (unknown) [...] (units (unkno wn) date) unknown) Result panel 2 (unknown) (no (unknown) (unknown) (no value) (units (unk nown) date) unknown) (unknown) (no (unknown) (unknown) 0.25cc (units (unkno wn) date) betamethasone was unknown) injected without complication into each of the (unknown) (no (unknown) (unknown) 1% lidocaine (units (u nknown) date) solution into the unknown) corresponding facet joints. [...] (unknown) date) unknown) (unknown) (no (unknown) (unknown) [id number] (units (unkno wn) date) unknown) (unknown) (no [...] (unknown) (unknown) : 1955 (units (unknown) date) Acct:[id number] unknown) (unknown) (no (unknown) (unknown) Date of [...] nknown) date) unknown) (unknown) (no (unknown) (unknown) [facility] (units (unknown) date) [address] unknown) [place] [address] (unknown) (no (unknown) (unknown) L4/5, L5/S1 (units [...] the patient's chart. Additionally, other Result panel 3 (unknown) (no (unknown) (unknown) (no value) (units (unk nown) date) unknown) (unknown) (no (unknown) (unknown) [id number] (units (unkno wn) date) unknown) (unknown) (no (unknown) (unknown) 1 OR 2 (units (unkno wn) date) unknown) (unknown) (no (unknown) (unknown) 1. Moderate (units (un known) date) medial soft unknown) tissue swelling with questionable nondisplaced avulsion (unknown) (no (unknown) (unknown) 05/05/22 (units (unkno wn) date) unknown) (unknown) (no (unknown) (unknown) [address] [place] [address] (units (unknown) date) unknown) (unknown) (no (unknown) (unknown) 2. Probable (units (un known) date) remote injury and unknown) healing deformities of the distal fibula and (unknown) (no (unknown) (unknown) Accession (units (unkn own) date) Number: unknown) [id number] (unknown) (no (unknown) (unknown) Accession (units (unkn own) date) Number: unknown) [id number] (unknown) (no (unknown) (unknown) Age/Sex: 67 / F (units (unknown) date) Date of Service: unknown) (unknown) (no (unknown) (unknown) [facility] [place] (units ( unknown) date) [id number] unknown) (unknown) (no (unknown) (unknown) Approved by: [...] (unknown) (unknown) COMPARISON: (units (un known) date) [facility] unknown) [facility], CR, XR ANKLE (unknown) (no (unknown) (unknown) : 1955 (units (unknown) date) Acct:[id number] unknown) (unknown) (no (unknown) (unknown) Dictated by: (units (u nknown) date) Katie Henson [...] unknown) fall, sprain? (unknown) (no (unknown) (unknown) [facility] (units (unknown) date) unknown) (unknown) (no (unknown) [...] nown) date) medial malleolus. unknown) Result panel 4 (unknown) (no (unknown) (unknown) [...] unknown) date) unknown) (unknown) (no (unknown) (unknown) [id number] (units (unkno wn) date) unknown) (unknown) (no [...] (unknown) (unknown) : 1955 (units (unknown) date) Acct:[id number] unknown) (unknown) (no (unknown) (unknown) Date of [...] (unknown) date) unknown) (unknown) (no (unknown) (unknown) [facility] [address] (uni ts (unknown) date) [address] unknown) [place] [address] (unknown) (no (unknown) (unknown) Januvia 50 mg [...] unknown) Anaphylaxis Verified 03/29/22 09:56 Result panel 5 (unknown) (no (unknown) (unknown) (no value) (units (unk nown) date) unknown) (unknown) (no (unknown) (unknown) (Synthroid) (units (un known) date) unknown) (unknown) (no (unknown) (unknown) *If you do not have (unit s (unknown) date) a primary care unknown) provider please contact [phone] to (unknown) (no (unknown) (unknown) *Please continue [...] unknown) date) unknown) (unknown) (no (unknown) (unknown) [id number] (units (unkno wn) date) unknown) (unknown) (no [...] (unknown) (unknown) : 1955 (units (unknown) date) Acct:[id number] unknown) (unknown) (no (unknown) (unknown) Date of [...] (unknown) date) unknown) (unknown) (no (unknown) (unknown) [facility] [address] (uni ts (unknown) date) [address] unknown) [place] [address] (unknown) (no (unknown) (unknown) Januvia 50 mg [...] (Reviewed 05/05/22 @ unknown) 15:03 [facility] (unknown) (no (unknown) (unknown) Medication (units (unk [...] (unknown) Patient: (units (unkno wn) date) Briseida Cazarse MR#: unknown) M000 (unknown) (no (unknown) (unknown) [...] (unknown) date) [place] [facility] primary care providers. (unknown) (no (unknown) [...] unknown) Anaphylaxis Verified 03/29/22 09:56 Result panel 6 (unknown) (no (unknown) (unknown) (no value) (units (unk nown) date) unknown) (unknown) (no (unknown) (unknown) (Synthroid) (units (un known) date) unknown) (unknown) (no (unknown) (unknown) *If you do not have (unit s (unknown) date) a primary care unknown) provider please contact [phone] to (unknown) (no (unknown) (unknown) *Please continue [...] unknown) date) unknown) (unknown) (no (unknown) (unknown) [id number] (units (unkno wn) date) unknown) (unknown) (no [...] (unknown) (unknown) : 1955 (units (unknown) date) Acct:[id number] unknown) (unknown) (no (unknown) (unknown) Date of [...] (unknown) date) unknown) (unknown) (no (unknown) (unknown) [facility] [address] (uni ts (unknown) date) [facility] [address] unknown) [place] [address] (unknown) (no (unknown) (unknown) Januvia 50 mg [...] 05/05/22 @ unknown) 15:03 by Jessica Camejo [facility]) (unknown) (no (unknown) (unknown) Medication (units (unk [...] (unknown) date) [place] [facility] primary care providers. (unknown) (no (unknown) [...] unknown) Anaphylaxis Verified 03/29/22 09:56 Result panel 7 (unknown) (no (unknown) (unknown) (no value) (units (unk nown) date) unknown) (unknown) (no (unknown) (unknown) (Synthroid) (units (un known) date) unknown) (unknown) (no (unknown) (unknown) *If you do not have (unit s (unknown) date) a primary care unknown) provider please contact [phone] to (unknown) (no (unknown) (unknown) *Please continue [...] unknown) date) unknown) (unknown) (no (unknown) (unknown) [id number] (units (unkno wn) date) unknown) (unknown) (no [...] (unknown) (unknown) : 1955 (units (unknown) date) Acct:[id number] unknown) (unknown) (no (unknown) (unknown) Date of [...] (unknown) date) unknown) (unknown) (no (unknown) (unknown) [facility] [address] (uni ts (unknown) date) [address] unknown) [place] [address] (unknown) (no (unknown) (unknown) Januvia 50 mg [...] 05/05/22 @ unknown) 15:03 by Jessica Camejo [facility]) (unknown) (no (unknown) (unknown) Medication (units (unk [...] (unknown) date) [place] [facility] primary care providers. (unknown) (no (unknown) [...] unknown) Anaphylaxis Verified 03/29/22 09:56 Result panel 8 (unknown) (no (unknown) (unknown) (no value) (units (unk nown) date) unknown) (unknown) (no (unknown) (unknown) (Synthroid) (units (un known) date) unknown) (unknown) (no (unknown) (unknown) *If you do not have (unit s (unknown) date) a primary care unknown) provider please contact [phone] to (unknown) (no (unknown) (unknown) *Please continue [...] unknown) date) unknown) (unknown) (no (unknown) (unknown) [id number] (units (unkno wn) date) unknown) (unknown) (no [...] (unknown) (unknown) : 1955 (units (unknown) date) Acct:[id number] unknown) (unknown) (no (unknown) (unknown) Date of Service: (units (unknown) date) 05/05/22 unknown) (unknown) (no (unknown) (unknown) Departure (units (unkn own) date) unknown) (unknown) (no (unknown) (unknown) Depression (units (unk nown) date) unknown) (unknown) (no (unknown) (unknown) Diabetes (units (unkno wn) date) unknown) (unknown) (no (unknown) (unknown) Dictated by: Katie Forteuni ts (unknown) date) Bony Henson on unknown) [...] (unknown) date) unknown) (unknown) (no (unknown) (unknown) [facility] [address] (uni ts (unknown) date) [address] unknown) [place] [address] (unknown) (no (unknown) (unknown) Januvia 50 mg [...] 05/05/22 @ unknown) 15:03 by Jessica Camejo [facility]) (unknown) (no (unknown) (unknown) Medical decision (units [...] (unknown) date) signed by Jessica Sage unknown) [employer]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> (unknown) (no (unknown) (unknown) (More??) (units (unkno wn) date) unknown) (unknown) (no (unknown) (unknown) (Synthroid) (units (un known) date) unknown) (unknown) (no (unknown) (unknown) *If you do not have (unit s (unknown) date) a primary care unknown) provider please contact [phone] to (unknown) (no (unknown) (unknown) *Please continue [...] date) unknown) (unknown) (no (unknown) (unknown) [address] [place] [address] (units (unknown) date) unknown) (unknown) (no (unknown) [...] unknown) date) unknown) (unknown) (no (unknown) (unknown) [id number] (units (unkno wn) date) unknown) (unknown) (no [...] (unknown) (unknown) Accession Number: (units (unknown) date) [id number] ?? unknown) (unknown) (no (unknown) (unknown) Acct:[id number] (units (unknown) date) unknown) (unknown) (no (unknown) [...] Time (unknown) (no (unknown) (unknown) [place] [address] (unit s (unknown) date) unknown) (unknown) (no [...] date) unknown) (unknown) (no (unknown) (unknown) COMPARISON:? [facility] (unit s (unknown) date) [facility]) [place], [place], XR ANKLE (unknown) (no (unknown) (unknown) [...] (unknown) (unknown) : 1955 (units (unknown) date) Acct:[id number] unknown) (unknown) (no (unknown) (unknown) : 1955 [...] (unknown) (no (unknown) (unknown) Dictated by: Katie Forteuni ts (unknown) date) Bony Henson on unknown) 05/05/2022 at 16:02 ? ? (unknown) (no (unknown) (unknown) Dictated by: Katie Forteuni ts (unknown) date) Bony Henson on unknown) [...] distress, well groomed (unknown) (no (unknown) (unknown) Sixto,Katie (units ( unknown) date) unknown) (unknown) (no [...] Apply an Elastic (unknown) (no (unknown) (unknown) [facility] [address] (uni ts (unknown) date) [address] unknown) [place] [address] (unknown) (no (unknown) (unknown) [facility] (units (unknown) date) unknown) (unknown) (no (unknown) (unknown) Januvia 50 mg tablet (uni ts (unknown) date) unknown) (unknown) (no (unknown) (unknown) [place],Alex (units ( unknown) date) unknown) (unknown) (no [...] date) unknown) (unknown) (no (unknown) (unknown) MR#: [id number] (units (unknown) date) unknown) (unknown) (no (unknown) [...] (unknown) date) unknown) (unknown) (no (unknown) (unknown) [facility] (units (unkn own) date) Orthopedics [Provider unknown) Group] - 5-7 days (unknown) (no (unknown) (unknown) [facility] (units (unknown) date) in 1 week [...] unknown) date) unknown) (unknown) (no (unknown) (unknown) Semaj Brown (units (unkn own) date) unknown) (unknown) (no [...] (unknown) date) [place] [facility] primary care providers. (unknown) (no (unknown) [...] (units ( unknown) date) follow-up with Dr. penn) Antonia as needed, please return for worsening (unknown) [...] (units (unknown) date) Please follow-up at unknown) [facility] for follow-up in 1 week (unknown) [...] date) signed by Jessica Sage unknown) ALEN Camejo> (unknown) (no (unknown) (unknown) <Electronically (units (unknown) date) signed by Kamaljit penn) Stormy Adam> (unknown) (no (unknown) (unknown) <Jessica Camejo, (units (unknown) date) ALEN - Last Filed: unknown) 05/05/22 16:43> (unknown) (no (unknown) (unknown) <Kamaljit Adam DO (unit s (unknown) date) - Last Filed: unknown) 05/05/22 17:23> (unknown) (no (unknown) (unknown) (More??) (units (unkno wn) date) unknown) (unknown) (no (unknown) (unknown) (Synthroid) (units (un known) date) unknown) (unknown) (no (unknown) (unknown) *If you do not have (unit s (unknown) date) a primary care unknown) provider please contact [phone] to (unknown) (no (unknown) (unknown) *Please continue [...] date) unknown) (unknown) (no (unknown) (unknown) [address] [place] [address] (units (unknown) date) unknown) (unknown) (no (unknown) [...] unknown) date) unknown) (unknown) (no (unknown) (unknown) [id number] (units (unkno wn) date) unknown) (unknown) (no [...] (unknown) (unknown) Accession Number: (units (unknown) date) [id number] ?? unknown) (unknown) (no (unknown) (unknown) Acct:[id number] (units (unknown) date) unknown) (unknown) (no (unknown) [...] Time (unknown) (no (unknown) (unknown) [facility] [place] [address] (unit s (unknown) date) unknown) (unknown) (no (unknown) (unknown) Ankle MRI (Signed) (units (unknown) date) unknown) (unknown) (no (unknown) (unknown) Ankle X-Ray (Signed) (uni ts (unknown) date) unknown) (unknown) (no (unknown) (unknown) Approved by: Katie Forteuni ts (unknown) date) Bony Henson on unknown) 05/05/2022 at 16:02 ? (unknown) (no (unknown) (unknown) Approved by: Katie Forteuni ts (unknown) date) Bony Henson on unknown) [...] date) unknown) (unknown) (no (unknown) (unknown) COMPARISON:? [facility] (unit s (unknown) date) [facility]) [facility], CR, XR ANKLE (unknown) (no (unknown) [...] (unknown) (unknown) : 1955 (units (unknown) date) Acct:[id number] unknown) (unknown) (no (unknown) (unknown) : 1955 [...] (unknown) (no (unknown) (unknown) Dictated by: Katie Forteuni ts (unknown) date) Bony Henson on unknown) [...] Apply an Elastic (unknown) (no (unknown) (unknown) [facility] [address] (uni ts (unknown) date) [address] unknown) [place] [address] (unknown) (no (unknown) (unknown) [facility] (units (unknown) date) unknown) (unknown) (no (unknown) (unknown) Januvia 50 mg tablet (uni ts (unknown) date) unknown) (unknown) (no (unknown) (unknown) [place],Alex (units ( unknown) date) unknown) (unknown) (no [...] date) unknown) (unknown) (no (unknown) (unknown) MR#: [id number] (units (unknown) date) unknown) (unknown) (no (unknown) [...] (unknown) date) unknown) (unknown) (no (unknown) (unknown) [facility] (units (unkn own) date) Orthopedics [Provider unknown) Group] - 5-7 days (unknown) (no (unknown) (unknown) [facility] (units (unknown) date) in 1 week [...] unknown) date) unknown) (unknown) (no (unknown) (unknown) Semaj Brown (units (unkn own) date) unknown) (unknown) (no [...] (unit s (unknown) date) one of the [place] unknown) [facility] primary care providers. (unknown) (no (unknown) [...] (units ( unknown) date) follow-up with Dr. penn) Antonia as needed, please return for worsening (unknown) [...] (units (unknown) date) Please follow-up at unknown) [facility] for follow-up in 1 week (unknown) [...] date description facility 2022-05-05 00:00 Ex-smoker (finding) [facility] Vital Signs date measurement value units 2022-04-11 00:00 BP_diastolic 64 mmHg 2022-04-11 00:00 [...]
[2022-06-28 11:35] LABS: BASOPHILS # (AUTO) 0.1 10^3/uL (0.0-0.1); BASOPHILS % (AUTO) 0.6 %; EOSINOPHILS # (AUTO) 0.5 10^3/uL (0.0-0.7); EOSINOPHILS % (AUTO) 3.3 %; HCT - HEMATOCRIT 42.4 % (37.0-47.0); HGB - HEMOGLOBIN 13.7 g/dL (12.0-16.0); LYMPHOCYTES # (AUTO) 3.4 10^3/uL (1.5-3.5); MEAN CORPUSCULAR HEMOGLOBIN 28.3 pg (27.0-31.0); MEAN CORPUSCULAR HGB CONC 32.3 g/dL (32.0-36.0); MEAN CORPUSCULAR VOLUME 87.6 fL (81.0-99.0); MEAN PLATELET VOLUME 9.1 fL (7.9-10.8); MONOCYTES # (AUTO) 0.7 10^3/uL (0.0-1.0); MONOCYTES % (AUTO) 5.2 %; NEUTROPHILS # (AUTO) 9.5 10^3/uL (1.5-6.6); NEUTROPHILS % (AUTO) 66.5 %; PLT - PLATELET COUNT 338 10^3/uL (130-450); RED BLOOD COUNT 4.84 10^6/uL (4.20-5.40); RED CELL DISTRIBUTION WIDTH 12.9 % (12.0-15.0); WHITE BLOOD COUNT 14.3 x10^3/uL (4.8-10.8)
[2022-06-28 11:53] LABS: ALBUMIN 4.2 g/dL (3.2-5.5); ALBUMIN/GLOBULIN RATIO 1.1 (1.0-2.2); BILIRUBIN,TOTAL 0.6 mg/dL (0.2-1.0); CALCIUM 9.7 mg/dL (8.5-10.3); CREATININE 1.1 mg/dL (0.4-1.0); POTASSIUM 4.7 mmol/L (3.5-5.0); TOTAL PROTEIN 7.9 g/dL (6.7-8.2)
--- NOTE | 2022-06-28 12:14 | ED Physician Documentation ---
PD HPI FOCAL NEURO - Stated complaint Stated Complaint: DROOPING LT SIDE - Chief complaint Chief Complaint: Neuro - History obtained from History obtained from: Patient - Additional information Additional information: Patient is a 67-year-old who was recently seen for a TIA presenting for evaluation of left-sided weakness, feeling off balance, abnormal vision. She reports waking up with her symptoms at 8:00 with a feeling of being off balance and feeling that she was going to fall. Around 930 she had worsening symptoms with left-sided weakness and double vision to the left eye.She last went to bed feeling her usual self around 8 PM. She was seen over the weekend with similar symptoms and had CTAs which were unremarkable and diagnosed with a TIA. She was started on high-dose aspirin and a statin has been compliant with this. She denies a history of migraines and does not have a headache. She denies chest pain or difficulty breathing.She reports her symptoms have been getting better since onset. 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 - Present Medications Home Medications: Ambulatory Orders Medication Instructions Recorded Confirmed Hyoscyamine Sulfate [Levsin-Sl] 0.125 mg SL TID #14 tab.subl 08/04/16 06/21/17 raNITIdine [Zantac] 150 mg PO DAILY #30 tablet 08/04/16 06/21/17 Aripiprazole [Abilify] DAILY 06/21/17 Atorvastatin [Lipitor] DAILY 06/21/17 Benzonatate [Tessalon Perle] 100 mg PO BID PRN #14 capsule 06/21/17 Duloxetine HCl [Cymbalta] DAILY 06/21/17 Erythromycin [George-Tab] 500 mg DAILY 06/21/17 06/21/17 Hydrocodone/Acetaminophen QID PRN 06/21/17 [Hydrocodone-Acetamin 10-325 mg] Levothyroxine [Synthroid] DAILY 06/21/17 Oxycodone HCl [Oxycontin] 20 mg PO BID PRN 06/21/17 06/21/17 Topiramate [Topamax] 30 mg DAILY 06/21/17 06/21/17 Benzonatate [Tessalon] 200 mg PO QID PRN #20 cap 05/01/21 guaiFENesin/CODEINE [Robitussin AC] 5 - 10 ml PO Q6H PRN #120 ml 05/01/21 Aspirin EC [Ecotrin] 325 mg PO DAILY #30 tablet 06/23/22 Atorvastatin Calcium [Lipitor] 80 mg PO DAILY #30 tablet 06/23/22 oxyCODONE [Roxicodone] 5 mg PO ONCE #10 tablet 06/23/22 Aspirin [[place] Aspirin EC] 81 mg PO DAILY #30 tab 06/28/22 Clopidogrel Bisulfate [Plavix] 75 mg PO DAILY #30 tab 06/28/22 - Allergies Allergies/Adverse Reactions: Allergies Allergy/AdvReac Type Severity Reaction Status Date / Time avocado Allergy Anaphylaxis Verified 06/28/22 11:16 mannitol [From Reclast] Allergy Emesis Verified 06/28/22 11:16 Penicillins Allergy Anaphylaxis Verified 06/28/22 11:16 phenytoin sodium * Allergy Anaphylaxis Verified 06/28/22 11:16 [From Dilantin] phenytoin sodium extended * Allergy Anaphylaxis Verified 06/23/22 12:44 [From Dilantin] Tetracyclines Allergy Unknown Verified 06/28/22 11:16 water for injection,sterile * Allergy Emesis Verified 06/28/22 11:16 [From Reclast] zoledronic acid Allergy Emesis Verified 06/28/22 11:16 [From Reclast] cephalexin monohydrate * AdvReac Rash Verified 06/28/22 11:16 [From Keflex] pentazocine lactate * AdvReac Edema Verified 06/28/22 11:16 [From Talwin] Sulfa (Sulfonamide AdvReac Rash Verified 05/01/21 13:58 Antibiotics) casting material Allergy Unknown Uncoded 06/28/22 11:16 Cillins Allergy Unknown Uncoded 06/28/22 11:16 - Social History Does the pt smoke?: No Smoking Status: Never smoker Does the pt drink ETOH?: No Does the pt have substance abuse?: No - Immunizations Immunizations are current?: Yes - POLST Patient has POLST: No PD ED PE NORMAL - General General: Alert and oriented X 3, No acute distress, Well developed/nourished - HEENT HEENT: Atraumatic, PERRL, EOMI, Moist mucous membranes, Pharynx benign - Neck Neck: Supple, no meningeal sign - Cardiac Cardiac: RRR, No murmur - Respiratory Respiratory: No respiratory distress, Clear bilaterally - Abdomen Abdomen: Soft, Non tender - Derm Derm: Warm and dry - Neuro Neuro: Alert and oriented X 3, civil clerk 2-12 intact, No motor deficit, Normal speech. No: No sensory deficit (Mild left sided decreased sensation to) NIHSS - Level of Consciousness Level of consciousness: (0) Alert, Keenly responsive LOC Questions: (0) Answers both Q's correct LOC Commands: (0) Performs both correctly - Gaze Best Gaze: (0) Normal - Visual Visual: (0) No loss - Facial Palsy Facial Palsy: (0) Normal, symmetrical movement - Motor Arms (both separate) Motor Arm (right): (0) No drift Motor Arm (left): (0) No drift - Motor Legs (both separate) Motor Leg (right): (0) No drift Motor Leg (left): (0) No drift - Sensory Sensory: (1) Trbk-yk-fafjxdmw loss - Best Language Best Language: (0) No aphasia - Dysarthria Dysarthria: (0) Normal - Extinction and Inattention (formally neg Extinction and inattention: (0) No abnormality Results - Vitals Vitals: Vital Signs - 24 hr 06/28/22 06/28/22 06/28/22 11:12 11:45 12:15 Temperature 36.6 C Heart Rate 77 65 66 Respiratory 18 11 L 17 Rate Blood Pressure 145/78 H 130/64 143/58 H O2 Saturation 99 96 97 06/28/22 06/28/22 06/28/22 13:13 13:30 14:00 Temperature Heart Rate 62 71 65 Respiratory 12 14 11 L Rate Blood Pressure 123/96 H 137/56 H 131/74 H O2 Saturation 99 100 100 06/28/22 06/28/22 14:30 17:16 Temperature Heart Rate 73 66 Respiratory 15 14 Rate Blood Pressure 136/70 H 131/69 H O2 Saturation 100 99 Oxygen O2 Source Room air - EKG (time done) 1128 Rate: Rate (enter#) (70) Rhythm: NSR Ischemia: No: ST elevation c/w ischemia - Labs Labs: Laboratory Tests 06/28/22 06/28/22 06/28/22 11:26 11:30 11:30 WBC 14.3 H RBC 4.84 Hgb 13.7 Hct 42.4 MCV 87.6 MCH 28.3 MCHC 32.3 RDW 12.9 Plt Count 338 MPV 9.1 Neut # (Auto) 9.5 H Lymph # (Auto) 3.4 Millard # (Auto) 0.7 Eos # (Auto) 0.5 Baso # (Auto) 0.1 Absolute Nucleated RBC 0.00 Nucleated RBC % 0.0 Sodium 132 L Potassium 4.7 Chloride 95 L Carbon Dioxide 28 Anion Gap 9.0 BUN 29 H Creatinine 1.1 H Estimated GFR (MDRD) 50 L Glucose 282 H POC Whole Bld Glucose 314 H Calcium 9.7 Total Bilirubin 0.6 AST 21 ALT 30 Alkaline Phosphatase 96 Total Protein 7.9 Albumin 4.2 Globulin 3.7 Albumin/Globulin Ratio 1.1 Lipase 30 PD Medical Decision Making - ED course Complexity details: reviewed results, re-evaluated patient, d/w patient ED course: Patient is a 67-year-old female presenting for evaluation of left-sided weakness, abnormal sensation, blurred vision to the left eye. She is similar symptoms here on Sunday where she was diagnosed with a TIA and started on aspirin. She is outside of the window for tenecteplase as her last known normal is greater than [address] angios are again negative for large vessel occlusion. Her symptoms are quickly improving here. Her NIH score is very low. No seizure activity seen.Patient does report a slight headache so possibility of of a complex migraine. Patient had an MRI which did not show signs of an ischemic event.She had no arrhythmias on the monitor. Echo is no longer available here today. Patient does not want to stay overnight to wait for an echocardiogram. Her labs are reviewed. She does have a mild hyperglycemia but no signs of DKA.Mild leukocytosis but does not appear to be septic or have source for infection. She has an appointment with her PCP tomorrow and would like to keep this appointment. Her ABCD 2 score is [address] patient on dual antiplatelet therapy. I did discuss this with the patient and she is agreeable.She was given a loading dose of Plavix. She had already taken her aspirin for the day. I have sent new prescriptions for her.She additionally has a neurologist and was also encouraged to get a sooner appointment. Her next appointment is July 19.She has returned back to her baseline is ambulatory in the emergency department. Patient is comfortable plan with discharge. is also at the bedside and comfortable with this plan.Patient has been advised on concerning symptoms to return for. Departure - Departure Disposition: Home, Self Care Clinical Impression: TIA (transient ischemic attack) Condition: Stable Instructions: ED Transient Ischemic Attack Prescriptions: Clopidogrel Bisulfate [Plavix] 75 mg PO DAILY #30 tab Aspirin [[place] Aspirin EC] 81 mg PO DAILY #30 tab Comments: Your symptoms today are concerning for a mini stroke called a TIA. You were previously started on aspirin. Please continue aspirin with a baby aspirin, 81 mg daily. Do not take the full dose aspirin. I have sent a new prescription to your pharmacy. I am also going to start you on another antiplatelet medicine called Plavix and have given you a loading dose today. You will then take it daily starting tomorrow and I have sent this prescription to the [facility] pharmacy. Please follow-up with your primary care doctor tomorrow. You may need further testing Such as an ultrasound of your heart called an echocardiogram.Please also reach out to your neurologist to see if they can get you in sooner than your upcoming appointment. If you have any new or worsening symptoms please return to the emergency department. IMPRESSION: No acute finding. Mild chronic microvascular ischemic changes. Discharge Date/Time: 06/28/22 17:16
[2022-06-28] MEDS ORDERED: SODIUM CHLORIDE 0.9% 1,000 ML IV STA (12:15)
--- NOTE | 2022-06-28 12:31 | CT Report ---
PROCEDURE: ANGIO HEAD W/WO INDICATIONS: L sided weak/off balance CONTRAST: 80ml Omipaque 300 TECHNIQUE: Precontrast 4.5 mm thick angled axial sections acquired from the foramen magnum to the vertex. Afte r the administration of intravenous contrast, 1 mm thick sections acquired through the [place] of [place] is. Postcontrast 4.5 mm thick sections then re-acquired from the foramen magnum to the vertex. 3-di mensional ewdtpxg-rwautisjh-sbmghlnazx (MIP) and/or volume rendering reformats were acquired of the c entral intracranial vasculature. For radiation dose reduction, the following was used: automated ex posure control, adjustment of mA and/or kV according to patient size. COMPARISON: 06/23/2022 FINDINGS: Image quality: Excellent. Anterior circulation: Intracranial internal carotid arteries are normal in size and flow. The flow within the paired anterior cerebral arteries is normal and symmetric. The flow within the middle cer ebral arteries is normal and symmetric. The anterior communicating artery is seen. No aneurysms are seen. Posterior circulation: Visualized portions of the vertebral arteries demonstrate normal caliber, and join to form a normal appearing basilar artery. Flow within the posterior cerebral arteries is norm al and symmetric. No aneurysms are seen. CSF spaces: Ventricles are normal in size and shape. Basal cisterns are patent. No extra-axial flu id collections. Brain: No midline shift. No intracranial bleeds or masses. Cee-white matter interface appears int act. Skull and face: Calvarium and facial bones appear intact, without suspicious lesions. Sinuses: Visualized sinuses and mastoids are clear. IMPRESSION: No acute intracranial finding. No flow-limiting stenosis or hemodynamically significant narrowing of the intracranial arterial circu lation. Reviewed by: Willem Black MD on 06/28/2022 12:29 PM PST Approved by: Willem Black MD on 06/28/2022 12:29 PM PST Station ID: [id number]
--- NOTE | 2022-06-28 12:32 | CT Report ---
PROCEDURE: ANGIO NECK W INDICATIONS: L sided weak/off balance CONTRAST: 80ml Omipaque 300 TECHNIQUE: After the administration of intravenous contrast, 1.5 mm axial sections acquired from the aortic arch to the [place] of [place]. Coronal 3-D maximum intensity projection (MIP) and/or volume rendering ref ormats were then performed. For radiation dose reduction, the following was used: automated exposur e control, adjustment of mA and/or kV according to patient size. COMPARISON: 06/23/2022 FINDINGS: Image quality: Excellent. Carotid system: The great vessels demonstrate a conventional anatomy as they arise from the aortic a rch. The origins of the common carotid arteries appear patent. The common carotid arteries demonstr ate normal calibers and courses. The bifurcation regions appear normal bilaterally. The internal ca rotid arteries demonstrate normal caliber and course. Posterior circulation: The origins of the vertebral arteries appear patent. The more superior porti ons of the vertebral arteries demonstrate normal course and caliber. They join to form a normal appe aring basilar artery. Soft tissues: No acute finding. Bones: No suspicious acute or suspicious bone lesion. IMPRESSION: Widely patent cervical arterial vasculature. Reviewed by: Willem Black MD on 06/28/2022 12:30 PM PST Approved by: iWllem Black MD on 06/28/2022 12:30 PM PST Station ID: [id number]
[2022-06-28] MEDS ORDERED: iohexoL-300 100 ML VIAL ONE (13:04)
--- NOTE | 2022-06-28 15:59 | MRI Report ---
PROCEDURE: BRAIN WO INDICATIONS: Left-sided weakness TECHNIQUE: Noncontrast axial T1 spin echo, axial T2 fast spin echo, sagittal and axial FLAIR, coronal T2 fast sp in echo, axial gradient echo, axial diffusion and ADC through the brain. COMPARISON: 06/23/2022 FINDINGS: Image quality: Excellent. CSF Spaces: Basal cisterns are patent. No extra-axial fluid collections. Ventricles are normal in size and shape. Brain: Mild chronic microvascular ischemic changes. No intracranial masses or hemorrhage. Cee/white matter interface is normal. Brainstem appears normal. Diffusion-weighted images demonstrate no acu te ischemic insult. No chronic ischemic insults. Normal intravascular flow voids are present. Skull and face: Calvarium has normal marrow signal. Orbits appear normal. Sinuses: Sinuses and mastoids are clear. IMPRESSION: No acute finding. Mild chronic microvascular ischemic changes. Reviewed by: Willem Black MD on 06/28/2022 3:58 PM PST Approved by: Willem Black MD on 06/28/2022 3:58 PM PST Station ID: [id number]
[2022-06-28] MEDS ORDERED: iohexoL-300 100 ML VIAL IVP ONE (16:21)
[2022-06-28] MEDS ORDERED: CLOPIDOGREL 300 MG TABLET PO STA (16:58)
[2022-06-28 17:17] VITALS: BP 131/69
== END 2022-06-28 17:16 | disposition home or self-care (01) ==
LOC: ED 11:05
DX: G45.9 Transient cerebral ischemic attack, unspecified (principal)
CPT/HCPCS: 36415; 70496; 70498; 70551; 80053; 83690; 85025; 93005; 99283; 99284; A9270; Q9967

== ENCOUNTER 2022-12-15 14:40 | Outpatient (CLI) | payer MEDICARE, OTHER ==
--- NOTE | 2022-12-15 20:46 | XRAY Report ---
PROCEDURE: Knee 3 View BILAT INDICATIONS: PAIN IN LT KNEE, PAIN IN RT KNEE TECHNIQUE: 3 views each of the right and left knees were acquired. COMPARISON: Right tibia/fibular radiographs 06-01 FINDINGS: Bones: No acute fractures or dislocations. No suspicious bony lesions. Mild joint compartment antolin nt space narrowing is seen bilaterally. Small right suprapatellar enthesophyte. Soft tissues: No knee joint effusion. No suspicious soft tissue calcifications or masses. IMPRESSION: Minimal osteoarthrosis. Reviewed by: Gordon Darnell MD on 12/15/2022 8:45 PM PDT Approved by: Gordon Darnell MD on 12/15/2022 8:45 PM PDT Station ID: [id number]
== END 2022-12-15 14:41 | disposition home or self-care (01) ==
LOC: DI 14:40
PROVIDERS: ATTEND Internal Medicine
DX: M17.0 Bilateral primary osteoarthritis of knee (principal)

== ENCOUNTER 2023-01-04 11:15 | Emergency (ER) | payer MEDICARE, OTHER ==
[2023-01-04 12:06] VITALS: BP 134/73
--- NOTE | 2023-01-04 12:29 | XRAY Report ---
PROCEDURE: Hip w/Pelvis 2-3V RT INDICATIONS: fall, pain TECHNIQUE: AP pelvis with lateral view(s) of the right hip(s). COMPARISON: None. FINDINGS: Bones: No fractures or dislocations. Mild bilateral hip joint osteoarthritis is seen. No evidence of avascular necrosis of femoral head. Degenerative disc disease in visualized lower lumbar spine is se en. No suspicious bony lesions. Soft tissues: No suspicious soft tissue calcifications or masses. IMPRESSION: No acute right hip fracture or dislocation. Mild bilateral hip joint osteoarthritis. No evidence of a vascular necrosis. Reviewed by: Gage Shelley MD on 01/04/2023 12:28 PM PDT Approved by: Gage Shelley MD on 01/04/2023 12:28 PM PDT Station ID: [id number]
[2023-01-04] MEDS ORDERED: KETOROLAC 60 MG/2 ML VIAL IM STA (12:56)
[2023-01-04] MEDS ORDERED: HYDROmorphone 1 MG/ML CARPUJECT IM STA (12:56)
--- NOTE | 2023-01-04 12:58 | ED Physician Documentation ---
PD HPI LOWER EXT INJURY - Stated complaint Stated Complaint: PELVIC/BACK PX - Chief complaint Chief Complaint: Ext Problem - History obtained from History obtained from: Patient - Additional information Additional information: She tripped over her dog and fell onto her right hip on the carpet 2 days ago. Initially the pain was not too bad but got much worse last night. She has a history of syringomyelia and does have chronic gait issues and very occasional incontinence. She fell again last night when her right leg gave out on her and now the pain is much worse in the hip and also in the right knee. 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 - Present Medications Home Medications: Ambulatory Orders Medication Instructions Recorded Confirmed Hyoscyamine Sulfate [Levsin-Sl] 0.125 mg SL TID #14 tab.subl 08/04/16 06/21/17 raNITIdine [Zantac] 150 mg PO DAILY #30 tablet 08/04/16 06/21/17 Aripiprazole [Abilify] 2 mg PO DAILY 06/21/17 Atorvastatin [Lipitor] 10 mg PO DAILY 06/21/17 Duloxetine HCl [Cymbalta] 1 cap PO DAILY 06/21/17 Levothyroxine [Synthroid] 1 cap PO DAILY 06/21/17 Topiramate [Topamax] 30 mg DAILY 06/21/17 06/21/17 Atorvastatin Calcium [Lipitor] 80 mg PO DAILY #30 tablet 06/23/22 Aspirin [[place] Aspirin EC] 81 mg PO DAILY #30 tab 06/28/22 Clopidogrel Bisulfate [Plavix] 75 mg PO DAILY #30 tab 06/28/22 Meloxicam [Mobic] 7.5 mg PO BID PRN #20 tablet 01/04/23 tiZANidine [Zanaflex] 4 mg PO Q8H PRN #15 tablet 01/04/23 - Allergies Allergies/Adverse Reactions: Allergies Allergy/AdvReac Type Severity Reaction Status Date / Time avocado Allergy Anaphylaxis Verified 01/04/23 12:02 mannitol [From Reclast] Allergy Emesis Verified 01/04/23 12:02 Penicillins Allergy Anaphylaxis Verified 01/04/23 12:02 phenytoin sodium * Allergy Anaphylaxis Verified 01/04/23 12:02 [From Dilantin] phenytoin sodium extended * Allergy Anaphylaxis Verified 01/04/23 12:02 [From Dilantin] Tetracyclines Allergy Unknown Verified 01/04/23 12:02 water for injection,sterile * Allergy Emesis Verified 01/04/23 12:02 [From Reclast] zoledronic acid Allergy Emesis Verified 01/04/23 12:02 [From Reclast] cephalexin monohydrate * AdvReac Rash Verified 01/04/23 12:02 [From Keflex] pentazocine lactate * AdvReac Edema Verified 01/04/23 12:02 [From Talwin] Sulfa (Sulfonamide AdvReac Rash Verified 01/04/23 12:02 Antibiotics) casting material Allergy Unknown Uncoded 01/04/23 12:02 - Social History Does the pt smoke?: No Smoking Status: Never smoker Does the pt drink ETOH?: No Does the pt have substance abuse?: No - Immunizations Immunizations are current?: Yes - POLST Patient has POLST: No PD ED PE NORMAL - Vitals Vital signs reviewed: Yes - General General: Alert and oriented X 3, Other (Appears uncomfortable) - Extremities Extremities: Other (She is tender laterally over the right hip but actually more so to the tibial plateau and lateral knee on the right. Internal/external rotation of the hip is relatively painless. She has diffuse tenderness of the bony pelvis on the right side laterally and posteriorly. No deformities.) - Neuro Neuro: Alert and oriented X 3, Normal speech Results - Vitals Vitals: Vital Signs - 24 hr 01/04/23 01/04/23 11:57 13:50 Temperature 37.4 C 36.6 C Heart Rate 91 74 Respiratory 18 19 Rate Blood Pressure 134/73 H O2 Saturation 99 98 Oxygen O2 Source Room air - Rads (name of study) X-ray of the right knee showing moderate tricompartmental arthritis but no fracture. Relevant Findings:: Final report received, EMP independent interpretation of test X-ray pelvis/right hip showing mild arthritis, no fracture. Relevant Findings:: Final report received, EMP independent interpretation of test PD Medical Decision Making - ED course ED course: 67-year-old woman with chronic pain syndrome who fell a couple of days ago now with increased pain in the right hip and leg and pelvis. Initial x-ray of the hip was negative and I also did a CT and an x-ray of the right knee which were negative as well. After the administration of 60 mg of IM Toradol and 1 mg of IM Dilaudid she was feeling much better and walking normally for her. Departure - Departure Disposition: 01 Home, Self Care Clinical Impression: Contusion of right hip, Right knee injury Condition: Good Record reviewed to determine appropriate education?: Yes Instructions: ED Sprain Knee, ED Contusion Hip Prescriptions: Meloxicam [Mobic] 7.5 mg PO BID PRN #20 tablet PRN Reason: Pain tiZANidine [Zanaflex] 4 mg PO Q8H PRN #15 tablet PRN Reason: Spasms Comments: I sent your prescriptions electronically [facility] in [place]. Follow-up with Dr. Samaniego and let him know that she fell and that you are having increased pain. Return for new or worsening symptoms. Forms: PCP List
--- NOTE | 2023-01-04 13:33 | XRAY Report ---
PROCEDURE: Knee 4 View RT INDICATIONS: R knee inj TECHNIQUE: 4 views of the right knee(s) were acquired. COMPARISON: None. FINDINGS: Bones: No fractures or dislocations. Mild to moderate tricompartmental osteoarthritis is seen most n otably in medial femoral tibial compartment. No patella subluxation. No suspicious bony lesions. Soft tissues: No knee joint effusion. No suspicious soft tissue calcifications or masses. IMPRESSION: No acute bony abnormality. Mild to moderate tricompartmental osteoarthritis as above. No significant joint effusion. Reviewed by: Gage Shelley MD on 01/04/2023 1:31 PM PDT Approved by: Gage Shelley MD on 01/04/2023 1:31 PM PDT Station ID: [id number]
--- NOTE | 2023-01-04 13:43 | CT Report ---
PROCEDURE: PELVIS WO INDICATIONS: R hip/pelvis inj TECHNIQUE: Noncontrast 3 mm axial sections acquired through the bony pelvis, with coronal and sagittal reformatt ing. For radiation dose reduction, the following was used: automated exposure control, adjustment of mA and/or kV according to patient size. COMPARISON: Pelvic and hip radiograph dated 01/04/2023. FINDINGS: Image quality: Excellent. Bones: There is no acute pelvic or hip fracture. No hip dislocation. Mild osteoarthritic changes are noted in bilateral hip joints, sacroiliac joints and symphysis pubis. No evidence of avascular necro sis of femoral head. No suspicious bony lesions. Mild degenerative disc disease in visualized lower l umbar spine is seen. Soft tissues: There is no soft tissue mass or drainable fluid collection. No intramuscular mass or h ematoma. No pelvic free fluid of free air. Bowel wall thickness is normal. Bladder wall thickness is normal. Small umbilical hernia is seen containing fat only. No pelvic lymphadenopathy. IMPRESSION: 1. No acute pelvic or hip fracture. No hip dislocation. Mild osteoarthritis throughout the bony pelvi s. No evidence of avascular necrosis of femoral head. 2. No gross pelvic or hip soft tissue abnormalities. Reviewed by: Gage Shelley MD on 01/04/2023 1:42 PM PDT Approved by: Gage Shelley MD on 01/04/2023 1:42 PM PDT Station ID: [id number]
== END 2023-01-04 14:07 | disposition home or self-care (01) ==
LOC: ED 11:15
DX: S70.01XA Contusion of right hip, initial encounter (principal); S89.91XA Unspecified injury of right lower leg, initial encounter; W18.39XA Other fall on same level, initial encounter; Y93.K1 Activity, walking an animal
CPT/HCPCS: 72192; 73502; 73564; 96372; 99284; J1170

== ENCOUNTER 2023-03-16 08:18 | Outpatient (CLI) | payer MEDICARE, OTHER ==
--- NOTE | 2023-03-19 09:34 | Ultrasound Report ---
LIMITED ULTRASOUND OF LEFT BREAST: 03/16/2023 CLINICAL: Patient returns today to evaluate an architectural distortion in the Left breast. Comparison is made to exam dated: 03/01/2023 mammogram - [facility]. Color flow ultrasound of the left breast 12-2 o'clock region was performed. Cee scale images of th e real-time examination were reviewed. No significant abnormalities were seen sonographically in the left breast. IMPRESSION: NEGATIVE There is no sonographic evidence of malignancy. There is no abnormality seen in the left breast to correspond with the now resolved mammography findi ng. A 1 year screening mammogram is recommended. Findings and recommendations were conveyed to the patient during today's evaluation. This exam was interpreted at Station ID: [id number]. Electronically Signed By: Juno Rose M.D. aty/:03/16/2023 12:53:35 Ultrasound BI-RADS: 1 Negative BI-RADS CATEGORY: (1) - 1 Mammogram [id number] 1 year screening LATERALITY: (B)
--- NOTE | 2023-03-19 09:34 | Mammography Report ---
UNILATERAL LEFT DIGITAL DIAGNOSTIC MAMMOGRAM 3D/2D: 03/16/2023 CLINICAL: Patient returns today to evaluate an architectural distortion in the left breast. Comparison is made to exam dated: 03/01/2023 mammogram - [facility]. There are scattered areas of fibroglandular density in the left breast (category b / 25%-50% glandula r tissue). The previously described possible architectural distortion in the left breast central to the nipple m iddle depth is not reproduced and presumably represented superimposed breast tissue. This is not see n in additional views and is consistent with summation artifact. No other significant masses or calcifications are seen in the breast. IMPRESSION: INCOMPLETE: NEEDS ADDITIONAL IMAGING EVALUATION An ultrasound is recommended to confirm the no longer seen architectural distortion in the left breas t central to the nipple middle depth. This is scheduled to immediately follow this exam. Based on the Tyrer Cuzick model (a risk assessment model) the patients lifetime risk is 7.9% and her 10 year risk is 4.0%. According to the ACR, ACS, and NCCN guidelines, an annual breast MRI exam leobardo g with mammogram is recommended if the patients lifetime risk is 20% or greater. This exam was interpreted at Station ID: [id number]. NOTE: For mammograms, a report in lay terms will be sent to the patient. Approximately 15% of breast malignancies will not be visualized mammographically. In the management of a palpable breast mass, a negative mammogram must not discourage biopsy of a clinically suspicious lesion. Electronically Signed By: Juno Rose M.D. aty/:03/16/2023 12:43:08 ACR BI-RADS Category 0: Incomplete 3340F PARENCHYMAL PATTERN: (A) - The breast(s) demonstrate(s) scattered fibroglandular densities. BI-RADS CATEGORY: (0) - 0 Ultrasound [id number] Immediate follow-up LATERALITY: (L)
== END 2023-03-16 08:19 | disposition home or self-care (01) ==
LOC: DI 08:18
PROVIDERS: ATTEND Internal Medicine
DX: R92.8 Other abnormal and inconclusive findings on diagnostic imaging of breast (principal); R92.322 Mammographic fibroglandular density, left breast

== ENCOUNTER 2023-05-16 16:11 | Emergency (ER) | payer MEDICARE, OTHER ==
--- NOTE | 2023-05-16 17:06 | ED Physician Documentation ---
History of Present Illness - Stated complaint Stated Complaint: LEE - Chief complaint Chief Complaint: Neuro - History obtained from History obtained from: Patient, Family - History of Present Illness Timing: Today Pain level max: 7 Pain level now: 7 - Additonal information Additional information: Patient is a 68-year-old female who presents to the emergency department with a left-sided headache and left-sided neck pain. She states that this started about an hour ago. She states she does not have a history of headaches. Rates the pain as a 7 out of 10. Had nausea as well. Feels like there is intermittent tingling to her left fingertips. Not tingling now. She states that she is on "a lot of medications at home". Including a blood thinner. She does not know which 1. She does not know what medication she takes. She states she has multiple allergies to medications but also does not know which m edication she is allergic to. She states she had a viral upper respiratory infection approximately a week ago described as a "cold". She states that she took Zofran prior to arrival for nausea. Still complaining of a headache. Worse with movement. She denies any difficulty walking. Denies any focal weakness. No numbness. No difficulty with speech or swallowing. No fevers. No chills. No current abdominal pain. No chest pain. Review of Systems Constitutional: denies: Fever, Chills Eyes: denies: Loss of vision, Decreased vision Ears: denies: Ear pain Nose: denies: Rhinorrhea / runny nose, Congestion Throat: denies: Sore throat Cardiac: denies: Chest pain / pressure GI: denies: Nausea, Vomiting, Diarrhea Skin: denies: Rash Musculoskeletal: denies: Neck pain, Back pain Neurologic: denies: Focal weakness, Numbness, Headache 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, 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 - Present Medications Home Medications: Ambulatory Orders Medication Instructions Recorded Confirmed Hyoscyamine Sulfate [Levsin-Sl] 0.125 mg SL TID #14 tab.subl 08/04/16 06/21/17 raNITIdine [Zantac] 150 mg PO DAILY #30 tablet 08/04/16 06/21/17 Aripiprazole [Abilify] 2 mg PO DAILY 06/21/17 Atorvastatin [Lipitor] 10 mg PO DAILY 06/21/17 Duloxetine HCl [Cymbalta] 1 cap PO DAILY 06/21/17 Levothyroxine [Synthroid] 1 cap PO DAILY 06/21/17 Topiramate [Topamax] 30 mg DAILY 06/21/17 06/21/17 Atorvastatin Calcium [Lipitor] 80 mg PO DAILY #30 tablet 06/23/22 Aspirin [[place] Aspirin EC] 81 mg PO DAILY #30 tab 06/28/22 Clopidogrel Bisulfate [Plavix] 75 mg PO DAILY #30 tab 06/28/22 Meloxicam [Mobic] 7.5 mg PO BID PRN #20 tablet 01/04/23 tiZANidine [Zanaflex] 4 mg PO Q8H PRN #15 tablet 01/04/23 - Allergies Allergies/Adverse Reactions: Allergies Allergy/AdvReac Type Severity Reaction Status Date / Time avocado Allergy Anaphylaxis Verified 01/04/23 12:02 mannitol [From Reclast] Allergy Emesis Verified 01/04/23 12:02 Penicillins Allergy Anaphylaxis Verified 01/04/23 12:02 phenytoin sodium * Allergy Anaphylaxis Verified 01/04/23 12:02 [From Dilantin] phenytoin sodium extended * Allergy Anaphylaxis Verified 01/04/23 12:02 [From Dilantin] Tetracyclines Allergy Unknown Verified 01/04/23 12:02 water for injection,sterile * Allergy Emesis Verified 01/04/23 12:02 [From Reclast] zoledronic acid Allergy Emesis Verified 01/04/23 12:02 [From Reclast] cephalexin monohydrate * AdvReac Rash Verified 01/04/23 12:02 [From Keflex] pentazocine lactate * AdvReac Edema Verified 01/04/23 12:02 [From Talwin] Sulfa (Sulfonamide AdvReac Rash Verified 01/04/23 12:02 Antibiotics) casting material Allergy Unknown Uncoded 01/04/23 12:02 - Social History Does the pt smoke?: No Smoking Status: Never smoker Does the pt drink ETOH?: No Does the pt have substance abuse?: No - Immunizations Immunizations are current?: Yes - POLST Patient has POLST: No PD ED PE NORMAL - Vitals Vital signs reviewed: Yes - General General: Alert and oriented X 3, No acute distress - HEENT HEENT: Atraumatic, PERRL, EOMI, Moist mucous membranes - Neck Neck: Supple, no meningeal sign, No bony TTP (No midline tenderness. There is posterior neck tenderness on the right and left. Reproduces her pain. No rash.), No JVD, No bruit - Cardiac Cardiac: RRR, Strong equal pulses - Respiratory Respiratory: No respiratory distress, Clear bilaterally - Abdomen Abdomen: Soft, Non tender, Non distended - Back Back: No CVA TTP, No spinal TTP - Derm Derm: Warm and dry - Extremities Extremities: No edema, No calf tenderness / cord - Neuro Neuro: Alert and oriented X 3, rag cutting machine tender 2-12 intact, No motor deficit, No sensory deficit, Normal speech, Other Eye Opening: Spontaneous Motor: Obeys Commands Verbal: Oriented GCS Score: 15 - Psych Psych: Normal mood, Normal affect Results - Vitals Vitals: Vital Signs - 24 hr 05/16/23 05/16/23 05/16/23 16:29 17:02 17:30 Temperature 36.8 C Heart Rate 82 74 78 Respiratory 16 15 15 Rate Blood Pressure 146/66 H 151/75 H 149/68 H O2 Saturation 98 96 93 05/16/23 05/16/23 18:30 19:30 Temperature Heart Rate 76 84 Respiratory 15 18 Rate Blood Pressure 133/59 H 110/79 O2 Saturation 97 97 Oxygen O2 Source Room air - Labs Labs: Laboratory Tests 05/16/23 05/16/23 17:07 17:07 WBC 16.3 H RBC 4.74 Hgb 13.4 Hct 42.1 MCV 88.8 MCH 28.3 MCHC 31.8 L RDW 13.7 Plt Count 292 MPV 9.0 Neut # (Auto) 12.8 H Lymph # (Auto) 1.3 L Warrick # (Auto) 0.8 Eos # (Auto) 1.3 H Baso # (Auto) 0.1 Absolute Nucleated RBC 0.00 Nucleated RBC % 0.0 Sodium 137 Potassium 4.3 Chloride 102 Carbon Dioxide 28 Anion Gap 7.0 BUN 19 Creatinine 1.0 Estimated GFR (MDRD) 55 L Glucose 140 H Calcium 9.5 Total Bilirubin 0.4 AST 23 ALT 26 Alkaline Phosphatase 116 Total Protein 7.4 Albumin 4.1 Globulin 3.3 Albumin/Globulin Ratio 1.2 Lipase 38 - Rads (name of study) ct Angio head and neck Relevant Findings:: Final report received, See rad report CT head without Relevant Findings:: Final report received, See rad report PD Medical Decision Making - ED course Complexity details: reviewed results, re-evaluated patient, considered differential, d/w patient, d/w family ED course: 68-year-old female with a headache and some paresthesias to the left fingertips also left-sided neck ache. No acute findings on CT angio head and neck. No acute findings on CT head. Patient was given droperidol and Benadryl. Headache resolved, paresthesias resolved. NIH stroke scale of 0. Appears to have been a complex migraine. Patient is well-appearing, nontoxic. Afebrile. Ambulating without difficulty. Patient states that she feels "great" on repeat evaluation. Patient and family counseled regarding signs and symptoms for which I believe and urgent re-evaluation would be necessary. Patient with good understanding of and agreement to plan and is comfortable going home at this time This document was made in part using voice recognition software. While efforts are made to proofread this document, sound alike and grammatical errors may occur. Departure - Departure Disposition: 01 Home, Self Care Clinical Impression: Migraine Qualifiers: Migraine type: unspecified Status migrainosus presence: without status migrainosus Intractability: not intractable Qualified Code(s): G43.909 - Migraine, unspecified, not intractable, without status migrainosus Condition: Good Instructions: ED Headache Migraine Follow-Up: Ciaran Samaniego MD [Primary Care Provider] - Within 1 week Comments: Please follow-up with your doctor for further care. Your CT scan and angiogram of your head and neck do not show any acute abnormalities. Your headache is resolved tonight as well as your other symptoms. It appears that you had a complex migraine tonight. Please return if you worsen. Forms: PCP List Discharge Date/Time: 05/16/23 19:43 NIHSS - Time Time: 17:00 - Level of Consciousness Level of consciousness: (0) Alert, Keenly responsive LOC Questions: (0) Answers both Q's correct LOC Commands: (0) Performs both correctly - Gaze Best Gaze: (0) Normal - Visual Visual: (0) No loss - Facial Palsy Facial Palsy: (0) Normal, symmetrical movement - Motor Arms (both separate) Motor Arm (right): (0) No drift Motor Arm (left): (0) No drift - Motor Legs (both separate) Motor Leg (right): (0) No drift Motor Leg (left): (0) No drift - Limb Ataxia Limb Ataxia: (0) Absent - Sensory Sensory: (0) Normal - Best Language Best Language: (0) No aphasia - Dysarthria Dysarthria: (0) Normal - Extinction and Inattention (formally neg Extinction and inattention: (0) No abnormality - Total Score/Results Total Score/Result: 0
[2023-05-16 17:22] LABS: BASOPHILS # (AUTO) 0.1 10^3/uL (0.0-0.1); BASOPHILS % (AUTO) 0.5 %; EOSINOPHILS # (AUTO) 1.3 10^3/uL (0.0-0.7); EOSINOPHILS % (AUTO) 8.2 %; HCT - HEMATOCRIT 42.1 % (37.0-47.0); HGB - HEMOGLOBIN 13.4 g/dL (12.0-16.0); LYMPHOCYTES # (AUTO) 1.3 10^3/uL (1.5-3.5); LYMPHOCYTES % (AUTO) 7.7 %; MEAN CORPUSCULAR HEMOGLOBIN 28.3 pg (27.0-31.0); MEAN CORPUSCULAR HGB CONC 31.8 g/dL (32.0-36.0); MEAN CORPUSCULAR VOLUME 88.8 fL (81.0-99.0); MONOCYTES # (AUTO) 0.8 10^3/uL (0.0-1.0); MONOCYTES % (AUTO) 4.6 %; NEUTROPHILS # (AUTO) 12.8 10^3/uL (1.5-6.6); NEUTROPHILS % (AUTO) 78.7 %; PLT - PLATELET COUNT 292 10^3/uL (130-450); RED BLOOD COUNT 4.74 10^6/uL (4.20-5.40); RED CELL DISTRIBUTION WIDTH 13.7 % (12.0-15.0); WHITE BLOOD COUNT 16.3 x10^3/uL (4.8-10.8)
[2023-05-16 17:33] LABS: ALBUMIN 4.1 g/dL (3.2-5.5)
[2023-05-16 17:49] LABS: ALBUMIN/GLOBULIN RATIO 1.2 (1.0-2.2); BILIRUBIN,TOTAL 0.4 mg/dL (0.2-1.0); CALCIUM 9.5 mg/dL (8.5-10.3); POTASSIUM 4.3 mmol/L (3.5-4.5); TOTAL PROTEIN 7.4 g/dL (6.4-8.9)
[2023-05-16] MEDS ORDERED: DROPERIDOL 5 MG/2 ML VIAL IVP STA (18:19)
[2023-05-16] MEDS ORDERED: diphenhydrAMINE INJ 50 MG/ML VIAL IVP STA (18:20)
--- NOTE | 2023-05-16 18:34 | CT Report ---
PROCEDURE: HEAD WO INDICATIONS: L sided headache and neck pain TECHNIQUE: Noncontrast 4.5 mm thick angled axial sections acquired from the foramen magnum to the vertex. For r adiation dose reduction, the following was used: automated exposure control, adjustment of mA and/or kV according to patient size. COMPARISON: CT head 06/23/2022. FINDINGS: Image quality: Excellent. CSF spaces: Basal cisterns are patent. No extra-axial fluid collections. Ventricles are normal in size and shape. Brain: No midline shift. No intracranial masses or hemorrhage. Cee-white matter interface is norm al. Skull and face: Calvarium and visualized facial bones are intact, without suspicious lesions. Sinuses: Visualized sinuses and mastoids are clear. IMPRESSION: No acute intracranial pathology. Reviewed by: Sam Marin MD on 05/16/2023 6:33 PM PST Approved by: Sam Marin MD on 05/16/2023 6:33 PM PST Station ID: [id number]
--- NOTE | 2023-05-16 18:41 | CT Report ---
PROCEDURE: CT Angio Head/Neck INDICATIONS: L sided headache and neck pain TECHNIQUE: After the administration of intravenous contrast, 1 mm thick sections acquired from the aortic arch t hrough the [place]. 3-dimensional hapwvni-qaceokxjy-xfkxrqjqsa (MIP) and/or volume renderin g reformats were acquired of the central intracranial vasculature and neck separately. For radiation dose reduction, the following was used: automated exposure control, adjustment of mA and/or kV acco rding to patient size. CONTRAST: 80 cc Omnipaque 300 COMPARISON: Same day noncontrast head CT. CT angiogram head and neck 06/28/2022. FINDINGS: Image quality: Diagnostic. HEAD CT: CSF Spaces: Basal cisterns are patent. No extra-axial fluid collections. Ventricles are normal in size and shape. Brain: The brain is within normal limits for age and scanning technique. Skull and face: Calvarium and visualized facial bones appear intact, without suspicious lesions. Sinuses: Visualized sinuses and mastoids are clear. HEAD CT ANGIOGRAPHY: Anterior circulation: Intracranial internal carotid arteries are normal in size and flow. The flow within the paired anterior cerebral arteries is normal and symmetric. The flow within the middle cer ebral arteries is normal and symmetric. The anterior communicating artery is seen. No aneurysms are seen. Posterior circulation: Visualized portions of the vertebral arteries demonstrate normal caliber, and join to form a normal appearing basilar artery. Flow within the posterior cerebral arteries is norm al and symmetric. No aneurysms are seen. NECK CT ANGIOGRAPHY: Carotid system: The great vessels demonstrate a conventional anatomy as they arise from the aortic a rch. The origins of the common carotid arteries appear patent. The common carotid arteries demonstr ate normal caliber and courses. The bifurcation regions are both widely patent. The internal caroti d arteries demonstrate normal calibers and courses. Approximately 50% stenosis at the left ICA origin . Mild calcified plaque. Posterior circulation: The origins of the vertebral arteries both appear widely patent. The more stout perior extracranial portions of both vertebral arteries also demonstrate normal courses and calibers. They join to form a normal appearing basilar artery. Soft tissues: Visualized neck soft tissues demonstrate no suspicious abnormalities. Bones: No suspicious bony lesions. Visualized cervical spine appears normally aligned. IMPRESSION: 1. No large vessel occlusion. 2. No critical stenosis. Approximately 50% stenosis at the left ICA origin. Consider further evaluation with duplex ultrasound. The estimate of stenosis included in the report of the imaging study was calculated using the NASCET method Reviewed by: Sam Marin MD on 05/16/2023 6:39 PM PST Approved by: Sam Marin MD on 05/16/2023 6:39 PM PST Station ID: [id number]
[2023-05-16 18:44] VITALS: O2SAT 97
[2023-05-16] MEDS ORDERED: iohexoL-300 100 ML VIAL IVP ONE (19:00)
[2023-05-16 19:47] VITALS: BP 110/79
== END 2023-05-16 19:43 | disposition home or self-care (01) ==
LOC: ED 16:11
DX: G43.909 Migraine, unspecified, not intractable, without status migrainosus (principal); E78.00 Pure hypercholesterolemia, unspecified; E03.9 Hypothyroidism, unspecified; Z79.899 Other long term (current) drug therapy; Z79.02 Long term (current) use of antithrombotics/antiplatelets; Z79.82 Long term (current) use of aspirin
CPT/HCPCS: 36415; 70450; 70496; 70498; 80053; 83690; 85025; 96374; 96375; 99283; 99284; J1200; Q9967

== ENCOUNTER 2024-01-06 06:41 | Emergency (ER) | payer MEDICARE, OTHER ==
[2024-01-06 07:08] VITALS: O2SAT 98
--- NOTE | 2024-01-06 07:09 | ED Physician Documentation ---
PD HPI BACK PAIN - Stated complaint Stated Complaint: BACK/LEG PX - Chief complaint Chief Complaint: Ext Problem - History obtained from History obtained from: Patient - History of Present Illness Timing - onset: Today (has chronic low back pain with increase last evening to today. No noted abrupt injury. takes regular pain meds for it. Had not run out. Ramirez had increeased pain at times and gets etra med but not change in baseline meds.), Last night Timing - details: Gradual onset, Still present, Waxing and waning Location: Lower, Right, Left Quality: Pain, Spasm, Aching Associated symptoms: No: Fever, Weakness, Numbness Contributing factors: Trauma (she uses walker but lost balance and fell to left side. No worse back pain then but hurt more later in day.) Similar symptoms before: Diagnosis (chronic back pain due to nervre rootimpingement. Sees back specialist. Had disc/nerve root injection recently that helped for few weeks. Will be seeing pt in next week or so to get nerve root ablation for the pain.) Review of Systems Constitutional: denies: Fever, Chills Musculoskeletal: reports: Back pain. 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 - Present Medications Home Medications: Ambulatory Orders Medication Instructions Recorded Confirmed Hyoscyamine Sulfate [Levsin-Sl] 0.125 mg SL TID #14 tab.subl 08/04/16 06/21/17 raNITIdine [Zantac] 150 mg PO DAILY #30 tablet 08/04/16 06/21/17 Aripiprazole [Abilify] 2 mg PO DAILY 06/21/17 Atorvastatin [Lipitor] 10 mg PO DAILY 06/21/17 Duloxetine HCl [Cymbalta] 1 cap PO DAILY 06/21/17 Levothyroxine [Synthroid] 1 cap PO DAILY 06/21/17 Topiramate [Topamax] 30 mg DAILY 06/21/17 06/21/17 Atorvastatin Calcium [Lipitor] 80 mg PO DAILY #30 tablet 06/23/22 Aspirin [[place] Aspirin EC] 81 mg PO DAILY #30 tab 06/28/22 Clopidogrel Bisulfate [Plavix] 75 mg PO DAILY #30 tab 06/28/22 Meloxicam [Mobic] 7.5 mg PO BID PRN #20 tablet 01/04/23 tiZANidine [Zanaflex] 4 mg PO Q8H PRN #15 tablet 01/04/23 - Allergies Allergies/Adverse Reactions: Allergies Allergy/AdvReac Type Severity Reaction Status Date / Time avocado Allergy Anaphylaxis Verified 01/06/24 06:53 mannitol [From Reclast] Allergy Emesis Verified 01/06/24 06:53 Penicillins Allergy Anaphylaxis Verified 01/06/24 06:53 phenytoin sodium * Allergy Anaphylaxis Verified 01/06/24 06:53 [From Dilantin] phenytoin sodium extended * Allergy Anaphylaxis Verified 01/06/24 06:53 [From Dilantin] Tetracyclines Allergy Unknown Verified 01/06/24 06:53 water for injection,sterile * Allergy Emesis Verified 01/06/24 06:53 [From Reclast] zoledronic acid Allergy Emesis Verified 01/06/24 06:53 [From Reclast] cephalexin monohydrate * AdvReac Rash Verified 01/06/24 06:53 [From Keflex] pentazocine lactate * AdvReac Edema Verified 01/06/24 06:53 [From Talwin] Sulfa (Sulfonamide AdvReac Rash Verified 01/06/24 06:53 Antibiotics) casting material Allergy Unknown Uncoded 01/06/24 06:53 - Social History Does the pt smoke?: No Smoking Status: Never smoker Does the pt drink ETOH?: No Does the pt have substance abuse?: No - Immunizations Immunizations are current?: Yes - POLST Patient has POLST: No Results - Vitals Vitals: Vital Signs - 24 hr 01/06/24 01/06/24 06:45 08:39 Temperature 36.4 C L Heart Rate 73 78 Respiratory 16 18 Rate Blood Pressure 126/59 L 132/82 H O2 Saturation 98 98 Oxygen O2 Source Room air PD Medical Decision Making - ED course Complexity details: reviewed old records (looked up her Rx records and verified the baseline pain meds she states is prescribed and they corroborate. ), re- evaluated patient (improved with IM meds and she feels pain is lessened enough. Declines further meds. ), considered differential (exac of chronic back pain due to fall to side losing balance yesterday. Not direct impact. No change in baseline neuro symtpoms. No red flags per se. Can give extra dose of meds IM for improvement back to closer to baseline daily pain. ), d/w patient Departure - Departure Disposition: 01 Home, Self Care Clinical Impression: Acute exacerbation of chronic low back pain Sciatica Qualifiers: Laterality: left Qualified Code(s): M54.32 - Sciatica, left side Condition: Stable Record reviewed to determine appropriate education?: Yes Instructions: ED Sciatica Follow-Up: Ciaran Samaniego MD [Primary Care Provider] - Comments: Continue with your usual medications at home. You could add an short-term some muscle relaxants that you have and also add lidocaine patches to the area. Commonly these are modestly effective for chronic sciatic and nerve root pain but since there was a mild fall yesterday, there could be some element of muscle spasms that may be helped with these added treatments over the next several days. Follow-up with your back specialist later this week as planned. Forms: PCP List Discharge Date/Time: 01/06/24 08:39
[2024-01-06] MEDS: dexAMETHasone 4 MG TABLET PO STA (08:06)
[2024-01-06] MEDS: LIDOCAINE PATCH 5% TOP STA (08:06)
[2024-01-06] MEDS: KETOROLAC 15 MG/ML VIAL IM STA (08:07)
[2024-01-06] MEDS: HYDROmorphone 2 MG/ML VIAL IM STA (08:07)
[2024-01-06 08:43] VITALS: BP 132/82
== END 2024-01-06 08:39 | disposition home or self-care (01) ==
LOC: ED 06:41
DX: M54.50 Low back pain, unspecified (principal); G89.29 Other chronic pain; M54.32 Sciatica, left side; E78.00 Pure hypercholesterolemia, unspecified; E03.9 Hypothyroidism, unspecified; G40.909 Epilepsy, unspecified, not intractable, without status epilepticus; Z79.899 Other long term (current) drug therapy
CPT/HCPCS: 96372; 99283; A9270; J1170; J8540

== ENCOUNTER 2024-02-12 19:01 | Emergency (ER) | payer MEDICARE, OTHER ==
--- NOTE | 2024-02-12 19:24 | ED Physician Documentation ---
History of Present Illness - Stated complaint Stated Complaint: HIGH BP/HEAD PX/LEG PX - Chief complaint Chief Complaint: General - History obtained from History obtained from: Patient - Additonal information Additional information: HPI from patient. Patient states that she has chronic sciatic low back pain that radiates down both of her legs for which she sees a specialist. She says she had significant relief 3 months ago after having localized injections to the area by the specialist, but that over the past 1 to 2 weeks, the pain has gradually been returning. Patient was evaluated a little over a month ago in this emergency department for this back pain. Her back pain is only one of her complaints today. She also noted high blood pressure readings at home. She says the readings were as high as 136/118. She also notes cephalgia. She tells me "it is not a headache", elaborating that she feels it is not just an aching pain. However, she cannot further articulate this discomfort only to say that it is quite atypical for her, although not the worst headache she has ever had. During review of systems, she then tells me that 2 days ago she had an episode lasting approximately 90 minutes of left-sided weakness, numbness. She says she had visual changes during this episode which she finds difficult describe but consisted of the left-sided visual changes of some sort. She says she felt her left face was drooping, as well. The symptoms have entirely resolved. 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 - Present Medications Home Medications: Ambulatory Orders Medication Instructions Recorded Confirmed Hyoscyamine Sulfate [Levsin-Sl] 0.125 mg SL TID #14 tab.subl 08/04/16 06/21/17 raNITIdine [Zantac] 150 mg PO DAILY #30 tablet 08/04/16 06/21/17 Aripiprazole [Abilify] 2 mg PO DAILY 06/21/17 Atorvastatin [Lipitor] 10 mg PO DAILY 06/21/17 Duloxetine HCl [Cymbalta] 1 cap PO DAILY 06/21/17 Levothyroxine [Synthroid] 1 cap PO DAILY 06/21/17 Topiramate [Topamax] 30 mg DAILY 06/21/17 06/21/17 Atorvastatin Calcium [Lipitor] 80 mg PO DAILY #30 tablet 06/23/22 Aspirin [[place] Aspirin EC] 81 mg PO DAILY #30 tab 06/28/22 Clopidogrel Bisulfate [Plavix] 75 mg PO DAILY #30 tab 06/28/22 Meloxicam [Mobic] 7.5 mg PO BID PRN #20 tablet 01/04/23 tiZANidine [Zanaflex] 4 mg PO Q8H PRN #15 tablet 01/04/23 - Allergies Allergies/Adverse Reactions: Allergies Allergy/AdvReac Type Severity Reaction Status Date / Time avocado Allergy Anaphylaxis Verified 02/12/24 19:05 mannitol [From Reclast] Allergy Emesis Verified 02/12/24 19:05 Penicillins Allergy Anaphylaxis Verified 02/12/24 19:05 phenytoin sodium * Allergy Anaphylaxis Verified 02/12/24 19:05 [From Dilantin] phenytoin sodium extended * Allergy Anaphylaxis Verified 02/12/24 19:05 [From Dilantin] Tetracyclines Allergy Unknown Verified 02/12/24 19:05 water for injection,sterile * Allergy Emesis Verified 02/12/24 19:05 [From Reclast] zoledronic acid Allergy Emesis Verified 02/12/24 19:05 [From Reclast] cephalexin monohydrate * AdvReac Rash Verified 02/12/24 19:05 [From Keflex] pentazocine lactate * AdvReac Edema Verified 02/12/24 19:05 [From Talwin] Sulfa (Sulfonamide AdvReac Rash Verified 02/12/24 19:05 Antibiotics) casting material Allergy Unknown Uncoded 02/12/24 19:05 - Social History Does the pt smoke?: No Smoking Status: Never smoker Does the pt drink ETOH?: No Does the pt have substance abuse?: No - Immunizations Immunizations are current?: Yes - POLST Patient has POLST: No PD ED PE NORMAL - Vitals Vital signs reviewed: Yes - General General: Alert and oriented X 3, No acute distress, Well developed/nourished - HEENT HEENT: PERRL, EOMI - Neck Neck: Supple, no meningeal sign - Cardiac Cardiac: RRR, No murmur, No gallop, No rub - Respiratory Respiratory: No respiratory distress, Clear bilaterally - Abdomen Abdomen: Soft, Non tender - Extremities Extremities: No edema - Neuro Neuro: Alert and oriented X 3, 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1 Absolute Nucleated RBC 0.00 Nucleated RBC % 0.0 Sodium 135 Potassium 3.7 Chloride 100 L Carbon Dioxide 27 Anion Gap 8.0 BUN 20 Creatinine 0.9 Estimated GFR (MDRD) 62 L Glucose 215 H Calcium 9.7 Total Bilirubin 0.2 AST 13 ALT 19 Alkaline Phosphatase 84 Total Protein 7.1 Albumin 4.2 Globulin 2.9 Albumin/Globulin Ratio 1.4 Lipase 16 - Rads (name of study) CTH Relevant Findings:: Prelim report reviewed, See rad report CTA head/neck Relevant Findings:: Prelim report reviewed, See rad report PD Medical Decision Making - ED course Complexity details: reviewed results, re-evaluated patient, considered differential, d/w patient ED course: No concerning nor diagnostic findings on CBC, ER abdominal panel (mild hyperglyc emia noted but patient is diabetic). No concerning findings on CTH, CTA head/neck (mild left carotid stenosis noted). Patient's description of event 2 days ago with complete resolution is s/o TIA. Patient is given IV toradol, dilaudid, and decadron early in ED stay and she subsequently reports complete resolution of her cephalgia and back pain without recurrence for remainder of stay. Results d/w patient, return precautions reviewed, advised to seek follow up with PCP next available appointment Departure - Departure Disposition: 01 Home, Self Care Clinical Impression: TIA (transient ischemic attack) Sciatica Qualifiers: Laterality: bilateral Qualified Code(s): M54.31 - Sciatica, right side Cephalgia Qualifiers: Headache type: unspecified Headache chronicity pattern: acute headache Intractability: not intractable Qualified Code(s): R51.9 - Headache, unspecified Condition: Good Instructions: ED Cephalgia Unspecified, ED Sciatica, ED Transient Ischemic Attack Follow-Up: Ciaran Samaniego MD [Primary Care Provider] - Comments: There were no concerning findings nor diagnostic findings on tonight's test, include the blood tests and the CT scans of your head and neck. As we discussed, the only abnormality on the CT scans was mild stenosis (narrowing) of the left carotid artery. The degree of narrowing is not nearly enough to explain symptoms nor cause for immediate concern. However, it is worth mentioning's findings to primary care provider when you follow-up with them. The cause of your symptoms is not apparent at this time. Your description of the event 2 days ago does sound suggestive of a TIA (transient ischemic attack; within this discharge packet is a brief review of this diagnosis). Follow up with your primary care provider this week as scheduled Discharge Date/Time: 02/12/24 23:45
[2024-02-12] MEDS ORDERED: iohexoL-300 100 ML VIAL ONE (20:19)
[2024-02-12] MEDS: HYDROmorphone 1 MG/ML CARPUJECT IVP STA (20:23)
[2024-02-12] MEDS: DEXAMETHASONE 10 MG/ML VIAL IVP STA (20:23)
[2024-02-12] MEDS: KETOROLAC 15 MG/ML VIAL IVP STA (20:24)
[2024-02-12 20:25] LABS: BASOPHILS # (AUTO) 0.1 10^3/uL (0.0-0.1); BASOPHILS % (AUTO) 0.5 %; EOSINOPHILS # (AUTO) 0.4 10^3/uL (0.0-0.7); EOSINOPHILS % (AUTO) 3.8 %; HGB - HEMOGLOBIN 13.4 g/dL (12.0-16.0); LYMPHOCYTES # (AUTO) 2.9 10^3/uL (1.5-3.5); LYMPHOCYTES % (AUTO) 26.2 %; MEAN CORPUSCULAR HEMOGLOBIN 29.1 pg (27.0-31.0); MEAN CORPUSCULAR HGB CONC 33.5 g/dL (32.0-36.0); MEAN CORPUSCULAR VOLUME 86.8 fL (81.0-99.0); MEAN PLATELET VOLUME 8.8 fL (7.9-10.8); MONOCYTES # (AUTO) 0.7 10^3/uL (0.0-1.0); NEUTROPHILS # (AUTO) 6.9 10^3/uL (1.5-6.6); PLT - PLATELET COUNT 389 10^3/uL (130-450); RED BLOOD COUNT 4.61 10^6/uL (4.20-5.40); RED CELL DISTRIBUTION WIDTH 13.3 % (12.0-15.0); WHITE BLOOD COUNT 10.9 x10^3/uL (4.8-10.8)
[2024-02-12 20:45] LABS: ALBUMIN 4.2 g/dL (3.2-5.5); ALBUMIN/GLOBULIN RATIO 1.4 (1.0-2.2); BILIRUBIN,TOTAL 0.2 mg/dL (0.2-1.0); CALCIUM 9.7 mg/dL (8.5-10.3); CREATININE 0.9 mg/dL (0.6-1.3); POTASSIUM 3.7 mmol/L (3.5-4.5); TOTAL PROTEIN 7.1 g/dL (6.4-8.9)
[2024-02-12] MEDS: iohexoL-300 100 ML VIAL IVP ONE (21:05)
--- NOTE | 2024-02-12 22:00 | CT Report ---
PROCEDURE: Head WO INDICATIONS: suspected TIA 2 days ago TECHNIQUE: Noncontrast 4.5 mm thick angled axial sections acquired from the foramen magnum to the vertex. For r adiation dose reduction, the following was used: automated exposure control, adjustment of mA and/or kV according to patient size. COMPARISON: 05/16/2023 FINDINGS: Image quality: Excellent. CSF spaces: Basal cisterns are patent. No extra-axial fluid collections. Ventricles are normal in size and shape. Brain: No midline shift. No intracranial masses or hemorrhage. Cee-white matter interface is norm al. Skull and face: Calvarium and visualized facial bones are intact, without suspicious lesions. Hyper ostosis frontalis interna. Sinuses: Visualized sinuses and mastoids are clear. IMPRESSION: No acute intracranial pathology. Reviewed by: Katie Henson MD on 02/12/2024 9:58 PM PDT Approved by: Katie Henson MD on 02/12/2024 9:58 PM PDT Station ID: [id number]
--- NOTE | 2024-02-12 23:04 | CT Report ---
PROCEDURE: Angio Head/Neck INDICATIONS: likely TIA 2 days ago TECHNIQUE: After the administration of intravenous contrast, 1 mm thick sections acquired from the aortic arch t hrough the [place]. 3-dimensional ghaegdr-yzelfamqa-ygyzlyrewb (MIP) and/or volume renderin g reformats were acquired of the central intracranial vasculature and neck separately. For radiation dose reduction, the following was used: automated exposure control, adjustment of mA and/or kV acco rding to patient size. CONTRAST: OMNI 300, 80mls COMPARISON: None. FINDINGS: Image quality: Diagnostic. HEAD CT: CSF Spaces: Basal cisterns are patent. No extra-axial fluid collections. Ventricles are normal in size and shape. Brain: No significant abnormality is seen for scanning technique. Skull and face: Calvarium and visualized facial bones appear intact, without suspicious lesions. Sinuses: Visualized sinuses and mastoids are clear. HEAD CT ANGIOGRAPHY: Anterior circulation: Intracranial internal carotid arteries are normal in size and flow. The flow within the paired anterior cerebral arteries is normal and symmetric. The flow within the middle cer ebral arteries is normal and symmetric. The anterior communicating artery is seen. No aneurysms are seen. Posterior circulation: Visualized portions of the vertebral arteries demonstrate normal caliber, and join to form a normal appearing basilar artery. Flow within the posterior cerebral arteries is norm al and symmetric. No aneurysms are seen. NECK CT ANGIOGRAPHY: Carotid system: The great vessels demonstrate a conventional anatomy as they arise from the aortic a rch. The origins of the common carotid arteries appear patent. Mild noncalcified stenosis at the le ft ICA origin. The common carotid arteries demonstrate normal caliber and courses. The bifurcation r egions are both widely patent. The internal carotid arteries demonstrate normal calibers and courses . Posterior circulation: The origins of the vertebral arteries both appear widely patent. The more stout perior extracranial portions of both vertebral arteries also demonstrate normal courses and calibers. They join to form a normal appearing basilar artery. Soft tissues: Visualized neck soft tissues demonstrate no suspicious abnormalities. Bones: No suspicious bony lesions. Visualized cervical spine appears normally aligned. IMPRESSION: No significant intracranial arterial abnormality is seen. No significant abnormality is seen within the arteries of the neck. Mild left ICA origin stenosis. The estimate of stenosis included in the report of the imaging study was calculated using the NASCET method Reviewed by: Katie Henson MD on 02/12/2024 11:02 PM PDT Approved by: Katie Henson MD on 02/12/2024 11:02 PM PDT Station ID: [id number]
[2024-02-12 23:47] VITALS: BP 140/82; O2SAT 96
== END 2024-02-12 23:45 | disposition home or self-care (01) ==
LOC: ED 19:01
DX: G45.9 Transient cerebral ischemic attack, unspecified (principal); M54.31 Sciatica, right side; R51.9 Headache, unspecified; I65.22 Occlusion and stenosis of left carotid artery
CPT/HCPCS: 36415; 70450; 70496; 70498; 80053; 83690; 85025; 96374; 99284; J1170; Q9967